=== PATIENT | female | born 1950 | race Caucasian/White ===

== ENCOUNTER 2020-08-16 11:16 | Outpatient (REF) | payer MEDICARE, SELFPAY ==
--- NOTE | 2020-08-16 | MM_ITS ---
EXAMINATION: MM SCREENING DIGITAL BREAST TOMOSYNTHESIS, BILATERAL CLINICAL INFORMATION: Screening. Asymptomatic. Status post ultrasound-guided right breast biopsy 06/16/2017 (Cores of benign breast tissue with stromal fibrosis, pseudocyst with surrounding fat necrosis, and granulomatous inflammation), Subsequent benign INTACT stereotactic biopsy 07/15/2017 same area (benign breast tissue with stromal fibrosis, peripheral biopsy site reaction, and granulomatous inflammation. Macrocyst with papillary hyperplasia, stromal fibrosis, and fat necrosis). The lifetime risk of breast cancer based on the Tyrer-Cuzick Model is 3%. COMPARISON: Mammography: 08/11/2019, 08/09/2018, 02/03/2018, 07/05/2017, 06/16/2017, 06/09/2017, 05/22/2016 TECHNIQUE: Digital breast tomosynthesis is performed in both the craniocaudal and mediolateral oblique views along with computer-aided detection (CAD). Synthesized 2D images are generated from the tomosynthesis. FINDINGS: There are scattered areas of fibroglandular density (ACR BI-RADS breast composition Category b). There are postbiopsy changes again seen 1:00 right breast with minor scarring, biopsy clip markers, and a few fine metallic fragments from the INTACT device basket. Neither breast shows interval mass or architectural abnormality or abnormal calcifications. No significant changes. MM/MM tomosynthesis screening BI IMPRESSION: No significant changes from prior studies. ASSESSMENT: BI-RADS 2: Benign RECOMMENDATION: Routine annual mammography screening. This patient's information was entered into a reminder system with a target due date for their next mammogram.
== END 2020-08-16 11:17 | disposition home or self-care (01) ==
LOC: HO.MAMMO 11:16
PROVIDERS: PCP Internal Medicine; Visit Provider Internal Medicine
DX: Z12.31 Encounter for screening mammogram for malignant neoplasm of breast (principal)
CPT/HCPCS: 77063; 77067

== ENCOUNTER 2020-11-01 07:57 | Outpatient (REF) | payer MEDICARE, SELFPAY ==
[2020-11-01 09:23] LABS: MANUAL DIFF FLAG NO
[2020-11-01 09:32] LABS: Basophils Percent Auto 0.6 % (0-2); Eosinophils Absolute Auto 0.2 X10*3/uL (0.0-0.4); Eosinophils Percent Auto 4.5 % (0-4); Hemoglobin 13.2 g/dl (12.0-16.0); Imm Gran Abs Auto 0.02 X10*3/uL (0.00-0.03); Imm Gran Pct Auto 0.4 % (0.0-0.4); Lymphocytes Absolute Auto 1.3 X10*3/uL (1.2-4.9); Lymphocytes Percent Auto 24.7 % (20-40); Mean Corpuscular Hemoglobin 33.2 pg (27.0-33.0); Mean Corpuscular Volume 100.5 fL (80-98); Mean Platelet Volume 10.2 fL (9.4-12.3); Monocytes Absolute Auto 0.6 X10*3/uL (0.1-1.2); Monocytes Percent Auto 10.5 % (2-11); Neutrophils Absolute Auto 3.2 X10*3/uL (2.0-8.3); Neutrophils Percent Auto 59.3 % (45-73); Platelet Count 209 X10*3/uL (160-400); Red Blood Count 3.98 X10*6/uL (4.20-5.50); Red Cell Distribution Width 12.7 % (11.0-16.0); White Blood Count 5.4 X10*3/uL (4.8-10.8)
[2020-11-01 09:41] LABS: Estimated Average Glucose 128 mg/dL; Hemoglobin A1C 148.1671 umol/L; Hemoglobin A1c % 6.1 %
[2020-11-01 10:16] LABS: Creatinine Urine 76.71 mg/dL; Microalbum/Creatinine Ratio Ur 16.9 ug/mg cr
[2020-11-01 10:17] LABS: Alanine Aminotransferase 11 U/L (0-31); Albumin Level 3.9 g/dL (3.5-5.0); Alkaline Phosphatase 58 U/L (39-117); Anion Gap 12 (12-20); Aspartate Amino Transferase 17 U/L (5-31); Bilirubin Total 0.4 mg/dL (0.0-1.0); Blood Urea Nitrogen 18 mg/dL (9-16); Calcium 8.6 mg/dL (8.4-10.2); Carbon Dioxide 28 mmol/L (22-29); Chloride 107 mmol/L (96-108); Cholesterol 134 mg/dL; Estimated Glomerular Filt Rate > 60; Glucose Random 133 mg/dL (60-115); HDL Cholesterol 57 mg/dL; LDL Cholesterol Calculated 65 mg/dl; Potassium 4.3 mmol/L (3.3-5.1); Sodium 143 mmol/L (135-145); Total Protein 5.9 g/dL (6.5-8.0); Triglycerides 63 mg/dL
[2020-11-01 10:40] LABS: Free T4 (Free Thyroxine) 1.01 ng/dL (0.71-1.85); Thyroid Stimulating Hormone 0.39 uIU/mL (0.32-4.0); Vitamin D 25-OH Total 24.1 ng/mL (>30)
[2020-11-01 10:45] LABS: Folate 7.4 ng/mL (> or = 4.0); Vitamin B12 1649 pg/mL (200-900)
== END 2020-11-01 07:58 | disposition home or self-care (01) ==
LOC: HO.LAB 07:57
PROVIDERS: PCP Internal Medicine; Visit Provider Internal Medicine
DX: I10 Essential (primary) hypertension (principal); I48.92 Unspecified atrial flutter; E11.65 Type 2 diabetes mellitus with hyperglycemia; E78.00 Pure hypercholesterolemia, unspecified
CPT/HCPCS: 36415; 80053; 80061; 82043; 82306; 82607; 82746; 83036; 84439; 84443; 85025

== ENCOUNTER → 2020-11-05 09:25 | Outpatient (REF) | payer MEDICARE, SELFPAY ==
--- NOTE | 2020-11-05 09:30 | CA_ITS ---
Transthoracic Echocardiogram Patient (Last, First, Middle): Kaylee Amaral E Gender: Female Date of : 1950 Age: 70 Procedure Date: 11/05/2020 Procedure Type: Transthoracic Echocardiogram Location: OP Height: 152.4 cm Weight: 72.58 kg BSA: 1.70 m2 Heart Rate: bpm BP: 128 / 72 mmHg Assurance Officer: GEENA Referring MD: Harish Petersen MD Symptoms: I48.92 PAF Study Quality: Good ECG Rhythm: Sinus Conclusions: - The left ventricular systolic function is normal. The visually estimated ejection fraction is between 60-65%. - The left atrium is moderately dilated. - No obvious valvular pathology seen on this study. Findings Left Ventricle Normal left ventricular cavity size. There is normal left ventricular wall thickness. The left ventricular systolic function is normal. The visually estimated ejection fraction is between 60-65%. There is no evidence of regional wall motion abnormalities. Evidence suggests grade I (mild) diastolic dysfunction. Right Ventricle Normal right ventricular cavity size and systolic function. Atria The left atrium is moderately dilated. The right atrium is normal in size. Aortic Valve There is a normal trileaflet aortic valve. There is no aortic valve stenosis. There is no aortic valve regurgitation. Mitral Valve The mitral valve appears normal. There is trace mitral valve regurgitation. There is no mitral valve stenosis. Pulmonic Valve The pulmonic valve was not well visualized. Tricuspid Valve Normal tricuspid valve structure. There is trace tricuspid valve regurgitation. The pulmonary artery systolic pressure is normal. Great Vessels The aortic annulus, sinuses of valsalva, and asc aorta are normal in size. Venous The inferior vena cava is normal in size and collapses greater than 50% with inspiration. Pericardium/Pleural There is no evidence of pericardial effusion. Prior Study Comparison Changes noted compared to prior study dated: 09/29/3017. PFO described in last study but not well visualized in current study. Recommendations, Care & Conclusions No obvious valvular pathology seen on this study. Measurements 2D Linear Measurements IVSd: 0.90 0.6-0.9/0.6-1.0 cm LVIDd: 5.10 3.9-5.3/4.2-5.9 cm LVIDd Index: 3.00 2.4-3.2/2.2-3.1 cm/m2 LVIDs: 3.20 2.0-3.6 cm LVPWd: 1.04 0.7-1.1 cm Ao Root: 2.60 2.1-3.5 cm LA Diam: 3.60 2.7-3.8/3.0-4.0 cm LAIDs Index: 2.12 1.5-2.3 cm/m2 LV Mass: 224.14 67-162/88-224 g LV Mass Index: 131.85 43-95/49-115 g/m2 LVOT Diam: 2.10 3.0+(-)1.3 cm 2D Systolic Function EF 4C: 61.90 >55% EF 2C: 63.30 >55% EF BiP: 63.30 >55% Mitral Valve MV Pk E: 0.55 MV PK A: 0.35 MV Decel Time: 313.00 E/A: 1.60 E'Lateral: 6.85 E'Medial: 5.87 E/E' Med: 9.30 E/E' Lat: 8.00 PHT: 92.00 MVA PHT: 2.39 Decel [place]: 1.74 Aortic Valve AoV Pk Sundeep: 1.21 AoV Pk Grad: 6.00 LVOT LVOT Pk Sundeep: 0.98 LVOT Mn Sundeep: 0.59 LVOT VTI: 0.22 LVOT Pk Grad: 4.00 LVOT Mn Grad: 2.00 LVOT Diam: 2.10 LVOT Area: 3.46 Diastolic Function MV Pk E: 0.55 MV Pk A: 0.35 E/A: 1.60 E'Medial: 5.87 E/E' Med: 9.30 E' Laterial: 6.85 E/E' Lat: 8.00 Tricuspid Valve TR Pk Sundeep: 2.58 TR Pk Grad: 27.00 RA Press: 3.00 RVSP: 30.00 Great Vessels Aorta Ao Root-2D: 2.60 2.0-3.7 cm Ao Asc: 2.90 2.1-3.4 cm Updated in Other Vendor System with Status of Final Mark Bhatia MD electronically signed on 11/05/2020 5:52:34 PM with status of Final
== END ==
LOC: HO.CARD 09:25
PROVIDERS: PCP Internal Medicine; Visit Provider Internal Medicine Cardiovascular Disease
DX: I48.92 Unspecified atrial flutter (principal)
CPT/HCPCS: 93306

== ENCOUNTER → 2020-11-19 08:40 | Outpatient (BNVA) | payer MEDICARE, SELFPAY | PROVIDERS: PCP Internal Medicine; Visit Provider Internal Medicine Cardiovascular Disease | DX: I48.92 Unspecified atrial flutter (principal); I10 Essential (primary) hypertension; F17.200 Nicotine dependence, unspecified, uncomplicated; Z71.6 Tobacco abuse counseling; Z79.899 Other long term (current) drug therapy | CPT/HCPCS: 93005; 99212 ==

== ENCOUNTER → 2021-05-09 08:55 | Outpatient (BNVA) | payer MEDICARE, SELFPAY | PROVIDERS: PCP Internal Medicine; Referring Provider Internal Medicine; Visit Provider Internal Medicine Cardiovascular Disease | DX: R00.1 Bradycardia, unspecified (principal) | CPT/HCPCS: 93005 ==

== ENCOUNTER 2021-09-03 11:03 | Outpatient (REF) | payer MEDICARE, SELFPAY ==
--- NOTE | ~2021-09-03 | MM_ITS ---
EXAMINATION: MM SCREENING DIGITAL BREAST TOMOSYNTHESIS, BILATERAL CLINICAL INFORMATION: Screening. Asymptomatic. Benign right ultrasound-guided biopsy 06/16/2017 for architectural changes. Subsequent benign INTACT stereotactic biopsy 07/15/2017 same area. The lifetime risk of breast cancer based on the Tyrer-Cuzick Model is 3%. COMPARISON: Mammography: 08/16/2020, 08/11/2019, 08/09/2018 TECHNIQUE: Digital breast tomosynthesis is performed in both the craniocaudal and mediolateral oblique views along with computer-aided detection (CAD). Synthesized 2D images are generated from the tomosynthesis. Additional right CC view is provided. FINDINGS: There are scattered areas of fibroglandular density (ACR BI-RADS breast composition Category b). Parenchymal pattern is similar to prior exams. There is no developing density or interval architectural abnormality, mass, or abnormal calcifications. There is a dermal lesion overlying the upper outer left breast on MLO view similar to prior study. Dermal lesion again noted posterior medial right breast. There are postbiopsy changes again seen central posterior inner right breast with 2 clip markers and some punctate metallic fragments from the INTACT device basket. MM/MM tomosynthesis screening BI IMPRESSION: No significant changes from prior exams. ASSESSMENT: BI-RADS 2: Benign RECOMMENDATION: Routine annual mammography screening. This patient's information was entered into a reminder system with a target due date for their next mammogram.
== END 2021-09-03 11:04 | disposition home or self-care (01) ==
LOC: HO.MAMMO 11:03
PROVIDERS: PCP Internal Medicine; Visit Provider Internal Medicine
DX: Z12.31 Encounter for screening mammogram for malignant neoplasm of breast (principal)
CPT/HCPCS: 77063; 77067

== ENCOUNTER 2021-09-13 13:41 | Outpatient (REF) | payer MEDICARE, SELFPAY ==
--- NOTE | ~2021-09-13 | CT_ITS ---
EXAMINATION: CT CHEST SCREENING CLINICAL INFORMATION: Smoking history. 58 pack-year history. Quit 1 year ago. COMPARISON: Previous chest x-ray May 2017. TECHNIQUE: Multidetector volumetric CT imaging of the chest is performed without contrast using low dose technique. Additional 2D coronal and sagittal reformatted images and axial 3D maximum intensity projection (MIP) images are generated on the CT workstation. This CT examination was performed using dose optimization techniques as appropriate, variously including the following: *Automated exposure control *Adjustment of mA and/or kV according to patient size (this includes techniques or standardized protocols for targeted exams where dose is matched to indication/reason for exam; i.e. extremities or head) *Use of iterative reconstruction technique DLP: 63 mGy-cm FINDINGS: LUNGS: There is evidence of mild paraseptal emphysema. There is a 3 mm peripheral or subpleural right lower lobe nodule adjacent to the major fissure axial image 313 image 5. There is a 7 mm ground-glass area or segment of the right upper lobe near the major fissure axial image 179 series 5. On sagittal and coronal reconstructed images this appears linear and may represent scarring or subsegmental atelectasis. MEDIASTINUM: There is mild coronary artery and aortic calcification. The heart size is normal. The thoracic aorta is normal in caliber. There are no enlarged hilar or mediastinal lymph nodes. The visualized thyroid gland is unremarkable. PLEURA: There is no pleural effusion. No pleural mass or thickening. AXILLA: No lymphadenopathy. UPPER ABDOMEN: Unremarkable. OSSEOUS STRUCTURES: There are degenerative changes of the spine. CT/CT lung screening IMPRESSION: Mild paraseptal emphysema. Small pulmonary nodule or micronodule. Probable linear scarring or subsegmental atelectasis in the posterior segment of the right upper lobe near the major fissure. Mild coronary artery calcifications. ASSESSMENT: Lung-RADS category 2: Benign. RECOMMENDATION: Annual low-dose chest CT follow-up.
== END 2021-09-13 13:42 | disposition home or self-care (01) ==
LOC: HO.CT 13:41
PROVIDERS: Visit Provider Physician Assistant Medical
DX: Z87.891 Personal history of nicotine dependence (principal)
CPT/HCPCS: 71271; G0296

== ENCOUNTER 2021-10-10 10:16 | Outpatient (REF) | payer MEDICARE, SELFPAY ==
--- NOTE | ~2021-10-10 | MM_ITS ---
EXAMINATION: BONE DENSITOMETRY CLINICAL INDICATION: Other specified disorders of bone density and structure, other site. COMPARISON: Previous BD dated 09/13/2015 and baseline BD dated 09/24/2006. TECHNIQUE: Using a [employer] DXA System (software version: 13.1) manufactured by [employer], dual-energy x-ray absorptiometry was performed of the lumbar spine and left hip. The images are of good technical quality. Summary results are attached. FINDINGS: AP SPINE L1-L3 (excluding L4): The data of L1-L4 has been changed to exclude the L4 vertebral body, because hardware at this level may cause overestimation of lumbar spine density. Current: BMD 2.282 g/cm2, Z-score 10.7, T-score 9.3, normal, 20.2% increase from previous, 41.0% increase from baseline (<5% change is not significant). Prior: BMD 1.898 g/cm2. Baseline: BMD 1.618 g/cm2. LEFT FEMUR, NECK: Current: BMD 1.195 g/cm2, Z-score 2.8, T-score 1.1, normal. Prior: BMD 1.252 g/cm2. Baseline: BMD 1.123 g/cm2. LEFT FEMUR, TOTAL: Current: BMD 1.072 g/cm2, Z-score 2.0, T-score 0.5, normal, 10.8% decrease from previous, 5.7% decrease from baseline (<5% change is not significant). Prior: BMD 1.202 g/cm2. Baseline: BMD 1.137 g/cm2. IDENTIFIED RISK FACTORS: Early menopause, secondary osteoporosis, height loss, family history (parental hip fracture), hysterectomy, unilateral oophorectomy. HISTORY OF FRACTURE: None listed. MEDICATIONS: Calcium supplements or multivitamin, vitamin D. MM/XR DEXA axial skeleton IMPRESSION: 1. DIAGNOSIS: Normal bone density based on the lowest T-score value of 0.5 in the total femur applying World Health Organization criteria. 2. 10-YEAR FRACTURE RISK PREDICTION, FRAX: Major osteoporotic fracture (clinical spine, forearm, hip or shoulder) 7.4%. Hip fracture 0.6%. 3. Treatment Recommendations: NOF guidelines recommend consideration for treatment in postmenopausal women and men age 50 and older presenting with the following: -A hip or vertebral (clinical or morphometric) fracture. -T-score less than or equal to -2.5 at the femoral neck or spine after appropriate evaluation to exclude secondary causes. -Low bone mass at the hip or spine and a 10-year fracture probability by FRAX of greater than or equal to 3% for hip fracture or greater than or equal to 20% for major osteoporotic fracture based on the [place] adapted WHO algorithm. 4. Other Recommendations: All treatment decisions require clinical judgment and consideration of individual patient factors, including patient preferences, comorbidities, previous drug use, risk factors not captured in the FRAX model (e.g. frailty, falls, vitamin D deficiency, increased bone turnover, interval significant decline in bone density) and possible under or overestimation of fracture risk by FRAX. FUTURE SCAN RECOMMENDATION: People with diagnosed cases of osteoporosis or at high risk for fracture should have regular bone mineral density tests. For patients eligible for Medicare, routine testing is allowed once every 2 years. The testing frequency can be increased to one year for patients who have rapidly progressing disease, those who are receiving or discontinuing medical therapy to restore bone mass, or have additional risk factors.
== END 2021-10-10 10:17 | disposition home or self-care (01) ==
LOC: HO.MAMMO 10:16
PROVIDERS: Visit Provider Internal Medicine
DX: Z13.820 Encounter for screening for osteoporosis (principal); M85.80 Other specified disorders of bone density and structure, unspecified site; Z78.0 Asymptomatic menopausal state; Z79.899 Other long term (current) drug therapy
CPT/HCPCS: 77080

== ENCOUNTER 2021-11-01 08:42 | Outpatient (REF) | payer MEDICARE, SELFPAY ==
[2021-11-01 09:17] LABS: MANUAL DIFF FLAG NO
[2021-11-01 09:54] LABS: Basophils Percent Auto 0.1 % (0-2); Eosinophils Absolute Auto 0.1 X10*3/uL (0.0-0.4); Hematocrit 40.6 % (37.0-47.0); Hemoglobin 13.3 g/dl (12.0-16.0); Imm Gran Abs Auto 0.03 X10*3/uL (0.00-0.03); Imm Gran Pct Auto 0.4 % (0.0-0.4); Lymphocytes Absolute Auto 1.1 X10*3/uL (1.2-4.9); Lymphocytes Percent Auto 15.7 % (20-40); Mean Corpuscular HGB Conc 32.8 g/dl (31.0-35.0); Mean Corpuscular Hemoglobin 33.6 pg (27.0-33.0); Mean Corpuscular Volume 102.5 fL (80.0-98.0); Mean Platelet Volume 9.8 fL (9.4-12.3); Monocytes Absolute Auto 0.7 X10*3/uL (0.1-1.2); Monocytes Percent Auto 9.2 % (2-11); Neutrophils Absolute Auto 5.3 x10*3/uL (2.0-8.3); Neutrophils Percent Auto 73.6 % (45-73); Platelet Count 252 X10*3/uL (160-400); Red Blood Count 3.96 X10*6/uL (4.20-5.50); White Blood Count 7.2 X10*3/uL (4.8-10.8)
[2021-11-01 10:13] LABS: Creatinine Urine 53.91 mg/dL; Microalbumin Urine < 5.0 mg/L
[2021-11-01 10:15] LABS: Alanine Aminotransferase 13 U/L (0-31); Albumin Level 4.1 g/dL (3.5-5.0); Alkaline Phosphatase 56 U/L (39-117); Anion Gap 11 (12-20); Aspartate Amino Transferase 18 U/L (5-31); Bilirubin Total 0.6 mg/dL (0.0-1.0); Blood Urea Nitrogen 15 mg/dL (9-16); Calcium 9.8 mg/dL (8.4-10.2); Carbon Dioxide 29 mmol/L (22-29); Chloride 106 mmol/L (96-108); Cholesterol 152 mg/dL; Estimated Glomerular Filt Rate > 60; Glucose Random 153 mg/dL (60-115); HDL Cholesterol 50 mg/dL; LDL Cholesterol Calculated 87 mg/dl; Potassium 4.6 mmol/L (3.3-5.1); Sodium 141 mmol/L (135-145); Total Protein 6.4 g/dL (6.5-8.0); Triglycerides 75 mg/dL
[2021-11-01 10:24] LABS: Estimated Average Glucose 128 mg/dL; Hemoglobin A1C 152.5267 umol/L; Hemoglobin A1c % 6.1 %
[2021-11-01 10:39] LABS: Thyroid Stimulating Hormone 0.28 uIU/mL (0.32-4.0); Vitamin D 25-OH Total 33.8 ng/mL (>30)
[2021-11-01 11:03] LABS: Folate 9.5 ng/mL (> or = 4.0); Vitamin B12 1853 pg/mL (200-900)
== END 2021-11-01 08:43 | disposition home or self-care (01) ==
LOC: HO.LAB 08:42
PROVIDERS: PCP Internal Medicine; Visit Provider Internal Medicine
DX: I10 Essential (primary) hypertension (principal); K21.9 Gastro-esophageal reflux disease without esophagitis; E11.65 Type 2 diabetes mellitus with hyperglycemia; E78.00 Pure hypercholesterolemia, unspecified; E03.9 Hypothyroidism, unspecified
CPT/HCPCS: 36415; 80053; 80061; 82043; 82306; 82607; 82746; 83036; 84439; 84443; 85025

== ENCOUNTER → 2021-11-21 08:25 | Outpatient (BNVA) | payer MEDICARE, SELFPAY | PROVIDERS: PCP Internal Medicine; Referring Provider Internal Medicine; Visit Provider Internal Medicine Cardiovascular Disease | DX: Z13.89 Encounter for screening for other disorder (principal) ==

== ENCOUNTER 2021-11-21 09:03 | Outpatient (REF) | payer MEDICARE, SELFPAY ==
[2021-11-21 10:36] LABS: Anion Gap 12 (12-20); Blood Urea Nitrogen 18 mg/dL (9-16); Carbon Dioxide 26 mmol/L (22-29); Chloride 105 mmol/L (96-108); Estimated Glomerular Filt Rate > 60; Glucose Random 119 mg/dL (60-115); Potassium 4.4 mmol/L (3.3-5.1); Sodium 139 mmol/L (135-145)
[2021-11-21 10:51] LABS: Free T4 (Free Thyroxine) 0.88 ng/dL (0.71-1.85); Thyroid Stimulating Hormone 0.35 uIU/mL (0.32-4.0)
== END 2021-11-21 09:04 | disposition home or self-care (01) ==
LOC: HO.LAB 09:03
PROVIDERS: PCP Internal Medicine; Visit Provider Internal Medicine
DX: I48.92 Unspecified atrial flutter (principal); I10 Essential (primary) hypertension; E03.9 Hypothyroidism, unspecified
CPT/HCPCS: 36415; 80048; 84439; 84443; 93005; 99212

== ENCOUNTER 2022-02-01 08:56 | Outpatient (REF) | payer MEDICARE, SELFPAY ==
[2022-02-01 09:44] LABS: Appearance Urine CLOUDY; Color Urine YELLOW; Glucose Urine UA NEG (NEG); Leukocyte Esterase Urine 2+ (NEG); Nitrite Urine NEG (NEG); Specific Gravity - Urine >= 1.030 (1.005-1.025); UACC Culture Trigger YES; Urine Blood 3+ (NEG); Urine Ketones NEG (NEG); Urine Protein TRACE MG/DL (NEG-TRACE)
[2022-02-01 09:53] LABS: Bacteria Urine 2+ /LPF; Mucus Urine 1+ /LPF; WBC Urine TNTC /HPF (0-4)
[2022-02-01 10:30] LABS: Creatinine Urine 108.94 mg/dL
== END 2022-02-01 08:57 | disposition home or self-care (01) ==
LOC: HO.LAB 08:56
PROVIDERS: PCP Internal Medicine; Visit Provider Internal Medicine
DX: E11.65 Type 2 diabetes mellitus with hyperglycemia (principal); R82.71 Bacteriuria; B96.20 Unspecified Escherichia coli [E. coli] as the cause of diseases classified elsewhere
CPT/HCPCS: 81001; 87086; 87088; 87186

== ENCOUNTER 2022-02-22 13:49 | Emergency (ER) | payer OTHER, MEDICARE, SELFPAY ==
[2022-02-22 14:03] VITALS: BP 151/61; PULSE 62; RESP 18; TEMP 36.6; O2SAT 96; BMI 33.3
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
[2022-02-22] MEDS: Cyclobenzaprine HCl 5 MG TABLET PO (15:36)
[2022-02-22 15:41] VITALS: BP 179/79; PULSE 76; RESP 20; TEMP 36.6; O2SAT 98
== END 2022-02-22 15:52 | disposition home or self-care (01) ==
PROVIDERS: Emergency Provider Emergency Medicine Emergency Medical Services; PCP Internal Medicine
DX: S09.90XA Unspecified injury of head, initial encounter (principal); V43.62XA Car passenger injured in collision with other type car in traffic accident, initial encounter; Y93.9 Activity, unspecified; Y92.410 Unspecified street and highway as the place of occurrence of the external cause; Y99.9 Unspecified external cause status; Z87.891 Personal history of nicotine dependence; Z79.899 Other long term (current) drug therapy
CPT/HCPCS: 99283

== ENCOUNTER → 2022-05-22 08:29 | Outpatient (BNVA) | payer OTHER, MEDICARE, SELFPAY | PROVIDERS: PCP Internal Medicine; Referring Provider Internal Medicine; Visit Provider Internal Medicine Cardiovascular Disease | DX: R53.83 Other fatigue (principal) | CPT/HCPCS: 93005 ==

== ENCOUNTER 2022-06-03 14:06 | Outpatient (REF) | payer OTHER, MEDICARE, SELFPAY ==
--- NOTE | ~2022-06-03 | XR_ITS ---
EXAMINATION: X-RAY BILATERAL SHOULDERS CLINICAL INFORMATION: Pain COMPARISON: None TECHNIQUE: Right shoulder 4 views. Left shoulder 4 views. FINDINGS: Right shoulder: There is a 1.2 cm ossification projected adjacent to the superior/lateral aspect of the glenoid. There is apparent mild inferior positioning of the humeral head with respect to glenoid. Mild glenohumeral joint arthritis. Moderate acromioclavicular arthritis. No suspicious finding the visualized right lung. Left shoulder: Mild glenohumeral joint arthritis. Mild acromioclavicular arthritis. No evidence of acute fracture or dislocation. No abnormal soft tissue calcification. No suspicious findings in the visualized left lung XR/XR shoulder RT min 2V IMPRESSION: Right shoulder: Mild glenohumeral joint arthritis. 1.2 cm ossification adjacent to the superior/lateral glenoid, of uncertain etiology. Differential consideration include sequela of trauma, of indeterminate age, loose body. Further evaluation with CT or MRI as clinically warranted. Moderate acromioclavicular arthritis Left shoulder: Mild glenohumeral and acromioclavicular joint arthritis.
--- NOTE | ~2022-06-03 | XR_ITS ---
EXAMINATION: X-RAY BILATERAL SHOULDERS CLINICAL INFORMATION: Pain COMPARISON: None TECHNIQUE: Right shoulder 4 views. Left shoulder 4 views. FINDINGS: Right shoulder: There is a 1.2 cm ossification projected adjacent to the superior/lateral aspect of the glenoid. There is apparent mild inferior positioning of the humeral head with respect to glenoid. Mild glenohumeral joint arthritis. Moderate acromioclavicular arthritis. No suspicious finding the visualized right lung. Left shoulder: Mild glenohumeral joint arthritis. Mild acromioclavicular arthritis. No evidence of acute fracture or dislocation. No abnormal soft tissue calcification. No suspicious findings in the visualized left lung XR/XR shoulder LT min 2V IMPRESSION: Right shoulder: Mild glenohumeral joint arthritis. 1.2 cm ossification adjacent to the superior/lateral glenoid, of uncertain etiology. Differential consideration include sequela of trauma, of indeterminate age, loose body. Further evaluation with CT or MRI as clinically warranted. Moderate acromioclavicular arthritis Left shoulder: Mild glenohumeral and acromioclavicular joint arthritis.
== END 2022-06-03 14:07 | disposition home or self-care (01) ==
LOC: HO.HMGCX 14:06
PROVIDERS: PCP Internal Medicine; Visit Provider Internal Medicine
DX: M25.511 Pain in right shoulder (principal); M25.512 Pain in left shoulder
CPT/HCPCS: 73030

== ENCOUNTER → 2022-07-09 10:01 | Outpatient (BNVA) | payer OTHER, MEDICARE, SELFPAY | PROVIDERS: PCP Internal Medicine; Visit Provider Physician Assistant | DX: M19.011 Primary osteoarthritis, right shoulder (principal); M19.012 Primary osteoarthritis, left shoulder; M75.81 Other shoulder lesions, right shoulder; M75.82 Other shoulder lesions, left shoulder | CPT/HCPCS: 20610; J1020 ==

== ENCOUNTER 2022-08-01 08:47 | Outpatient (REF) | payer OTHER, MEDICARE, SELFPAY ==
[2022-08-01 11:39] LABS: MANUAL DIFF FLAG NO
[2022-08-01 11:43] LABS: Basophils Percent Auto 0.5 % (0-2); Eosinophils Absolute Auto 0.3 X10*3/uL (0.0-0.4); Eosinophils Percent Auto 4.2 % (0-4); Hematocrit 40.7 % (37.0-47.0); Hemoglobin 13.1 g/dl (12.0-16.0); Imm Gran Abs Auto 0.03 X10*3/uL (0.00-0.03); Imm Gran Pct Auto 0.4 % (0.0-0.4); Lymphocytes Absolute Auto 1.4 X10*3/uL (1.2-4.9); Lymphocytes Percent Auto 17.9 % (20-40); Mean Corpuscular HGB Conc 32.2 g/dl (31.0-35.0); Mean Corpuscular Hemoglobin 33.7 pg (27.0-33.0); Mean Corpuscular Volume 104.6 fL (80.0-98.0); Mean Platelet Volume 10.1 fL (9.4-12.3); Monocytes Percent Auto 12.5 % (2-11); Neutrophils Absolute Auto 5.2 x10*3/uL (2.0-8.3); Neutrophils Percent Auto 64.5 % (45-73); Platelet Count 225 X10*3/uL (160-400); Red Blood Count 3.89 X10*6/uL (4.20-5.50); Red Cell Distribution Width 12.6 % (11.0-16.0)
[2022-08-01 12:40] LABS: Alanine Aminotransferase 10 U/L (0-31); Albumin Level 3.9 g/dL (3.5-5.0); Alkaline Phosphatase 81 U/L (39-117); Anion Gap 12 (12-20); Aspartate Amino Transferase 17 U/L (5-31); Bilirubin Total 0.4 mg/dL (0.0-1.0); Blood Urea Nitrogen 18 mg/dL (9-16); Calcium 8.9 mg/dL (8.4-10.2); Carbon Dioxide 30 mmol/L (22-29); Chloride 105 mmol/L (96-108); Cholesterol 163 mg/dL; Estimated Glomerular Filt Rate 60; Free T4 (Free Thyroxine) 0.91 ng/dL (0.71-1.85); Glucose Random 149 mg/dL (60-115); HDL Cholesterol 45 mg/dL; LDL Cholesterol Calculated 101 mg/dl; Potassium 5.1 mmol/L (3.3-5.1); Triglycerides 87 mg/dL
[2022-08-01 12:47] LABS: Sodium 142 mmol/L (135-145)
== END 2022-08-01 08:48 | disposition home or self-care (01) ==
LOC: HO.HMGCLDS 08:47
PROVIDERS: PCP Internal Medicine; Visit Provider Internal Medicine
DX: I48.92 Unspecified atrial flutter (principal); E78.00 Pure hypercholesterolemia, unspecified
CPT/HCPCS: 36415; 80053; 80061; 84439; 85025

== ENCOUNTER 2022-09-05 08:29 | Outpatient (REF) | payer MEDICARE, SELFPAY ==
--- NOTE | ~2022-09-05 | MM_ITS ---
EXAMINATION: MM SCREENING DIGITAL BREAST TOMOSYNTHESIS, BILATERAL CLINICAL INFORMATION: Screening. Asymptomatic. Benign right ultrasound-guided biopsy 06/16/2017 for architectural changes. Subsequent benign INTACT stereotactic biopsy 07/15/2017 same area. The lifetime risk of breast cancer based on the Tyrer-Cuzick Model is 2%. COMPARISON: Mammography: 09/03/2021, 08/16/2020, 08/11/2019 TECHNIQUE: Digital breast tomosynthesis is performed in both the craniocaudal and mediolateral oblique views along with computer-aided detection (CAD). Synthesized 2D images are generated from the tomosynthesis. FINDINGS: There are scattered areas of fibroglandular density (ACR BI-RADS breast composition Category b). There are no significant masses, abnormal calcifications, or other abnormalities. Parenchymal pattern is similar to prior studies and there is no developing density or interval architectural changes. The axilla are unremarkable. There is a dermal lesion again seen overlying the upper outer left breast. Right breast again has 2 biopsy clip markers related to prior sampling along with punctate metallic fragments from the INTACT device basket. MM/MM tomosynthesis screening BI IMPRESSION: No mammographic evidence of malignancy. ASSESSMENT: BI-RADS 2: Benign RECOMMENDATION: Routine annual mammography screening. This patient's information was entered into a reminder system with a target due date for their next mammogram.
== END 2022-09-05 08:30 | disposition home or self-care (01) ==
LOC: HO.MAMMO 08:29
PROVIDERS: PCP Internal Medicine; Visit Provider Internal Medicine
DX: Z12.31 Encounter for screening mammogram for malignant neoplasm of breast (principal)
CPT/HCPCS: 77063; 77067

== ENCOUNTER 2022-09-12 15:00 | Outpatient (REF) | payer OTHER, MEDICARE, SELFPAY ==
--- NOTE | ~2022-09-12 | XR_ITS ---
EXAMINATION: XR CERVICAL SPINE CLINICAL INFORMATION: Pain. COMPARISON: Radiographs dated 01/12/2010. TECHNIQUE: Frontal, odontoid and lateral views of the cervical spine were obtained. FINDINGS: Vertebral body heights are normal. At C4-C5, there is a 2 mm anterolisthesis. The remaining disc spaces are well-maintained. No acute fracture or spondylolisthesis is seen. There is moderately severe spondylosis at C5-C6 and C6-C7. The posterior elements are intact. There is multi-level cervical facet arthropathy. The dens is intact. No prevertebral soft tissue swelling is seen. XR/XR cervical spine 3V IMPRESSION: 1. There is mild degenerative disc disease at C4-C5. 2. There is moderately severe spondylosis at C5-C6 and C6-C7. 3. There is multi-level cervical facet arthropathy.
== END 2022-09-12 15:01 | disposition home or self-care (01) ==
LOC: HO.HMGCX 15:00
PROVIDERS: PCP Internal Medicine; Visit Provider Internal Medicine
DX: M25.511 Pain in right shoulder (principal); M25.512 Pain in left shoulder
CPT/HCPCS: 72040

== ENCOUNTER 2022-09-22 09:07 | Outpatient (REF) | payer OTHER, MEDICARE, SELFPAY ==
--- NOTE | ~2022-09-22 | CT_ITS ---
EXAMINATION: CT CHEST SCREENING CLINICAL INFORMATION: Personal history of nicotine dependence. COMPARISON: CT lung screening 09/13/2021. TECHNIQUE: Multidetector volumetric CT imaging of the chest is performed without contrast using low dose technique. Additional 2D coronal and sagittal reformatted images and axial 3D maximum intensity projection (MIP) images are generated on the CT workstation. This CT examination was performed using dose optimization techniques as appropriate, variously including the following: *Automated exposure control *Adjustment of mA and/or kV according to patient size (this includes techniques or standardized protocols for targeted exams where dose is matched to indication/reason for exam; i.e. extremities or head) *Use of iterative reconstruction technique DLP: 150 mGy-cm FINDINGS: LUNGS: The lungs are hyperinflated likely from emphysema. Linear atelectatic changes are seen in the lingula with patchy parenchymal opacity in both lung bases likely atelectasis as well. Previously seen ground-glass opacity right upper lobe adjacent to major fissure is not visualized at this time. A 3 mm nodule is seen right lower lobe adjacent major fissure axial image 309/6. It is stable. No additional nodules seen. MEDIASTINUM: Heart size and the great vessels are normal caliber. No pericardial effusion seen. No abnormal-sized mediastinal or hilar lymph nodes seen. The thyroid lobes are symmetric and normal. The central trachea and the bronchi widely patent. CORONARY ARTERY CALCIFICATION: Trace coronary artery calcification seen. PLEURA: There is no pleural effusion. There is minimal right posterior pleural thickening on axial image 46/3. AXILLA: No lymphadenopathy. UPPER ABDOMEN: Visualized liver, spleen, pancreas and bilateral adrenal glands are unremarkable. No radiopaque gallstones or radiopaque renal calculi seen on the visualized images. OSSEOUS STRUCTURES: No aggressive lytic or sclerotic process seen. CT/CT lung screening IMPRESSION: Hyper inflated mildly emphysematous lungs with stable right lower lobe nodule. The ground-glass opacity has resolved. No new nodules seen. Minimal right posterior pleural thickening. ASSESSMENT: Lung-RADS category 2: Benign. RECOMMENDATION: Low-dose annual CT chest.
== END 2022-09-22 09:08 | disposition home or self-care (01) ==
LOC: HO.CT 09:07
PROVIDERS: Visit Provider Physician Assistant Medical
DX: Z12.2 Encounter for screening for malignant neoplasm of respiratory organs (principal); Z87.891 Personal history of nicotine dependence
CPT/HCPCS: 71271

== ENCOUNTER 2022-09-26 11:00 | Outpatient (RCR) | payer OTHER, MEDICARE, SELFPAY ==
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
--- NOTE | 2022-09-26 11:52 | MHC.PT.DC ---
[facility] Office [place] Office [place] Office [address] [phone] F: [phone] F: [phone] F: [phone] F: [phone] Physical Therapy Discharge Report Diagnosis: primary OA R/ L shoulder, other shoulder lesions, ROM, periscap, RTC strength, tenditis of both shoulders Date of Surgery: Date of Evaluation: 08/01/22 Date of Discharge: Treatments to Date: 12 Cancellations to Date: 0 No Shows to Date: 0 Discharge Status: Achieved Goals Improved Function Independent with HEP Discharge Summary: She reports feeling better overall and feels that she can self manage intermittent sx at home. We reviewed all HEP. SPADI 53/130. Discussed continuing with HEP 2x/week for maintenance and using heat for management as well. No further questions at this time. She is appropriate for d/c secondary to meeting goals and I with HEP Electronically signed by: Chikis Mayorga PT Please sign and return to therapist. Thank you for your referral.
== END 2022-09-26 11:52 | disposition home or self-care (01) ==
LOC: HO.PTCHIC 11:00
PROVIDERS: PCP Internal Medicine; Visit Provider Physician Assistant
DX: M19.011 Primary osteoarthritis, right shoulder (principal); M19.012 Primary osteoarthritis, left shoulder; M75.81 Other shoulder lesions, right shoulder; M75.82 Other shoulder lesions, left shoulder
CPT/HCPCS: 97110; 97140; 97162

== ENCOUNTER 2022-11-27 08:23 | Outpatient (REF) | payer MEDICARE, SELFPAY ==
[2022-11-27 09:31] LABS: Hematocrit 41.6 % (37.0-47.0); Hemoglobin 13.8 g/dl (12.0-16.0); Mean Corpuscular HGB Conc 33.2 g/dl (31.0-35.0); Mean Corpuscular Hemoglobin 33.7 pg (27.0-33.0); Mean Corpuscular Volume 101.5 fL (80.0-98.0); Mean Platelet Volume 10.1 fL (9.4-12.3); Platelet Count 208 X10*3/uL (160-400); Red Cell Distribution Width 12.4 % (11.0-16.0)
[2022-11-27 09:52] LABS: Appearance Urine Clear; Color Urine Yellow; Glucose Urine UA Negative (Negative); Leukocyte Esterase Urine Moderate (2+) (Negative); Nitrite Urine Negative (Negative); PH 5.5 (5.0-9.0); Specific Gravity - Urine 1.015 (1.005-1.025); UMIC TRIGGER UACC YES; Urine Blood Negative (Negative); Urine Ketones Negative (Negative); Urine Protein Negative (Neg-Trace)
[2022-11-27 09:55] LABS: Bacteria Urine None Seen (None Seen); Hyaline Casts Urine 0-2 /LPF (0-2); RBC Urine 0-2 /HPF (0-2); UACC Culture Trigger YES
[2022-11-27 10:04] LABS: Anion Gap 13 (12-20); Blood Urea Nitrogen 12 mg/dL (9-16); Calcium 9.1 mg/dL (8.4-10.2); Carbon Dioxide 29 mmol/L (22-29); Chloride 106 mmol/L (96-108); Estimated Glomerular Filt Rate > 60; Glucose Random 130 mg/dL (60-115); Sodium 143 mmol/L (135-145)
== END 2022-11-27 08:24 | disposition home or self-care (01) ==
LOC: HO.LAB 08:23
PROVIDERS: PCP Internal Medicine; Referring Provider Internal Medicine; Visit Provider Internal Medicine Cardiovascular Disease
DX: I48.92 Unspecified atrial flutter (principal); I10 Essential (primary) hypertension; Z79.899 Other long term (current) drug therapy
CPT/HCPCS: 36415; 80048; 80181; 81001; 85027; 87086; 93005; 99212

== ENCOUNTER 2022-12-22 08:30 | Outpatient (REF) | payer MEDICARE, SELFPAY ==
[2022-12-22 11:40] LABS: Appearance Urine Cloudy; Color Urine Yellow; Glucose Urine UA Negative (Negative); Leukocyte Esterase Urine Large (3+) (Negative); Nitrite Urine Negative (Negative); PH 5.5 (5.0-9.0); UMIC TRIGGER UACC YES; Urine Blood Large (3+) (Negative); Urine Ketones Negative (Negative); Urine Protein 30 (1+) mg/dL (Neg-Trace)
[2022-12-22 11:42] LABS: Bacteria Urine None Seen (None Seen); Hyaline Casts Urine 0-2 /LPF (0-2); RBC Urine >20 /HPF (0-2); Squamous Epithelial Cell Urine 0-2 /HPF (0-2); UACC Culture Trigger YES; WBC Urine >50 /HPF (0-5)
== END 2022-12-22 08:31 | disposition home or self-care (01) ==
LOC: HO.HMGCLDS 08:30
PROVIDERS: PCP Internal Medicine; Visit Provider Internal Medicine
DX: R31.9 Hematuria, unspecified (principal)
CPT/HCPCS: 81001; 87086; 87088; 87186

== ENCOUNTER 2022-12-24 09:05 | Outpatient (REF) | payer MEDICARE, SELFPAY ==
--- NOTE | ~2022-12-24 | CT_ITS ---
EXAMINATION: CT HEAD WITHOUT CONTRAST CLINICAL INFORMATION: Unsteadiness on feet. COMPARISON: None. TECHNIQUE: Contiguous axial imaging was performed from the skull base to vertex without intravenous administration of contrast. This CT examination was performed using dose optimization techniques as appropriate, variously including the following: *Automated exposure control *Adjustment of mA and/or kV according to patient size (this includes techniques or standardized protocols for targeted exams where dose is matched to indication/reason for exam; i.e. extremities or head) *Use of iterative reconstruction technique DLP: 867 mGy-cm FINDINGS: Mild segmental calcific atherosclerosis of the cavernous portions of the internal carotid arteries is present. Mild diffuse commensurate prominence of ventricles and sulci is noted along with mild periventricular and subcortical white matter patchy hypodensities. No intracranial hemorrhage, tumors or definitive acute infarcts are visualized. No significant opacification of the visualized paranasal sinuses, mastoid air cells and middle ear cavities. Bilateral ocular lens extractions are noted. Incidental note is made of thinning of the floor of the third ventricle. A definitive third ventriculostomy is not identified nor are calvarial findings present to suggest a remote third ventriculostomy. CT/CT head/brain wo IV con IMPRESSION: 1. No acute intracranial abnormalities. 2. Mild white matter chronic small vessel ischemic changes.
== END 2022-12-24 09:06 | disposition home or self-care (01) ==
LOC: HO.CT 09:05
PROVIDERS: PCP Internal Medicine; Visit Provider Internal Medicine
DX: R26.81 Unsteadiness on feet (principal)
CPT/HCPCS: 70450

== ENCOUNTER 2023-04-07 09:40 | Outpatient (AMB) | payer MEDICARE, SELFPAY ==
--- NOTE | 2023-04-07 10:40 | MHC.OFFWIV ---
Intake Vital Signs 04/07/23 10:42 Weight 72.575 kg BP 122/78 Blood Pressure Location Rt brachial Position Sitting Pulse 58 Pulse Source Pulse Oximeter Temp 98.2 F Temp Source Temporal Artery Scan Pulse Oximetry (%) 97 Oxygen Delivery Method Room Air Intake Visit Reasons: EP, Left wrist pain Intake Note: Patient here for left wrist pain for about 4 days, she states it has progressively worsened. Patient Tobacco Use Status: Former Tobacco user Allergies Sulfa (Sulfonamide Antibiotics) [SULFA (SULFONAMIDE ANTIBIOTICS)] Allergy (Unknown, Verified 04/07/23 10:42) RASH Do you need a note to return to daycare/school/sports/work: No HPI HPI Comments History of Present Illness Details 72-year-old female presents with left wrist pain that she has had for about a week. She does state falling on her deck prior to the pain, and has some bruising on her elbow. She states that she tried to work yesterday, but was unable to because of the wrist pain. He does not report any loss of sensation, and has full range of motion to her digits. [facility] Medical History Allergic rhinitis COPD (chronic obstructive pulmonary disease) Depression Generalized anxiety disorder GERD (gastroesophageal reflux disease) Hiatal hernia Hip osteoarthritis Hypercholesterolemia Hypertension Hypothyroidism Insomnia Lumbar degenerative disc disease Obesity (BMI 30-39.9) Obstructive sleep apnea Paroxysmal atrial flutter Personal history of nicotine dependence PFO (patent foramen ovale) Restless leg syndrome Tubular adenoma of colon Type 2 diabetes mellitus with hyperglycemia Vitamin D deficiency Surgical History History of bilateral breast reduction surgery History of cardioversion (~2017) History of carpal tunnel surgery History of colonoscopy (~2018) History of esophagogastroduodenoscopy (EGD) (~2004) History of foot surgery (~2016) History of hand surgery (~2011) History of hysterectomy History of lumbar surgery History of right breast biopsy (~2016) History of tonsillectomy Family History Father Diabetes Hypertension CVD (cardiovascular disease) Mother Cervical cancer Stroke Social History Housing: House Alcohol intake: current Alcohol intake frequency: a few times a week Patient Tobacco Use Status: Former Tobacco user Tobacco use type: Cigarette Years Smoked: 57yrs, onset 12, on and off, 1-1.5ppd, 50pyh, quit 07/31/2021 e-Cigarette/Vaping Use: Never Used Second Hand Smoke Exposure: No service: No 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al status: employed Cognitive needs: No Hearing needs: No Vision needs: Yes Review of Systems Const Details: Constitutional: No Fever, No Chills Cardiovascular: No Chest Pain, No SOB Respiratory: No Cough, No Dyspnea Gastrointestinal: No Nausea, No Vomiting, No Diarrhea, No abdominal Pain Genitourinary: No Dysuria, No Hematuria Musculoskeletal: positive left wrist joint pain, No Myalgias, No Joint Swelling Skin: No Skin lacerations, No rash Neuro: No Weakness, No Numbness, No Paresthesias, No Dizziness, No Headache All systems reviewed & are unremarkable except as noted in HPI and below Physical Exam Vital Signs: Last Vital Signs Temp 98.2 F 04/07/23 10:42 Pulse 58 04/07/23 10:42 BP 122/78 04/07/23 10:42 Pulse Ox 97 04/07/23 10:42 Oxygen Delivery Method Room Air 04/07/23 10:42 Appearance: Alert. Oriented X3. No acute distress. Eyes: Pupils equal, round and reactive to light. Neck: Normal inspection. Neck supple. CVS: Normal heart rate and rhythm. Pulses normal. Respiratory: No respiratory distress. Breath sounds normal. Skin: Skin warm and dry. Normal skin color. Normal skin turgor. Extremities: Swelling noted to the ulnar of the left wrist. Has full range of motion, flexion extension of the digits, radial ulnar deviation and flexion extension of the wrist. Brisk capillary refill and pulses bilaterally. 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 Neuro: No motor deficit. No sensory deficit. Cranial nerves 2-12 intact. Assessment & Plan Assessment & Plan (1) Swelling of wrist: Code(s): M25.439 - Effusion, unspecified wrist (2) Wrist pain: Code(s): M25.539 - Pain in unspecified wrist Plan: 72-year-old female presents for evaluation for left wrist pain that she has had for about a week. Pain started after a slip and fall on her deck last weekend. She is having a difficult time with pronating and supinating the wrist, but has full flexion extension, radial and ulnar deviation. 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 She does not report any head trauma or loss of consciousness with her fall last week. She does have a bruise on her elbow with a superficial abrasion. Will order x-rays. 11:15 x-rays are negative for acute findings. There are findings consistent with arthritis. Will treat with a Velcro wrist splint and have patient follow with primary care provider. Patient verbalized understanding of discharge instructions. Verbalized understandings of signs and symptoms indicating need for emergent intervention. Orders: Orders XR wrist LT min 3V Today M25.439 - Effusion, unspecified wrist, M25.539 - Pain in unspecified wrist AMB Casting/Splints Today M25.439 - Effusion, unspecified wrist, M25.539 - Pain in unspecified wrist Patient Instructions: You were evaluated for left wrist pain after a fall last week. I do not see any obvious fractures, your x-ray results are pending. Please use Velcro wrist splint as needed for comfort. Rest ice and elevate the extremity to help reduce pain and swelling. Alternate Tylenol 650 mg every 6 hours and Motrin 600 mg every 6 hours as needed for pain management. Consider taking these medications 3 hours apart so you have pain and fever management every 3 hours. Write down what time you take these medications to prevent accidental overdose. Motrin is the same medication as Advil and ibuprofen. Tylenol is the same medication as acetaminophen. Thank you for choosing this urgent care for evaluation. Please follow-up with primary care physician as needed. Return to the emergency department for any new, concerning, or worsening symptoms. Coding Level of Care Code Est Pt Level 3 (59895) Diagnoses Swelling of wrist M25.439 Wrist pain M25.539
[2023-04-07 10:42] VITALS: BP 122/78; PULSE 58; TEMP 36.8; O2SAT 97
== END 2023-04-07 11:37 | disposition home or self-care (01) ==
PROVIDERS: PCP Internal Medicine; Visit Provider Nurse Practitioner Family
DX: M25.439 Effusion, unspecified wrist (principal); M25.539 Pain in unspecified wrist
CPT/HCPCS: 99213

== ENCOUNTER 2023-04-07 10:56 | Outpatient (REF) | payer MEDICARE, SELFPAY ==
--- NOTE | ~2023-04-07 | XR_ITS ---
EXAMINATION: XR WRIST, LEFT CLINICAL INFORMATION: Left wrist pain. COMPARISON: None available. TECHNIQUE: PA, lateral, and oblique views of the left wrist. FINDINGS: Mild first carpal metacarpal and triscaphe degenerative joint changes are seen. Mild to moderate radiocarpal degenerative joint changes are seen with joint space narrowing, periarticular sclerosis and subcortical cystic changes. The distal ulna is intact. The carpal bones are normally aligned. The soft tissues are unremarkable. XR/XR wrist LT min 3V IMPRESSION: Degenerative joint changes most consistent with osteoarthritis. No overt fracture.
== END 2023-04-07 10:57 | disposition home or self-care (01) ==
LOC: HO.HMGCX 10:56
PROVIDERS: PCP Internal Medicine; Visit Provider Nurse Practitioner Family
DX: M25.432 Effusion, left wrist (principal); M25.532 Pain in left wrist
CPT/HCPCS: 73110

== ENCOUNTER → 2023-05-06 09:52 | Outpatient (REF) | payer MEDICARE, SELFPAY ==
--- NOTE | 2023-05-06 09:54 | CA_ITS ---
Transthoracic Echocardiogram Patient (Last, First, Middle): Kaylee Amaral E Gender: Female Date of : 1950 Age: 72 Procedure Date: 05/06/2023 Procedure Type: Transthoracic Echocardiogram Location: OP Height: 149.86 cm Weight: 72.58 kg BSA: 1.68 m2 Heart Rate: 58 bpm BP: 106 / 60 mmHg Refrigeration Repair Supervisor: SB Referring MD: Harish Petersen MD Ancient Art Curator: Harish Petersen MD Symptoms: I48.92 - Unspecified atrial flutter Study Quality: Fair but adequate ECG Rhythm: Sinus Conclusions: - 1. Normal LV ejection fraction 55-60% 2. Possible small PFO 3. Mildly dilated left atrium 4. Normal cardiac valvular Dopplers 5. Normal RV systolic pressure 6. No gross pericardial effusion Findings Left Ventricle Normal left ventricular size, thickness, and systolic function. The visually estimated ejection fraction is between 55-60%. Spectral Doppler is indicative of a normal filling pattern. Right Ventricle Normal right ventricular cavity size and systolic function. Atria The left atrium is mildly dilated. Possible small PFO present by color Doppler method on subcostal views. The right atrium is normal in size. Aortic Valve Normal aortic valve structure and function. There is no aortic valve stenosis. There is no aortic valve regurgitation. Mitral Valve Normal mitral valve structure and function. There is trace mitral valve regurgitation. There is no mitral valve stenosis. Pulmonic Valve The pulmonic valve is likely normal. Tricuspid Valve Normal tricuspid valve structure. There is trace tricuspid valve regurgitation. The right ventricular systolic pressure is normal. The right ventricular systolic pressure is 31 mmHg. Normal right atrial pressure. There is no evidence of pulmonary hypertension. Great Vessels All visible segments of the aorta are normal in size. The pulmonary artery was not well visualized. Venous The inferior vena cava is normal in size and collapses greater than 50% with inspiration. Pericardium/Pleural There is no evidence of pericardial effusion. Measurements 2D Linear Measurements IVSd: 1.00 0.6-0.9/0.6-1.0 cm LVIDd: 4.92 3.9-5.3/4.2-5.9 cm LVIDd Index: 2.93 2.4-3.2/2.2-3.1 cm/m2 LVIDs: 3.08 2.0-3.6 cm LVPWd: 0.72 0.7-1.1 cm LA Diam: 4.30 2.7-3.8/3.0-4.0 cm LAIDs Index: 2.56 1.5-2.3 cm/m2 LV Mass: 179.23 67-162/88-224 g LV Mass Index: 106.69 43-95/49-115 g/m2 LVOT Diam: 2.10 3.0+(-)1.3 cm 2D Systolic Function EF 4C: 56.00 >55% EF 2C: 60.20 >55% EF BiP: 58.60 >55% Mitral Valve MV Pk E: 0.78 MV PK A: 0.57 MV Decel Time: 174.00 E/A: 1.40 E'Lateral: 8.16 E'Medial: 5.55 E/E' Med: 14.10 E/E' Lat: 9.60 PHT: 51.00 MVA PHT: 4.31 Decel [place]: 4.51 Aortic Valve AoV Pk Sundeep: 1.33 AoV Mn Sundeep: 0.82 AoV VTI: 0.28 AoV Pk Grad: 7.00 Aov Mn Grad: 3.00 MARIA Cont.VTI: 2.94 LVOT LVOT Pk Sundeep: 1.11 LVOT Mn Sundeep: 0.68 LVOT VTI: 0.24 LVOT Pk Grad: 5.00 LVOT Mn Grad: 2.00 LVOT Diam: 2.10 LVOT Area: 3.46 Diastolic Function MV Pk E: 0.78 MV Pk A: 0.57 E/A: 1.40 E'Medial: 5.55 E/E' Med: 14.10 E' Laterial: 8.16 E/E' Lat: 9.60 Right Ventricle TAPSE (mm): 24.80 TVS' Sundeep: 10.80 Tricuspid Valve TR Pk Sundeep: 2.64 TR Pk Grad: 28.00 RA Press: 3.00 RVSP: 31.00 Great Vessels Aorta Sinus of Valsalva: 2.80 2.0-3.5 cm Ao Asc: 3.20 2.1-3.4 cm Pulmonary Valve PV Pk Sundeep: 0.71 Peak PV Grad: 2.00 Shunting QP:QS: 0.50 Updated in Other Vendor System with Status of Final Harish Petersen MD electronically signed on 05/06/2023 3:04:08 PM with status of Final
== END ==
LOC: HO.CARD 09:52
PROVIDERS: PCP Internal Medicine; Visit Provider Internal Medicine Cardiovascular Disease
DX: I48.92 Unspecified atrial flutter (principal); J43.9 Emphysema, unspecified
CPT/HCPCS: 93306

== ENCOUNTER → 2023-05-06 09:54 | Outpatient (BNV) | payer MEDICARE, SELFPAY | PROVIDERS: PCP Internal Medicine; Visit Provider Internal Medicine Cardiovascular Disease | DX: I48.92 Unspecified atrial flutter (principal) | CPT/HCPCS: 93306 ==

== ENCOUNTER 2023-05-14 08:58 | Outpatient (REF) | payer MEDICARE, SELFPAY ==
[2023-05-14 15:12] LABS: Anion Gap 11 (12-20); Blood Urea Nitrogen 17 mg/dL (9-16); Calcium 9.8 mg/dL (8.4-10.2); Carbon Dioxide 29 mmol/L (22-29); Chloride 105 mmol/L (96-108); Estimated Glomerular Filt Rate > 60; Glucose Random 145 mg/dL (60-115); Potassium 4.8 mmol/L (3.3-5.1); Sodium 140 mmol/L (135-145)
== END 2023-05-14 08:59 | disposition home or self-care (01) ==
LOC: HO.LAB 08:58
PROVIDERS: PCP Internal Medicine; Referring Provider Internal Medicine; Visit Provider Internal Medicine Cardiovascular Disease
DX: I48.92 Unspecified atrial flutter (principal); I10 Essential (primary) hypertension; Q21.10 Atrial septal defect, unspecified
CPT/HCPCS: 36415; 80048; 93005; 99212

== ENCOUNTER 2023-05-14 08:58 | Outpatient (AMB) | payer MEDICARE, SELFPAY ==
[2023-05-14 09:09] VITALS: BP 120/82; PULSE 62; BMI 31.6
--- NOTE | 2023-05-14 09:09 | MHC.OFFVIS ---
Intake Vital Signs 05/14/23 09:09 Height 4 ft 11 in Weight 156 lb 8.451 oz BMI 31.6 BP 120/82 Blood Pressure Location Lt brachial Position Sitting Pulse 62 Intake Visit Reasons: 6 mth f/up w/ ekg s/p echo Intake Note: 6 month follow-up with ekg and echo results feeling good [employer] Required: No Allergies Sulfa (Sulfonamide Antibiotics) [SULFA (SULFONAMIDE ANTIBIOTICS)] Allergy (Unknown, Verified 04/07/23 10:42) RASH Medication List - Last Reconciled 05/14/23 by Harish Petersen MD alprazolam 0.25 mg PO DAILY apixaban (Eliquis) 5 mg PO BID atorvastatin 80 mg PO DAILY blood sugar diagnostic As directed check the blood sugar once a day blood sugar diagnostic ([employer] Ultra Test strips) As directed check the blood sugar twice a day bupropion HCl 300 mg (2 x 150 mg) PO QAM 90 days calcium carbonate-vitamin D3 600 mg-5 mcg (200 unit) (Calcium 600 + D(3)) caps PO flecainide 100 mg PO Q12H levothyroxine 100 mcg PO QAM lisinopril 5 mg PO DAILY metoprolol succinate ER 25 mg PO BID 90 days nystatin 1 appl topical QID omeprazole 20 mg PO DAILY oxycodone-acetaminophen 5-325 mg (Percocet) 1 tab PO .QD PRN 30 days sertraline 50 mg PO DAILY 90 days thiamine HCl (vitamin B1) 50 mg PO DAILY 90 days zolpidem 10 mg PO BEDTIME PRN 90 days HPI HPI Comments History of Present Illness Details Kaylee comes for follow-up. She has been doing well from cardiac perspective. She denies any significant prolonged palpitations irregular heartbeat. Denies any shortness of breath, chest discomfort, orthopnea, PND. Recent echocardiogram consistent with mild left atrial enlargement and possible small PFO without any major valvular abnormality with normal LV systolic function. She denies any lightheadedness, syncope. Denies any bleeding issues or neurologic events. Unfortunately she got back to smoking since her brother passed [facility] Medical History Depression Tubular adenoma of colon Personal history of nicotine dependence Generalized anxiety disorder Paroxysmal atrial flutter Lumbar degenerative disc disease Obstructive sleep apnea Restless leg syndrome Hiatal hernia Hip osteoarthritis Vitamin D deficiency Type 2 diabetes mellitus with hyperglycemia Allergic rhinitis Insomnia PFO (patent foramen ovale) Hypercholesterolemia COPD (chronic obstructive pulmonary disease) Hypertension Obesity (BMI 30-39.9) GERD (gastroesophageal reflux disease) Hypothyroidism Surgical History History of tonsillectomy History of bilateral breast reduction surgery History of carpal tunnel surgery History of lumbar surgery History of hysterectomy History of right breast biopsy (~2016) History of hand surgery (~2011) History of esophagogastroduodenoscopy (EGD) (~2004) History of colonoscopy (~2018) History of cardioversion (~2017) History of foot surgery (~2016) Family History Father Diabetes Hypertension CVD (cardiovascular disease) Mother Cervical cancer Stroke Social History Housing: House Alcohol intake: current Alcohol intake frequency: a few times a week Patient Tobacco Use Status: Former Tobacco user Tobacco use type: Cigarette Years Smoked: 57yrs, onset 12, on and off, 1-1.5ppd, 50pyh, quit 07/31/2021 e-Cigarette/Vaping Use: Never Used Second Hand Smoke Exposure: No service: No 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al status: employed Cognitive needs: No Hearing needs: No Vision needs: Yes Review of Systems Const Denies chills, Denies fatigue, Denies fever(s), Denies frequent falls, Denies weakness, Denies weight gain and Denies weight loss ENT Denies dizziness Card Denies chest pain, Denies leg edema, Denies lightheadedness, Denies palpitations, Denies dyspnea, Denies dyspnea on exertion, Denies orthopnea and Denies other (loss of consciousness) Resp Denies cough, Denies dyspnea and Denies dyspnea on exertion GI Denies hematochezia and Denies change in stool character Musc Denies abnormal gait, Denies muscle weakness, Denies numbness, Denies radiating pain into limb and Denies tingling Neuro Denies abnormal gait, Denies dizziness, Denies frequent falls, Denies numbness, Denies tingling and Denies weakness Endo Denies fatigue and Denies palpitations Physical Exam Vital Signs: Last Vital Signs Pulse 62 05/14/23 09:09 BP 120/82 05/14/23 09:09 BMI result Body Mass Index 31.6 Const General: cooperative, comfortable, no acute distress, alert, awake and well groomed Nutritional Appearance: overweight Orientation/consciousness: patient oriented x3 Limitations: no limitations Neck Neck: Yes trachea midline, Yes supple and Yes no JVD Resp Effort & Inspection: normal respiratory effort Auscultation: clear to auscultation bilaterally Cardio Jugular venous distension: no JVD Palpation: normal PMI Rate: regular rate Rhythm: regular rhythm Heart sounds: S1 normal heart sound present and S2 normal heart sound present GI Auscultation: normal bowel sounds Skin General skin exam: no rashes or lesions noted Neuro General: patient oriented x3 and no focal motor deficits Extrem General: Yes no clubbing, cyanosis or edema Psych Appearance: grossly normal Office Procedures EKG Details: EKG shows normal sinus rhythm with normal EKG [id number], Complete Assessment & Plan Assessment & Plan (1) Paroxysmal atrial flutter: Comment: (hx synch cardioversion 2017) Code(s): I48.92 - Unspecified atrial flutter Plan: Paroxysmal atrial flutter doing very well with rhythm control approach. She symptomatic Ingrid better. Tolerating current medical therapy with flecainide as well as metoprolol. Continue the same. Will need EKGs every 6 months. CHADSVASc score of at least 4. Continue full oral anticoagulation, currently on Eliquis 5 mg b.i.d.. Semi annual renal function test is recommended. Advised to avoid stimulants such as caffeine and alcohol. She understands and agrees. Maintain activity level as tolerated. (2) PFO (patent foramen ovale): Comment: August 2017 Code(s): Q21.1 - Atrial septal defect Plan: Small PF for without any obvious clinical symptoms related to it. No interventions required per se for it. Currently on full oral anticoagulation with Eliquis, continue the same. (3) Hypertension: Code(s): I10 - Essential (primary) hypertension Qualifiers: Hypertension type: essential hypertension Qualified Code(s): I10 - Essential (primary) hypertension Plan: Hypertension is currently well optimized advised to continue current medications. Importance of good blood pressure control was discussed advised to monitor blood pressure at home maintain a log. Goal blood pressure less than 130/84. Complete smoking cessation was advised. Continue aggressive management diabetes goal hemoglobin A1c less than 7%. Goal LDL less than 70 mg/dL. Will follow up in the clinic in 6 months for EKG in 1 year with me. Thank you for allowing me to partake in the care Coding Level of Care Code Est Pt Level 4 (50147) Diagnoses Paroxysmal atrial flutter I48.92 PFO (patent foramen ovale) Q21.1 Essential hypertension I10 Hypertension type: essential hypertension CPT Codes EKG - CPT: [id number], Complete ([id number])
== END 2023-05-14 09:27 | disposition home or self-care (01) ==
PROVIDERS: PCP Internal Medicine; Referring Provider Internal Medicine; Visit Provider Internal Medicine Cardiovascular Disease
DX: I48.92 Unspecified atrial flutter (principal); Q21.10 Atrial septal defect, unspecified; I10 Essential (primary) hypertension
CPT/HCPCS: 93010; 99214

== ENCOUNTER 2023-05-20 08:57 | Outpatient (AMB) | payer MEDICARE, SELFPAY ==
[2023-05-20 08:59] VITALS: BP 138/82; PULSE 59; O2SAT 96; BMI 32.7
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
== END 2023-05-20 09:33 | disposition home or self-care (01) ==
PROVIDERS: PCP Internal Medicine; Visit Provider Internal Medicine
DX: E11.65 Type 2 diabetes mellitus with hyperglycemia (principal)
CPT/HCPCS: 83036; 99214

== ENCOUNTER 2023-05-29 09:56 | Outpatient (REF) | payer MEDICARE, SELFPAY | END 2023-05-29 09:57 | disposition home or self-care (01) | LOC: HO.HMGCX 09:56 | PROVIDERS: PCP Internal Medicine; Visit Provider Internal Medicine | DX: Z13.89 Encounter for screening for other disorder (principal) ==

== ENCOUNTER 2023-06-24 12:57 | Outpatient (AMB) | payer MEDICARE, SELFPAY ==
--- NOTE | 2023-06-24 13:08 | A.OFFVIS_ITS ---
Intake Vital Signs 06/24/23 13:15 Height 4 ft 11 in Weight 162 lb BMI 32.7 Intake Visit Reasons: OV-B/L shoulder injection-last injection 07/09/22 Intake Note: Kaylee valle 72 year old female presents today for a follow up of bilateral shoulder, last injection 07/09/22. Patient reports weakness in her left arm weakness and discomfort sleeping at night. States last injection provided some relief for a couple of days. She attended PT with little relief. States a condition in her neck that her PCP informed her of that is causing her to lean body towards her left leg. Allergies Sulfa (Sulfonamide Antibiotics) [SULFA (SULFONAMIDE ANTIBIOTICS)] Allergy (Unknown, Verified 06/24/23 13:15) RASH HPI OV-B/L shoulder injection-last injection 07/09/22 HPI Details 72-year-old female who returns to the [facility] today for a follow up of bilateral shoulder pain. She states she has pain and weakness in her bilateral shoulder which radiates to her arm and occasional to her neck. Her pain is aggravated at night. She also c/o burning sensation as well as numbness and tingling in her shoulders. She had undergone physical therapy which provided her relief. She had her last injection on 07/09/22 which provided her relief for a couple of days. [facility] Medical History (Updated 05/20/23 @ 09:27 by Lorenzo Oconnor MD) Wrist pain Tobacco abuse Depression Tubular adenoma of colon Personal history of nicotine dependence Generalized anxiety disorder Paroxysmal atrial flutter Lumbar degenerative disc disease Obstructive sleep apnea Restless leg syndrome Hiatal hernia Hip osteoarthritis Vitamin D deficiency Type 2 diabetes mellitus with hyperglycemia Allergic rhinitis Insomnia PFO (patent foramen ovale) Hypercholesterolemia COPD (chronic obstructive pulmonary disease) Hypertension Obesity (BMI 30-39.9) GERD (gastroesophageal reflux disease) Hypothyroidism Surgical History History of tonsillectomy History of bilateral breast reduction surgery History of carpal tunnel surgery History of lumbar surgery History of hysterectomy History of right breast biopsy (~2016) History of hand surgery (~2011) History of esophagogastroduodenoscopy (EGD) (~2004) History of colonoscopy (~2018) History of cardioversion (~2017) History of foot surgery (~2016) Family History (Updated 05/20/23 @ 09:01 by Morena Ulloa CMA) Father Diabetes Hypertension CVD (cardiovascular disease) Mother Cervical cancer Stroke Social History Housing: House Alcohol intake: current Alcohol intake frequency: a few times a week Patient Tobacco Use Status: Former Tobacco user Tobacco use type: Cigarette Years Smoked: 57yrs, onset 12, on and off, 1-1.5ppd, 50pyh, quit 07/31/2021 e-Cigarette/Vaping Use: Never Used Second Hand Smoke Exposure: No service: No 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al status: employed Cognitive needs: No Hearing needs: No Vision needs: Yes Review of Systems Const All systems reviewed & are unremarkable except as noted in HPI and below Physical Exam Vital Signs: BMI result Body Mass Index 32.7 Const General: cooperative and no acute distress Orientation/consciousness: patient oriented x3 Resp Effort & Inspection: normal respiratory effort and able to speak in complete sentences Cardio Peripheral pulses: Peripheral pulses 2+ throughout Neuro General: patient oriented x3 Extrem Other: Right shoulder , full ROM in all planes, mild discomfort with cross body reach, no weakness with RTC testing, negative mcclelland. Assessment & Plan Assessment & Plan (1) Arthritis of both shoulder regions: Code(s): M19.011 - Primary osteoarthritis, right shoulder; M19.012 - Primary osteoarthritis, left shoulder (2) Tendonitis of both rotator cuffs: Code(s): M75.81 - Other shoulder lesions, right shoulder; M75.82 - Other shoulder lesions, left shoulder Plan We discussed options which include repeat injections however, she is not experiencing left shoulder pain that limits her daily activities. She experiences more of burning and numbness down her arm. I did review her x-rays that her PCP ordered of her C-spine which was significant for some degenerative changes and spondylosis. Therefore, I have referred her to our inspector type Dr. Gusman, who will further evaluate her for this condition. We also discussed potential referral to the spine clinic on the first floor of our building if she does not have benefit with non-surgical treatment options. She is content with this plan. Patient Instructions: Scribed for Modesto Almanzar PA-C, by Jose David Ocampo director global medical affairs, on 06/24/2023 at 1:00 PM Modesto MUELLER PA-C, have personally reviewed and agree with the information entered by the scribe. Coding Level of Care Code Est Pt Level 3 (43251) Diagnoses Arthritis of both shoulder regions M19.011; M19.012 Tendonitis of both rotator cuffs M75.81; M75.82
[2023-06-24 13:15] VITALS: BMI 32.7
== END 2023-06-24 13:28 | disposition home or self-care (01) ==
PROVIDERS: PCP Internal Medicine; Visit Provider Physician Assistant
DX: M19.011 Primary osteoarthritis, right shoulder (principal); M19.012 Primary osteoarthritis, left shoulder; M75.81 Other shoulder lesions, right shoulder; M75.82 Other shoulder lesions, left shoulder
CPT/HCPCS: 99213

== ENCOUNTER → 2023-06-24 12:57 | Outpatient (BNVA) | payer MEDICARE, SELFPAY | PROVIDERS: PCP Internal Medicine; Visit Provider Physician Assistant | DX: M19.011 Primary osteoarthritis, right shoulder (principal); M19.012 Primary osteoarthritis, left shoulder; M75.81 Other shoulder lesions, right shoulder; M75.82 Other shoulder lesions, left shoulder | CPT/HCPCS: 99212 ==

== ENCOUNTER 2023-06-29 17:29 | Outpatient (AMB) | payer MEDICARE, SELFPAY ==
[2023-06-29 17:31] VITALS: BP 112/60; PULSE 62; O2SAT 95; BMI 33.3
--- NOTE | 2023-06-29 17:31 | MHC.PC.OV ---
Vital Signs 06/29/23 17:31 Height 4 ft 11 in Weight 165 lb BMI 33.3 BP 112/60 Blood Pressure Location Lt brachial Position Sitting Pulse 62 Pulse Source Pulse Oximeter Pulse Oximetry (%) 95 Oxygen Delivery Method Room Air Intake Visit Reasons: Fall/ Arm pain Intake Note: Patient here c/o fall, left arm pain, cut Fitting Room Operator Required: No Accompanied by: Spouse Allergies Sulfa (Sulfonamide Antibiotics) [SULFA (SULFONAMIDE ANTIBIOTICS)] Allergy (Unknown, Verified 06/29/23 17:34) RASH Tobacco use date assessed: 11/24/22 Fall risk assessment: 1 Fall in past year Last assessed Fall Risk: 06/29/23 Dental Screening Dental Screen Date: 06/29/23 Did you have a dental visit in the last 12 months?: No Did you have a dental problem in the last 6 months where you did not have access to dental care?: No Was dental information given to patient?: Patient has dentist HPI Fall/ Arm pain HPI Details 72-year-old obese female with controlled diabetes mellitus generalized anxiety disorder GERD COPD hypothyroidism hypertension hypercholesterolemia atrial flutter coming in for acute problem. Last seen in May and review of the notes was seen by Ortho for bilateral shoulder pain advised physical therapy, fall recently hit L shoulder , up todates with td. patient is going for therapy. [facility] Medical History (Updated 06/29/23 @ 17:56 by Lorenzo Oconnor MD) Gait instability Wrist pain Tobacco abuse Depression Tubular adenoma of colon Personal history of nicotine dependence Generalized anxiety disorder Paroxysmal atrial flutter Lumbar degenerative disc disease Obstructive sleep apnea Restless leg syndrome Hiatal hernia Hip osteoarthritis Vitamin D deficiency Type 2 diabetes mellitus with hyperglycemia Allergic rhinitis Insomnia PFO (patent foramen ovale) Hypercholesterolemia COPD (chronic obstructive pulmonary disease) Hypertension Obesity (BMI 30-39.9) GERD (gastroesophageal reflux disease) Hypothyroidism Surgical History History of tonsillectomy History of bilateral breast reduction surgery History of carpal tunnel surgery History of lumbar surgery History of hysterectomy History of right breast biopsy (~2016) History of hand surgery (~2011) History of esophagogastroduodenoscopy (EGD) (~2004) History of colonoscopy (~2018) History of cardioversion (~2017) History of foot surgery (~2016) Family History Father Diabetes Hypertension CVD (cardiovascular disease) Mother Cervical cancer Stroke Social History Housing: House Alcohol intake: current Alcohol intake frequency: a few times a week Patient Tobacco Use Status: Former Tobacco user Tobacco use type: Cigarette Years Smoked: 57yrs, onset 12, on and off, 1-1.5ppd, 50pyh, quit 07/31/2021 e-Cigarette/Vaping Use: Never Used Second Hand Smoke Exposure: No service: No 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al status: employed Cognitive needs: No Hearing needs: No Vision needs: Yes Questionnaire Thrive Questionnaire Date Thrive assessed: 10/30/22 PHIL-7 AMB Questionnaire PHIL-7 Date PHIL - 7 assessed: 09/10/22 Source: Developed by Drs. Cirilo Griffith, Parisa Carroll, Dakotah Patel and colleagues, with an educational jacklyn from [employer]. Physical exam (Primary Care) Vital Signs: Last Vital Signs Pulse 62 06/29/23 17:31 BP 112/60 06/29/23 17:31 Pulse Ox 95 06/29/23 17:31 Oxygen Delivery Method Room Air 06/29/23 17:31 BMI result Body Mass Index 33.3 Tobacco/Smoking Status: Tobacco use Status Tobacco use date assessed 11/24/22 06/29/23 17:38 Patient Tobacco Use Status Former Tobacco user 06/29/23 17:38 Tobacco use type Cigarette 06/29/23 17:38 e-Cigarette/Vaping Use Never Used 06/29/23 17:38 Thrive Assessment: Date of Thrive Assessment Date Thrive assessed 10/30/22 06/29/23 17:38 Const General: alert; No acute distress Eyes Conjunctivae: conjunctivae normal Resp Auscultation: clear to auscultation bilaterally Cardio Rate: regular rate Rhythm: regular rhythm GI Inspection: Yes normal to inspection Extrem Other: L shoulder limited elevation to 90 drgrees, leg elevation N, General: Yes normal to inspection and No edema Shoulder/upper arm images: 1. Abrasion on the left arm with mild erythema the skin Assessment and Plan Assessment & Plan (1) Gait instability: Code(s): R26.81 - Unsteadiness on feet Plan: on physical therapy and will advised to continue (2) Lumbar degenerative disc disease: Code(s): M51.36 - Other intervertebral disc degeneration, lumbar region Plan: Continue with physical therapy for strengthening exercises (3) Fall: Code(s): W19.XXXA - Unspecified fall, initial encounter Plan: dicsussed about side effects of med. Concern about alprazolam and narcotic pain medication. (4) Shoulder pain, left: Code(s): M25.512 - Pain in left shoulder Plan: This is from the fall, x-ray to be done (5) Hypertension: Code(s): I10 - Essential (primary) hypertension Qualifiers: Hypertension type: essential hypertension Qualified Code(s): I10 - Essential (primary) hypertension Plan: Advised to monitor the blood pressure at home and if getting hypotension like systolic of below 110 mostly to call so we can adjust the medication (6) Generalized anxiety disorder: Code(s): F41.1 - Generalized anxiety disorder Plan: discussed about side effect of med (7) GERD (gastroesophageal reflux disease): Code(s): K21.9 - Gastro-esophageal reflux disease without esophagitis Qualifiers: Esophagitis presence: without esophagitis Qualified Code(s): K21.9 - Gastro-esophageal reflux disease without esophagitis Plan: Avoid the foods that causes that usually spicy foods, tomato products, juices, coffee, soda and foods that your sensitive to. After eating do not lie down, allow 3-4 hours before in lie down. And keep the head of bed above 30 degrees to avoid the acid from going up. Orders: Orders XR shoulder LT min 2V Today M25.512 - Pain in left shoulder Coding Level of Care Code Est Pt Level 4 (50786) Diagnoses Gait instability R26.81 Lumbar degenerative disc disease M51.36 Fall W19.XXXA Shoulder pain, left M25.512 Essential hypertension I10 Hypertension type: essential hypertension Generalized anxiety disorder F41.1 Gastroesophageal reflux disease without esophagitis K21.9 Esophagitis presence: without esophagitis
== END 2023-06-29 18:12 | disposition home or self-care (01) ==
PROVIDERS: PCP Internal Medicine; Visit Provider Internal Medicine
DX: R26.81 Unsteadiness on feet (principal); M51.36 Other intervertebral disc degeneration, lumbar region; W19.XXXA Unspecified fall, initial encounter; M25.512 Pain in left shoulder; I10 Essential (primary) hypertension; F41.1 Generalized anxiety disorder; K21.9 Gastro-esophageal reflux disease without esophagitis
CPT/HCPCS: 99214

== ENCOUNTER 2023-07-02 11:47 | Outpatient (REF) | payer MEDICARE, SELFPAY ==
--- NOTE | ~2023-07-02 | XR_ITS ---
EXAMINATION: XR SHOULDER, LEFT CLINICAL INFORMATION: Pain in left shoulder COMPARISON: Left shoulder 06/03/2022 TECHNIQUE: AP neutral, Grashey, scapular Y, and axillary views of the left shoulder. FINDINGS: The bones are intact. No fracture. Glenohumeral and acromioclavicular alignment is anatomic. There is mild degenerative change of the glenohumeral joint and acromioclavicular joint. No abnormal soft tissue calcifications. XR/XR shoulder LT min 2V IMPRESSION: Mild degenerative changes. No acute bony abnormality.
== END 2023-07-02 11:48 | disposition home or self-care (01) ==
LOC: HO.HMGCX 11:47
PROVIDERS: PCP Internal Medicine; Visit Provider Internal Medicine
DX: M25.512 Pain in left shoulder (principal)
CPT/HCPCS: 73030

== ENCOUNTER 2023-07-15 09:00 | Outpatient (RCR) | payer MEDICARE, SELFPAY ==
--- NOTE | 2023-05-29 10:35 | MHC.PT.EP ---
[facility] [place] [facility] [place] [facility] [place] [facility] [address] [phone] F: [phone] F: [phone] F: [phone] F: [phone] Physical Therapy Plan of Care Date of Evaluation: 05/29/23 Date of Surgery: Diagnosis: gait instability Assessment: Patient is a 72 year old R handed female who presents with s/s consistent with gait instability. She works with daily job demands including [employer]. Patient past medical history is complex and include HTN, hip OA, COPD and high cholesterol. Current impairments include pain, posture, balance, strength, activity tolerance and functional mobility. Functional limitations include decreased ability to walk, stand, be active in the community and negotiate stairs. Patient is motivated with good rehab potential. Skilled PT will address impairments and functional limitations in order to achieve goals. Frequency and Duration: The patient will be seen 2x/week for 5 weeks Short Term Goals: I with HEP - 2 weeks SLB > 10 seconds b/l - 3 weeks Hip strength 4-/5 grossly - 3 weeks Fdc Goals: LEFS 60/80 - 5 weeks DGI 20/24 - 5 weeks hip strength 4/5 grossly - 5 weeks Treatment Plan: Modalities to reduce pain, spasms and effusion. Manual therapy to restore motion and function. Therapeutic exercise to improve strength and flexibility. Neuromuscular re-education for posture and balance. Therapeutic activities to return to functional activities of daily living. Electronically signed by: Satinder Sanchez, PT Please sign and return to therapist. Thank you for your referral.
--- NOTE | ~2023-07-15 | XR_ITS ---
EXAMINATION: XR LUMBOSACRAL SPINE CLINICAL INFORMATION: Degenerative disc disease. COMPARISON: CT abdomen and pelvis dated 04/26/2020; lumbar spine radiographs dated 02/05/2015. TECHNIQUE: AP and lateral views of the lumbar spine and lateral view of the lumbosacral junction. FINDINGS: There is bony demineralization. There is marked degenerative disc disease extending from T9-T10 through L4-L5. At L5-S1, there has been a prior posterior fusion, with intact posterior fixator rods, pedicular screws and disc spacers. There is a stable 3 mm anterolisthesis at this level. There is no hardware failure or loosening. No acute fracture or spondylolisthesis is seen. The posterior elements are intact. This multi-level thoracolumbar spondylosis and facet arthropathy. There are aortoiliac atherosclerotic calcifications. XR/XR lumbar spine 2-3V IMPRESSION: 1. There is a stable 3 mm grade 1 anterolisthesis status-post L5-S1 posterior fusion and discectomies. No hardware failure or loosening is seen. 2. There is further multi-level marked thoracolumbar degenerative disc disease, spondylosis and facet arthropathy.
--- NOTE | 2023-09-15 14:47 | MHC.PT.DC ---
[facility] [place] Office [place] Office [place] Office [address] Bennett Pantoja [address] [phone] F: [phone] F: [phone] F: [phone] F: [phone] Physical Therapy Discharge Report Diagnosis: gait instability Date of Surgery: Date of Evaluation: 05/29/23 Date of Discharge: 07/22/23 Treatments to Date: 9 Cancellations to Date: No Shows to Date: Discharge Status: Improved Function Independent with HEP Discharge Summary: 07/15/23: pt is I with HEP. she is compliant with her HEP. We have seen mild progress over the course of skilled PT. SLB is 5 seconds b/l. Hip strength is 4-/5 grossly. DGI is 1624. LEFS 35/80. we will d/c to HEP at this time. She reports her balance is still off and that she will be walking and often have to side step or backwards step to catch herself. She has difficulty ascend/descending stairs without rails and will lose balance. She tends to lose her balance and demonstrate trendelenburg on L LE during gait with H/V head turns and backwards walking. She may benefit from use of cane and will practice next visit. She will have one more visit with primary PT to assess need for continued PT. Electronically signed by: Satinder Sanchez, PT Please sign and return to therapist. Thank you for your referral.
== END 2023-09-15 14:48 | disposition home or self-care (01) ==
LOC: HO.PTCHIC 09:00
PROVIDERS: PCP Internal Medicine; Visit Provider Internal Medicine
DX: R26.81 Unsteadiness on feet (principal)
CPT/HCPCS: 72100; 97110; 97112; 97163

== ENCOUNTER 2023-07-22 10:02 | Outpatient (AMB) | payer MEDICARE, SELFPAY ==
--- NOTE | 2023-07-22 10:17 | MHC.OFFVIS ---
Intake Vital Signs 07/22/23 10:25 Height 4 ft 11 in Weight 165 lb BMI 33.3 Intake Visit Reasons: Newprob-LT sided neck pain-h/o oa/spondylosis Intake Note: Kaylee 73 yr old female presents today for a new problem visit for her neck (left side.) States her pain started approx 10 years ago. No injury she can recall. States her pain was initially in the - and currently she is having radiating sharp pain down her arm. States she has pain with ROM in neck. Patient has tried P.T with temporary relive. Denies numbness or tingling in finger tips. Allergies Sulfa (Sulfonamide Antibiotics) [SULFA (SULFONAMIDE ANTIBIOTICS)] Allergy (Unknown, Verified 07/22/23 10:24) RASH Medication List - Last Reconciled 07/22/23 by India Gusman MD alprazolam 0.25 mg PO DAILY apixaban (Eliquis) 5 mg PO BID atorvastatin 80 mg PO DAILY blood sugar diagnostic As directed check the blood sugar once a day blood sugar diagnostic (Mommy NearestTouch Ultra Test strips) As directed check the blood sugar twice a day bupropion HCl 300 mg (2 x 150 mg) PO QAM 90 days calcium carbonate-vitamin D3 600 mg-5 mcg (200 unit) (Calcium 600 + D(3)) caps PO flecainide 100 mg PO Q12H 90 days levothyroxine 100 mcg PO QAM lisinopril 5 mg PO DAILY metoprolol succinate ER 25 mg PO BID 90 days omeprazole 20 mg PO DAILY oxycodone-acetaminophen 5-325 mg (Percocet) 1 tab PO .QD PRN 30 days ropinirole 0.25 mg PO BEDTIME sertraline 50 mg PO DAILY 90 days thiamine HCl (vitamin B1) 50 mg PO DAILY 90 days zolpidem 10 mg PO BEDTIME PRN 90 days HPI HPI Comments History of Present Illness Details Chronic 10 years of pain, now more often/frequent. Almost daily now. More left side, shoots down to left arm, hard to hold a phone. Finger tremors during visit today. Denies actual numbness. Drops things. Right handed. Doesn't think she's had MRI yet. Been falling recently. Question poor balance and gait. Treatment done so far: oxycodone prn heat, bengay therapy - last year on Eliquis for afib. [facility] Medical History (Updated 07/22/23 @ 10:57 by India Gusman MD) DJD of left shoulder Cervical spondylosis Gait instability Wrist pain Tobacco abuse Depression Tubular adenoma of colon Personal history of nicotine dependence Generalized anxiety disorder Paroxysmal atrial flutter Lumbar degenerative disc disease Obstructive sleep apnea Restless leg syndrome Hiatal hernia Hip osteoarthritis Vitamin D deficiency Type 2 diabetes mellitus with hyperglycemia Allergic rhinitis Insomnia PFO (patent foramen ovale) Hypercholesterolemia COPD (chronic obstructive pulmonary disease) Hypertension Obesity (BMI 30-39.9) GERD (gastroesophageal reflux disease) Hypothyroidism Surgical History History of tonsillectomy History of bilateral breast reduction surgery History of carpal tunnel surgery History of lumbar surgery History of hysterectomy History of right breast biopsy (~2016) History of hand surgery (~2011) History of esophagogastroduodenoscopy (EGD) (~2004) History of colonoscopy (~2018) History of cardioversion (~2017) History of foot surgery (~2016) Family History Father Diabetes Hypertension CVD (cardiovascular disease) Mother Cervical cancer Stroke (Updated 07/22/23 @ 10:25 by Courtney Conti [facility]) Housing: House Alcohol intake: current Alcohol intake frequency: a few times a week Patient Tobacco Use Status: Former Tobacco user Tobacco use type: Cigarette Years Smoked: 57yrs, onset 12, on and off, 1-1.5ppd, 50pyh, quit 07/31/2021 e-Cigarette/Vaping Use: Never Used Second Hand Smoke Exposure: No service: No 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al status: employed 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 Patient was appropriately conversant and oriented. Good historian. MSK: Inspection reveals appropriate head and neck positioning. Some tenderness over left upper trapezius. Cervical ROM was full. Spurling's sign positive on left. Cross positive signs on left. Bilateral shoulder, elbow and wrist ROM WNL. No ligamentous laxity or crepitance. No increased effusion. Positive Smith sign on left. No specific abnormalities or instability found on inspection and palpation of the spine and extremities. Strength is 5/5 in all muscle groups tested. No increased tone noted. Neurological: Neurologic examination of the upper and lower extremities was nonfocal with intact sensation, muscle stretch reflexes and without focal motor deficits. No hypereflexia. Arzate?s negative bilaterally. Babinski was down going bilaterally. Clonus was negative. Gait is non-antalgic without loss of balance. Results Reviewed Results Reviewed: XR CERVICAL SPINE CLINICAL INFORMATION: Pain. COMPARISON: Radiographs dated 01/12/2010. TECHNIQUE: Frontal, odontoid and lateral views of the cervical spine were obtained. FINDINGS: Vertebral body heights are normal. At C4-C5, there is a 2 mm anterolisthesis. The remaining disc spaces are well-maintained. No acute fracture or spondylolisthesis is seen. There is moderately severe spondylosis at C5-C6 and C6-C7. The posterior elements are intact. There is multi-level cervical facet arthropathy. The dens is intact. No prevertebral soft tissue swelling is seen. XR/XR cervical spine 3V IMPRESSION: 1. There is mild degenerative disc disease at C4-C5. 2. There is moderately severe spondylosis at C5-C6 and C6-C7. 3. There is multi-level cervical facet arthropathy. XR LUMBOSACRAL SPINE CLINICAL INFORMATION: Degenerative disc disease. COMPARISON: CT abdomen and pelvis dated 04/26/2020; lumbar spine radiographs dated 02/05/2015. TECHNIQUE: AP and lateral views of the lumbar spine and lateral view of the lumbosacral junction. FINDINGS: There is bony demineralization. There is marked degenerative disc disease extending from T9-T10 through L4-L5. At L5-S1, there has been a prior posterior fusion, with intact posterior fixator rods, pedicular screws and disc spacers. There is a stable 3 mm anterolisthesis at this level. There is no hardware failure or loosening. No acute fracture or spondylolisthesis is seen. The posterior elements are intact. This multi-level thoracolumbar spondylosis and facet arthropathy. There are aortoiliac atherosclerotic calcifications. XR/XR lumbar spine 2-3V IMPRESSION: 1. There is a stable 3 mm grade 1 anterolisthesis status-post L5-S1 posterior fusion and discectomies. No hardware failure or loosening is seen. 2. There is further multi-level marked thoracolumbar degenerative disc disease, spondylosis and facet arthropathy. CT HEAD WITHOUT CONTRAST CLINICAL INFORMATION: Unsteadiness on feet. COMPARISON: None. TECHNIQUE: Contiguous axial imaging was performed from the skull base to vertex without intravenous administration of contrast. This CT examination was performed using dose optimization techniques as appropriate, variously including the following: *Automated exposure control *Adjustment of mA and/or kV according to patient size (this includes techniques or standardized protocols for targeted exams where dose is matched to indication/reason for exam; i.e. extremities or head) *Use of iterative reconstruction technique DLP: 867 mGy-cm FINDINGS: Mild segmental calcific atherosclerosis of the cavernous portions of the internal carotid arteries is present. Mild diffuse commensurate prominence of ventricles and sulci is noted along with mild periventricular and subcortical white matter patchy hypodensities. No intracranial hemorrhage, tumors or definitive acute infarcts are visualized. No significant opacification of the visualized paranasal sinuses, mastoid air cells and middle ear cavities. Bilateral ocular lens extractions are noted. Incidental note is made of thinning of the floor of the third ventricle. A definitive third ventriculostomy is not identified nor are calvarial findings present to suggest a remote third ventriculostomy. CT/CT head/brain wo IV con IMPRESSION: 1. No acute intracranial abnormalities. 2. Mild white matter chronic small vessel ischemic changes. EXAMINATION: XR SHOULDER, LEFT CLINICAL INFORMATION: Pain in left shoulder COMPARISON: Left shoulder 06/03/2022 TECHNIQUE: AP neutral, Grashey, scapular Y, and axillary views of the left shoulder. FINDINGS: The bones are intact. No fracture. Glenohumeral and acromioclavicular alignment is anatomic. There is mild degenerative change of the glenohumeral joint and acromioclavicular joint. No abnormal soft tissue calcifications. XR/XR shoulder LT min 2V IMPRESSION: Mild degenerative changes. No acute bony abnormality. I reviewed records from the following: PCP ortho Assessment & Plan Assessment & Plan (1) Radiculitis of left cervical region: Code(s): M54.12 - Radiculopathy, cervical region (2) Cervical spondylosis: Code(s): M47.812 - Spondylosis without myelopathy or radiculopathy, cervical region (3) Gait instability: Code(s): R26.81 - Unsteadiness on feet (4) DJD of left shoulder: Code(s): M19.012 - Primary osteoarthritis, left shoulder Qualifiers: Osteoarthritis type: primary Qualified Code(s): M19.012 - Primary osteoarthritis, left shoulder (5) Myofascial pain: Code(s): M79.18 - Myalgia, other site Plan Concern for cervical radiculitis from nerve compression. Concerned that this is related also to her gait instability. Rule out spinal stenosis. Patient had undergone adequate conservative management including [PT] without improvement of condition. It would be reasonable to obtain further imaging such as MRI. An MRI would help rule out any serious condition, guide treatment and assess prognosis for recovery. Specifically ruling out cervical stenosis or cord compression. Holding off on referring her back to PT until MRIs done. Depending on results of MRI, we may consider injection versus neurosurgery referral. Note that she is on Eliquis and she is diabetic. Assessment and plan discussed with patient, and patient was agreeable. All questions were answered thoroughly. Follow-up after MRI. India Gusman MD, STEVIE Board Certified, [place] [employer] and [employer] (ABPMR) Board Certified, [place] [employer] (ABEM) Orders: Orders MR lumbar spine wo con Today M19.012 - Primary osteoarthritis, left shoulder, M47.812 - Spondylosis without myelopathy or radiculopathy, cervical region, M54.12 - Radiculopathy, cervical region, M79.18 - Myalgia, other site, R26.81 - Unsteadiness on feet Coding Level of Care Code New Pt Level 4 (49577) Diagnoses Radiculitis of left cervical region M54.12 Cervical spondylosis M47.812 Gait instability R26.81 Primary osteoarthritis of left shoulder M19.012 Osteoarthritis type: primary Myofascial pain M79.18
[2023-07-22 10:25] VITALS: BMI 33.3
== END 2023-07-22 11:00 | disposition home or self-care (01) ==
PROVIDERS: PCP Internal Medicine; Visit Provider Physical Medicine & Rehabilitation
DX: M54.12 Radiculopathy, cervical region (principal); M47.812 Spondylosis without myelopathy or radiculopathy, cervical region; R26.81 Unsteadiness on feet; M19.012 Primary osteoarthritis, left shoulder; M79.18 Myalgia, other site
CPT/HCPCS: 99204

== ENCOUNTER → 2023-07-22 10:02 | Outpatient (BNVA) | payer MEDICARE, SELFPAY | PROVIDERS: PCP Internal Medicine; Visit Provider Physical Medicine & Rehabilitation | DX: M19.012 Primary osteoarthritis, left shoulder (principal); M79.18 Myalgia, other site; M47.812 Spondylosis without myelopathy or radiculopathy, cervical region; M54.12 Radiculopathy, cervical region; R29.6 Repeated falls; R26.81 Unsteadiness on feet | CPT/HCPCS: 99202 ==

== ENCOUNTER 2023-08-18 10:49 | Outpatient (AMB) | payer MEDICARE, SELFPAY ==
[2023-08-18 10:53] VITALS: BP 124/80; PULSE 56; O2SAT 97; BMI 33.0
--- NOTE | 2023-08-18 10:53 | MHC.PC.OV ---
Vital Signs 08/18/23 10:53 Height 4 ft 11 in Weight 163 lb 4 oz BMI 33.0 BP 124/80 Blood Pressure Location Lt brachial Position Sitting Pulse 56 Pulse Source Pulse Oximeter Pulse Oximetry (%) 97 Oxygen Delivery Method Room Air Intake Visit Reasons: Left wrist pain Food Production Supervisor Required: No Accompanied by: Self / Same As Patient Allergies Sulfa (Sulfonamide Antibiotics) [SULFA (SULFONAMIDE ANTIBIOTICS)] Allergy (Unknown, Verified 08/18/23 10:53) RASH Medication List - Last Reconciled 08/18/23 by Lorenzo Oconnor MD alprazolam 0.25 mg PO DAILY apixaban (Eliquis) 5 mg PO BID atorvastatin 80 mg PO DAILY blood sugar diagnostic As directed check the blood sugar once a day blood sugar diagnostic (Vyykn Ultra Test strips) As directed check the blood sugar twice a day bupropion HCl 300 mg (2 x 150 mg) PO QAM 90 days calcium carbonate-vitamin D3 600 mg-5 mcg (200 unit) (Calcium 600 + D(3)) caps PO diclofenac sodium 1% (Voltaren Arthritis Pain) 4 grams topical QID flecainide 100 mg PO Q12H 90 days levothyroxine 100 mcg PO QAM lisinopril 5 mg PO DAILY metoprolol succinate ER 25 mg PO BID 90 days omeprazole 20 mg PO DAILY oxycodone-acetaminophen 5-325 mg (Percocet) 1 tab PO .QD PRN 30 days ropinirole 0.25 mg PO BEDTIME sertraline 50 mg PO DAILY 90 days thiamine HCl (vitamin B1) 50 mg PO DAILY 90 days zolpidem 10 mg PO BEDTIME PRN 90 days Tobacco use date assessed: 11/24/22 Fall risk assessment: No Falls in past year Last assessed Fall Risk: 08/18/23 Dental Screening Dental Screen Date: 08/18/23 Did you have a dental visit in the last 12 months?: Yes Did you have a dental problem in the last 6 months where you did not have access to dental care?: No Was dental information given to patient?: Patient has dentist HPI Left wrist pain HPI Details 73-year-old obese female with a history of lumbar degenerative disc disease hypertension GERD generalized anxiety disorder last seen in May 2023. Patient is here for an acute problem having wrist pain. 4 days ago L wrist pain- seen Dr. Román before 1 year xr ays done 03/2023 in urgent center. . Review of the x-ray done in March shows left wrist having degenerative arthritis . [facility] Medical History (Updated 08/18/23 @ 11:08 by Lorenzo Oconnor MD) DJD of left shoulder Cervical spondylosis Gait instability Wrist pain Tobacco abuse Depression Tubular adenoma of colon Personal history of nicotine dependence Generalized anxiety disorder Paroxysmal atrial flutter Lumbar degenerative disc disease Obstructive sleep apnea Restless leg syndrome Hiatal hernia Hip osteoarthritis Vitamin D deficiency Type 2 diabetes mellitus with hyperglycemia Allergic rhinitis Insomnia PFO (patent foramen ovale) Hypercholesterolemia COPD (chronic obstructive pulmonary disease) Hypertension Obesity (BMI 30-39.9) GERD (gastroesophageal reflux disease) Hypothyroidism Surgical History History of tonsillectomy History of bilateral breast reduction surgery History of carpal tunnel surgery History of lumbar surgery History of hysterectomy History of right breast biopsy (~2016) History of hand surgery (~2011) History of esophagogastroduodenoscopy (EGD) (~2004) History of colonoscopy (~2018) History of cardioversion (~2017) History of foot surgery (~2016) Family History Father Diabetes Hypertension CVD (cardiovascular disease) Mother Cervical cancer Stroke Social History Housing: House Alcohol intake: current Alcohol intake frequency: a few times a week Patient Tobacco Use Status: Former Tobacco user Tobacco use type: Cigarette Years Smoked: 57yrs, onset 12, on and off, 1-1.5ppd, 50pyh, quit 07/31/2021 e-Cigarette/Vaping Use: Never Used Second Hand Smoke Exposure: No service: No 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al status: employed 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 Cirilo Griffith, Parisa Carroll, Dakotah Patel and colleagues, with an educational jacklyn from [employer]. Physical exam (Primary Care) Vital Signs: Last Vital Signs Pulse 56 08/18/23 10:53 BP 124/80 08/18/23 10:53 Pulse Ox 97 08/18/23 10:53 Oxygen Delivery Method Room Air 08/18/23 10:53 Next steps: Left wrist noted no redness and swelling but tender on palpation on the volar surface of the wrist range of motion is full any BMI result Body Mass Index 33.0 Tobacco/Smoking Status: Tobacco use Status Tobacco use date assessed 11/24/22 08/18/23 10:57 Patient Tobacco Use Status Former Tobacco user 08/18/23 10:57 Tobacco use type Cigarette 08/18/23 10:57 e-Cigarette/Vaping Use Never Used 08/18/23 10:57 Thrive Assessment: Date of Thrive Assessment Date Thrive assessed 10/30/22 08/18/23 10:57 Assessment and Plan Assessment & Plan (1) Wrist pain, left: Comment: xray in 03/2023 Degenerative arthritis Code(s): M25.532 - Pain in left wrist Plan: Will send in some anti-inflammatory to help with pain. Oral anti-inflammatory can affect the anticoagulant. Will only prescribe the diclofenac gel Medications: New diclofenac sodium 1% (Voltaren Arthritis Pain) apply to single knee, ankle, foot; for foot includes sole/toes/top of foot 4 grams topical QID 100 grams 4RF M25.532 - Pain in left wrist Coding Level of Care Code Est Pt Level 3 (37849) Diagnoses Wrist pain, left M25.532
== END 2023-08-18 11:27 | disposition home or self-care (01) ==
PROVIDERS: PCP Internal Medicine; Visit Provider Internal Medicine
DX: M25.532 Pain in left wrist (principal)
CPT/HCPCS: 99213

== ENCOUNTER 2023-08-27 07:08 | Outpatient (REF) | payer MEDICARE, SELFPAY ==
[2023-08-27 07:27] LABS: MANUAL DIFF FLAG NO
[2023-08-27 07:57] LABS: Basophils Percent Auto 0.4 % (0-2); Eosinophils Absolute Auto 0.4 X10*3/uL (0.0-0.4); Eosinophils Percent Auto 4.9 % (0-4); Hematocrit 41.7 % (37.0-47.0); Hemoglobin 13.9 g/dl (12.0-16.0); Imm Gran Abs Auto 0.01 X10*3/uL (0.00-0.03); Imm Gran Pct Auto 0.1 % (0.0-0.4); Lymphocytes Absolute Auto 1.5 X10*3/uL (1.2-4.9); Lymphocytes Percent Auto 20.7 % (20-40); Mean Corpuscular HGB Conc 33.3 g/dl (31.0-35.0); Mean Corpuscular Hemoglobin 32.8 pg (27.0-33.0); Mean Corpuscular Volume 98.3 fL (80.0-98.0); Mean Platelet Volume 9.6 fL (9.4-12.3); Monocytes Absolute Auto 0.8 X10*3/uL (0.1-1.2); Monocytes Percent Auto 10.8 % (2-11); Neutrophils Absolute Auto 4.7 x10*3/uL (2.0-8.3); Neutrophils Percent Auto 63.1 % (45-73); Platelet Count 233 X10*3/uL (160-400); Red Blood Count 4.24 X10*6/uL (4.20-5.50); Red Cell Distribution Width 12.6 % (11.0-16.0); White Blood Count 7.4 X10*3/uL (4.8-10.8)
[2023-08-27 08:06] LABS: Estimated Average Glucose 123 mg/dL; Hemoglobin A1C 149.2916 umol/L; Hemoglobin A1c % 5.9 % (<6.0)
[2023-08-27 08:27] LABS: Alanine Aminotransferase 13 U/L (0-31); Albumin Level 3.9 g/dL (3.5-5.0); Alkaline Phosphatase 57 U/L (39-117); Anion Gap 12 (12-20); Aspartate Amino Transferase 22 U/L (5-31); Bilirubin Total 0.6 mg/dL (0.0-1.0); Blood Urea Nitrogen 15 mg/dL (9-16); Calcium 9.3 mg/dL (8.4-10.2); Carbon Dioxide 30 mmol/L (22-29); Chloride 105 mmol/L (96-108); Cholesterol 167 mg/dL (<200); Estimated Glomerular Filt Rate > 60; Glucose Random 131 mg/dL (60-115); HDL Cholesterol 45 mg/dL (>40); LDL Cholesterol Calculated 101 mg/dL (<100); Potassium 4.1 mmol/L (3.3-5.1); Sodium 143 mmol/L (135-145); Total Protein 6.5 g/dL (6.5-8.0); Triglycerides 106 mg/dL (<150)
[2023-08-27 08:45] LABS: Free T4 (Free Thyroxine) 0.93 ng/dL (0.71-1.85); Thyroid Stimulating Hormone 0.68 uIU/mL (0.32-4.0); Vitamin D 25-OH Total 39.4 ng/mL (>30)
[2023-08-27 08:51] LABS: Appearance Urine Clear; Color Urine Yellow; Glucose Urine UA Negative (Negative); Leukocyte Esterase Urine Small (1+) (Negative); Nitrite Urine Negative (Negative); PH 5.5 (5.0-9.0); Specific Gravity - Urine >= 1.030 (1.005-1.025); UMIC TRIGGER UACC YES; Urine Blood Trace (Negative); Urine Ketones Negative (Negative); Urine Protein Negative (Neg-Trace)
[2023-08-27 09:04] LABS: Bacteria Urine None Seen (None Seen); Hyaline Casts Urine 0-2 /LPF (0-2); RBC Urine 0-2 /HPF (0-2); Squamous Epithelial Cell Urine 0-2 /HPF (0-2); UACC Culture Trigger YES; WBC Urine 0-5 /HPF (0-5)
[2023-08-27 09:42] LABS: Creatinine Urine 195.49 mg/dL; Microalbum/Creatinine Ratio Ur 8.6 ug/mg cr (<30)
== END 2023-08-27 07:09 | disposition home or self-care (01) ==
LOC: HO.LAB 07:08
PROVIDERS: PCP Internal Medicine; Visit Provider Internal Medicine
DX: E78.00 Pure hypercholesterolemia, unspecified (principal); E11.65 Type 2 diabetes mellitus with hyperglycemia; R31.9 Hematuria, unspecified
CPT/HCPCS: 36415; 80053; 80061; 81001; 82043; 82306; 82570; 83036; 84439; 84443; 85025; 87086

== ENCOUNTER 2023-09-01 14:21 | Outpatient (REF) | payer MEDICARE, SELFPAY | END 2023-09-01 14:22 | disposition home or self-care (01) | LOC: HO.MRI 14:21 | PROVIDERS: PCP Internal Medicine; Visit Provider Physical Medicine & Rehabilitation | DX: M79.18 Myalgia, other site (principal); M54.12 Radiculopathy, cervical region; M47.812 Spondylosis without myelopathy or radiculopathy, cervical region; M19.012 Primary osteoarthritis, left shoulder; R26.81 Unsteadiness on feet | CPT/HCPCS: 72148 ==

== ENCOUNTER 2023-09-04 08:25 | Outpatient (AMB) | payer MEDICARE, SELFPAY ==
[2023-09-04 08:34] VITALS: BP 146/82; PULSE 53; O2SAT 98; BMI 32.7
--- NOTE | 2023-09-04 08:34 | MHC.PC.OV ---
Vital Signs 09/04/23 08:34 Height 4 ft 11 in Weight 162 lb BMI 32.7 BP 146/82 H Blood Pressure Location Lt brachial Position Sitting Pulse 53 Pulse Source Pulse Oximeter Pulse Oximetry (%) 98 Oxygen Delivery Method Room Air Intake Visit Reasons: DM Allergies Sulfa (Sulfonamide Antibiotics) [SULFA (SULFONAMIDE ANTIBIOTICS)] Allergy (Unknown, Verified 09/04/23 08:34) RASH Medication List - Last Reconciled 09/04/23 by Lorenzo Oconnor MD alprazolam 0.25 mg PO DAILY apixaban (Eliquis) 5 mg PO BID atorvastatin 80 mg PO DAILY blood sugar diagnostic As directed check the blood sugar once a day blood sugar diagnostic ([employer] Ultra Test strips) As directed check the blood sugar twice a day bupropion HCl 300 mg (2 x 150 mg) PO QAM 90 days calcium carbonate-vitamin D3 600 mg-5 mcg (200 unit) (Calcium 600 + D(3)) caps PO diclofenac sodium 1% (Voltaren Arthritis Pain) 4 grams topical QID flecainide 100 mg PO Q12H 90 days levothyroxine 100 mcg PO QAM lisinopril 10 mg PO DAILY 30 days metoprolol succinate ER 25 mg PO BID 90 days omeprazole 20 mg PO DAILY oxycodone-acetaminophen 5-325 mg (Percocet) 1 tab PO .QD PRN 30 days ropinirole 0.25 mg PO BEDTIME sertraline 50 mg PO DAILY 90 days thiamine HCl (vitamin B1) 50 mg PO DAILY 90 days zolpidem 10 mg PO BEDTIME PRN 90 days Tobacco use date assessed: 09/04/23 Fall risk assessment: 1 Fall in past year Last assessed Fall Risk: 09/04/23 HPI DM HPI Details 73-year-old obese female smoker GERD COPD controlled diabetes mellitus hypertension hypercholesterolemia atrial fibrillation lumbar degenerative disc disease cervical spondylosis coming in for follow-up. Last seen last month with left wrist pain and was prescribed diclofenac gel. Patient's colonoscopy up-to-date do this November, mammograms up-to-date do this August. Patient just had blood work done MRI pending results. states fell again - has had PT. dedcline new PT- claudia blood thinner. [facility] Medical History (Updated 09/04/23 @ 08:50 by Lorenzo Oconnor MD) DJD of left shoulder Cervical spondylosis Gait instability Wrist pain Tobacco abuse Depression Tubular adenoma of colon Personal history of nicotine dependence Generalized anxiety disorder Paroxysmal atrial flutter Lumbar degenerative disc disease Obstructive sleep apnea Restless leg syndrome Hiatal hernia Hip osteoarthritis Vitamin D deficiency Type 2 diabetes mellitus with hyperglycemia Allergic rhinitis Insomnia PFO (patent foramen ovale) Hypercholesterolemia COPD (chronic obstructive pulmonary disease) Hypertension Obesity (BMI 30-39.9) GERD (gastroesophageal reflux disease) Hypothyroidism Surgical History History of tonsillectomy History of bilateral breast reduction surgery History of carpal tunnel surgery History of lumbar surgery History of hysterectomy History of right breast biopsy (~2016) History of hand surgery (~2011) History of esophagogastroduodenoscopy (EGD) (~2004) History of colonoscopy (~2018) History of cardioversion (~2017) History of foot surgery (~2016) Family History Father Diabetes Hypertension CVD (cardiovascular disease) Mother Cervical cancer Stroke Social History Housing: House Alcohol intake: current Alcohol intake frequency: a few times a week Patient Tobacco Use Status: Former Tobacco user Tobacco use type: Cigarette Years Smoked: 57yrs, onset 12, on and off, 1-1.5ppd, 50pyh, quit 07/31/2021 e-Cigarette/Vaping Use: Never Used Second Hand Smoke Exposure: No service: No 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al status: employed 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 How often do you have a drink containing alcohol?: 2-3 times a week 2. How many drinks containing alcohol do you have on a typical day when you are drinking?: 1 or 2 3. How often do you have six or more drinks on one occasion?: Never Total Score: 3 PHIL-7 AMB Questionnaire PHIL-7 Date PHIL - 7 assessed: 09/10/22 Source: Developed by Drs. Cirilo Griffith, Parisa Carroll, Dakotah Patel and colleagues, with an educational jacklyn from [employer]. Physical exam (Primary Care) Vital Signs: Last Vital Signs Pulse 53 09/04/23 08:34 BP 146/82 H 09/04/23 08:34 Pulse Ox 98 09/04/23 08:34 Oxygen Delivery Method Room Air 09/04/23 08:34 BMI result Body Mass Index 32.7 Tobacco/Smoking Status: Tobacco use Status Tobacco use date assessed 09/04/23 09/04/23 08:35 Patient Tobacco Use Status Former Tobacco user 09/04/23 08:35 Tobacco use type Cigarette 09/04/23 08:35 e-Cigarette/Vaping Use Never Used 09/04/23 08:35 Thrive Assessment: Date of Thrive Assessment Date Thrive assessed 10/30/22 09/04/23 08:35 Const General: alert; No acute distress Eyes Conjunctivae: conjunctivae normal Resp Auscultation: clear to auscultation bilaterally Cardio Rate: regular rate Rhythm: regular rhythm GI Inspection: Yes normal to inspection Extrem General: Yes normal to inspection and No edema Assessment and Plan Assessment & Plan (1) Type 2 diabetes mellitus with hyperglycemia: Comment: (diet managed, DM eye exam 05/29/21) [facility] Code(s): E11.65 - Type 2 diabetes mellitus with hyperglycemia Qualifiers: Diabetes mellitus termite technician insulin use: without termite technician use Qualified Code(s): E11.65 - Type 2 diabetes mellitus with hyperglycemia Plan: Decrease the amount of carbohydrate intake, pasta, bread, rice and potatoes are all sugar and that is aside from all the sweet stuff, remember that fruits are good but they are Sweet also. Hemoglobin A1c goal of less than 7.0 patient is on diet control A1c 5.9 (2) Hypothyroidism: Code(s): E03.9 - Hypothyroidism, unspecified Plan: Continue with thyroid medication (3) COPD (chronic obstructive pulmonary disease): Code(s): J44.9 - Chronic obstructive pulmonary disease, unspecified Qualifiers: COPD type: emphysema Emphysema type: unspecified Qualified Code(s): J43.9 - Emphysema, unspecified Plan: Patient advised strongly to stop smoking. Controlled (4) Obesity (BMI 30-39.9): Code(s): E66.9 - Obesity, unspecified Plan: Diet and exercise (5) Hypertension: Code(s): I10 - Essential (primary) hypertension Qualifiers: Hypertension type: essential hypertension Qualified Code(s): I10 - Essential (primary) hypertension Plan: Continue with blood pressure medication. Decrease salt intake and exercise patient takes lisinopril 5 mg once a day metoprolol 25 mg twice a day (6) Hypercholesterolemia: Code(s): E78.00 - Pure hypercholesterolemia, unspecified Plan: Avoid fried foods, chicken skin, eggs, butter margarine, pastries and meat. Be it pork or beef they have a lot of cholesterol LDL goal of less than 100 patient on atorvastatin 80 mg once a day (7) Paroxysmal atrial flutter: Comment: (hx synch cardioversion 2018) Code(s): I48.92 - Unspecified atrial flutter Plan: Continue with anticoagulation with Eliquis monitor renal function (8) DJD of left shoulder: Code(s): M19.012 - Primary osteoarthritis, left shoulder Qualifiers: Osteoarthritis type: primary Qualified Code(s): M19.012 - Primary osteoarthritis, left shoulder Plan: MRI pending (9) Tubular adenoma of colon: Comment: (TAs on colonoscopies 2004, 2011, 2018) Code(s): D12.6 - Benign neoplasm of colon, unspecified (10) Breast cancer screening by mammogram: Code(s): Z12.31 - Encounter for screening mammogram for malignant neoplasm of breast Medications: Changed From lisinopril 5 mg PO DAILY 90 tabs 1RF I10 - Essential (primary) hypertension To lisinopril 10 mg PO DAILY 30 days 30 tabs 4RF I10 - Essential (primary) hypertension Coding Level of Care Code Est Pt Level 4 (87793) Diagnoses Type 2 diabetes mellitus with hyperglycemia, without long-term current use of insulin E11.65 Diabetes mellitus usp insulin use: without usp use Hypothyroidism E03.9 Pulmonary emphysema, unspecified emphysema type J43.9 COPD type: emphysema Emphysema type: unspecified Obesity (BMI 30-39.9) E66.9 Essential hypertension I10 Hypertension type: essential hypertension Hypercholesterolemia E78.00 Paroxysmal atrial flutter I48.92 Primary osteoarthritis of left shoulder M19.012 Osteoarthritis type: primary Tubular adenoma of colon D12.6 Breast cancer screening by mammogram Z12.31
== END 2023-09-04 08:59 | disposition home or self-care (01) ==
PROVIDERS: PCP Internal Medicine; Visit Provider Internal Medicine
DX: E11.65 Type 2 diabetes mellitus with hyperglycemia (principal); J43.9 Emphysema, unspecified; E66.9 Obesity, unspecified; Z68.32 Body mass index [BMI] 32.0-32.9, adult; I48.92 Unspecified atrial flutter; E03.9 Hypothyroidism, unspecified; I10 Essential (primary) hypertension; E78.00 Pure hypercholesterolemia, unspecified; M19.012 Primary osteoarthritis, left shoulder; D12.6 Benign neoplasm of colon, unspecified
CPT/HCPCS: 99214

== ENCOUNTER 2023-09-09 11:52 | Outpatient (AMB) | payer MEDICARE, SELFPAY ==
--- NOTE | 2023-09-09 11:54 | A.OFFVIS_ITS ---
Intake Intake Visit Reasons: ov- MRI lumbar spine review Intake Note: Kaylee is a 73 year old female who presents today for an Lumbar Spine MRI review. Allergies Sulfa (Sulfonamide Antibiotics) [SULFA (SULFONAMIDE ANTIBIOTICS)] Allergy (Unknown, Verified 09/09/23 11:55) RASH Medication List - Last Reconciled 09/09/23 by India Gusman MD alprazolam 0.25 mg PO DAILY apixaban (Eliquis) 5 mg PO BID atorvastatin 80 mg PO DAILY blood sugar diagnostic As directed check the blood sugar once a day blood sugar diagnostic ([employer] Ultra Test strips) As directed check the blood sugar twice a day bupropion HCl 300 mg (2 x 150 mg) PO QAM 90 days calcium carbonate-vitamin D3 600 mg-5 mcg (200 unit) (Calcium 600 + D(3)) caps PO diclofenac sodium 1% (Voltaren Arthritis Pain) 4 grams topical QID flecainide 100 mg PO Q12H 90 days levothyroxine 100 mcg PO QAM lisinopril 10 mg PO DAILY 30 days metoprolol succinate ER 25 mg PO BID 90 days omeprazole 20 mg PO DAILY oxycodone-acetaminophen 5-325 mg (Percocet) 1 tab PO .QD PRN 30 days ropinirole 0.25 mg PO BEDTIME sertraline 50 mg PO DAILY 90 days thiamine HCl (vitamin B1) 50 mg PO DAILY 90 days zolpidem 10 mg PO BEDTIME PRN 90 days HPI HPI Comments History of Present Illness Details Lumbar MRI shows spinal stenosis at levels above her prior fusion, namely L4-5 and L3-4. She says back pain is usual , 7/10, with claudication, shooting to legs, when walking. Denies bladder/bowel changes. Neck pain is the same. Left sided, going to shoulder. Thinks she does have a knot . It is not constant, it occurs depending on activity, but it did bother her last night. Can shoot or cause tingling to left arm. [facility] Medical History (Updated 09/09/23 @ 12:20 by India Gusman MD) Lumbar spinal stenosis DJD of left shoulder Cervical spondylosis Gait instability Wrist pain Tobacco abuse Depression Tubular adenoma of colon Personal history of nicotine dependence Generalized anxiety disorder Paroxysmal atrial flutter Lumbar degenerative disc disease Obstructive sleep apnea Restless leg syndrome Hiatal hernia Hip osteoarthritis Vitamin D deficiency Type 2 diabetes mellitus with hyperglycemia Allergic rhinitis Insomnia PFO (patent foramen ovale) Hypercholesterolemia COPD (chronic obstructive pulmonary disease) Hypertension Obesity (BMI 30-39.9) GERD (gastroesophageal reflux disease) Hypothyroidism Surgical History History of tonsillectomy History of bilateral breast reduction surgery History of carpal tunnel surgery History of lumbar surgery History of hysterectomy History of right breast biopsy (~2016) History of hand surgery (~2011) History of esophagogastroduodenoscopy (EGD) (~2004) History of colonoscopy (~2018) History of cardioversion (~2017) History of foot surgery (~2016) Family History Father Diabetes Hypertension CVD (cardiovascular disease) Mother Cervical cancer Stroke Social History Housing: House Alcohol intake: current Alcohol intake frequency: a few times a week Patient Tobacco Use Status: Former Tobacco user Tobacco use type: Cigarette Years Smoked: 57yrs, onset 12, on and off, 1-1.5ppd, 50pyh, quit 07/31/2021 e-Cigarette/Vaping Use: Never Used Second Hand Smoke Exposure: No service: No 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al status: employed 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 Patient was appropriately conversant and oriented. Good historian. MSK: Inspection reveals appropriate head and neck positioning. Some tenderness over left upper trapezius, trigger point reproducing left arm pain. Cervical ROM was full. Spurling's sign positive on left. Bilateral shoulder, elbow and wrist ROM WNL. No ligamentous laxity or crepitance. No increased effusion. Positive Smith sign on left. No specific abnormalities or instability found on inspection and palpation of the spine and extremities. Strength is 5/5 in all muscle groups tested. No increased tone noted. Neurological: Neurologic examination of the upper and lower extremities was nonfocal with intact sensation, muscle stretch reflexes and without focal motor deficits. No hypereflexia. Arzate?s negative bilaterally. Babinski was down going bilaterally. Clonus was negative. Gait is non-antalgic without loss of balance. Results Reviewed Results Reviewed: Ordering Physician: India Avendano Date of Service: 09/01/23 Procedure(s): MR lumbar spine wo con Accession Number(s): [id number] cc: Lorenzo Oconnor MD; India Avendano~ EXAMINATION: MR LUMBAR SPINE WITHOUT CONTRAST CLINICAL INFORMATION: Radiculopathy COMPARISON: MRI lumbar spine 02/05/2015 TECHNIQUE: MRI of the lumbar spine was obtained using routine sequences without contrast. FINDINGS: Again seen transitional lumbosacral anatomy with lumbarized S1 segment and rudimentary S1-S2 disc with fusion across the S1-S2 articulations. For the purposes of this examination the L5-S1 disc space can be seen on image 28, series 7. New postsurgical changes status post laminectomies at L5-S1 and instrumented posterior interbody fusion at this level. Please note integrity of the hardware would be better evaluated on CT. There is solid interbody arthrodesis at the surgical level. Normal lumbar lordosis is preserved. Stable grade 1 stepwise retrolisthesis throughout the lumbar spine. Vertebral body heights are maintained. There is no suspicious osseous lesion. Redemonstrated T10 vertebral body intraosseous hemangioma. Disc desiccation with progressive severe at T12-L1 disc height loss with new anchylosis across the disc space, increased severe L2-L3, and similar severe L4-L5, moderate to severe L1-L2, and moderate L3-L4 disc height loss. Decreased type I Modic endplate change at T11-T12, though increased at L1-L2 through L3-L4. Multilevel ventral disc osteophytes. Redemonstration of epidural lipomatosis and lumbar spondylosis with level by level detail as follows: T12-L1: Decreased size of annular disc bulge with progressive disc osteophyte complex. Mild bilateral facet arthrosis and ligamentum flavum thickening. Decreased mild spinal canal stenosis and similar mild right without left neural foraminal encroachment. L1-L2: Disc osteophyte complex with moderate bilateral facet arthrosis and ligamentum flavum thickening. Prominence of the epidural fat. Stable moderate thecal sac effacement, moderate right without left neural foraminal stenosis. L2-L3: Progressive disc osteophyte complex and moderate bilateral facet arthrosis with ligamentum flavum thickening. Prominent epidural fat. Increased severe spinal canal stenosis with mass effect along the thecal sac. Increased moderate right neural foraminal stenosis with new impingement upon the exiting/extraforaminal right L2 nerve root and increased mild to moderate left neural foraminal stenosis. L3-L4: Annular disc bulge with central disc protrusion/inferiorly migrated extrusion and moderate bilateral facet arthrosis with ligamentum flavum thickening. Prominent epidural fat. Increased severe spinal canal stenosis with mass effect along the thecal sac. Moderate to severe bilateral neural foraminal stenosis with mass effect along the exiting bilateral L3 nerve roots, increased on the left. L4-L5: Disc osteophyte complex with decreased size of bilateral foraminal disc protrusions. Moderate bilateral facet arthrosis with ligamentum flavum thickening. Prominent epidural fat. Similar severe spinal canal stenosis. Increased moderate left neural foraminal stenosis with increased impingement along the exiting/extraforaminal left L4 nerve root and similar mild to moderate right neural foraminal stenosis with mass effect along the extraforaminal right L4 nerve root. L5-S1: Interval posterior decompression and instrumented posterior interbody fusion as above. Osseous ridging across the fused disc space and bilateral facet arthrosis. There appears to be some heterotopic ossification along the floor of the left neural foramen contiguous with the ossified disc space (image 28, series 7). The spinal canal is decompressed with resolved previously seen stenosis. Resolved left neural foraminal stenosis and mass effect along the exiting left L5 nerve root. Susceptibility artifact limits assessment of the right neural foramen which appears grossly patent. The conus medullaris is it difficult to accurately delineate due to similar signal intensity with adjacent cauda equina nerve roots and effaced CSF from multilevel high-grade spinal canal narrowing, however appears to terminate at L2. The distal spinal cord is normal in appearance. No epidural fluid collection, hematoma, or mass. Increased denervation related severe fatty atrophy and edema of the lower paraspinal musculature. Limited evaluation of the intra-abdominal structures without significant abnormalities. The abdominal aorta is of normal contour and caliber. MR/MR lumbar spine wo con IMPRESSION: 1. Transitional lumbosacral anatomy with lumbarized S1 segment. 2. New postsurgical changes showing posterior decompression and instrumented posterior interbody fusion at L5-S1. There appears to be some heterotopic ossification along the floor of the left neural foramen contiguous with the ossified disc space. Resolved spinal canal stenosis and left neural foraminal stenosis with resolved mass effect along the exiting left L5 nerve root. 3. Advanced multilevel lumbar spondylosis and epidural lipomatosis as above. Progressive severe spinal canal stenosis at L2-L3, L3-L4, and similar severe spinal canal stenosis at L4-L5. Progressive multilevel neural foraminal narrowing with mass effect along the exiting nerve roots as above. Assessment & Plan Assessment & Plan (1) Cervical spondylosis: Code(s): M47.812 - Spondylosis without myelopathy or radiculopathy, cervical region (2) Myofascial pain: Code(s): M79.18 - Myalgia, other site (3) Cervical radiculitis: Code(s): M54.12 - Radiculopathy, cervical region (4) Lumbar spinal stenosis: Code(s): M48.061 - Spinal stenosis, lumbar region without neurogenic claudication Qualifiers: Neurogenic claudication status: with neurogenic claudication Qualified Code(s): M48.062 - Spinal stenosis, lumbar region with neurogenic claudication Plan Lumbar spinal stenosis - we looked at the images together. Despite claudication, she does not have any neurologic deficits. Offered to refer her to Dr. Marlow for further eval and surgical options. Neck pain - left sided myofascial but concern for spinal stenosis. We still need to get an MRI of cspine. Ordered as urgent. Patient opts to wait for cspine MRI before referral to neurosurgery. Offered trial of trigger point injections. Patient will consider. Assessment and plan discussed with patient, and patient was agreeable. All questions were answered thoroughly. Patient to inform us after she has done MRI C-spine pain. India Gusman MD, STEVIE Board Certified, [place] Board [employer] and Rehabilitation (ABPMR) Board Certified, [place] Board of Electrodiagnostic Medicine (ABEM) Orders: Orders MR cervical spine wo con Today M47.812 - Spondylosis without myelopathy or radiculopathy, cervical region, M48.061 - Spinal stenosis, lumbar region without neurogenic claudication, M54.12 - Radiculopathy, cervical region Coding Level of Care Code Est Pt Level 4 (57314) Diagnoses Cervical spondylosis M47.812 Myofascial pain M79.18 Cervical radiculitis M54.12 Spinal stenosis of lumbar region with neurogenic claudication M48.062 Neurogenic claudication status: with neurogenic claudication
== END 2023-09-09 12:51 | disposition home or self-care (01) ==
PROVIDERS: PCP Internal Medicine; Visit Provider Physical Medicine & Rehabilitation
DX: M47.812 Spondylosis without myelopathy or radiculopathy, cervical region (principal); M79.18 Myalgia, other site; M54.12 Radiculopathy, cervical region; M48.062 Spinal stenosis, lumbar region with neurogenic claudication
CPT/HCPCS: 99214

== ENCOUNTER → 2023-09-09 11:52 | Outpatient (BNVA) | payer MEDICARE, SELFPAY | PROVIDERS: PCP Internal Medicine; Visit Provider Physical Medicine & Rehabilitation | DX: M47.812 Spondylosis without myelopathy or radiculopathy, cervical region (principal); M79.18 Myalgia, other site; M54.12 Radiculopathy, cervical region; M48.062 Spinal stenosis, lumbar region with neurogenic claudication | CPT/HCPCS: 99212 ==

== ENCOUNTER 2023-09-10 14:51 | Outpatient (REF) | payer MEDICARE, SELFPAY ==
--- NOTE | ~2023-09-10 | MR_ITS ---
MR CERVICAL SPINE WITHOUT CONTRAST CLINICAL INFORMATION: Spondylosis without myelopathy or radiculopathy, cervical region COMPARISON: None available. TECHNIQUE: MRI of the cervical spine was obtained using routine sequences without contrast. FINDINGS: Cervical alignment is maintained. The vertebral body heights are preserved. There is moderate disc volume loss at C5-C6. Mild disc volume loss at C6-C7. Modic type I endplate signal changes at C6-C7, T1-T2, T2-T3, T3-T4, and T4-T5. The craniocervical junction is unremarkable. Partially imaged intracranial compartment is unremarkable. Cervical arterial flow voids are maintained. No cord signal changes accounting for artifact. C2-C3: Disc osteophyte and ligamentum flavum thickening result in mild narrowing of the central canal. Uncovertebral joint spurring and advanced facet arthropathy result in moderate bilateral foraminal stenosis. C3-C4: Disc osteophyte and ligamentum flavum thickening result in mild to moderate central canal stenosis per Advanced uncovertebral joint hypertrophy and hypertrophic facet arthropathy result in severe bilateral foraminal stenosis. C4-C5: Advanced uncovertebral joint hypertrophy and hypertrophic facet arthropathy result in severe right-sided foraminal stenosis. Disc osteophyte mildly narrows the central canal. Uncovertebral joint spurring and advanced facet arthropathy result in mild to moderate left-sided foraminal stenosis. C5-C6: Disc osteophyte and ligamentum flavum thickening result in mild to moderate central canal stenosis. Advanced uncovertebral joint hypertrophy and hypertrophic facet arthropathy result in severe right and moderate to severe left foraminal stenosis. C6-C7: Disc osteophyte mildly narrows the central canal. Advanced uncovertebral joint hypertrophy and hypertrophic facet arthropathy result in severe right and moderate to severe left foraminal stenosis. C7-T1: The facets are fused bilaterally. Posterior disc contour normal. Right-sided facet arthropathy and uncovertebral joint spurring result in moderate right-sided foraminal stenosis. Partially imaged advanced spondylitic changes within the upper thoracic spine along with epidural lipomatosis result in moderate thecal sac effacement and flattening of the ventral cord at T1-T2, moderate to severe thecal sac effacement and flattening of the ventral cord at T2-T3, and probable mild to moderate thecal sac effacement at the T3-T4 and T4-T5 levels. Disc osteophyte and facet arthropathy result in severe bilateral foraminal stenosis at T1-T2 and T2-T3 as well as severe right-sided foraminal stenosis at T3-T4. MR/MR cervical spine wo con IMPRESSION: - Advanced multilevel cervical spondylosis. Spondylitic changes result in varying degrees of moderate to severe foraminal stenosis bilaterally throughout the entire cervical spine as discussed in detail above. There is advanced hypertrophic facet arthropathy throughout the cervical spine. Mild to moderate central canal stenosis at C3-C4 and C5-C6. - Partially imaged advanced spondylitic changes within the upper thoracic spine along with epidural lipomatosis result in moderate thecal sac effacement and flattening of the ventral cord at T1-T2, moderate to severe thecal sac effacement and flattening of the ventral cord at T2-T3, and probable mild to moderate thecal sac effacement at the T3-T4 and T4-T5 levels. Disc osteophyte and facet arthropathy result in severe bilateral foraminal stenosis at T1-T2 and T2-T3 as well as severe right-sided foraminal stenosis at T3-T4.
== END 2023-09-10 14:52 | disposition home or self-care (01) ==
LOC: HO.MRI 14:51
PROVIDERS: PCP Internal Medicine; Visit Provider Physical Medicine & Rehabilitation
DX: M47.812 Spondylosis without myelopathy or radiculopathy, cervical region (principal); M54.12 Radiculopathy, cervical region; M48.061 Spinal stenosis, lumbar region without neurogenic claudication
CPT/HCPCS: 72141

== ENCOUNTER 2023-09-11 09:37 | Outpatient (REF) | payer MEDICARE, SELFPAY ==
--- NOTE | ~2023-09-11 | MM_ITS ---
EXAMINATION: MM SCREENING DIGITAL BREAST TOMOSYNTHESIS, BILATERAL CLINICAL INFORMATION: Screening. Asymptomatic. The patient is status post bilateral breast reduction. COMPARISON: Mammography: This study is compared with prior exams dating back to TECHNIQUE: Digital breast tomosynthesis is performed in both the craniocaudal and mediolateral oblique views along with computer-aided detection (CAD). Synthesized 2D images are generated from the tomosynthesis. FINDINGS: There are scattered areas of fibroglandular density (ACR BI-RADS breast composition Category b). There are no significant masses, abnormal calcifications, or other abnormalities. There are post reduction changes present. There are 2 adjacent biopsy tissue markers in the upper inner quadrant of the right breast. MM/MM tomosynthesis screening BI IMPRESSION: No mammographic evidence of malignancy. ASSESSMENT: BI-RADS BI-RADS 2 - Benign Findings RECOMMENDATION: Routine annual mammography screening. 1 year F/U This examination should not preclude the clinical evaluation of a suspicious palpable abnormality. This patient's information was entered into a reminder system with a target due date for their next mammogram.
== END 2023-09-11 09:38 | disposition home or self-care (01) ==
LOC: HO.MAMMO 09:37
PROVIDERS: PCP Internal Medicine; Visit Provider Internal Medicine
DX: Z12.31 Encounter for screening mammogram for malignant neoplasm of breast (principal)
CPT/HCPCS: 77063; 77067

== ENCOUNTER → 2023-09-11 09:45 | Outpatient (BNV) | payer MEDICARE, SELFPAY | PROVIDERS: PCP Internal Medicine; Visit Provider Radiology Diagnostic Radiology | DX: Z12.31 Encounter for screening mammogram for malignant neoplasm of breast (principal) | CPT/HCPCS: 77063; 77067 ==

== ENCOUNTER 2023-09-25 10:20 | Outpatient (AMB) | payer MEDICARE, SELFPAY ==
--- NOTE | 2023-09-25 10:36 | A.OFFVIS_ITS ---
Intake Intake Visit Reasons: spinal stenosis Certified Wellness Program Coordinator Required: No Allergies Sulfa (Sulfonamide Antibiotics) [SULFA (SULFONAMIDE ANTIBIOTICS)] Allergy (Unknown, Verified 09/09/23 11:55) RASH PFSH Medical History (Updated 09/11/23 @ 09:06 by India Gusman MD) Lumbar spinal stenosis DJD of left shoulder Cervical spondylosis Gait instability Wrist pain Tobacco abuse Depression Tubular adenoma of colon Personal history of nicotine dependence Generalized anxiety disorder Paroxysmal atrial flutter Lumbar degenerative disc disease Obstructive sleep apnea Restless leg syndrome Hiatal hernia Hip osteoarthritis Vitamin D deficiency Type 2 diabetes mellitus with hyperglycemia Allergic rhinitis Insomnia PFO (patent foramen ovale) Hypercholesterolemia COPD (chronic obstructive pulmonary disease) Hypertension Obesity (BMI 30-39.9) GERD (gastroesophageal reflux disease) Hypothyroidism Surgical History History of tonsillectomy History of bilateral breast reduction surgery History of carpal tunnel surgery History of lumbar surgery History of hysterectomy History of right breast biopsy (~2016) History of hand surgery (~2011) History of esophagogastroduodenoscopy (EGD) (~2004) History of colonoscopy (~2018) History of cardioversion (~2017) History of foot surgery (~2016) Family History Father Diabetes Hypertension CVD (cardiovascular disease) Mother Cervical cancer Stroke Social History Housing: House Alcohol intake: current Alcohol intake frequency: a few times a week Patient Tobacco Use Status: Former Tobacco user Tobacco use type: Cigarette Years Smoked: 57yrs, onset 12, on and off, 1-1.5ppd, 50pyh, quit 07/31/2021 e-Cigarette/Vaping Use: Never Used Second Hand Smoke Exposure: No service: No 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al status: employed 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 She has a 73-year-old female who has had 5-6 years of posterior neck pain radiating down across her left trapezius into her left deltoid and mid biceps region. Occasionally will go into her forearm as well. If she moves her head in particular direction such as looking upwards at a light or looking down her phone she can produce the pain. It can be bothersome at night as well. She is gone through physical therapy for neck without any significant improvement. She takes Tylenol every day as well as Percocet as needed. She had an MRI showing severe degenerative disc disease with foraminal stenosis and was sent to see us for an evaluation. PMH: She is prediabetic, hypothyroidism, AFib, patent foramen ovale, COPD, arthritis, bursitis of her right hip, history of previous L4-5 lumbar fusion, hysterectomy, , breast reduction, carpal tunnel surgery bilaterally, bladder sling, GERD Social hx: She is still smoking about half pack a day or less, denies any significant alcohol abuse or marijuana use. Medications: Lisinopril, Ambien, Tylenol, Lipitor, Eliquis, Synthroid, Percocet, bupropion, flecainide, metoprolol, omeprazole, sertraline, multivitamin Allergies: Sulfa Physical exam: She is has intact strength and slightly brisk reflexes but no pathological reflex, normal gait Imaging review: Cervical MRI done at [facility] shows multilevel degenerative disc disease, she has left foraminal stenosis at C3-4, C5-6 she has moderate foraminal stenosis with a severely degenerative disc, moderate disc degeneration at C6-7. I do not see any significant compression of the nerves at C6-7. There is no spinal cord compression or cord signal change. There are moderate central canal stenosis some of the upper thoracic spine but no cord signal change. Impression: 73-year-old female presents with a 5-6 year history of neck pain with what sounds like a cervical radiculopathy going down into her deltoid and mid biceps region occasionally into her forearm. She has foraminal stenosis on the left at C3-4 and to a lesser degree C5-6. We discussed the fact that she is tried conservative treatment options and that this is something typically Dr. Marlow would offer surgery, usually anterior cervical diskectomy and fusion to treat the symptoms. She is reluctant to consider surgery, but is more interested in a cortisone injection. I told her that this is certainly a reaso nable option, and that she could follow-up with your office in the pain management here at [facility] to discuss that option. She will call us down the road if she wishes to further consider surgery. Thank you for allowing us to care for your patient. The total time spent with this visit with this patient was 45 minutes reviewing history, physical exam, cervical spine imaging review, and implementation of treatment plan or further diagnostic testing Elian Marlow MD,PhD [facility] Coding Level of Care Code New Pt Level 4 (79733) Diagnoses Radiculitis of left cervical region M54.12
== END 2023-09-25 11:20 | disposition home or self-care (01) ==
PROVIDERS: PCP Internal Medicine; Referring Provider Physical Medicine & Rehabilitation; Visit Provider Physician Assistant
DX: M54.12 Radiculopathy, cervical region (principal)
CPT/HCPCS: 99204; 99214

== ENCOUNTER → 2023-09-25 10:20 | Outpatient (BNVA) | payer MEDICARE, SELFPAY | PROVIDERS: PCP Internal Medicine; Visit Provider Physician Assistant | DX: M54.12 Radiculopathy, cervical region (principal); M50.322 Other cervical disc degeneration at C5-C6 level; M50.323 Other cervical disc degeneration at C6-C7 level; M48.02 Spinal stenosis, cervical region | CPT/HCPCS: 99202 ==

== ENCOUNTER 2023-11-02 08:58 | Outpatient (REF) | payer MEDICARE, SELFPAY ==
--- NOTE | ~2023-11-02 | CT_ITS ---
EXAMINATION: CT CHEST SCREENING CLINICAL INFORMATION: Quit smoking 5 years ago. Had smoked 2 packs per day for 50 pack years. COMPARISON: CT lung screening 09/22/2022. TECHNIQUE: Multidetector volumetric CT imaging of the chest is performed without contrast using low dose technique. Additional 2D coronal and sagittal reformatted images and axial 3D maximum intensity projection (MIP) images are generated on the CT workstation. This CT examination was performed using dose optimization techniques as appropriate, variously including the following: *Automated exposure control *Adjustment of mA and/or kV according to patient size (this includes techniques or standardized protocols for targeted exams where dose is matched to indication/reason for exam; i.e. extremities or head) *Use of iterative reconstruction technique DLP: 52 mGy-cm FINDINGS: LUNGS: Emphysematous changes are again seen. 2 small micronodules are unchanged including a 2 mm nodule in the right upper lobe (5:189 compare prior 5:188) and a triangular 3 mm nodule in the right lower lobe (5:318 compare prior 5:310). No worrisome lung masses are seen. MEDIASTINUM: The mediastinum is normal. CORONARY ARTERY CALCIFICATION: None visualized on this study. PLEURA: There is no pleural effusion. No pleural mass or thickening. AXILLA: No lymphadenopathy. UPPER ABDOMEN: Unremarkable. OSSEOUS STRUCTURES: Degenerative changes are present throughout the spine. No bony destructive lesions. CT/CT lung screening IMPRESSION: Small micronodules granulomas, unchanged. Emphysematous changes again noted. No findings suspicious for malignancy. ASSESSMENT: Lung-RADS category 2: Benign. RECOMMENDATION: Routine annual low-dose CT screening in 12 months.
== END 2023-11-02 08:59 | disposition home or self-care (01) ==
LOC: HO.CT 08:58
PROVIDERS: PCP Internal Medicine; Visit Provider Nurse Practitioner Family
DX: Z12.2 Encounter for screening for malignant neoplasm of respiratory organs (principal); Z87.891 Personal history of nicotine dependence
CPT/HCPCS: 71271

== ENCOUNTER 2023-11-11 08:59 | Outpatient (AMB) | payer MEDICARE, SELFPAY ==
--- NOTE | 2023-11-11 08:49 | A.OFFVIS_ITS ---
Intake Intake Visit Reasons: ekg (6Mth) Allergies Sulfa (Sulfonamide Antibiotics) [SULFA (SULFONAMIDE ANTIBIOTICS)] Allergy (Unknown, Verified 09/09/23 11:55) RASH PFSH Medical History (Updated 09/11/23 @ 09:06 by India Gusman MD) Lumbar spinal stenosis DJD of left shoulder Cervical spondylosis Gait instability Wrist pain Tobacco abuse Depression Tubular adenoma of colon Personal history of nicotine dependence Generalized anxiety disorder Paroxysmal atrial flutter Lumbar degenerative disc disease Obstructive sleep apnea Restless leg syndrome Hiatal hernia Hip osteoarthritis Vitamin D deficiency Type 2 diabetes mellitus with hyperglycemia Allergic rhinitis Insomnia PFO (patent foramen ovale) Hypercholesterolemia COPD (chronic obstructive pulmonary disease) Hypertension Obesity (BMI 30-39.9) GERD (gastroesophageal reflux disease) Hypothyroidism Surgical History History of tonsillectomy History of bilateral breast reduction surgery History of carpal tunnel surgery History of lumbar surgery History of hysterectomy History of right breast biopsy (~2016) History of hand surgery (~2011) History of esophagogastroduodenoscopy (EGD) (~2004) History of colonoscopy (~2018) History of cardioversion (~2017) History of foot surgery (~2017) Family History Father Diabetes Hypertension CVD (cardiovascular disease) Mother Cervical cancer Stroke Social History Housing: House Alcohol intake: current Alcohol intake frequency: a few times a week Patient Tobacco Use Status: Former Tobacco user Tobacco use type: Cigarette Years Smoked: 57yrs, onset 12, on and off, 1-1.5ppd, 50pyh, quit 07/31/2021 e-Cigarette/Vaping Use: Never Used Second Hand Smoke Exposure: No service: No 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al status: employed 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
--- NOTE | 2023-11-11 09:04 | AM.OFFVISNUR ---
Intake Intake Visit Reasons: ekg (6Mth) Allergies Sulfa (Sulfonamide Antibiotics) [SULFA (SULFONAMIDE ANTIBIOTICS)] Allergy (Unknown, Verified 09/09/23 11:55) RASH Nursing Note 6 month EKG PT is on Flecainide 100 mg bid. PT reports no complaints. EKG left on DR Petersen's desk for review. Office Procedures EKG 96151-[id number], Complete Coding CPT Codes EKG - CPT: 66870-[id number], Complete ([id number])
== END 2023-11-11 09:34 | disposition home or self-care (01) ==
PROVIDERS: PCP Internal Medicine; Visit Provider Internal Medicine Cardiovascular Disease
DX: R00.1 Bradycardia, unspecified (principal)
CPT/HCPCS: 93010

== ENCOUNTER → 2023-11-11 08:59 | Outpatient (BNVA) | payer MEDICARE, SELFPAY | PROVIDERS: PCP Internal Medicine; Visit Provider Internal Medicine Cardiovascular Disease | DX: R00.1 Bradycardia, unspecified (principal) | CPT/HCPCS: 93005 ==

== ENCOUNTER 2023-12-04 08:25 | Outpatient (AMB) | payer MEDICARE, SELFPAY ==
[2023-12-04 08:31] VITALS: BP 140/78; PULSE 58; O2SAT 95; BMI 31.3
--- NOTE | 2023-12-04 08:31 | A.OFFPC_ITS ---
Vital Signs 12/04/23 08:31 12/04/23 08:52 Height 4 ft 11 in Weight 155 lb 0.8 oz BMI 31.3 BP 140/78 H 130/70 Blood Pressure Location Lt brachial Lt brachial Position Sitting Sitting Pulse 58 Pulse Source Pulse Oximeter Pulse Oximetry (%) 95 Oxygen Delivery Method Room Air Intake Visit Reasons: Hypertension Front Office Assistant Required: No Allergies Sulfa (Sulfonamide Antibiotics) [SULFA (SULFONAMIDE ANTIBIOTICS)] Allergy (Unknown, Verified 12/04/23 08:32) RASH Tobacco use date assessed: 12/04/23 Fall risk assessment: No Falls in past year Last assessed Fall Risk: 12/04/23 Dental Screening Dental Screen Date: 12/04/23 HPI Hypertension HPI Details 73-year-old obese female with diabetes m ellitus controlled hypothyroidism COPD hypertension hypercholesterolemia atrial flutter coming in for follow-up. Patient also has osteoarthritis with degenerative joint disease of the left shoulder. Patient was last seen in August 2023. Colonoscopy is due this year mammogram up-to-date. Due to the history of smoking October 2023 CT scan showing micro nodules unchanged COPD changes. Yearly CT scan patient also has followed up with neurosurgeon regarding cervical spinal stenosis/cervical radiculopathy neck pain radiating down left trapezius into the left deltoid and mid biceps offering anterior cervical diskectomy and fusion. for the PHIL wants increase on sertraline to 75 mg QD . has congestion , no fevers PFSH Medical History (Updated 12/04/23 @ 09:04 by Lorenzo Oconnor MD) Tendonitis of both rotator cuffs Fall Radiculitis of left cervical region DJD of left shoulder Wrist pain, left Lumbar spinal stenosis Cervical spondylosis Gait instability Wrist pain Tobacco abuse Depression Tubular adenoma of colon Personal history of nicotine dependence Generalized anxiety disorder Paroxysmal atrial flutter Lumbar degenerative disc disease Obstructive sleep apnea Restless leg syndrome Hiatal hernia Hip osteoarthritis Vitamin D deficiency Type 2 diabetes mellitus with hyperglycemia Allergic rhinitis Insomnia PFO (patent foramen ovale) Hypercholesterolemia COPD (chronic obstructive pulmonary disease) Hypertension Obesity (BMI 30-39.9) GERD (gastroesophageal reflux disease) Hypothyroidism Surgical History History of tonsillectomy History of bilateral breast reduction surgery History of carpal tunnel surgery History of lumbar surgery History of hysterectomy History of right breast biopsy (~2016) History of hand surgery (~2011) History of esophagogastroduodenoscopy (EGD) (~2004) History of colonoscopy (~2019) History of cardioversion (~2018) History of foot surgery (~2017) Family History Father Diabetes Hypertension CVD (cardiovascular disease) Mother Cervical cancer Stroke Social History Housing: House Alcohol intake: current Alcohol intake frequency: a few times a week Patient Tobacco Use Status: Former Tobacco user Tobacco use type: Cigarette Years Smoked: 57yrs, onset 12, on and off, 1-1.5ppd, 50pyh, quit 07/31/2021 e-Cigarette/Vaping Use: Never Used Second Hand Smoke Exposure: No service: No 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al status: employed 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: [employer] Cognitive needs: No Hearing needs: No Vision needs: Yes Questionnaire PHQ-9 Over the last 2 weeks, how often have you been bothered by any of the following problems? 1. Little interest or pleasure in doing things: not at all 2. Feeling down, depressed, or hopeless: not at all 3. Trouble falling or staying asleep, or sleeping too much: not at all 4. Feeling tired or having little energy: not at all 5. Poor appetite or overeating: not at all 6. Feeling bad about yourself - or that you are a failure or have let yourself or your family down: not at all 7. Trouble concentrating on things, such as reading the newspaper or watching television: not at all 8. Moving or speaking so slowly that other people could have noticed. Or the opposite - being so fidgety or restless that you have been moving around a lot more than usual: not at all 9. Thoughts that you would be better off or of hurting yourself in some way: not at all Total score: 0 Depression Screening Interpretation: Negative Depression Screening Done: Yes Source: Developed by Drs. Cirilo Griffith, Parisa Carroll, Dakotah Patel and colleagues, with an educational jacklyn from [employer] ([employer] Thrive Questionnaire Date Thrive assessed: 12/04/23 AUDIT C Alcohol Use Questionnaire (AUDIT-C) 1. How often do you have a drink containing alcohol?: 2-3 times a week 2. How many drinks containing alcohol do you have on a typical day when you are drinking?: 1 or 2 3. How often do you have six or more drinks on one occasion?: Never Total Score: 3 PHIL-7 AMB Questionnaire PHIL-7 Date PHIL - 7 assessed: 12/04/23 Feeling nervous, anxious, or on edge: 0 = Not at all Not being able to stop or control worryin = Not at all Worrying too much about different things: 0 = Not at all Trouble relaxin = Not at all Being so restless that it is hard to sit still: 0 = Not at all Becoming easily annoyed or irritable: 0 = Not at all Feeling afraid as if something awful might happen: 0 = Not at all Total PHIL-7 score (0-4 normal; 5-9 mild; 10-14 moderate; 15-21 severe): 0 Source: Developed by Drs. Cirilo Griffith, Parisa Carroll, Dakotah Patel and colleagues, with an educational jacklyn from [employer] ([employer]). PHIL-7 Assessment Billing PHIL-7 Assessment Tool: PHIL-7 Assessment 39573 Physical exam (Primary Care) Vital Signs: Last Vital Signs Pulse 58 12/04/23 08:31 BP 140/78 H 12/04/23 08:31 Pulse Ox 95 12/04/23 08:31 Oxygen Delivery Method Room Air 12/04/23 08:31 BMI result Body Mass Index 31.3 Tobacco/Smoking Status: Tobacco use Status Tobacco use date assessed 12/04/23 12/04/23 08:32 Patient Tobacco Use Status Former Tobacco user 12/04/23 08:32 Tobacco use type Cigarette 12/04/23 08:32 e-Cigarette/Vaping Use Never Used 12/04/23 08:32 PHQ-9: PHQ-9 Score PHQ-9: Total score 0 12/04/23 08:37 Depression Screening Interpretation: Negative Thrive Assessment: Date of Thrive Assessment Date Thrive assessed 12/04/23 12/04/23 08:32 Const General: alert; No acute distress Eyes Conjunctivae: conjunctivae normal Resp Auscultation: clear to auscultation bilaterally Cardio Rate: regular rate Rhythm: regular rhythm GI Inspection: Yes normal to inspection Extrem General: Yes normal to inspection and No edema Assessment and Plan Assessment & Plan (1) Type 2 diabetes mellitus with hyperglycemia: Comment: (diet managed, DM eye exam 05/29/21) [facility] Code(s): E11.65 - Type 2 diabetes mellitus with hyperglycemia Qualifiers: Diabetes mellitus chcf insulin use: without emt intermediate use Qualified Code(s): E11.65 - Type 2 diabetes mellitus with hyperglycemia Plan: Decrease the amount of carbohydrate intake, pasta, bread, rice and potatoes are all sugar and that is aside from all the sweet stuff, remember that fruits are good but they are Sweet also. Hemoglobin A1c goal of less than 7.0 diet controlled (2) Hypercholesterolemia: Code(s): E78.00 - Pure hypercholesterolemia, unspecified Plan: Avoid fried foods, chicken skin, eggs, butter margarine, pastries and meat. Be it pork or beef they have a lot of cholesterol LDL goal of less than 100 and triglyceride of less than 150. July 2023 last blood work LDL was 101 on atorvastatin 80 mg once a (3) Hypertension: Code(s): I10 - Essential (primary) hypertension Qualifiers: Hypertension type: essential hypertension Qualified Code(s): I10 - Essential (primary) hypertension Plan: Continue with blood pressure medication. Decrease salt intake and exercise takes lisinopril 10 mg once a day metoprolol 25 mg twice a day (4) Paroxysmal atrial flutter: Comment: (hx synch cardioversion 2017) Code(s): I48.92 - Unspecified atrial flutter Plan: Patient on anticoagulation and flecainide (5) Cervical spondylosis: Code(s): M47.812 - Spondylosis without myelopathy or radiculopathy, cervical region Plan: Patient has met with neurosurgeon and planned conservative therapy for now (6) Tubular adenoma of colon: Comment: (TAs on colonoscopies 2004, 2011, 2019) Code(s): D12.6 - Benign neoplasm of colon, unspecified Plan: Reminded about colonoscopy (7) Lumbar degenerative disc disease: Code(s): M51.36 - Other intervertebral disc degeneration, lumbar region Plan: Narcotic pain meds: Is being prescribed with the understanding that these medications are potentially addictive and should be used only when absolutely necessary and must always be secured. Any remaining pills should be safely disposed off appropriately. Patient is advised that narcotics can impaired judgment and one should not drive or operate heavy machinery while taking these medications. Never share these medications with anybody and do not leave them unattended. They will not be replaced under any circumstances. (8) Personal history of nicotine dependence: Comment: (onset 12, 1-1.5ppd x 59yrs on/off, 50pyh, quit 07/2021) Code(s): Z87.891 - Personal history of nicotine dependence Plan: CT scan for lung cancer screening October 2023 stable (9) Generalized anxiety disorder: Code(s): F41.1 - Generalized anxiety disorder Plan: Patient has not met with any counseling and continuing with present medication (10) Hypothyroidism: Code(s): E03.9 - Hypothyroidism, unspecified Plan: Continue with thyroid medication (11) COPD (chronic obstructive pulmonary disease): Code(s): J44.9 - Chronic obstructive pulmonary disease, unspecified Qualifiers: COPD type: emphysema Emphysema type: unspecified Qualified Code(s): J43.9 - Emphysema, unspecified Plan: Presently stable Orders: Orders Lipid Panel 3 Months E78.00 - Pure hypercholesterolemia, unspecified Hemoglobin A1c 3 Months E78.00 - Pure hypercholesterolemia, unspecified Comprehensive Met. Panel 3 Months E78.00 - Pure hypercholesterolemia, unspecified Medications: Changed From sertraline 50 mg PO DAILY 90 days 90 tabs 2RF F41.1 - Generalized anxiety disorder To sertraline 75 mg (1.5 x 50 mg) PO DAILY 90 days 135 tabs 2RF F41.1 - Generalized anxiety disorder Patient Instructions: ainide Coding Level of Care Code Est Pt Level 4 (95207) Diagnoses Type 2 diabetes mellitus with hyperglycemia, without long-term current use of insulin E11.65 Diabetes mellitus emt intermediate insulin use: without emt intermediate use Hypercholesterolemia E78.00 Essential hypertension I10 Hypertension type: essential hypertension Paroxysmal atrial flutter I48.92 Cervical spondylosis M47.812 Tubular adenoma of colon D12.6 Lumbar degenerative disc disease M51.36 Personal history of nicotine dependence Z87.891 Generalized anxiety disorder F41.1 Hypothyroidism E03.9 Pulmonary emphysema, unspecified emphysema type J43.9 COPD type: emphysema Emphysema type: unspecified Additional Codes PHIL-7 Assessment Billing - PHIL-7 Assessment Tool: PHIL-7 Assessment 29924 ([id number])
[2023-12-04 08:52] VITALS: BP 130/70
== END 2023-12-04 09:04 | disposition home or self-care (01) ==
PROVIDERS: PCP Internal Medicine; Visit Provider Internal Medicine
DX: E11.65 Type 2 diabetes mellitus with hyperglycemia (principal); I48.92 Unspecified atrial flutter; J43.9 Emphysema, unspecified; E78.00 Pure hypercholesterolemia, unspecified; I10 Essential (primary) hypertension; M47.812 Spondylosis without myelopathy or radiculopathy, cervical region; D12.6 Benign neoplasm of colon, unspecified; M51.36 Other intervertebral disc degeneration, lumbar region; Z87.891 Personal history of nicotine dependence; F41.1 Generalized anxiety disorder; E03.9 Hypothyroidism, unspecified
CPT/HCPCS: 99214

== ENCOUNTER 2024-04-19 08:26 | Outpatient (AMB) | payer MEDICARE, SELFPAY ==
--- NOTE | 2024-04-19 08:31 | MHC.PC.OV ---
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 Required: No Accompanied by: Self / Same As Patient Allergies Sulfa (Sulfonamide Antibiotics) [SULFA (SULFONAMIDE ANTIBIOTICS)] Allergy (Unknown, Verified 04/19/24 08:32) RASH Tobacco use date assessed: 04/19/24 Fall risk assessment: No Falls in past year Last assessed Fall Risk: 04/19/24 Dental Screening Dental Screen Date: 04/19/24 Did you have a dental visit in the last 12 months?: Yes Did you have a dental problem in the last 6 months where you did not have access to dental care?: No Was dental information given to patient?: Patient has dentist HPI Follow Up HPI Details 73-year-old obese female with diabetes mellitus hypertension hypercholesterolemia atrial flutter generalized anxiety disorder hypothyroidism COPD and lumbar degenerative disc disease coming in for follow-up. Last seen in November 2023. Ophthalmology notes appreciated blood work requested has not been done [facility] Medical History (Updated 12/04/23 @ 09:04 by Lorenzo Oconnor MD) Tendonitis of both rotator cuffs Fall Radiculitis of left cervical region DJD of left shoulder Wrist pain, left Lumbar spinal stenosis Cervical spondylosis Gait instability Wrist pain Tobacco abuse Depression Tubular adenoma of colon Personal history of nicotine dependence Generalized anxiety disorder Paroxysmal atrial flutter Lumbar degenerative disc disease Obstructive sleep apnea Restless leg syndrome Hiatal hernia Hip osteoarthritis Vitamin D deficiency Type 2 diabetes mellitus with hyperglycemia Allergic rhinitis Insomnia PFO (patent foramen ovale) Hypercholesterolemia COPD (chronic obstructive pulmonary disease) Hypertension Obesity (BMI 30-39.9) GERD (gastroesophageal reflux disease) Hypothyroidism Surgical History History of tonsillectomy History of bilateral breast reduction surgery History of carpal tunnel surgery History of lumbar surgery History of hysterectomy History of right breast biopsy (~2016) History of hand surgery (~2011) History of esophagogastroduodenoscopy (EGD) (~2004) History of colonoscopy (~2018) History of cardioversion (~2017) History of foot surgery (~2016) Family History Father Diabetes Hypertension CVD (cardiovascular disease) Mother Cervical cancer Stroke Social History Housing: House Alcohol intake: current Alcohol intake frequency: a few times a week Patient Tobacco Use Status: Former Tobacco user Tobacco use type: Cigarette Years Smoked: 57yrs, onset 12, on and off, 1-1.5ppd, 50pyh, quit 07/31/2021 e-Cigarette/Vaping Use: Never Used Second Hand Smoke Exposure: No service: No 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al status: employed 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 1. Little interest or pleasure in doing things: not at all 2. Feeling down, depressed, or hopeless: not at all 3. Trouble falling or staying asleep, or sleeping too much: not at all 4. Feeling tired or having little energy: not at all 5. Poor appetite or overeating: not at all 6. Feeling bad about yourself - or that you are a failure or have let yourself or your family down: not at all 7. Trouble concentrating on things, such as reading the newspaper or watching television: not at all 8. Moving or speaking so slowly that other people could have noticed. Or the opposite - being so fidgety or restless that you have been moving around a lot more than usual: not at all 9. Thoughts that you would be better off or of hurting yourself in some way: not at all Total score: 0 Depression Screening Interpretation: Negative Depression Screening Done: Yes Source: Developed by Drs. Cirilo Griffith, Parisa Carroll, Dakotah Patel and colleagues, with an educational jacklyn from [employer]. Thrive Questionnaire Date Thrive assessed: 04/19/24 I am a: Patient What is your living situation today?: I have a steady place to live Within the past 12 months, did the food you bought not last and you didn't have the money to get more?: Never true Within the past 12 months, did you worry whether your food would run out before you got money to buy more?: Never true Do you have trouble paying for medicines?: No Do you have trouble getting transportation to medical appointments?: No Do you have trouble paying your heating and electricity bill?: No Do you have trouble taking care of your child, family member or friend?: No Do you have trouble with day-to-day activities such as bathing, preparing meals, shopping, managing finances, etc.?: No Are you currently unemployed and looking for a job?: No Are you interested in more education?: No Please select the resources that you would like help with: None Currently or been in a relationship where the following occur: No concerns reported THRIVE Score: 0 AUDIT C Alcohol Use Questionnaire (AUDIT-C) 1. How often do you have a drink containing alcohol?: 2-3 times a week 2. How many drinks containing alcohol do you have on a typical day when you are drinking?: 1 or 2 3. How often do you have six or more drinks on one occasion?: Never Total Score: 3 PHIL-7 AMB Questionnaire PHIL-7 Date PHIL - 7 assessed: 04/19/24 Feeling nervous, anxious, or on edge: 0 = Not at all Not being able to stop or control worryin = Not at all Worrying too much about different things: 0 = Not at all Trouble relaxin = Not at all Being so restless that it is hard to sit still: 0 = Not at all Becoming easily annoyed or irritable: 0 = Not at all Feeling afraid as if something awful might happen: 0 = Not at all Total PHIL-7 score (0-4 normal; 5-9 mild; 10-14 moderate; 15-21 severe): 0 Source: Developed by Drs. Cirilo Griffith, Parisa Carroll, Dakotah Patel and colleagues, with an educational jacklyn from [employer]. PHIL-7 Assessment Billing PHIL-7 Assessment Tool: PHIL-7 Assessment 21623 Physical exam (Primary Care) Vital Signs: Last Vital Signs Pulse 54 04/19/24 08:32 BP 112/70 04/19/24 08:32 Pulse Ox 98 04/19/24 08:32 Oxygen Delivery Method Room Air 04/19/24 08:32 BMI result Body Mass Index 30.7 Tobacco/Smoking Status: Tobacco use Status Tobacco use date assessed 04/19/24 04/19/24 08:34 Patient Tobacco Use Status Former Tobacco user 04/19/24 08:34 Tobacco use type Cigarette 04/19/24 08:34 e-Cigarette/Vaping Use Never Used 04/19/24 08:34 PHQ-9: PHQ-9 Score PHQ-9: Total score 0 04/19/24 08:44 Depression Screening Interpretation: Negative Thrive Assessment: Date of Thrive Assessment Date Thrive assessed 04/19/24 04/19/24 08:34 Currently or been in a relationship where the following occur: No concerns reported Const General: alert; No acute distress Eyes Conjunctivae: conjunctivae normal Resp Auscultation: clear to auscultation bilaterally Cardio Rate: regular rate Rhythm: regular rhythm GI Inspection: Yes normal to inspection Extrem General: Yes normal to inspection and No edema Results AMB Hemoglobin A1c AMB Hemoglobin A1c 6.3 % Last Edit by JOSELIN West on 04/19/24 08:53 Assessment and Plan Assessment & Plan (1) Tubular adenoma of colon: Comment: (TAs on colonoscopies 2004, 2011, 2018) Code(s): D12.6 - Benign neoplasm of colon, unspecified Plan: Patient is reminded about colonoscopy (2) Type 2 diabetes mellitus with hyperglycemia: Comment: (diet managed, DM eye exam 05/29/21) [facility] Code(s): E11.65 - Type 2 diabetes mellitus with hyperglycemia Qualifiers: Diabetes mellitus residential insulin use: without residential use Qualified Code(s): E11.65 - Type 2 diabetes mellitus with hyperglycemia Plan: Decrease the amount of carbohydrate intake, pasta, bread, rice and potatoes are all sugar and that is aside from all the sweet stuff, remember that fruits are good but they are Sweet also. Hemoglobin A1c goal of less than 7.0 patient is doing diet control (3) Hypercholesterolemia: Code(s): E78.00 - Pure hypercholesterolemia, unspecified Plan: Avoid fried foods, chicken skin, eggs, butter margarine, pastries and meat. Be it pork or beef they have a lot of cholesterol patient is again reminded about retesting blood work LDL goal of less than 100 and triglyceride of less than 150 on atorvastatin 80 mg once a day (4) Hypertension: Code(s): I10 - Essential (primary) hypertension Qualifiers: Hypertension type: essential hypertension Qualified Code(s): I10 - Essential (primary) hypertension Plan: Continue with blood pressure medication. Decrease salt intake and exercise on lisinopril 10 mg once a day metoprolol 25 mg twice a day (5) Hypothyroidism: Code(s): E03.9 - Hypothyroidism, unspecified Plan: Continue with thyroid medication (6) Obesity (BMI 30-39.9): Code(s): E66.9 - Obesity, unspecified Plan: Diet and exercise Orders: Orders AMB Hemoglobin A1c Today Z13.9 - Encounter for screening, unspecified Coding Level of Care Code Est Pt Level 3 (57469) Complex EM visit Add On G2211 Diagnoses Tubular adenoma of colon D12.6 Type 2 diabetes mellitus with hyperglycemia, without long-term current use of insulin E11.65 Diabetes mellitus ferry terminal 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
[2024-04-19 08:32] VITALS: BP 112/70; PULSE 54; O2SAT 98; BMI 30.7
== END 2024-04-19 08:58 | disposition home or self-care (01) ==
PROVIDERS: PCP Internal Medicine; Visit Provider Internal Medicine
DX: D12.6 Benign neoplasm of colon, unspecified (principal); E11.65 Type 2 diabetes mellitus with hyperglycemia; E66.9 Obesity, unspecified; Z68.30 Body mass index [BMI] 30.0-30.9, adult; E78.00 Pure hypercholesterolemia, unspecified; I10 Essential (primary) hypertension; E03.9 Hypothyroidism, unspecified
CPT/HCPCS: 83036; 99213; G2211

== ENCOUNTER 2024-05-23 08:29 | Outpatient (AMB) | payer MEDICARE, SELFPAY ==
--- NOTE | 2024-05-23 08:30 | A.OFFVIS_ITS ---
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 Required: No Allergies Sulfa (Sulfonamide Antibiotics) [SULFA (SULFONAMIDE ANTIBIOTICS)] Allergy (Unknown, Verified 04/19/24 08:32) RASH Medication List - Last Reconciled 05/23/24 by Harish Petersen MD alprazolam 0.25 mg PO DAILY apixaban (Eliquis) 5 mg PO BID atorvastatin 80 mg PO DAILY blood sugar diagnostic As directed check the blood sugar once a day blood sugar diagnostic ([employer] Ultra Test strips) As directed check the blood sugar twice a day bupropion HCl XL 300 mg (2 x 150 mg) PO QAM 90 days calcium carbonate-vitamin D3 600 mg-5 mcg (200 unit) (Calcium 600 + D(3)) caps PO diclofenac sodium 1% (Voltaren Arthritis Pain) 4 grams topical QID flecainide 100 mg PO Q12H 90 days levothyroxine 100 mcg PO QAM lisinopril 10 mg PO DAILY 30 days metoprolol succinate ER 25 mg PO BID omeprazole 20 mg PO DAILY oxycodone-acetaminophen 5-325 mg (Percocet) 1 tab PO .QD PRN 30 days ropinirole 0.25 mg PO BEDTIME sertraline 75 mg (1.5 x 50 mg) PO DAILY 90 days thiamine HCl (vitamin B1) 50 mg PO DAILY 90 days zolpidem 10 mg PO BEDTIME PRN 90 days HPI Comments Details: Kaylee comes for follow-up. She has been doing well. She says she has been doing well with no symptoms of atrial fibrillation. No exertional chest pain or shortness of breath. She remains very active. She denies any lightheadedness, syncope. No bleeding issues or neurologic events. Takes all her medications. She has not had any recent blood work. [facility], [facility] Medical History Tendonitis of both rotator cuffs Fall Radiculitis of left cervical region DJD of left shoulder Wrist pain, left Lumbar spinal stenosis Cervical spondylosis Gait instability Wrist pain Tobacco abuse Depression Tubular adenoma of colon Personal history of nicotine dependence Generalized anxiety disorder Paroxysmal atrial flutter Lumbar degenerative disc disease Obstructive sleep apnea Restless leg syndrome Hiatal hernia Hip osteoarthritis Vitamin D deficiency Type 2 diabetes mellitus with hyperglycemia Allergic rhinitis Insomnia PFO (patent foramen ovale) Hypercholesterolemia COPD (chronic obstructive pulmonary disease) Hypertension Obesity (BMI 30-39.9) GERD (gastroesophageal reflux disease) Hypothyroidism Surgical History History of tonsillectomy History of bilateral breast reduction surgery History of carpal tunnel surgery History of lumbar surgery History of hysterectomy History of right breast biopsy (~2016) History of hand surgery (~2011) History of esophagogastroduodenoscopy (EGD) (~2004) History of colonoscopy (~2018) History of cardioversion (~2017) History of foot surgery (~2016) Family History Father Diabetes Hypertension CVD (cardiovascular disease) Mother Cervical cancer Stroke Social History Housing: House Alcohol intake: current Alcohol intake frequency: a few times a week Patient Tobacco Use Status: Former Tobacco user Tobacco use type: Cigarette Years Smoked: 57yrs, onset 12, on and off, 1-1.5ppd, 50pyh, quit 07/31/2021 e-Cigarette/Vaping Use: Never Used Second Hand Smoke Exposure: No service: No 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al status: employed 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 Cognitive needs: No Hearing needs: No Vision needs: Yes Review of Systems Const Denies chills, Denies fatigue, Denies fever(s), Denies frequent falls, Denies weakness, Denies weight gain and Denies weight loss ENT Denies dizziness Card Denies chest pain, Denies leg edema, Denies lightheadedness, Denies palpitations, Denies dyspnea, Denies dyspnea on exertion, Denies orthopnea and Denies other (loss of consciousness) Resp Denies cough, Denies dyspnea and Denies dyspnea on exertion GI Denies hematochezia and Denies change in stool character Musc Denies abnormal gait, Denies muscle weakness, Denies numbness, Denies radiating pain into limb and Denies tingling Neuro Denies abnormal gait, Denies dizziness, Denies frequent falls, Denies numbness, Denies tingling and Denies weakness Endo Denies fatigue and Denies palpitations Physical Exam Vital Signs: Last Vital Signs Pulse 54 05/23/24 08:31 BP 130/84 05/23/24 08:31 BMI result Body Mass Index 31.2 Const General: cooperative, comfortable, no acute distress, alert, awake and well groomed Nutritional Appearance: overweight Orientation/consciousness: patient oriented x3 Limitations: no limitations Neck Neck: Yes trachea midline, Yes supple and Yes no JVD Resp Effort & Inspection: normal respiratory effort Auscultation: clear to auscultation bilaterally Cardio Jugular venous distension: no JVD Palpation: normal PMI Rate: regular rate Rhythm: regular rhythm Heart sounds: S1 normal heart sound present and S2 normal heart sound present GI Auscultation: normal bowel sounds Skin General skin exam: no rashes or lesions noted Neuro General: patient oriented x3 and no focal motor deficits Extrem General: Yes no clubbing, cyanosis or edema Psych Appearance: grossly normal Office Procedures EKG Details: EKG shows sinus bradycardia at 54 beats per minute [id number], Complete Assessment & Plan Assessment & Plan (1) Paroxysmal atrial flutter: Comment: (hx synch cardioversion 2018) Code(s): I48.92 - Unspecified atrial flutter Category: Medical Plan: Symptomatic paroxysmal atrial flutter which has remained suppressed on current medical therapy. Continue current antiarrhythmic drug therapy with flecainide which she is tolerating well. No symptoms suggestive of coronary disease. Will need EKGs every 6 months. Continue concomitant metoprolol therapy. Continue full oral anticoagulation, currently on Eliquis 5 mg b.i.d.. CHADSVASC score of 5. Semi annual renal function test and annual CBC should be checked. Will schedule the test today. Follow-up echocardiogram in 1 year's time. (2) Hypertension: Code(s): I10 - Essential (primary) hypertension Category: Medical Qualifiers: Hypertension type: essential hypertension Qualified Code(s): I10 - Essential (primary) hypertension Plan: Hypertension which is currently well optimized advised to monitor blood pressure at home maintain a log. Goal blood pressure less than 130/84. Low-salt diet was discussed. Advised to continue current therapy. Runs of good blood pressure control was discussed. Continue maintain aerobic activity as tolerated. Advised to call me with any new symptoms. Will follow up in the clinic in 6 months for EKG in 1 year with me. Orders: Orders CA echo transthoracic complete 1 Year I48.92 - Unspecified atrial flutter Basic Metabolic Panel Today I48.92 - Unspecified atrial flutter Complete Blood Count no Diff Today I48.92 - Unspecified atrial flutter TSH reflex Free T4 Today I48.92 - Unspecified atrial flutter Basic Metabolic Panel 6 Months I48.92 - Unspecified atrial flutter Coding Level of Care Code Est Pt Level 4 (98402) Diagnoses Paroxysmal atrial flutter I48.92 Essential hypertension I10 Hypertension type: essential hypertension CPT Codes EKG - CPT: [id number], Complete ([id number])
[2024-05-23 08:31] VITALS: BP 130/84; PULSE 54; BMI 31.2
== END 2024-05-23 08:57 | disposition home or self-care (01) ==
PROVIDERS: PCP Internal Medicine; Visit Provider Internal Medicine Cardiovascular Disease
DX: I48.92 Unspecified atrial flutter (principal); I10 Essential (primary) hypertension
CPT/HCPCS: 93010; 99214

== ENCOUNTER 2024-05-23 08:29 | Outpatient (REF) | payer MEDICARE, SELFPAY ==
[2024-05-23 09:38] LABS: Hematocrit 38.1 % (37.0-47.0); Hemoglobin 12.5 g/dl (12.0-16.0); Mean Corpuscular HGB Conc 32.8 g/dl (31.0-35.0); Mean Corpuscular Hemoglobin 33.3 pg (27.0-33.0); Mean Corpuscular Volume 101.6 fL (80.0-98.0); Mean Platelet Volume 9.6 fL (9.4-12.3); Platelet Count 197 X10*3/uL (160-400); Red Blood Count 3.75 X10*6/uL (4.20-5.50); Red Cell Distribution Width 12.6 % (11.0-16.0); White Blood Count 9.4 X10*3/uL (4.8-10.8)
[2024-05-23 10:11] LABS: Anion Gap 11 (12-20); Blood Urea Nitrogen 12 mg/dL (9-16); Carbon Dioxide 30 mmol/L (22-29); Chloride 107 mmol/L (96-108); Estimated Glomerular Filt Rate > 60; Glucose Random 115 mg/dL (60-115); Potassium 4.5 mmol/L (3.3-5.1); Sodium 143 mmol/L (135-145)
[2024-05-23 10:31] LABS: TSH reflex Free T4 0.36 uIU/mL (0.32-4.0)
== END 2024-05-23 08:30 | disposition home or self-care (01) ==
LOC: HO.LAB 08:29
PROVIDERS: PCP Internal Medicine; Visit Provider Internal Medicine Cardiovascular Disease
DX: I48.92 Unspecified atrial flutter (principal); I10 Essential (primary) hypertension
CPT/HCPCS: 36415; 80048; 84443; 85027; 93005; 99212

== ENCOUNTER 2024-06-03 13:25 | Outpatient (AMB) | payer MEDICARE, SELFPAY ==
--- NOTE | 2024-06-03 13:41 | MHC.OFFWIV ---
Intake Vital Signs 06/03/24 13:43 Height 4 ft 11 in Weight 157 lb BMI 31.7 BP 130/72 Blood Pressure Location Rt brachial Position Sitting Pulse 56 Pulse Source Pulse Oximeter Temp 98.1 F Temp Source Oral Pulse Oximetry (%) 96 Oxygen Delivery Method Room Air Intake Visit Reasons: EP Congestion and cough Intake Note: Patient here for cough, sinus congestion and headaches which has been present for about 2 weeks. Patient Tobacco Use Status: Former Tobacco user Allergies Sulfa (Sulfonamide Antibiotics) [SULFA (SULFONAMIDE ANTIBIOTICS)] Allergy (Unknown, Verified 06/03/24 13:44) RASH Do you need a note to return to daycare/school/sports/work: No HPI HPI Comments History of Present Illness Details Patient is a 73-year-old female who is a current smoker but denies a history of COPD complaining of 2 weeks of a productive cough with white sputum and chest congestion. She denies any fevers, headaches, sinus pain, ear pain or shortness of breath. She does state that sometimes when she is walking her dog early in the morning, she will feel a little bit short of breath. She tells me she has been using Mucinex and Robitussin with out any improvement in her symptoms. She tells me she does not hear herself wheezing. She tells me she does not use inhalers. [facility] Medical History Tendonitis of both rotator cuffs Fall Radiculitis of left cervical region DJD of left shoulder Wrist pain, left Lumbar spinal stenosis Cervical spondylosis Gait instability Wrist pain Tobacco abuse Depression Tubular adenoma of colon Personal history of nicotine dependence Generalized anxiety disorder Paroxysmal atrial flutter Lumbar degenerative disc disease Obstructive sleep apnea Restless leg syndrome Hiatal hernia Hip osteoarthritis Vitamin D deficiency Type 2 diabetes mellitus with hyperglycemia Allergic rhinitis Insomnia PFO (patent foramen ovale) Hypercholesterolemia COPD (chronic obstructive pulmonary disease) Hypertension Obesity (BMI 30-39.9) GERD (gastroesophageal reflux disease) Hypothyroidism Surgical History History of tonsillectomy History of bilateral breast reduction surgery History of carpal tunnel surgery History of lumbar surgery History of hysterectomy History of right breast biopsy (~2016) History of hand surgery (~2011) History of esophagogastroduodenoscopy (EGD) (~2004) History of colonoscopy (~2018) History of cardioversion (~2017) History of foot surgery (~2016) Family History Father Diabetes Hypertension CVD (cardiovascular disease) Mother Cervical cancer Stroke Social History Housing: House Alcohol intake: current Alcohol intake frequency: a few times a week Patient Tobacco Use Status: Former Tobacco user Tobacco use type: Cigarette Years Smoked: 57yrs, onset 12, on and off, 1-1.5ppd, 50pyh, quit 07/31/2021 e-Cigarette/Vaping Use: Never Used Second Hand Smoke Exposure: No service: No 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al status: employed 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: [employer] Cognitive needs: No Hearing needs: No Vision needs: Yes Review of Systems Const All systems reviewed & are unremarkable except as noted in HPI and below Physical Exam Vital Signs: Last Vital Signs Temp 98.1 F 06/03/24 13:43 Pulse 56 06/03/24 13:43 BP 130/72 06/03/24 13:43 Pulse Ox 96 06/03/24 13:43 Oxygen Delivery Method Room Air 06/03/24 13:43 BMI result Body Mass Index 31.7 Const General: cooperative, healthy appearing, comfortable and no acute distress Orientation/consciousness: patient oriented x3 Limitations: no limitations HEENT Head: Yes normal to inspection Ears: hearing grossly normal bilaterally, external ears normal and TM's normal bilaterally General nose exam: Normal external nose present, Normal nares present and No nasal discharge present Face and sinus: Yes normal facial exam and Yes sinuses nontender Mouth: Normal oral and palatal mucosa present and moist mucous membranes Throat: Yes tonsils normal, Yes uvula midline and Yes posterior oropharynx abnormal (Erythema) Eyes General: appearance normal, both eyes and all related structures Neck Neck: Yes normal visual inspection Resp Effort & Inspection: normal respiratory effort, able to speak in complete sentences, Actively coughing, no respiratory distress, not tachypneic, no tripod positioning and no use of accessory muscles Auscultation: diminished lung sounds on the right and bronchovesicular breath sounds on the right Cardio Rate: regular rate Rhythm: regular rhythm Heart sounds: normal S1 and S2 Skin General skin exam: no rashes or lesions noted Neuro General: patient oriented x3 Extrem General: Yes normal to inspection and Yes no clubbing, cyanosis or edema Assessment & Plan Assessment & Plan (1) Lower respiratory infection (e.g., bronchitis, pneumonia, pneumonitis, pulmonitis): Code(s): J22 - Unspecified acute lower respiratory infection Plan: Vital signs are stable, patient tells me her heart rate is always low because she is on metoprolol. With bronchovesicular lung sounds and they are a little bit dim, I will get a chest x-ray to rule out a pneumonia. We also tested for flu COVID and RSV Plan See above Orders: Orders XR chest 2V Today R05.9 - Cough, unspecified Coding Level of Care Code Est Pt Level 4 (28987) Diagnoses Lower respiratory infection (e.g., bronchitis, pneumonia, pneumonitis, pulmonitis) J22
[2024-06-03 13:43] VITALS: BP 130/72; PULSE 56; TEMP 36.7; O2SAT 96; BMI 31.7
== END 2024-06-03 14:13 | disposition home or self-care (01) ==
PROVIDERS: PCP Internal Medicine; Visit Provider Physician Assistant
DX: J22 Unspecified acute lower respiratory infection (principal)

== ENCOUNTER 2024-06-03 13:25 | Outpatient (REF) | payer MEDICARE, SELFPAY | END 2024-06-03 13:26 | disposition home or self-care (01) | LOC: HO.LAB 13:25 | PROVIDERS: PCP Internal Medicine; Visit Provider Physician Assistant | DX: J22 Unspecified acute lower respiratory infection (principal); R05.9 Cough, unspecified | CPT/HCPCS: 99212 ==

== ENCOUNTER 2024-06-03 13:59 | Outpatient (REF) | payer MEDICARE, SELFPAY ==
--- NOTE | ~2024-06-03 | XR_ITS ---
EXAMINATION: XR CHEST CLINICAL INFORMATION: Cough, unspecified COMPARISON: Chest radiograph 06/15/2017 TECHNIQUE: PA and lateral views of the chest were obtained. FINDINGS: The lungs are well expanded. No focal consolidation, effusion, edema, or pneumothorax. The cardiomediastinal silhouette is within normal limits for technique and unchanged. No acute osseous abnormality. XR/XR chest 2V IMPRESSION: No acute pulmonary disease. Electronically signed by: Marizol Jensen DO 06/03/2024 03:13 PM EDT
== END 2024-06-03 14:00 | disposition home or self-care (01) ==
LOC: HO.HMGCX 13:59
PROVIDERS: PCP Internal Medicine; Visit Provider Physician Assistant
DX: R05.9 Cough, unspecified (principal)
CPT/HCPCS: 71046

== ENCOUNTER 2024-06-03 16:11 | Outpatient (REF) | payer MEDICARE, SELFPAY ==
[2024-06-03 17:31] LABS: Influenza A PCR NEGATIVE (Negative); Influenza B PCR NEGATIVE (Negative); Resp Syncy Virus RNA Qual PCR NEGATIVE (Negative); SARS COV2 PCR INHOUSE NEGATIVE (Negative)
== END 2024-06-03 16:12 | disposition home or self-care (01) ==
LOC: HO.LNP 16:11
PROVIDERS: Visit Provider Physician Assistant
DX: J06.9 Acute upper respiratory infection, unspecified (principal)
CPT/HCPCS: 0241U

== ENCOUNTER 2024-07-27 08:35 | Outpatient (REF) | payer MEDICARE, SELFPAY ==
[2024-07-27 10:13] LABS: Estimated Average Glucose 126 mg/dL; Total Hemoglobin (HGBA1C) 3424.8639 umol/L
[2024-07-27 10:29] LABS: Alanine Aminotransferase 14 U/L (0-31); Albumin Level 3.9 g/dL (3.5-5.0); Alkaline Phosphatase 60 U/L (39-117); Anion Gap 13 (12-20); Aspartate Amino Transferase 25 U/L (5-31); Bilirubin Total 0.5 mg/dL (0.0-1.0); Blood Urea Nitrogen 14 mg/dL (9-16); Calcium 9.1 mg/dL (8.4-10.2); Carbon Dioxide 30 mmol/L (22-29); Chloride 105 mmol/L (96-108); Cholesterol 150 mg/dL (<200); Estimated Glomerular Filt Rate > 60; Glucose Random 115 mg/dL (60-115); HDL Cholesterol 47 mg/dL (>40); LDL Cholesterol Calculated 88 mg/dL (<100); Potassium 4.4 mmol/L (3.3-5.1); Sodium 144 mmol/L (135-145); Total Protein 6.3 g/dL (6.5-8.0); Triglycerides 76 mg/dL (<150)
== END 2024-07-27 08:36 | disposition home or self-care (01) ==
LOC: HO.HMGCLDS 08:35
PROVIDERS: PCP Internal Medicine; Visit Provider Internal Medicine
DX: E78.00 Pure hypercholesterolemia, unspecified (principal); Z13.1 Encounter for screening for diabetes mellitus
CPT/HCPCS: 36415; 80053; 80061; 83036

== ENCOUNTER 2024-08-18 08:26 | Outpatient (AMB) | payer MEDICARE, SELFPAY ==
[2024-08-18 08:29] VITALS: BP 126/80; PULSE 56; O2SAT 96; BMI 30.9
--- NOTE | 2024-08-18 08:29 | MHC.PC.OV ---
Vital Signs 08/18/24 08:29 Height 4 ft 11 in Weight 153 lb BMI 30.9 BP 126/80 Blood Pressure Location Lt brachial Position Sitting Pulse 56 Pulse Source Pulse Oximeter Pulse Oximetry (%) 96 Oxygen Delivery Method Room Air Intake Visit Reasons: L DDD Dosimetrist Required: No Accompanied by: Self / Same As Patient Allergies Sulfa (Sulfonamide Antibiotics) [SULFA (SULFONAMIDE ANTIBIOTICS)] Allergy (Unknown, Verified 08/18/24 08:29) RASH Medication List - Last Reconciled 08/18/24 by Lorenzo Oconnor MD alprazolam 0.25 mg PO DAILY apixaban (Eliquis) 5 mg PO BID atorvastatin 80 mg PO DAILY blood sugar diagnostic As directed check the blood sugar once a day blood sugar diagnostic ([employer] Ultra Test strips) As directed check the blood sugar twice a day bupropion HCl XL 300 mg (2 x 150 mg) PO QAM 90 days calcium carbonate-vitamin D3 600 mg-5 mcg (200 unit) (Calcium 600 + D(3)) caps PO diclofenac sodium 1% (Voltaren Arthritis Pain) 4 grams topical QID flecainide 100 mg PO Q12H 90 days levothyroxine 100 mcg PO QAM lisinopril 10 mg PO DAILY 90 days metoprolol succinate ER 25 mg PO BID omeprazole 20 mg PO DAILY oxycodone-acetaminophen 5-325 mg (Percocet) 1 tab PO .QD PRN 30 days ropinirole 0.25 mg PO BEDTIME sertraline 75 mg (1.5 x 50 mg) PO DAILY 90 days thiamine HCl (vitamin B1) 50 mg PO DAILY 90 days zolpidem 10 mg PO BEDTIME PRN 90 days Tobacco use date assessed: 08/18/24 Fall risk assessment: 1 Fall in past year Last assessed Fall Risk: 08/18/24 Dental Screening Dental Screen Date: 08/18/24 Did you have a dental visit in the last 12 months?: Yes Did you have a dental problem in the last 6 months where you did not have access to dental care?: No Was dental information given to patient?: Patient has dentist HPI L DDD HPI Details The patient is a 74-year-old female presenting for a wellness visit and follow-up on chronic conditions. She has a history of hypertension, dyslipidemia, and Type 2 Diabetes Mellitus, monitored with regular blood work. Her hemoglobin A1c in July is recorded at 6.0%, indicating adequate glucose control, and her LDL cholesterol is 88 mg/dL, below the target threshold. Thyroid function remained normal in her last test in May. She recently ceased tobacco use two weeks ago and had a past history of smoking cessation in 2020. The patient is participating in a lung cancer screening program, with her next scheduled scan in November. Additionally, the patient was found to have a benign colon polyp, specifically a tubular adenoma, which places her in a close surveillance bracket due to the potential for malignant transformation. Her last colon examination revealed these findings, necessitating a follow-up appointment. In terms of mental health, the patient reported low motivation and a lack of ambition, which she associated with anxiety and depression experienced recently. Efforts to address this with prior therapeutic interventions have been unsatisfactory. The patient's health maintenance is up to date with pneumonia, flu, COVID-19, and shingles vaccines. Tetanus immunity was confirmed as current. [facility] Medical History Tendonitis of both rotator cuffs Fall Radiculitis of left cervical region DJD of left shoulder Wrist pain, left Lumbar spinal stenosis Cervical spondylosis Gait instability Wrist pain Tobacco abuse Depression Tubular adenoma of colon Personal history of nicotine dependence Generalized anxiety disorder Paroxysmal atrial flutter Lumbar degenerative disc disease Obstructive sleep apnea Restless leg syndrome Hiatal hernia Hip osteoarthritis Vitamin D deficiency Type 2 diabetes mellitus with hyperglycemia Allergic rhinitis Insomnia PFO (patent foramen ovale) Hypercholesterolemia COPD (chronic obstructive pulmonary disease) Hypertension Obesity (BMI 30-39.9) GERD (gastroesophageal reflux disease) Hypothyroidism Surgical History History of tonsillectomy History of bilateral breast reduction surgery History of carpal tunnel surgery History of lumbar surgery History of hysterectomy History of right breast biopsy (~2016) History of hand surgery (~2011) History of esophagogastroduodenoscopy (EGD) (~2004) History of colonoscopy (~2018) History of cardioversion (~2017) History of foot surgery (~2016) Family History Father Diabetes Hypertension CVD (cardiovascular disease) Mother Cervical cancer Stroke Social History (Reviewed 12/19/24 @ 08:30 by EMMY [place] Housing: House Alcohol intake: current Alcohol intake frequency: a few times a week Patient Tobacco Use Status: Former Tobacco user Tobacco use type: Cigarette Years Smoked: 57yrs, onset 12, on and off, 1-1.5ppd, 50pyh, quit 07/31/2021 e-Cigarette/Vaping Use: Never Used Second Hand Smoke Exposure: No service: No 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al status: employed 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 1. Little interest or pleasure in doing things: not at all 2. Feeling down, depressed, or hopeless: not at all 3. Trouble falling or staying asleep, or sleeping too much: not at all 4. Feeling tired or having little energy: not at all 5. Poor appetite or overeating: not at all 6. Feeling bad about yourself - or that you are a failure or have let yourself or your family down: not at all 7. Trouble concentrating on things, such as reading the newspaper or watching television: not at all 8. Moving or speaking so slowly that other people could have noticed. Or the opposite - being so fidgety or restless that you have been moving around a lot more than usual: not at all 9. Thoughts that you would be better off or of hurting yourself in some way: not at all Total score: 0 Depression Screening Interpretation: Negative Depression Screening Done: Yes Source: Developed by Drs. Cirilo Griffith, Parisa Carroll, Dakotah Patel and colleagues, with an educational jacklyn from [employer]. Thrive Questionnaire Date Thrive assessed: 08/18/24 I am a: Patient What is your living situation today?: I have a steady place to live Within the past 12 months, did the food you bought not last and you didn't have the money to get more?: Never true Within the past 12 months, did you worry whether your food would run out before you got money to buy more?: Never true Do you have trouble paying for medicines?: No Do you have trouble getting transportation to medical appointments?: No Do you have trouble paying your heating and electricity bill?: No Do you have trouble taking care of your child, family member or friend?: No Do you have trouble with day-to-day activities such as bathing, preparing meals, shopping, managing finances, etc.?: No Are you currently unemployed and looking for a job?: No Are you interested in more education?: No Please select the resources that you would like help with: None Currently or been in a relationship where the following occur: No concerns reported THRIVE Score: 0 AUDIT C Alcohol Use Questionnaire (AUDIT-C) 1. How often do you have a drink containing alcohol?: Monthly or less 2. How many drinks containing alcohol do you have on a typical day when you are drinking?: 1 or 2 3. How often do you have six or more drinks on one occasion?: Never Total Score: 1 PHIL-7 AMB Questionnaire PHIL-7 Date PHIL - 7 assessed: 08/18/24 Feeling nervous, anxious, or on edge: 0 = Not at all Not being able to stop or control worryin = Not at all Worrying too much about different things: 0 = Not at all Trouble relaxin = Not at all Being so restless that it is hard to sit still: 0 = Not at all Becoming easily annoyed or irritable: 0 = Not at all Feeling afraid as if something awful might happen: 0 = Not at all Total PHIL-7 score (0-4 normal; 5-9 mild; 10-14 moderate; 15-21 severe): 0 Source: Developed by Drs. Cirilo Griffith, Parisa Carroll, Dakotah Patel and colleagues, with an educational jacklyn from [employer]. PHIL-7 Assessment Billing PHIL-7 Assessment Tool: PHIL-7 Assessment 93466 Physical exam (Primary Care) Vital Signs: Last Vital Signs Pulse 56 08/18/24 08:29 BP 126/80 08/18/24 08:29 Pulse Ox 96 08/18/24 08:29 Oxygen Delivery Method Room Air 08/18/24 08:29 BMI result Body Mass Index 30.9 Tobacco/Smoking Status: Tobacco use Status Tobacco use date assessed 08/18/24 08/18/24 08:34 Patient Tobacco Use Status Former Tobacco user 08/18/24 08:34 Tobacco use type Cigarette 08/18/24 08:34 e-Cigarette/Vaping Use Never Used 08/18/24 08:34 PHQ-9: PHQ-9 Score PHQ-9: Total score 0 08/18/24 08:34 Depression Screening Interpretation: Negative Thrive Assessment: Date of Thrive Assessment Date Thrive assessed 08/18/24 08/18/24 08:34 Currently or been in a relationship where the following occur: No concerns reported Const General: alert; No acute distress Eyes Conjunctivae: conjunctivae normal Resp Auscultation: clear to auscultation bilaterally Cardio Rate: regular rate Rhythm: regular rhythm GI Inspection: Yes normal to inspection Extrem General: Yes normal to inspection and No edema Coding Level of Care Code Est Pt Level 4 (24669) Complex EM visit Add On G2211 Diagnoses Type 2 diabetes mellitus with hyperglycemia, without long-term current use of insulin E11.65 Diabetes mellitus termite technician insulin use: without shelter use Obesity (BMI 30-39.9) E66.9 Gastroesophageal reflux disease without esophagitis K21.9 Esophagitis presence: without esophagitis Pulmonary emphysema, unspecified emphysema type J43.9 COPD type: emphysema Emphysema type: unspecified Acquired hypothyroidism E03.9 Hypothyroidism type: acquired Hypercholesterolemia E78.00 Essential hypertension I10 Hypertension type: essential hypertension Paroxysmal atrial flutter I48.92 Generalized anxiety disorder F41.1 Personal history of nicotine dependence Z87.891 Spinal stenosis of lumbar region with neurogenic claudication M48.062 Neurogenic claudication status: with neurogenic claudication Additional Codes PHIL-7 Assessment Billing - PHIL-7 Assessment Tool: PHIL-7 Assessment 52150 ([id number]) Assessment & Plan Assessment & Plan (1) Type 2 diabetes mellitus with hyperglycemia: Comment: (diet managed, DM eye exam 05/29/21) [facility] Code(s): E11.65 - Type 2 diabetes mellitus with hyperglycemia Category: Medical Qualifiers: Diabetes mellitus shelter insulin use: without termite technician use Qualified Code(s): E11.65 - Type 2 diabetes mellitus with hyperglycemia Plan: Decrease the amount of carbohydrate intake, pasta, bread, rice and potatoes are all sugar and that is aside from all the sweet stuff, remember that fruits are good but they are Sweet also. Hemoglobin A1c goal of less than 7.0 patient is diet controlled (2) Obesity (BMI 30-39.9): Code(s): E66.9 - Obesity, unspecified Category: Medical Plan: Diet and exercise (3) GERD (gastroesophageal reflux disease): Code(s): K21.9 - Gastro-esophageal reflux disease without esophagitis Category: Medical Qualifiers: Esophagitis presence: without esophagitis Qualified Code(s): K21.9 - Gastro-esophageal reflux disease without esophagitis Plan: Avoid the foods that causes that usually spicy foods, tomato products, juices, coffee, soda and foods that your sensitive to. After eating do not lie down, allow 3-4 hours before in lie down. And keep the head of bed above 30 degrees to avoid the acid from going up. (4) COPD (chronic obstructive pulmonary disease): Code(s): J44.9 - Chronic obstructive pulmonary disease, unspecified Category: Medical Qualifiers: COPD type: emphysema Emphysema type: unspecified Qualified Code(s): J43.9 - Emphysema, unspecified Plan: Patient has not been needing any inhaler. (5) Hypothyroidism: Code(s): E03.9 - Hypothyroidism, unspecified Category: Medical Qualifiers: Hypothyroidism type: acquired Qualified Code(s): E03.9 - Hypothyroidism, unspecified Plan: Continue with thyroid medication May last blood work (6) Hypercholesterolemia: Code(s): E78.00 - Pure hypercholesterolemia, unspecified Category: Medical Plan: Avoid fried foods, chicken skin, eggs, butter margarine, pastries and meat. Be it pork or beef they have a lot of cholesterol LDL goal of less than 100 on atorvastatin 80 mg once a day (7) Hypertension: Code(s): I10 - Essential (primary) hypertension Category: Medical Qualifiers: Hypertension type: essential hypertension Qualified Code(s): I10 - Essential (primary) hypertension Plan: Continue with blood pressure medication. Decrease salt intake and exercise takes listen takes lisinopril 10 mg once a day metoprolol 25 mg twice a day (8) Paroxysmal atrial flutter: Comment: (hx synch cardioversion 2017) Code(s): I48.92 - Unspecified atrial flutter Category: Medical Plan: Continue with anticoagulation with Eliquis July 2024 last blood work twice a day year blood work flecainide treatment (9) Generalized anxiety disorder: Code(s): F41.1 - Generalized anxiety disorder Category: Medical Plan: Continue with present medication (10) Personal history of nicotine dependence: Comment: (onset 12, 1-1.5ppd x 59yrs on/off, 50pyh, quit 07/2024 Lung [place] screening program 11/2023 Code(s): Z87.891 - Personal history of nicotine dependence Category: Medical Plan: Lung cancer screening program (11) Lumbar spinal stenosis: Code(s): M48.061 - Spinal stenosis, lumbar region without neurogenic claudication Category: Medical Qualifiers: Neurogenic claudication status: with neurogenic claudication Qualified Code(s): M48.062 - Spinal stenosis, lumbar region with neurogenic claudication Plan: Narcotic pain meds: Is being prescribed with the understanding that these medications are potentially addictive and should be used only when absolutely necessary and must always be secured. Any remaining pills should be safely disposed off appropriately. Patient is advised that narcotics can impaired judgment and one should not drive or operate heavy machinery while taking these medications. Never share these medications with anybody and do not leave them unattended. They will not be replaced under any circumstances. Plan 1. 0%: - Continue monitoring dyslipidemia with LDL focus; most recent reading is 88 mg/dL - Provide mental health support through a psychiatric consultation to address anxiety and depression symptoms - Ensure hepatitis is up to date; patient is current with pneumonia, flu, COVID-19, shingles, and tetanus vaccinations - Issue 90-day lisinopril supply refill through [facility] - Recommend maintaining healthy lifestyle habits, including balanced nutrition and physical activity - Schedule next routine blood work in six months and include future HbA1c testing Orders: Orders Thyroid Stimulating Hormone 6 Months - Type 2 diabetes mellitus with hyperglycemia Free T4 (Free Thyroxine) 6 Months - Type 2 diabetes mellitus with hyperglycemia Vitamin B12 and Folate 6 Months - Type 2 diabetes mellitus with hyperglycemia Vitamin D 25-OH Total 6 Months - Type 2 diabetes mellitus with hyperglycemia Hemoglobin A1c 6 Months - Type 2 diabetes mellitus with hyperglycemia Creatinine Urine 6 Months - Type 2 diabetes mellitus with hyperglycemia B Type Natriuretic Peptide 6 Months - Type 2 diabetes mellitus with hyperglycemia Complete Blood Count Auto Diff 6 Months - Type 2 diabetes mellitus with hyperglycemia Comprehensive Met. Panel 6 Months - Type 2 diabetes mellitus with hyperglycemia Lipid Panel 6 Months E11 - Type 2 diabetes mellitus with hyperglycemia, E78.00 - Pure hypercholesterolemia, unspecified Magnesium 6 Months E11.65 - Type 2 diabetes mellitus with hyperglycemia Referrals Psychiatry Outpatient Consultation Service F41.1 - Generalized anxiety disorder Medications: Changed From lisinopril 10 mg PO DAILY 30 days 30 tabs 4RF I10 - Essential (primary) hypertension To lisinopril 10 mg PO DAILY 90 days 90 tabs 3RF I10 - Essential (primary) hypertension Refilled oxycodone-acetaminophen 5-325 mg (Percocet) 1 tab PO .QD 30 days PRN 30 tabs 0RF pain M16.9 - Osteoarthritis of hip, unspecified
== END 2024-08-18 08:57 | disposition home or self-care (01) ==
PROVIDERS: PCP Internal Medicine; Visit Provider Internal Medicine
DX: E11.65 Type 2 diabetes mellitus with hyperglycemia (principal); J43.9 Emphysema, unspecified; I48.92 Unspecified atrial flutter; Z68.30 Body mass index [BMI] 30.0-30.9, adult; E66.9 Obesity, unspecified; K21.9 Gastro-esophageal reflux disease without esophagitis; E03.9 Hypothyroidism, unspecified; E78.00 Pure hypercholesterolemia, unspecified; I10 Essential (primary) hypertension; F41.1 Generalized anxiety disorder; Z87.891 Personal history of nicotine dependence; M48.062 Spinal stenosis, lumbar region with neurogenic claudication

== ENCOUNTER → 2024-08-18 08:26 | Outpatient (BNVA) | payer MEDICARE, SELFPAY | PROVIDERS: PCP Internal Medicine; Visit Provider Internal Medicine | DX: M51.369 Other intervertebral disc degeneration, lumbar region without mention of lumbar back pain or lower extremity pain (principal); I10 Essential (primary) hypertension; E78.5 Hyperlipidemia, unspecified; E11.65 Type 2 diabetes mellitus with hyperglycemia; E66.9 Obesity, unspecified; K21.9 Gastro-esophageal reflux disease without esophagitis; J43.9 Emphysema, unspecified; E03.9 Hypothyroidism, unspecified; E78.00 Pure hypercholesterolemia, unspecified; I48.92 Unspecified atrial flutter; F41.1 Generalized anxiety disorder; M48.062 Spinal stenosis, lumbar region with neurogenic claudication; M16.9 Osteoarthritis of hip, unspecified; Z87.891 Personal history of nicotine dependence | CPT/HCPCS: 96127; 99212 ==

== ENCOUNTER 2024-09-16 09:24 | Outpatient (REF) | payer MEDICARE, SELFPAY | END 2024-09-16 09:25 | disposition home or self-care (01) | LOC: HO.MAMMO 09:24 | PROVIDERS: PCP Internal Medicine; Visit Provider Internal Medicine | DX: Z12.31 Encounter for screening mammogram for malignant neoplasm of breast (principal) | CPT/HCPCS: 77063; 77067 ==

== ENCOUNTER 2024-10-26 10:12 | Outpatient (AMB) | payer MEDICARE, SELFPAY ==
--- NOTE | 2024-10-26 10:18 | A.OFFPC_ITS ---
Vital Signs 3 10/26/24 10:19 Height 4 ft 11 in Weight 159 lb BMI 32.1 BP 122/60 Blood Pressure Location Lt brachial Position Sitting Pulse 60 Pulse Source Pulse Oximeter Pulse Oximetry (%) 95 Oxygen Delivery Method Room Air Intake Visit Reasons: discuss derm referral Allergies Sulfa (Sulfonamide Antibiotics) [SULFA (SULFONAMIDE ANTIBIOTICS)] Allergy (Unknown, Verified 10/26/24 10:20) RASH Medication List - Last Reconciled 10/26/24 by Lorenzo Oconnor MD alprazolam 0.25 mg PO DAILY apixaban (Eliquis) 5 mg PO BID atorvastatin 80 mg PO DAILY blood sugar diagnostic As directed check the blood sugar once a day blood sugar diagnostic ([employer] Ultra Test strips) As directed check the blood sugar twice a day bupropion HCl XL 300 mg (2 x 150 mg) PO QAM 90 days calcium carbonate-vitamin D3 600 mg-5 mcg (200 unit) (Calcium 600 + D(3)) caps PO diclofenac sodium 1% (Voltaren Arthritis Pain) 4 grams topical QID flecainide 100 mg PO Q12H 90 days levothyroxine 100 mcg PO QAM lisinopril 10 mg PO DAILY 90 days metoprolol succinate ER 25 mg PO BID omeprazole 20 mg PO DAILY oxycodone-acetaminophen 5-325 mg (Percocet) 1 tab PO .QD PRN 30 days ropinirole 0.25 mg PO BEDTIME sertraline 75 mg (1.5 x 50 mg) PO DAILY 90 days thiamine HCl (vitamin B1) 50 mg PO DAILY 90 days zolpidem 10 mg PO BEDTIME PRN 90 days Tobacco use date assessed: 10/26/24 Fall risk assessment: No Falls in past year Last assessed Fall Risk: 10/26/24 Dental Screening Dental Screen Date: 10/26/24 Did you have a dental visit in the last 12 months?: Yes Did you have a dental problem in the last 6 months where you did not have access to dental care?: No Was dental information given to patient?: Patient has dentist [facility] Medical History (Updated 10/26/24 @ 10:52 by Lorenzo Oconnor MD) Tendonitis of both rotator cuffs Fall Radiculitis of left cervical region DJD of left shoulder Wrist pain, left Lumbar spinal stenosis Cervical spondylosis Gait instability Wrist pain Depression Tubular adenoma of colon Personal history of nicotine dependence Generalized anxiety disorder Paroxysmal atrial flutter Lumbar degenerative disc disease Obstructive sleep apnea Restless leg syndrome Hiatal hernia Hip osteoarthritis Vitamin D deficiency Type 2 diabetes mellitus with hyperglycemia Allergic rhinitis Insomnia PFO (patent foramen ovale) Hypercholesterolemia COPD (chronic obstructive pulmonary disease) Hypertension Obesity (BMI 30-39.9) GERD (gastroesophageal reflux disease) Hypothyroidism Surgical History History of tonsillectomy History of bilateral breast reduction surgery History of carpal tunnel surgery History of lumbar surgery History of hysterectomy History of right breast biopsy (~2016) History of hand surgery (~2011) History of esophagogastroduodenoscopy (EGD) (~2004) History of colonoscopy (~2018) History of cardioversion (~2017) History of foot surgery (~2016) Family History Father Diabetes Hypertension CVD (cardiovascular disease) Mother Cervical cancer Stroke Social History Housing: House Alcohol intake: current Alcohol intake frequency: a few times a week Patient Tobacco Use Status: Former Tobacco user Tobacco use type: Cigarette Years Smoked: 57yrs, onset 12, on and off, 1-1.5ppd, 50pyh, quit 07/31/2021 e-Cigarette/Vaping Use: Never Used Second Hand Smoke Exposure: No service: No 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al status: employed 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 1. Little interest or pleasure in doing things: not at all 2. Feeling down, depressed, or hopeless: not at all 3. Trouble falling or staying asleep, or sleeping too much: not at all 4. Feeling tired or having little energy: not at all 5. Poor appetite or overeating: not at all 6. Feeling bad about yourself - or that you are a failure or have let yourself or your family down: not at all 7. Trouble concentrating on things, such as reading the newspaper or watching television: not at all 8. Moving or speaking so slowly that other people could have noticed. Or the opposite - being so fidgety or restless that you have been moving around a lot more than usual: not at all 9. Thoughts that you would be better off or of hurting yourself in some way: not at all Total score: 0 Depression Screening Interpretation: Negative Depression Screening Done: Yes Source: Developed by Drs. Cirilo Griffith, Parisa Carroll, Dakotah Patel and colleagues, with an educational jacklyn from [employer]. Thrive Questionnaire Date Thrive assessed: 10/26/24 I am a: Patient What is your living situation today?: I have a steady place to live Within the past 12 months, did the food you bought not last and you didn't have the money to get more?: Never true Within the past 12 months, did you worry whether your food would run out before you got money to buy more?: Never true Do you have trouble paying for medicines?: No Do you have trouble getting transportation to medical appointments?: No Do you have trouble paying your heating and electricity bill?: No Do you have trouble taking care of your child, family member or friend?: No Do you have trouble with day-to-day activities such as bathing, preparing meals, shopping, managing finances, etc.?: No Are you currently unemployed and looking for a job?: No Are you interested in more education?: No Please select the resources that you would like help with: None Currently or been in a relationship where the following occur: No concerns reported THRIVE Score: 0 AUDIT C Alcohol Use Questionnaire (AUDIT-C) 1. How often do you have a drink containing alcohol?: Monthly or less 2. How many drinks containing alcohol do you have on a typical day when you are drinking?: 1 or 2 3. How often do you have six or more drinks on one occasion?: Never Total Score: 1 PHIL-7 AMB Questionnaire PHIL-7 Date PHIL - 7 assessed: 10/26/24 Feeling nervous, anxious, or on edge: 0 = Not at all Not being able to stop or control worryin = Not at all Worrying too much about different things: 0 = Not at all Trouble relaxin = Not at all Being so restless that it is hard to sit still: 0 = Not at all Becoming easily annoyed or irritable: 0 = Not at all Feeling afraid as if something awful might happen: 0 = Not at all Total PHIL-7 score (0-4 normal; 5-9 mild; 10-14 moderate; 15-21 severe): 0 Source: Developed by Drs. Cirilo Griffith, Parisa Carroll, Dakotah Patel and colleagues, with an educational jacklyn from [employer]. PHIL-7 Assessment Billing PHIL-7 Assessment Tool: PHIL-7 Assessment 67439 Physical exam (Primary Care) Vital Signs: Last Vital Signs Pulse 60 10/26/24 10:19 BP 122/60 10/26/24 10:19 Pulse Ox 95 10/26/24 10:19 Oxygen Delivery Method Room Air 10/26/24 10:19 BMI result Body Mass Index 32.1 Tobacco/Smoking Status: Tobacco use Status Tobacco use date assessed 10/26/24 10/26/24 10:21 Patient Tobacco Use Status Former Tobacco user 10/26/24 10:21 Tobacco use type Cigarette 10/26/24 10:21 e-Cigarette/Vaping Use Never Used 10/26/24 10:21 PHQ-9: PHQ-9 Score PHQ-9: Total score 0 10/26/24 10:44 Depression Screening Interpretation: Negative Thrive Assessment: Date of Thrive Assessment Date Thrive assessed 10/26/24 10/26/24 10:21 Currently or been in a relationship where the following occur: No concerns reported Const General: alert; No acute distress Eyes Conjunctivae: conjunctivae normal Resp Auscultation: clear to auscultation bilaterally Cardio Rate: regular rate Rhythm: regular rhythm GI Inspection: Yes normal to inspection Back/Spine/Pelvis Back/spine/pelvis image: 2 1. 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 Acquired hypothyroidism E03.9 Hypothyroidism type: acquired Obesity (BMI 30-39.9) E66.9 Gastroesophageal reflux disease without esophagitis K21.9 Esophagitis presence: without esophagitis Paroxysmal atrial flutter I48.92 Hypercholesterolemia E78.00 Essential hypertension I10 Hypertension type: essential hypertension Tubular adenoma of colon D12.6 Spinal stenosis of lumbar region with neurogenic claudication M48.062 Neurogenic claudication status: with neurogenic claudication Actinic keratosis L57.0 Hypersomnia G47.10 Additional Codes PHIL-7 Assessment Billing - PHIL-7 Assessment Tool: PHIL-7 Assessment 49886 ([id number]) Assessment & Plan Assessment & Plan (1) Personal history of nicotine dependence: Comment: (onset 12, 1-1.5ppd x 59yrs on/off, 50pyh, quit 07/2021), October 2024 lung cancer screening Code(s): Z87.891 - Personal history of nicotine dependence Category: Medical Plan: Patient has a schedule CT scan in October (2) COPD (chronic obstructive pulmonary disease): Code(s): J44.9 - Chronic obstructive pulmonary disease, unspecified Category: Medical Qualifiers: COPD type: emphysema Emphysema type: unspecified Qualified Code(s): J 43.9 - Emphysema, unspecified Plan: advised to stop smoking (3) Type 2 diabetes mellitus with hyperglycemia: Comment: (diet managed, DM eye exam 05/29/21) [facility] Code(s): E11.65 - Type 2 diabetes mellitus with hyperglycemia Category: Medical Qualifiers: 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 Patient is controlled hemoglobin A1c diet controlled (4) Hypothyroidism: Code(s): E03.9 - Hypothyroidism, unspecified Category: Medical Qualifiers: Hypothyroidism type: acquired Qualified Code(s): E03.9 - Hypothyroidism, unspecified Plan: Continue with thyroid medication (5) Obesity (BMI 30-39.9): Code(s): E66.9 - Obesity, unspecified Category: Medical Plan: Diet and exercise (6) GERD (gastroesophageal reflux disease): Code(s): K21.9 - Gastro-esophageal reflux disease without esophagitis Category: Medical Qualifiers: Esophagitis presence: without esophagitis Qualified Code(s): K21.9 - Gastro-esophageal reflux disease without esophagitis Plan: Avoid the foods that causes that usually spicy foods, tomato products, juices, coffee, soda and foods that your sensitive to. After eating do not lie down, allow 3-4 hours before in lie down. And keep the head of bed above 30 degrees to avoid the acid from going up. (7) Paroxysmal atrial flutter: Comment: (hx synch cardioversion 2017) Code(s): I48.92 - Unspecified atrial flutter Category: Medical Plan: Continue with anticoagulation with Eliquis and on flecainide (8) Hypercholesterolemia: Code(s): E78.00 - Pure hypercholesterolemia, unspecified Category: Medical Plan: Avoid fried foods, chicken skin, eggs, butter margarine, pastries and meat. Be it pork or beef they have a lot of cholesterol on atorvastatin 80 dL goal of less than 100 and triglyceride of less than 150 07/20/2024 last test (9) Hypertension: Code(s): I10 - Essential (primary) hypertension Category: Medical Qualifiers: Hypertension type: essential hypertension Qualified Code(s): I10 - Essential (primary) hypertension Plan: Continue with blood pressure medication. Decrease salt intake and exercise on lisinopril 10 mg once a day metoprolol 25 mg twice a day (10) Tubular adenoma of colon: Comment: (TAs on colonoscopies 2004, 2011, 2018) Code(s): D12.6 - Benign neoplasm of colon, unspecified Category: Medical Plan: Patient has a scheduled colonoscopy in November (11) Lumbar spinal stenosis: Code(s): M48.061 - Spinal stenosis, lumbar region without neurogenic claudication Category: Medical Qualifiers: Neurogenic claudication status: with neurogenic claudication Qualified Code(s): M48.062 - Spinal stenosis, lumbar region with neurogenic claudication Plan: Narcotic pain meds: Is being prescribed with the understanding that these medications are potentially addictive and should be used only when absolutely necessary and must always be secured. Any remaining pills should be safely disposed off appropriately. Patient is advised that narcotics can impaired judgment and one should not drive or operate heavy machinery while taking these medications. Never share these medications with anybody and do not leave them unattended. They will not be replaced under any circumstances. (12) Actinic keratosis: Comment: Right upper back area Code(s): L57.0 - Actinic keratosis Category: Medical (13) Hypersomnia: Code(s): G47.10 - Hypersomnia, unspecified Category: Medical Plan History of Present Illness The patient is a 74-year-old female presenting with a follow-up visit focusing on the management of chronic conditions and newly reported tension headaches. She exhibits a complex medical profile with generalized anxiety disorder, GERD, diabetes mellitus, hypothyroidism, and COPD among others. Despite numerous health challenges, recent lab results demonstrate stable management of diabetes and hypercholesterolemia under the current regimen. Hypertension remains controlled with prescribed medications. Confounding her health management, the patient continues to smoke, increasing her risk associated with COPD and lung health, with a scheduled lung cancer screening set for October. As part of preventive measures, a colonoscopy is planned for November. Her current health maintenance exhibits compliance with recommended vaccinations. Persistent tension-type headaches, which commenced in the last few months, do not appear to be linked to previously diagnosed migraine patterns. Sleep disturbances suspected to stem from obstructive sleep apnea are highlighted through reported nocturnal breathing cessation and general fatigue. The presence of dermatological lesions known as seborrheic keratosis, characterized as itchy and positioned uncomfortably against clothing, is noted. Health Maintenance - Next lung CAT scan due November 08, 2024, for smoking-related lung health screening. - Colonoscopy scheduled for December 12, 2024. - Mammogram up to date. - Bone density was normal at the last assessment. - Patient compliant with vaccine protocols: flu, COVID-19, RSV, shingles, and tetanus vaccines completed. Social History - Substance use: Current smoker. - Weight management noted with obesity and recent 6-pound weight gain. - Reports adherence to dietary recommendations for managing diabetes. - Discussion of intermittent occurrence of daytime somnolence linked to potential sleep apnea. - Dermatological concerns linked to sun exposure history. Review of Systems - Neurological: Reports persistent headaches. - Respiratory: Denies any acute issues with COPD; discusses nocturnal breathing cessation possibly indicating sleep apnea. - Dermatological: Reports itchy lesions attributed to sun damage. Physical Exam Results - Labs: Hemoglobin A1c at 6.0 (July), LDL cholesterol 88 mg/dL. - Tests: Normal blood count, electrolytes, renal, and liver function. - Diagnostics: Next lung CT scheduled for October 2024; next colonoscopy scheduled for November 2024. Plan Management of chronic illnesses will continue with prescribed pharmacotherapy for diabetes, hypertension, and thyroid stability. Recommend consistent use of inhalers for COPD management and ongoing encouragement of smoking cessation. Further evaluation of potential sleep apnea through a sleep study is crucial. Continue current regimen for cholesterol management. Dermatology referral to address bothersome seborrheic keratosis on the back. Ensure screenings for colorectal cancer and lung health remain on schedule. Follow up with cardiology and psychiatric services as previously established. Patient was informed and verbally consented to the use of an ambient scribe for clinic note documentation during this visit. Discussion Notes During this visit, we addressed ongoing chronic conditions, potential tension headaches, and dermatological concerns. I recommended scheduling a sleep study to evaluate possible sleep apnea contributing to headache symptoms. A referral to dermatology was made for further assessment of her skin lesions. Treatment plans for diabetes, hypertension, and COPD remain effective, with ongoing encouragement for smoking cessation. Screening appointments for lung cancer and colorectal assessments remain scheduled. Consistent adherence to vaccination schedules and health maintenance strategies was reinforced. Discussions included continuing cholesterol-lowering therapy and consultation with cardiology for atrial flutter management. A focus on maintaining regular follow-ups based on current healthcare plans remains a priority. Patient Instructions - Use prescribed medications as directed for all current conditions. - Schedule and attend sleep study for evaluation of possible sleep apnea. - Adhere strictly to all dietary recommendations to manage diabetes. - Continue using COPD inhalers as directed and attempt smoking cessation using nicotine lozenges. - Schedule dermatology appointment for skin lesions inspection. - Maintain awareness of upcoming diagnostic appointments: lung CT in October and colonoscopy in November. - Follow general hygiene practices, especially during flu season, and remain compliant with all vaccine schedules. - Report any significant changes in symptoms or new symptoms immediately. Orders: Orders 2 RT home sleep study Today G47.10 - Hypersomnia, unspecified Referrals 2 Dermatology Referral L57.0 - Actinic keratosis
[2024-10-26 10:19] VITALS: BP 122/60; PULSE 60; O2SAT 95; BMI 32.1
--- OUTSIDE RECORDS SUMMARY | 2024-10-26 12:23 | XMS_ITS ---
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 Name Role Phone Lorenzo Oconnor Primary Care Provider Naveen Diamond Unavailable [phone] Allergies Allergen (clinical drug ingredient) Drug/Non Drug Allergy documented on EMR Reaction Allergy Type Onset Date Status Substance with sulfonamide structure and antibacterial mechanism of action (substance) Sulfa Antibiotics Unknown Drug Allergy Active REASON FOR VISIT At Risk Footcare, Painful Nail(s) aggrevated by shoes and causing difficulty standing/walking., ToeIrritation Medications Medication SIG (Take, Route, Frequency, Duration) Notes Start Date End Date Status Levothyroxine Sodium 100 MCG 1 tablet in the morning on an empty stomach Orally Once a day for 30 day(s) Active Extra Depth Orthopedic Shoes (1 Pair) with Customized Heat Molded Multidensity Innersoles (3 Pair) as directed Dx: NIDDM (E11.9), Hammertoe Foot Deformity (M20.41,M20.42), Preulcerative Skin Lesion(s) (L85.1) Active Atorvastatin Calcium 80 MG 1 tablet Oral ly Once a day for 30 day(s) Active buPROPion HCl ER (XL) 450 MG 1 tablet in the morning Orally Once a day for 30 day(s) Active Omeprazole 20 MG 1 capsule 30 minutes before morning meal Orally Once a day for 30 day(s) Active Zolpidem Tartrate 5 MG 1 tablet at bedti me Orally Once a day Active Metoprolol Succinate 100 MG 1 capsule Orally Once a day for 30 day(s) Active Eliquis 5 MG as directed Orally Active Flecainide Acetate 100 MG as directed Orally Active Xanax 0.25 MG 1 tablet Orally Twic e a day Active Calcium + D 500-1000-40 MG-UNT-MCG as directed Orally Active Percocet Active Sertraline HCl Activ e Lisinopril Active Social History Tobacco Use: Social History Observation Description Date Details (start date - stop date) Current Smoker NA - NA Tobacco Use/Smoking Question Answer Notes Are you a: current smoker How many cigarettes a day do you smoke? 6-10 Tobacco use other than smoking: Question Answer Notes Are you an other tobacco user? No Vital Signs Height 5ft in 05/03/2024 Weight 152 lbs 05/03/2024 BMI 29.68 kg/m2 05/03/2024 Blood pressure systolic 120 mm Hg 05/03/20 24 Blood pressure diastolic 72 mm Hg 024 Procedures Procedure Date Ordered Date Performed Result Body Sit e 14611-[id number] NAIL, 6 OR MORE 05/03/2024 N/A Encounters Encounter Location Date Provider Diagnosis [facility] [address] [address] 05/03/2024 Naveen Hicks Pain of toe of right foot M79.674 ; Onychomycosis B35.1 ; Pain of toe of left foot M79.675 ; Type 2 diabetes mellitus without complication E11.9 ; Other hammer toe(s) (acquired), right foot M20.41 and Other hammer toe(s) (acquired), left foot M20.42 Assessments Encounter Date Diagnosis (ICD Code) Assessment Notes Treatment Notes Treatment Clinical Notes Section Notes 05/03/2024 Pain of toe of right foot (ICD-10 - M79.674) 05/03/2024 Onychomycosis (ICD-10 - B35.1) 05/03/2024 Pain of toe of left foot (ICD-10 - M79.675) 05/03/2024 Type 2 diabetes mellitus without complication (ICD-10 - E11.9) 05/03/2024 Other hammer toe(s) (acquired), right foot (ICD-10 - M20.41) Patient Educated with: DIABETIC FOOT CARE INSTRUCTIONS.p df (DIABETIC FOOT CARE INSTRUCTIONS.p df) 05/03/2024 Other hammer toe(s) (acquired), left foot (ICD-10 - M20.42) Plan Of Treatment Medication Medication Name Sig Start Date Stop Date Notes Extra Depth Orthopedic Shoes (1 Pair) with Customized Heat Molded Multidensity Innersoles (3 Pair) as directed Dx: NIDDM (E11.9), Hammertoe Foot Deformity (M20.41,M20.42), Preulcerative Skin Lesion(s) (L85.1) Treatment Notes Assessment Notes Other hammer toe(s) (acquired), right fo ot Patient Educated with: DIABETIC FOOT CARE INSTRUCTIONS.pdf (DIABETIC FOOT CARE INSTRUCTIONS.pdf) Pending Test Test Name Order Date [id number] NAIL, 6 OR MORE 05/03/2024 Next Appt Details Follow Up: prn, Reason: Provider Name:Naveen Hicks , 12/30/2024 09:15:00 AM, [address] [place] [address], [id number], Procedure Notes * Category Sub-Category Detail Notes Debride Nail 6-10 Nail debridement Performance o f this nail treatment by a nonprofessional would put this patients foot and overall health at risk. Therefore, nail debridement was performed extensively to reduce/remove overall nail length, girth, thickness, subungual debris, and necrotic tissue, by manual and/or electrical means through the use of a nail nipper and/or dremel-type salt grinder, to a more viable healthy nail plate or bed tissue 6-10. Silver nitrate used for any petechial bleeding as necessary. Definitive antifungal treatment options have been reviewed and discussed with the patient. The patient chooses, no pharmaceutical tx - 89231 Progress Notes * Kaylee SANTOS EDOB: [id number] (74 yo F)Acc No.[id number]:05/03/2024 Progress Note Patient:?Kaylee SANTOS Provider:?Naveen Hicks DPM :1950???Age:73 Y???Sex:Female D ate:05/03/2024 Address:[address] [place], [place] [id number] Pcp:Lorenzo Oconnor Subjective: * Chief Complaints: * ???At Risk FootcarePainful N ail(s) aggrevated by shoes and causing difficulty standing/walking.Toe Irritation * HPI: ???At Risk footcare:?Pt States Last PCP Visit:?Date?04/02/2024 ???Toe pain:?Location:?B/L feet.?Duration:?several years.?Course:?worse.?Aggravated by:?shoes, any pressure.?Treatments:?change in shoes.? * ROS:?General/Constitutional:?Nausea?denies.?Vomiting?denies.?Hunger Thirst?denies.?Loss appetite?denies.?Chills?denies.?Fatigue?denies.?Fever?denies.?Night Sweats?admits.?Unexplained weight loss?denies.?Unexplained weight gain?denies.?HEENTM:?Dentures?denies.?Dizziness?denies.?Glasses/contacts?denies.?Retinopathy?den ies.?Blurred/double vision?denies.?TMJ?denies.?Discharge/drainage?denies.?Implants?denies.?Sore throat?denies.?Dental implants?denies.?Hard of hearing ?denies.?Difficulty chewing/swallowing/speaking?denies.?Nose bleeds?denies.?Sore mouth?denies.?Respiratory:?On O xygen?denies.?Pneumonia/pleurisy?denies.?Bronchitis?denies.?Emphysema?denies.?Co ughing?denies.?Cough blood?denies.?Shortness of breath?denies.?Wheezing?denies.?Cardiovascular:?Pacemaker?denies.?MVP?denies.?WPW?denies.?CHF?denies.?Heart attack?denies.?Septal defect?denies.?Rapid beat?denies.?Chest pain ?denies.?Atrial Fib.?admits.?Murmur/Palpitations?denies.?Gastrointestinal:?Hemorrhoids?denies.?Stomach/Abdominal pain?denies.?Dark blood stool?denies.?Irritable bowel ?denies.?Constipation?denies.?Diarrhea?denies.?Hematology:?Swelling?denies.?Clots?denies.?Varicose Veins?denies.?Bruising?admits, on anticoagulants.?Bleeding problem?admits, on anticoagulants.?Genitourinary:?Blood urine?denies.?Frequent/Painfu/urination/bladder control?denies.?Kidney stones?denies.?Infection (UTI)?denies.?Nephropathy?denies.?sex trans dis (STD)?denies.?Prostate?denies.?Musculoskeletal:?Hammertoes?admits.?Bunions?denies.?Back Pain?denies.?Muscle Cramps/ Resting?admits.?Muscle cramps / walking?admits.?Generalized aches and pains?denies.?Weakness?denies.?Integ.:?Melendrez?denies.?Scars?denies.?Corns/calluses?admits.?Ingrown nails?admits.?Painful nails?admits.?Open Sores?denies.?Rashes?denies.?Neurologic:?Difficulty sleeping?admits.?Brain disorder?denies.?Numbness?admits.?Balance t rouble?denies.?Confusion?denies.?Fainting/blackouts?denies.?Tingling?admits.?Holden mors?denies.? * Medical History:? * Surgical History:?bunionecto my hammer toe Lower back surgery carpal tunnel surgery x2 hysterectomy breast reduction wrist surgery * Hospitalization/Major Diagno stic Procedure:?Denies Past Hospitalization * Family History:?Mother: dece ased, stroke, cancer, foot problems, diagnosed with Family history of arthritis.?Father: , kidney disease, heart attack, poor circulation, diagnosed with Diabetic - NIDDM, Family history of arthritis.?Siblings: foot problems, high blood pressure, poor circulation, diagnosed with Family history of arthritis, Diabetic - NIDDM.?Spouse: alive.?Paternal Grand Father: diagnosed with Diabetic - NIDDM.?Paternal uncle: diagnosed with Diabetic - NIDDM.? * Social History:?Tobacco Use:?Tobacco Use/Smoking?Are you a:?current smoker ?How many cigarettes a day do you smoke??6-10 ?Tobacco use other than smoking?Are you an other tobacco user??No ???Miscellaneous:?Caffeine: yes. ?Children: yes, 3. ?Exercise: no. ?Marital status: . ?Occupation: retired/[employer]. * Medications:?TakingLisinopri l Sertraline HCl Percocet Calcium + D 500-1000-40 MG-UNT-MCG Tablet Chewable as directed Orally Xanax 0.25 MG Tablet 1 tablet Orally Twice a day Flecainide Acetate 100 MG Tablet as directed Orally Eliquis 5 MG Tablet as directed Orally Metoprolol Succinate 100 MG Capsule ER 24 Hour Sprinkle 1 capsule Orally Once a day Zolpidem Tartrate 5 MG Tablet 1 tablet at bedtime Orally Once a day Levothyroxine Sodium 100 MCG Tablet 1 tablet in the morning on an empty stomach Orally Once a day Omeprazole 20 MG Capsule Delayed Release 1 capsule 30 minutes before morning meal Orally Once a day buPROPion HCl ER (XL) 450 MG Tablet Extended Release 24 Hour 1 tablet in the morning Orally Once a day Atorvastatin Calcium 80 MG Tablet 1 tablet Orally Once a day Extra Depth Orthopedic Shoes (1 Pair) with Customized Heat Molded Multidensity Innersoles (3 Pair) as directed Dx: NIDDM (E11.9), Hammertoe Foot Deformity (M20.41,M20.42), Preulcerative Skin Lesion(s) (L85.1) Medication List reviewed and reconciled with the patientTaking Lisinopril Taking Sertraline HCl Taking Percocet Taking Calcium + D 500-1000-40 MG-UNT-MCG Tablet Chewable as directed Orally Taking Xanax 0.25 MG Tablet 1 tablet Orally Twice a day Taking Flecainide Acetate 100 MG Tablet as directed Orally Taking Eliquis 5 MG Tablet as directed Orally Taking Metoprolol Succinate 100 MG Capsule ER 24 Hour Sprinkle 1 capsule Orally Once a day Taking Zolpidem Tartrate 5 MG Tablet 1 tablet at bedtime Orally Once a day Taking Levothyroxine Sodium 100 MCG Tablet 1 tablet in the morning on an empty stomach Orally Once a day Taking Omeprazole 20 MG Capsule Delayed Release 1 capsule 30 minutes before morning meal Orally Once a day Taking buPROPion HCl ER (XL) 450 MG Tablet Extended Release 24 Hour 1 tablet in the morning Orally Once a day Taking Atorvastatin Calcium 80 MG Tablet 1 tablet Orally Once a day Taking Extra Depth Orthopedic Shoes (1 Pair) with Customized Heat Molded Multidensity Innersoles (3 Pair) as directed Dx: NIDDM (E11.9), Hammertoe Foot Deformity (M20.41,M20.42), Preulcerative Skin Lesion(s) (L85.1) Medication List reviewed and reconciled with the patient * Allergies:?Sulfa Antibiotics yes[Allergies Verified] Objective: * Vitals:?Ht: 5ft, Wt:152, BMI :29.68, Shoe size: 7-7.5, BP:120/72mm Hg, BS: not taken, Ht-cm: 152.4 cm, Wt-k.95 kg. * ???Past Orders: ???Lab:HEMOGLOBIN A1C (GLYCO HEMOGLOBIN) (Order Date - 12/04/2023) (Collection Date & Time - 12/04/2023 10:33 AM) ? Value Reference Range ?HEMOGLOBIN A1C % (HH) 5.8 * Examination: ???Ophthalmology Referral: ?DIABETES EYE EXAM?Procedure Performed:?Yes ?Date of Exam Performed?02/09/2024 ?Findings of Diabetic Eye Exam:?no retinopathy?Nails: ?NAILS are:?Elongated, overgrown, dystrophic, lytic, greater than 3mm thick, discolored and friable with crumbly malodorous subungual debris, with pain on palpation, 1-5 B/L.?Orthopedic: ?MUSCLE STRENGTH:?5/5 all groups in a symmetrical fashion , B/L.?DIGITAL DEFORMITIES:?Digital contracture, PIPJ, 2-5 B/L (save T6/T7), incompl-reducible to push-up test, no over, nor underlapping , with evidence of shoe producing skin irritation.?FOOTWEAR:?worn, OT were inspected and noted to be severely worn , in poor condition not giving proper support at the present time , shoe gear properties exacerbate patients foot/toe deformity.?Dermatologic: ?SKIN FINDINGS:?Skin exam reveals normal texture, elasticity, and turgor. There are no masses. The interspaces are clear, B/L, Skin exam reveals Keratotic lesion(s) located at, SUB MTH (s), 1, B/L , SUB MTH (s), 2, B/L .?Vascular: ?DP PULSES (B):?1/4, B/L.?PT PULSES (B):?1/4, B/L.?CAPILLARY FILL TIME:?3 secs. per digit, B/L.?TROPHIC CONDITION-TEXTURE/ELASTICITY/TURGOR/HAIR GROWTH (B):?decreased, B/L.?TEMPERTURE GRADIENT (C):?decreased, cool to cool, proximal to distal, B/L.?PIGMENTATION:?mottled, B/L.?EDEMA (C):?absent, B/L.?Neurological: ?SENSORY:?Neurological exam reveals intact sensorium, pain sensation normal, vibration sensation intact, pinprick sensation is normal in the lower extremities, 5.07 monofilament test performed at plantar aspects of 5 varied sites per foot shows sensation, normal, B/L, Pt relates occasional, paresthesia, tingling, at rest, B/L.?General Examination: ?GENERAL APPEARANCE:?Reveals a pleasant, alert, well nourished, well developed, well hydrated individual, who demonstrates proper attention to hygiene/body habitus, and is in no acute distress , Pt serves as own historian for office visit today.?ORIENTED:?person, place, and time.?FOOT EXAM:?Lower Extremity Neurological Exam performed:?Yes ?Visual exam of foot performed:?Yes ?Date?05/03/2024 ?Footwear Evaluation?Footwear Evaluation performed:?Yes??? Assessment: * Assessment: 1.?Pain of toe of right foot - M79.674???2.?Pain of toe of left foot - M79.675???3.?Onychomycosis - B35.1 (Primary)???4.?Type 2 diabetes mellitus without complication - E11.9???5.?Other hammer toe(s) (acquired), right foot - M20.41???Specify :Chronic problem, Worse (4)???6.?Other hammer toe(s) (acquired), left foot - M20.42???Specify :Chronic problem, Worse (4)??? Plan: * Treatment: 2.?Other hammer toe(s) (acqu ired), right foot? Start Extra Depth Orthopedic Shoes (1 Pair) with Customized Heat Molded Multidensity Innersoles (3 Pair), as directed, Dx: NIDDM (E11.9), Hammertoe Foot Deformity (M20.41,M20.42), Preulcerative Skin Lesion(s) (L85.1), 1, Refills 0.?? Notes: Patient Educated with: DIABETIC FOOT CARE INSTRUCTIONS.pdf (DIABETIC FOOT CARE INSTRUCTIONS.pdf)?? * Procedures:?Debride Nail 6-10:?Nail debridement?Performance of this nail treatment by a nonprofessional would put this patients foot and overall health at risk. Therefore, nail debridement was performed extensively to reduce/remove overall nail length, girth, thickness, subungual debris, and necrotic tissue, by manual and/or electrical means through the use of a nail nipper and/or dremel-type salt grinder, to a more viable healthy nail plate or bed tissue 6-10. Silver nitrate used for any petechial bleeding as necessary. Definitive antifungal treatment options have been reviewed and discussed with the patient. The patient chooses, no pharmaceutical tx - 18885.? * Procedure Codes:?09088 DEBRI DE NAIL, 6 OR MORE * Preventive Medicine:? ??Counseling:?Tobacco use:?Type of Tobacco Use Cessation Counseling provided?Smoking effects education ?Patient counseled on the dangers of smoking and urged to quit:?05/03/2024 ?Discussion:?-14: Office or other outpatient visit for the evaluation and management of an established patient, which required a medically appropriate history and/or examination and MODERATE level of DECISION MAKING for: 1 OR MORE CHRONIC PROBLEM(S) THATS WORSENING, 2 STABLE CHRONIC PROBLEMS, A NEWLY DIAGNOSED PROBLEM WITH UNCERTAIN PROGNOSIS, AN ACUTE COMPLICATED INJURY WITH MULTIPLE TREATMENT OPTIONS, OR AN ACUTE PROBLEM WITH ACCOMPANYING SYSTEMIC SYMPTOMS, THAT POSE(S) A MODERATE RISK OF MORBIDITY. THIS CONDITION MAY ALSO INCLUDE RX DRUG MANAGEMENT, OR A DECISON FOR MINOR SURGERY. The visit on the day of the encounter encompassed interpreting the data and educating the patient as to the nature of their condition, treatment options available according to their individual PMH, meds, allergies, and overall health/living conditions, as well as any potential risks or complications that may occur from a failure to adhere to, and participate in, the recommended course of therapy. The discussion included a complete verbal, and/or written explanation of the examination results, any x-rays taken, the proposed diagnosis, and outline of the treatment plan. A schedule for future care needs was also explained. The patient verbalized an understanding of the instructions at this time and agreed to be an active participant in their treatment. If the patient should think of any questions or concerns after the visit, I have encouraged the patient to call the office.?Digital Surgery:?Digital surgery was discussed with the patient, We elected to try conservative treatment at the present time, due to the patients diabetic medical history and post-operative risks.?Digital Treatment:?HT- I explained to the patient the possible etiologies of Hammertoes, including genetics/foot type/shoegear/activity level/exercise routine and the risks/benefits of all the different treatment options for their pain including: No treatment at all, Rest, Ice, New/supportive/wider/deeper Shoegear, Digital Padding/Strapping/Taping/Bracing/Gel protective sleeves, Foot/Ankle AFO Bracing, Stretching exercises, Deep Tissue Massage, Arch support/shoe inserts with splay metatarsal padding, and Custom orthoses. I insisted that any digital devices be removed daily and not worn overnight for safety. The patient is to carefully examine the toes daily for any skin irritation while using any splinting or padding device. The advantages and disadvantages of each option were discussed and the patients questions re: shoegear, padding, custom vs prefabricated inserts, activity level, and consistency in home treatment regimens for optimal success were answered to their verbally confirmed satisfaction.?Shoe Gear Counseling:?SHOES Rx - The patient was counseled in great detail on their muscoloskeletal foot and toe deformities which coincided with the dermatological presentations visualized on exam. We discussed how their deformities put the integrity of their feet at risk for potential pedal complications which makes the accomidative diabetic shoes and cutomizable inserts medically necessary. We discussed the different shoe and insert treatment types and options, as well as the important advantages for adhering to regularly wearing these accomidative devices daily. The patient was made aware of the fact that a failure to abide by these recommedations may be deleterious to their foot health as they are able to prevent many pedal complications such as skin irritation, skin ulceration, infection, and even loss of toe/foot/leg/or life. Time was also spent with the patient dispensing and discussing proper diabetic footcare techniques including daily skin moisturization, daily foot inspection for any interruption in skin integrity including open lesions, or sign of infection such as redness/malodor/drainage/swelling. Also discussed and recommended were procedures regarding daily shoe inspection for the presence of internal foreign bodies as well as any visualized irregular shoe or insert wear. Patient questions re: shoes, inserts, and self foot inspections were answered to their satisfaction as the patient verbally confirmed a full understanding of the above information. A Rx for Extra Depth Diabetic Shoes with 3 pair of custom heat-molded inserts was dispensed.? ??Screening/Special Tests:?Fall Risk?Assessment:?Performed ?Plan of Care:?Documented ?Type of fall plan of care:?Balance, strength and gait training or instruction provided ?Screening:?One fall without injury in the past year ?FALLS: Screening for Future Fall Risk?Have you had two or more falls in the past year??No ?Have you had any falls with injury in the past year??Yes * Follow Up:?prn * Images: * Sign off status: Completed true * Provider:?Naveen Hicks DPM Date:?2023 Generated for Alma louise/Bruno/Milton on:?10/26/2024 12:23 PM EST History and Physical Notes * HPI (History of Present Illness) Category Sub-Category Detail Notes Category Not es Toe pain Location: B/L feet Duration: several years Course: worse Aggravated by: shoes, any pressure Treatments: change in shoes At Risk footcare Pt States Last PCP Visit: Date: 4 Examination Category Sub-Category Detail Notes Category Not es Neurological SENSORY: Neurological exa m reveals intact sensorium, pain sensation normal, vibration sensation intact, pinprick sensation is normal in the lower extremities, 5.07 monofilament test performed at plantar aspects of 5 varied sites per foot shows sensation, normal, B/L, Pt relates occasional, paresthesia, tingling, at rest, B/L Dermatologic SKIN FINDINGS: Skin exam reveal s normal texture, elasticity, and turgor. There are no masses. The interspaces are clear, B/L, Skin exam reveals Keratotic lesion(s) located at, SUB MTH (s), 1, B/L , SUB MTH (s), 2, B/L Orthopedic FOOTWEAR: worn, OT were in spected and noted to be severely worn , in poor condition not giving proper support at the present time , shoe gear properties exacerbate patients foot/toe deformity DIGITAL DEFORMITIES: Digital contracture , PIPJ, 2-5 B/L (save T6/T7), incompl- reducible to push-up test, no over, nor underlapping , with evidence of shoe producing skin irritation MUSCLE STRENGTH: 5/5 all groups in a symmetrical fashion , B/L General Examination GENERAL APPEARANCE: Reveals a pleasant, alert, well nourished, well developed, well hydrated individual, who demonstrates proper attention to hygiene/body habitus, and is in no acute distress , Pt serves as own historian for office visit today FOOT EXAM: Lower Extremity Neurological Exa m performed:: Yes Visual exam of foot performed:: Yes Date: 05/03/2024 ORIENTED: person, place, and t mojgan Footwear Evaluation Footwear Evaluation performe d:: Yes Ophthalmology Referral DIABETES EYE EXAM Procedure Perform ed:: Yes ?Date of Exam Performed: 02/09/2024 Findings of Diabetic Eye Exam:: no retin opathy Vascular DP PULSES (B): 1/4, B/L PT PULSES (B): 1/4, B/L CAPILLARY FILL TIME: 3 secs. per digit, B/L TEMPERTURE GRADIENT (C): decreased, cool to cool, proximal to distal, B/L TROPHIC CONDITION-TEXTURE/ELASTICITY/TURGOR/HAIR GROWTH (B): decreased, B/L EDEMA (C): absent, B/L PIGMENTATION: mottled, B/L Nails NAILS are: Elongated, overg rown, dystrophic, lytic, greater than 3mm thick, discolored and friable with crumbly malodorous subungual debris, with pain on palpation, 1-5 B/L
--- OUTSIDE RECORDS SUMMARY | 2024-10-26 12:23 | XMS_ITS ---
Author Organization [facility] Address [address] [place] [address] Care Team Providers Care Certified Mortician Name Role Phone Lorenzo Oconnor MD Primary Care Provider Paige Nicole Unavailable [phone] ALLERGIES Allergen (clinical drug ingredient) Drug/Non Drug Allergy documented on EMR Reaction Allergy Type Onset Date Status Sulfa Unknown Drug Allergy Active REASON FOR VISIT Patient presents today for the recall colonoscopy MEDICATIONS Medication SIG (Take, Route, Frequency, Duration) Notes [...] water, orange juice, lemonade, christiano barrie or lemon/blue lake soda Orally Once a day for 30 day(s) Active SOCIAL HISTORY Tobacco Use: Social History Observation Description Date Details (start date - stop date) Former Smoker NA - NA Sex Assigned At : Social History Observation Description Sex Assigned At Unknown Tobacco Use/Smoking Question Answer Notes Patient is a former smoker How long has it been since you last smoked? 1-5 years PROBLEMS Problem Type ICD Code Onset Dates Problem Status W/U Status Risk SNOMED Code Notes Problem Anticoagulant long-term use (Z79.01) Active confirmed Long-term current use of anticoagulant (935676100) VITAL SIGNS Temperature 97.7 degrees Fahrenheit 09/01/19 25 Blood pressure systolic 000 mm Hg 09/01/19 25 Blood pressure diastolic 00 mm Hg 025 Height 60 in 09/01/2024 Weight 157 lb 8 oz lbs 09/01/2024 BMI 30.76 kg/m2 09/01/2024 Encounters Encounter Location Date Provider Diagnosis [facility] [address] [place] [address] 09/01/2024 Paige Vasquez History of adenomato us polyp of colon Z86.010 ; Preprocedural examination Z01.818 ; Encounter for screening for malignant neoplasm of colon Z12.11 and Anticoagulant long-term use Z79.01 ASSESSMENTS Encounter Date Diagnosis Assessment Notes Treatment Notes Treatment Clinical Notes 09/01/2024 History of adenomatous polyp of colon (ICD-10 - Z86.010) 09/01/2024 Preprocedural examination (ICD-10 - Z01.818) 09/01/2024 Encounter for screening for malignant neoplasm of colon (ICD-10 - Z12.11) Do not take the Eliquis for three days before the colonoscopy 09/01/2024 Anticoagulant long-term use (ICD-10 - Z79.01) PLAN OF TREATMENT Treatment Notes Assessment Notes Encounter for screening for malignant neoplasm of colon Do not take the Eliquis for three days before the colonoscopy Future Test Test Name Order Date COLONOSCOPY 09/01/2024 Next Appt Details Follow Up: prn, Reason: Provider Name:Paige Vasquez , 12/12/2024 10:40:00 AM, [address] [place] [address], [phone], Progress Notes * Examination Category Sub-Category Detail Notes General Examination GENERAL APPEARANCE: pleasant , well [...]
--- OUTSIDE RECORDS SUMMARY | 2024-10-26 12:24 | XMS_ITS ---
Author Organization [facility] Address [address] [place] [address] Care Team Providers Care Historic Preservationist Name Role Phone Lorenzo Oconnor Primary Care Provider Naveen Diamond Unavailable [phone] Encounters Encounter Location Date Provider Diagnosis [address] [address] 04/05/2024 Naveen Hicks Plan Of Treatment Next Appt Details Provider Name:Naveen Hicks , 12/30/2024 09:15:00 AM, [address] [place], [address], Progress Notes * Kaylee ASNTOS EDOB: [birth year] (74 yo F)Acc No.[id number]:04/05/2024 Progress Note Patient:?Kaylee SANTOS Provider:?Naveen Hicks DPM :1950???Age:73 Y???Sex:Female D ate:04/05/2024 Address:[address] [place], [place] [id number] Pcp:Lorenzo Oconnor Subjective: * Chief Complaints: * ??? * Medical History:? Objective: * Vitals:? Assessment: Plan: * Treatment: * Images: * The named appointment provid er may or may not be the originator of this progress note, and it is not deemed complete until electronically signed by the appointment provider. Sign off status: Pending * Provider:?Naveen Hicks DPM Date:?2023 Generated for Alma louise/Bruno/Milton on:?10/26/2024 12:24 PM EST
--- OUTSIDE RECORDS SUMMARY | 2024-10-26 12:24 | XMS_ITS | Patient Health Record ---
Author Organization [facility] Address [address] [place] [address] Care Team Providers Care Leather Currier Name Role Phone Lorenzo Oconnor MD Primary Care Provider Paige Nicole Unavailable [phone] ALLERGIES Allergen (clinical drug ingredient) Drug/Non Drug Allergy documented on EMR Reaction Allergy Type Onset Date Status Sulfa Unknown Drug Allergy Active REASON FOR REFERRAL No Information MEDICATIONS Medication SIG (Take, Route, Frequency, Duration) Notes Start Date End Date Status Eliquis 5 MG as directed Orally t wice a day Active Flecainide Acetate 100 MG as directed Or ally twice a day Active Xanax 0.25 MG 1 tablet Orally Twic e a day Active Sertraline HCl 20 MG/ML 5 ml mixed with 4 ounces of water, orange juice, lemonade, christiano barrie or lemon/chitimacha soda Orally Once a day for 30 day(s) Active Synthroid 100 MCG Oral for 90 Active buPROPion HBr ER 348 MG 1 tablet in the morning Orally Once a day for 30 day(s) Active oxyCODONE-Acetaminophen 5-325 MG TAKE 1 TABLET BY MOUTH DAILY NEEDED FOR PAIN FOR 30 DAYS Oral for 30 Active Atorvastatin Calcium 80 MG 1 tablet Oral ly Once a day Active Vitamin B-1 50 MG TAKE 1 TABLET BY ARMAND TH EVERY DAY Oral for 90 Active Omeprazole 20 MG 1 capsule Orally Onc e a day Active Lisinopril 10 MG TAKE 1 TABLET BY ARMAND TH EVERY DAY Oral for 30 Active Calcium + D + K 750-500-40 MG-UNT-MCG 1 tablet with meals Orally Twice a day for 30 day(s) Active rOPINIRole HCl 0.25 MG TAKE TAKE 1 TABLE T ORALLY BEDTIME ADMINISTER 1-3 HOURS BEFORE BEDTIME Oral for 90 Active buPROPion HCl ER (XL) 450 MG 1 tablet in the morning Orally Once a day for 30 day(s) Active Zolpidem Tartrate 10 MG 1 tablet at bedt mojgan as needed Orally Once a day Active Metoprolol Succinate 50 MG 1 capsule Ora lly twice a day Active IMMUNIZATIONS Vaccine Route Administration Date Status Comme nts Influenza Unknown 07/01/2018 Administered Influenza Unknown 06/18/2021 Administered Influenza Unknown 08/16/2024 Administered SOCIAL HISTORY Tobacco Use: Social History Observation [...] W/U Status Risk SNOMED Code Notes Problem Encounter for screening for malignant neoplasm of colon (Z12.11) Active confirmed 747857797 Problem History of adenomatous polyp of colon (Z86.010) Active confirmed 102598255 Problem Preprocedural examination (Z01.818) Active confirmed 103137317892193 Problem Anticoagulant long-term use (Z79.01) Active confirmed Long-term curre nt use of anticoagulant (173363481) Problem Incontinence of feces, unspecified fecal incontinence type (R15.9) Active confirmed 94505231 VITAL SIGNS Temperature 97.7 degrees Fahrenheit 09/01/2024 Blood pressure diastolic 00 mm Hg 09/01/2024 Height 60 in 09/01/2024 Blood pressure systolic 000 mm Hg 09/01/2024 Weight 157 lb 8 oz lbs 09/01/2024 BMI 30.76 kg/m2 09/01/2024 Encounters Encounter Location Date Provider Diagnosis [facility] [address] [place] [address] 09/01/2024 Paige Vasquez History of adenomato us [...] use (ICD-10 - Z79.01) PLAN OF TREATMENT Future Test Test Name Order Date COLONOSCOPY 05/20/2012 COLONOSCOPY 10/21/2018 COLONOSCOPY 09/01/2024 Next Appt Details Provider Name:Paige Vasquez , 12/12/2024 10:40:00 AM, [address] [place] [address] , [place], [place], [phone], Insurance Providers Payer Name Payer Address Payer Phone Subscriber Number Group Number Insured Name Patient Relationship to Insured Coverage Start Date Coverage End Date [facility] [address] [place], [place] [id number] PARADISE SANTOS Self - patient is the insured MEDICAL (GENERAL) HISTORY Medical History History ICD Code Hyperlipidemia Colon polyps-very small tubular adenomas removed in 2004 and 05/2012 GERD--EGD in 2004-hiatal hernia, no esop hagitis/no Marie's Depression Hypothyroidism Denies [place],DM,CVA,Lung disease,renal dise ase Arthritis and degenerative disc disease of spine Hx of afib--had cardioversion - Dr. Jonatan crum Colonoscopy in 11/2018 with removal of a small tubular adenoma Surgical History Surgery Date(Month/Year) hysterectomy and removal of one ovary carpal tunnel surgery bladder suspension thumb surgery vocal cord polyps back surgery breast reduction foot surgeries
--- OUTSIDE RECORDS SUMMARY | 2024-10-26 12:24 | XMS_ITS ---
Author Organization [facility] Address [address] [facility] [place] [address] Care Team Providers Care Army Manager Name Role Phone Lorenzo Oconnor Primary Care Provider Naveen Diamond Unavailable [phone] Allergies Allergen (clinical drug ingredient) Drug/Non Drug Allergy documented on EMR Reaction Allergy Type Onset Date Status Substance with sulfonamide structure and antibacterial mechanism of action (substance) Sulfa Antibiotics Unknown Drug Allergy Active REASON FOR VISIT At Risk Footcare, Painful Nail(s) aggravated by shoes and causing difficulty standing/walking., ToeIrritation Medications Medication SIG (Take, Route, Frequency, Duration) Notes Start Date End Date Status Extra Depth Orthopedic Shoes (1 Pair) with Customized Heat Molded Multidensity Innersoles (3 Pair) as directed Dx: NIDDM (E11.9), Hammertoe Foot Deformity (M20.41,M20.42), Preulcerative Skin Lesion(s) (L85.1) Active Omeprazole 20 MG 1 capsule 30 minutes before morning meal Orally Once a day for 30 day(s) Active Levothyroxine Sodium 100 MCG 1 tablet in [...] Acetate 100 MG as directed Orally Active Zolpidem Tartrate 5 MG 1 tablet at bedti wy Orally Once a day Active Metoprolol Succinate 100 MG 1 capsule Orally Once a day for 30 day(s) Active Xanax 0.25 MG 1 tablet Orally Twic e a day Active Calcium + D 500-1000-40 MG-UNT-MCG as directed Orally Active Percocet Active Vitamin B Complex Ac tive Sertraline HCl Activ e Lisinopril Active rOPINIRole HCl 0.25 MG 1 tablet 1 to 3 h ours before bedtime Orally Once a day Active Social History Tobacco Use: Social History Observation Description Date Details (start date - stop date) Current Smoker NA - NA Tobacco Use/Smoking Question Answer Notes Are you a: current smoker How many cigarettes a day do you smoke? 6-10 Tobacco use other than smoking: Question Answer Notes Are you an other tobacco user? No Vital Signs Height 5ft in 09/02/2024 Weight 150 lbs 09/02/2024 BMI 29.29 kg/m2 09/02/2024 Blood pressure systolic 130 mm Hg 09/02/19 25 Blood pressure diastolic 80 mm Hg 025 Procedures Procedure Date Ordered Date Performed Result Body Sit e 91051-KMPJNJT NAIL, 6 OR MORE 09/02/2024 N/A Encounters Encounter Location Date Provider Diagnosis [facility] [address] [place] [address] 09/02/2024 Naveen Hicks Pain in right toe(s) M79.674 ; Tinea unguium B35.1 ; Pain in left toe(s) M79.675 ; Type 2 diabetes mellitus without complication E11.9 ; Other hammer toe(s) (acquired), right foot M20.41 and Other hammer toe(s) (acquired), left foot M20.42 Assessments Encounter Date Diagnosis (ICD Code) Assessment Notes Treatment Notes Treatment Clinical Notes Section Notes 09/02/2024 Pain in right toe(s) (ICD-10 - M79.674) 09/02/2024 Tinea unguium (ICD-10 - B35.1) 09/02/2024 Pain in left toe(s) (ICD-10 - M79.675) 09/02/2024 Type 2 diabetes mellitus without complication (ICD-10 - E11.9) 09/02/2024 Other hammer toe(s) (acquired), right foot (ICD-10 - M20.41) Response to treatment,Impro vement 09/02/2024 Other hammer toe(s) (acquired), left foot (ICD-10 - M20.42) Response to treatment,Impro vement Plan Of Treatment Pending Test Test Name Order Date [id number] NAIL, 6 OR MORE 09/02/2024 Next Appt Details Follow Up: prn, Reason: Provider Name:Naveen Hicks , 12/30/2024 09:15:00 AM, [address] [place] [address], [phone], Procedure Notes * Category Sub-Category Detail Notes Debride Nail 6-10 Nail debridement Due to the cl inical pathology outlined in the exam findings, performance of this nail treatment is medically necessary as its management by an unskilled/untrained nonprofessional would put this patients foot and overall health at risk. Therefore, debridement to affected nail(s), as described in exam ( TA, T1, T2, T3, T4, T5, T6, T7, T8, T9), was performed exclusively by the physician of record to reduce/remove overall nail length, girth, thickness, subungual debris, and necrotic tissue, by manual and/or electrical means through the use of a nail nipper and/or dremel-type grinder set up operator, to a more viable healthy nail plate or bed tissue 6-10 nails in total. Silver nitrate was used for any petechial bleeding as necessary. Definitive antifungal treatment options, both pharmaceutical and surgical, have been reviewed and discussed with the patient. The patient solely prefers the use of intermittent/as needed professional debridement services for their nail condition and understands the need for additional periodic treatments to maintain effectiveness in symptomatic relief - Progress Notes * Kaylee SANTOS EDOB: [birth year] (74 yo F)Acc No.[id number]:09/02/2024 Progress Note Patient:?Kaylee SANTOS Provider:?Naveen Hicks DPM :1950???Age:74 Y???Sex:Female D ate:09/02/2024 Address:[address] [place], [place] [id number] Pcp:Lorenzo Oconnor Subjective: * Chief Complaints: * ???At Risk FootcarePainful N ail(s) aggravated by shoes and causing difficulty standing/walking.Toe Irritation * HPI: ???At Risk footcare:?Pt States Last PCP Visit:?Date?08/19/2024 ???Toe pain:?Treatments:?Rx shoes .? * ROS:?General/Constitutional:?Nausea?denies.?Vomiting?denies.?Hunger Thirst?denies.?Loss appetite?denies.?Chills?denies.?Fatigue?denies.?Fever?denies.?Night Sweats?admits.?Unexplained weight loss?denies.?Unexplained [...] high blood pressure, poor circulation, diagnosed with Diabetic - NIDDM, Family history of arthritis.?Spouse: alive.?Paternal Grand Father: diagnosed with Diabetic - NIDDM.?Paternal uncle: diagnosed with Diabetic - NIDDM.? * Social History:?Tobacco Use:?Tobacco Use/Smoking?Are you a:?current smoker ?How many cigarettes a day do you smoke??6-10 ?Tobacco use other than smoking?Are you an other tobacco user??No * Medications:?TakingrOPINIRol e HCl 0.25 MG Tablet 1 tablet 1 to 3 hours before bedtime Orally Once a day Vitamin B Complex Lisinopril Sertraline HCl Percocet Calcium + D 500-1000-40 [...] List reviewed and reconciled with the patientTaking rOPINIRole HCl 0.25 MG Tablet 1 tablet 1 to 3 hours before bedtime Orally Once a day Taking Vitamin B Complex Taking Lisinopril Taking Sertraline HCl Taking Percocet Taking [...] Antibiotics yes[Allergies Verified] Objective: * Vitals:?Ht: 5ft, Wt: 150, BM I: 29.29, Shoe size: 7-7.5, BP: 130/80 mm Hg, BS: not taken, Ht-cm: 152.4 cm, Wt-k.04 kg. * ???Past Orders: ???Lab:HEMOGLOBIN A1C (GLYCO [...] malodorous subungual debris, with pain on palpation, TA, T1, T2, T3, T4, T5, T6, T7, T8, T9.?Orthopedic: ?DIGITAL DEFORMITIES:?Digital contracture, PIPJ, 2-5 B/L (save T6/T7), incompl-reducible to push-up test, no over, nor underlapping , no longer, with evidence of shoe producing skin irritation.?FOOTWEAR:?good condition, exhibit proper fit and accommodation for pedal deformities. OT were inspected and noted to be worn, but in good condition giving proper support at the present time.?General Examination: ?Footwear Evaluation?Footwear Evaluation performed:?Yes??? Assessment: * Assessment: 1.?Pain in right toe(s) - M7 9.674???2.?Tinea unguium - B35.1 (Primary)???3.?Pain in left toe(s) - M79.675???4.?Type 2 diabetes mellitus without complication - E11.9???5.?Other hammer toe(s) (acquired), right foot - M20.41???Specify :Chronic problem, Stable (1=3,2=4)???Notes :Response to treatment,Improvement???6.?Other hammer toe(s) (acquired), left foot - M20.42???Specify :Chronic problem, Stable (1=3,2=4)???Notes :Response to treatment,Improvement??? Plan: * Treatment: * Procedures:?Debride Nail 6-10:?Nail debridement?Due to the clinical pathology outlined in the exam findings, performance of this nail treatment is medically necessary as its management by an unskilled/untrained nonprofessional would put this patients foot and overall health at risk. Therefore, debridement to affected nail(s), as described in exam ( TA, T1, T2, T3, T4, T5, T6, T7, T8, T9), was performed exclusively by the physician of record to reduce/remove overall nail length, girth, thickness, subungual debris, and necrotic tissue, by manual and/or electrical means through the use of a nail nipper and/or dremel-type grinder set up operator, to a more viable healthy nail plate or bed tissue 6- 10 nails in total. Silver nitrate was used for any petechial bleeding as necessary. Definitive antifungal treatment options, both pharmaceutical and surgical, have been reviewed and discussed with the patient. The patient solely prefers the use of intermittent/as needed professional debridement services for their nail condition and understands the need for additional periodic treatments to maintain effectiveness in symptomatic relief - 220[address].? * Procedure Codes:?87195 DEBRI DE NAIL, 6 OR MORE * Preventive Medicine:? ??Counseling:?Tobacco use:?Type of Tobacco Use Cessation Counseling provided?Smoking effects education ?Patient counseled on the dangers of smoking and urged to quit:?09/02/2024 ?Discussion:?-13: Office or other outpatient visit for the evaluation and management of an established patient, which required a medically appropriate history and/or examination and LOW level of DECISION MAKING for: 1 STABLE ACUTE UNCOMPLICATED PROBLEM, 2 OR MORE MINOR PROBLEMS, OR 1 STABLE CHRONIC PROBLEM, THAT POSE(S) A LOW RISK FOR MORBIDITY/MORTALITY. The visit on the day of the [...] have encouraged the patient to call the office.?Shoe Gear Counseling:?A thorough inspection of the patients Rxed shoegear and inserts was performed and findings communicated. We reviewed the many important medical advantages for adhering to regularly wearing these shoe and insert accomidative devices daily as well as reviewed the fact that a failure in accepting these recommedations may be deleterious, unable to prevent, and disadvantagely result in, many pedal complications such as skin irritation, skin ulceration, infection, and even loss of toe/foot/leg/or even their life. Time was also spent reviewing the proper footcare techniques including daily skin moisturization, daily foot inspection for any interruption in skin integrity, open lesions, or sign of infection such as redness/malodor/drainage/swelling as well as daily shoe inspection for the presence of internal foreign bodies and shoe as well as insert wear. Patient questions re: shoes, inserts, and self foot inspections were answered to their satisfaction as the patient verbally confirmed a full understanding of the above information.? ??Screening/Special Tests:?Fall Risk?Assessment:?Performed ?Plan of Care:?Documented ?Type of fall plan of care:?Balance, strength and gait training or instruction provided Patient defers formal exercise program ?Screening:?One fall without injury in the past year ?FALLS: Screening for Future Fall Risk?Have you had two or more falls in the past year??No ?Have you had any falls with injury in the past year??Yes * Follow Up:?prn * Images: * Sign off status: Completed true * Provider:?Naveen Hicks DPM Date:?2024 Generated for Alma louise/Bruno/Milton on:?10/26/2024 12:23 PM EST History and Physical Notes * HPI (History of Present Illness) Category Sub-Category Detail Notes Category Not es Toe pain Treatments: Rx shoes At Risk footcare Pt States Last PCP Visit: Date: 4 Examination Category Sub-Category Detail Notes Category Not es Orthopedic FOOTWEAR: good condition, exhibit proper fit and accommodation for pedal deformities. OT were inspected and noted to be worn, but in good condition giving proper support at the present time DIGITAL DEFORMITIES: Digital contracture , PIPJ, 2-5 B/L (save T6/T7), incompl- reducible to push-up test, no over, nor underlapping , no longer, with evidence of shoe producing skin irritation General Examination Footwear Evaluation Footwear Evaluatio n performed:: Yes Ophthalmology Referral DIABETES EYE EXAM Procedure Perform ed:: Yes ?Date of Exam Performed: 02/09/2024 Findings of Diabetic Eye Exam:: no retin opathy Nails NAILS are: Elongated, overg rown, dystrophic, lytic, greater than 3mm thick, discolored and friable with crumbly malodorous subungual debris, with pain on palpation, TA, T1, T2, T3, T4, T5, T6, T7, T8, T9
--- OUTSIDE RECORDS SUMMARY | 2024-10-26 12:24 | XMS_ITS | Patient Health Record ---
Author Organization [facility] Address [address] [place] [address] Care Team Providers Care Principal Web Developer Name Role Phone Lorenzo Oconnor Primary Care Provider Naveen Diamond Unavailable [phone] Allergies Allergen (clinical drug ingredient) Drug/Non Drug Allergy documented on EMR Reaction Allergy Type Onset Date Status Substance with sulfonamide structure and antibacterial mechanism of action (substance) Sulfa Antibiotics Unknown Drug Allergy Active Results Component Value Reference Range Notes HEMOGLOBIN A1C (GLYCOHEMOGLO BIN) Reviewed date:12/18/2023 10:33:56 AM Interpretation: Performing Lab: Notes/Report: HEMOGLOBIN A1C % (HH) 5.8 Reason For Referral No Information Medications Medication SIG (Take, Route, Frequency, Duration) Notes Start Date End Date Status Eliquis 5 MG as directed Orally Active Flecainide Acetate 100 MG as directed Orally Active Zolpidem Tartrate 5 MG 1 tablet at bedti az Orally Once a day Active Metoprolol Succinate 100 MG 1 capsule Orally Once a day for 30 day(s) Active Calcium + D 500-1000-40 MG-UNT-MCG as directed Orally Active Percocet Active Extra Depth Orthopedic Shoes (1 Pair) with Customized Heat Molded Multidensity Innersoles (3 Pair) as directed Dx: NIDDM (E11.9), Hammertoe Foot Deformity (M20.41,M20.42), Preulcerative Skin Lesion(s) (L85.1) Active Xanax 0.25 MG 1 tablet Orally Twic e a day Active Vitamin B Complex Ac tive Omeprazole 20 MG 1 capsule 30 minutes before morning meal Orally Once a day for 30 day(s) Active rOPINIRole HCl 0.25 MG 1 tablet 1 to 3 h ours before bedtime Orally Once a day Active Levothyroxine Sodium 100 MCG 1 tablet in the morning on an empty stomach Orally Once a day for 30 day(s) Active Sertraline HCl Activ e Atorvastatin Calcium 80 MG 1 tablet Oral ly Once a day for 30 day(s) Active Lisinopril Active buPROPion HCl ER (XL) 450 MG 1 tablet in the morning Orally Once a day for 30 day(s) Active Immunizations Vaccine Route Administration Date Status Comme nts COVID-19 Pfizer BioNTech Vaccine Unknown 12/28/2020 Administered 1st dose 11/25/19 21 Influenza Unknown 05/31/2023 Administered Social History Tobacco Use: Social History Observation Description Date Details (start date - stop date) Current Smoker NA - NA Tobacco Use/Smoking Question Answer Notes Are you a: current smoker How many cigarettes a day do you smoke? 6-10 Alcohol Screen Question Answer Notes Did you have a drink contain ing alcohol in the past year? Yes How often did you have a dri nk containing alcohol in the past year? 4 or more times a week (4 points) How many drinks did you have on a typical day when you were drinking in the past year? 1 or 2 drinks (0 point) Points 4 Interpretation Positive Tobacco use other than smoking: Question Answer Notes Are you an other tobacco user? No Problems Problem Type SNOMED Code ICD Code Onset Dates Problem Status W/U Status Risk Notes Problem Acquired hammer toe of right foot (61150015149252 05) Other hammer toe(s) (acquired), right foot (M20.41) Active confirmed Response to treatment,I mprovement Problem Acquired hammer toe of left foot (16900910458426 03) Other hammer toe(s) (acquired), left foot (M20.42) Active confirmed Response to treatment,I mprovement Problem Type 2 diabetes mellitus without complication (644857323) Type 2 diabetes mellitus without complication (E11.9) Active confirmed Vital Signs Blood pressure diastolic 80 mm Hg 09/02/2024 Height 5ft in 09/02/2024 Blood pressure systolic 130 mm Hg 09/02/2024 Weight 150 lbs 09/02/2024 BMI 29.29 kg/m2 09/02/2024 Procedures Procedure Date Ordered Date Performed Result Body Sit e 67127-OIONAEN NAIL, 6 OR MORE 12/18/2023 N/A 87982-UVKKNOP NAIL, 6 OR MORE 05/03/2024 N/A 04517-VFJWZST NAIL, 6 OR MORE 09/02/2024 N/A Encounters Encounter Location Date Provider Diagnosis [address] [address] 12/18/2023 Naveen Fabiola Pain in right toe(s) M79.674 ; Tinea unguium B35.1 ; Pain in left toe(s) M79.675 and Type 2 diabetes mellitus without complication E11.[address] [address] 05/03/2024 Naveen Fabiola Pain of toe of right foot M79.674 ; Onychomycosis B35.1 ; Pain of toe of left foot M79.675 ; Type 2 diabetes mellitus without complication E11.9 ; Other hammer toe(s) (acquired), right foot M20.41 and Other hammer toe(s) (acquired), left foot M20.[address] [address] 09/02/2024 Naveen Fabiola Pain in right toe(s) M79.674 ; Tinea unguium B35.1 ; Pain in left toe(s) M79.675 ; Type 2 diabetes mellitus without complication E11.9 ; Other hammer toe(s) (acquired), right foot M20.41 and Other hammer toe(s) (acquired), left foot M20.[address] [address] 03/29/2024 Naveen Fabiola Assessments Encounter Date Diagnosis (ICD Code) Assessment Notes Treatment Notes Treatment Clinical Notes Section Notes 12/18/2023 Pain in right toe(s) (ICD-10 - M79.674) 12/18/2023 Tinea unguium (ICD-10 - B35.1) 05/03/2024 Pain of toe of right foot (ICD-10 - M79.674) 09/02/2024 Pain in right toe(s) (ICD-10 - M79.674) 05/03/2024 Pain of toe of left foot (ICD-10 - M79.675) 05/03/2024 Onychomycosis (ICD-10 - B35.1) 09/02/2024 Tinea unguium (ICD-10 - B35.1) 09/02/2024 Pain in left toe(s) (ICD-10 - M79.675) 12/18/2023 Pain in left toe(s) (ICD-10 - M79.675) 05/03/2024 Type 2 diabetes mellitus without complication (ICD-10 - E11.9) 12/18/2023 Type 2 diabetes mellitus without complication (ICD-10 - E11.9) 09/02/2024 Type 2 diabetes mellitus without complication (ICD-10 - E11.9) 09/02/2024 Other hammer toe(s) (acquired), right foot (ICD-10 - M20.41) Response to treatment,Impro vement 05/03/2024 Other hammer toe(s) (acquired), right foot (ICD-10 - M20.41) Patient Educated with: DIABETIC FOOT CARE INSTRUCTIONS.p df (DIABETIC FOOT CARE INSTRUCTIONS.p df) 05/03/2024 Other hammer toe(s) (acquired), left foot (ICD-10 - M20.42) 09/02/2024 Other hammer toe(s) (acquired), left foot (ICD-10 - M20.42) Response to treatment,Impro vement Plan Of Treatment Pending Test Test Name Order Date 24456-[id number] NAIL, 6 OR MORE 12/28/2020 99666-HVSHRMX NAIL, 6 OR MORE 04/03/2023 14528-PUFEAUW NAIL, 6 OR MORE 08/21/2023 38313-CUAIHPY NAIL, 6 OR MORE 12/18/2023 46245-OVOOOEY NAIL, 6 OR MORE 05/03/2024 60767-MCAKQFQ NAIL, 6 OR MORE 09/02/2024 Next Appt Details Provider Name:Naveen Hicks , 12/30/2024 09:15:00 AM, [address] [place] [address], [place], [address], Insurance Providers Payer Name Payer Address Payer Phone Subscriber Number Group Number Insured Name Patient Relationship to Insured Coverage Start Date Coverage End Date [facility] 65 Medicare Preferred [address] [place] [address] [phone] [id number] 5 Kaylee Amaral Self - patient is the insured Medical (General) History Medical History History ICD Code Anemia Anxiety Arthritis Back pain Cataracts Depression Diabetic Headaches Numbness Reflux ( GERD) Sciatica Sinus conditions thyroid Measles Chicken pox Surgical History Surgery Date(Month/Year) bunionectomy hammer toe Lower back surgery carpal tunnel surgery x2 hysterectomy breast reduction wrist surgery
== END 2024-10-26 11:24 | disposition home or self-care (01) ==
PROVIDERS: PCP Internal Medicine; Visit Provider Internal Medicine
DX: E11.65 Type 2 diabetes mellitus with hyperglycemia (principal); J43.9 Emphysema, unspecified; I48.92 Unspecified atrial flutter; Z68.32 Body mass index [BMI] 32.0-32.9, adult; E66.9 Obesity, unspecified; Z87.891 Personal history of nicotine dependence; E03.9 Hypothyroidism, unspecified; K21.9 Gastro-esophageal reflux disease without esophagitis; E78.00 Pure hypercholesterolemia, unspecified; I10 Essential (primary) hypertension; D12.6 Benign neoplasm of colon, unspecified; M48.062 Spinal stenosis, lumbar region with neurogenic claudication

== ENCOUNTER → 2024-10-26 10:12 | Outpatient (BNVA) | payer MEDICARE, SELFPAY | PROVIDERS: PCP Internal Medicine; Visit Provider Internal Medicine | DX: L57.0 Actinic keratosis (principal); J43.9 Emphysema, unspecified; E11.65 Type 2 diabetes mellitus with hyperglycemia; K21.9 Gastro-esophageal reflux disease without esophagitis; E66.9 Obesity, unspecified; E03.9 Hypothyroidism, unspecified; I48.92 Unspecified atrial flutter; E78.00 Pure hypercholesterolemia, unspecified; I10 Essential (primary) hypertension; D12.6 Benign neoplasm of colon, unspecified; M48.062 Spinal stenosis, lumbar region with neurogenic claudication; Z87.891 Personal history of nicotine dependence | CPT/HCPCS: 96127; 99212 ==

== ENCOUNTER → 2024-11-03 09:59 | Outpatient (BNVA) | payer MEDICARE, SELFPAY | PROVIDERS: PCP Internal Medicine; Visit Provider Internal Medicine Cardiovascular Disease ==

== ENCOUNTER 2024-11-08 09:33 | Outpatient (REF) | payer MEDICARE, SELFPAY ==
--- NOTE | ~2024-11-08 | CT_ITS ---
CLINICAL HISTORY: Z87.891 - Personal history of nicotine dependence CT lung cancer screening (LDCT) Comparison: CT/REG/FL/SR - CT LUNG SCREENING - 11/02/23 09:13 EST Technique: Axial CT images of the chest using low-dose technique. Referring provider counseled the patient on shared decision-making for LDCT screening. Additional counseling was provided on smoking cessation. Effective radiation dose total: DLP 40.7 mGycm, CTDIvol 1.3 mGy. Findings: Both nodules previously described are unchanged. No new nodules are noted. Coronary artery calcifications: None Limited upper abdomen: Unremarkable Other: None Impression: LungRADS 2 - Benign Appearance: Continue annual screening with low dose Chest CT in 12 months. ##L2# Category 1: Normal; continue annual screening Category 2: Benign appearance or behavior, continue annual screening Category 3: Probably benign, [address] recommended Category 4A: Suspicious, [address] recommended; may consider PET/CT Category 4B: Suspicious, Additional diagnostics and/or tissue sampling recommended Category 4X: Suspicious, Additional diagnostics and/or tissue sampling recommended Category 0: Recalls (incomplete screen due to Incomplete coverage, Noise, Respiratory motion, Expiration, Obscured by acute abnormality) This document has been electronically signed by: Anil Adamson MD on 11/09/2024 11:09:09
--- OUTSIDE RECORDS SUMMARY | 2024-11-08 10:48 | XMS_ITS ---
Author Organization [facility] Address [address] [facility] [address] [facility] [place] [address] Care Team Providers Care Hemp Fiber Taker Off Name Role Phone Lorenzo Oconnor Primary Care Provider Naveen Diamond Unavailable [phone] Allergies Allergen (clinical drug ingredient) Drug/Non Drug [...] Ordered Date Performed Result Body Sit e 82884-DJUXRCD NAIL, 6 OR MORE 05/03/2024 N/A Encounters Encounter Location Date Provider Diagnosis [facility] [address] [address] 05/03/2024 Naveen Hicks Pain of toe of [...] INSTRUCTIONS.pdf) Pending Test Test Name Order Date [id number] NAIL, 6 OR MORE 05/03/2024 Next Appt Details Follow Up: prn, Reason: Provider Name:Naveen Hicks , 01/10/2025 09:45:00 AM, [address] [place] [address], [phone], Procedure Notes * Category Sub-Category Detail Notes Debride Nail 6-10 Nail debridement Performance o f this nail treatment by a nonprofessional would put this patients foot and overall health at risk. Therefore, nail debridement was performed extensively to reduce/remove overall nail length, girth, thickness, subungual debris, and necrotic tissue, by manual and/or electrical means through the use of a nail nipper and/or dremel-type abrasive grinder, to a more viable healthy nail plate or bed tissue 6-10. Silver nitrate used for any petechial bleeding as necessary. Definitive antifungal treatment options have been reviewed and discussed with the patient. The patient chooses, no pharmaceutical tx - [address]80 Progress Notes * Kaylee SANTOS EDOB: [birth year] (74 yo F)Acc No.[id number]:05/03/2024 Progress Note Patient:?Kaylee SANTOS Provider:?Naveen Hicks DPM :1950???Age:73 Y???Sex:Female D ate:05/03/2024 Address:[address] [place], [place] [id number] Pcp:Lorenzo Oconnor Subjective: * Chief Complaints: * [...] use of a nail nipper and/or dremel-type abrasive grinder, to a more viable healthy nail plate or bed tissue 6-10. Silver nitrate used for any petechial bleeding as necessary. Definitive antifungal treatment options have been reviewed and discussed with the patient. The patient chooses, no pharmaceutical tx - 24150.? * Procedure Codes:?53036 DEBRI DE NAIL, 6 OR MORE * [...] Hicks DPM Date:?2023 Generated for Alma louise/Bruno/Milton on:?11/08/2024 10:48 AM EDT History and Physical Notes * [...]
--- OUTSIDE RECORDS SUMMARY | 2024-11-08 10:48 | XMS_ITS ---
Author Organization [facility] Address [address] [place] [address] Care Team Providers Care Director [facility] Name Role Phone Lorenzo Oconnor MD Primary Care Provider Paige Nicole Unavailable [phone] Allergies Allergen (clinical drug ingredient) Drug/Non Drug [...] Problem Status W/U Status Risk Notes Problem Long-term current use of anticoagulant (430299062) Anticoagulant long-term use (Z79.01) Active confirmed Vital Signs Temperature 97.7 degrees Fahrenheit 09/01/19 25 Blood pressure systolic 000 mm Hg 09/01/19 25 Blood pressure diastolic 00 mm Hg 025 Height 60 in 09/01/2024 Weight 157 lb 8 oz lbs 09/01/2024 BMI 30.76 kg/m2 09/01/2024 Encounters Encounter Location Date Provider Diagnosis [facility] [address] [place] [address] 09/01/2024 Paige Christina History of adenomato us polyp of colon Z86.010 ; Preprocedural examination Z01.818 ; Encounter for screening for malignant neoplasm of colon Z12.11 and Anticoagulant long-term use Z79.01 Assessments Encounter Date Diagnosis (ICD Code) Assessment Notes Treatment Notes Treatment Clinical Notes Section Notes 09/01/2024 History of adenomatous polyp of colon (ICD-10 - Z86.010) Overall, Paradise appears quite well. Given her age, good [...] adjustment of her medication for the procedure. Paradise was comfortable with this plan. Thank you again for allowing me to participate In [facility] care. I shall continue to keep you advised of her progress. 09/01/2024 Preprocedural examination (ICD-10 - Z01.818) Overall, Paradise appears quite well. Given her age, good [...] adjustment of her medication for the procedure. Paradise was comfortable with this plan. Thank you again for allowing me to participate In Paradise's care. I shall continue to keep you advised of her progress. 09/01/2024 Encounter for screening for malignant neoplasm of colon (ICD-10 - Z12.11) Do not take the Eliquis for three days before the colonoscopy Overall, Paradise appears quite well. Given her age, good [...] adjustment of her medication for the procedure. Paradise was comfortable with this plan. Thank you again for allowing me to participate In Paradise's care. I shall continue to keep you advised of her progress. 09/01/2024 Anticoagulant long-term use (ICD-10 - Z79.01) Overall, Paradise appears quite well. Given her age, good [...] adjustment of her medication for the procedure. Paradise was comfortable with this plan. Thank you again for allowing me to participate In Paradise's care. I shall continue to keep you advised of her progress. Plan Of Treatment Treatment Notes Assessment Notes Encounter for screening for malignant neoplasm of colon Do not take the Eliquis for three days before the colonoscopy Future Test Test Name Order Date COLONOSCOPY 09/01/2024 Next Appt Details Follow Up: prn, Reason: Provider Name:Paige Vasquez , 12/12/2024 10:40:00 AM, [address] [place] [address], [phone], Progress Notes * PARADISE SANTOS EDOB: [birth year] (74 yo F)Acc No.[id number]:09/01/2024 Progress Notes Patient:?PARADISE SANTOS Provider:?Paige Vasquez MD :1950???Age:74 Y???Sex:Female D ate:09/01/2024 Address:[address] [place], [place] [id number] Pcp:Lorenzo Oconnor MD Subjective: * Chief Complaints: * ???Patient presents today fo r the recall colonoscopy * HPI: ???incontinence:? I saw Paradise in the office today for evaluation of her personal history of tubular adenomas of the colon and need for colorectal cancer screening. ?I last saw Paradise in 2020, at which time we had [...] any known family history of colon cancer. ?Laboratories in July revealed normal chemistries and renal function, normal LFTs, and a normal CBC. * ROS:?General/Constitutional:?Change in appetite?denies.?Chills?denies.?Fatigue?denies.?Ophthalmologic:?Patient denies? Negative..?ENT:?Patient denies?Negative..?Respiratory:?Patient denies?No coughing/hemoptysis..?Cardiovascular:?Patient denies? No chest pain/orthopnea..?Gastrointestinal:?Comments?See HPI for details.?Genitourinary:?Patient denies? No dysuria/hematuria..?Incontinence?denies.?Musculoskeletal:?Patient complaining of? arthritis.?Skin:?Patient denies?No rash/pruritus..?Neurologic:?Patient denies? No headaches/seizures..?Psychiatric:?Patient complaining of?depression.? * Medical History:? * Surgical History:? hysterectomy and removal of one ovary carpal tunnel surgery bladder suspension thumb surgery vocal cord polyps back surgery breast reduction foot surgeries * Hospitalization/Major Diagno stic Procedure:?No Hospitalization History. * Family History:?Father: dece ased, diagnosed with HTN (hypertension), Diabetes, Heart disease.?Mother: .? No family history of colorectal cancer nor polyps. No family history of liver cancer. * Social History:?Tobacco Use:?Tobacco Use/Smoking?Patient is a?former smoker,?How long has it been since you last smoked??1-5 years.?Drugs/Alcohol:?Alcohol Screen?Points: 3, Interpretation: Positive.?Miscellaneous:?Marital status: . Occupation: Retired. ???Nonsmoker since approx 2016; occ alcohol. * Medications:?TakingXanax 0.2 5 MG Tablet 1 tablet Orally Twice a daySertraline HCl 20 MG/ML Concentrate 5 ml mixed with 4 ounces of water, orange juice, lemonade, christiano barrie or lemon/blue lake soda Orally Once a daybuPROPion HBr ER [...] or lemon/blue lake soda Orally Once a dayTaking buPROPion HBr [...] reviewed and reconciled with the patient * Allergies:?Sulfayes[Allergie s Verified] Objective: * Vitals:?Wt: 157 lb 8 oz, Ht: 60 in, BMI:30.76 Index, BP: 000/00 mm Hg, Temp: 97.7. * Examination: ???General Examination: ?GENERAL APPEARANCE:?pleasant, well nourished, well developed, in no acute distress.?EYES:?sclera non-icteric.?ORAL CAVITY:?mucosa moist.?NECK/THYROID:?no cervical lymphadenopathy, neck supple.?SKIN:?nonjaundiced, no spider angiomata..?HEART:?S1, S2 normal.?LUNGS:?clear to auscultation bilaterally.?ABDOMEN:?normal bowel sounds, no guarding or rigidity, no hepatosplenomegaly, no masses palpable, soft, nontender, nondistended..?EXTREMITIES:?no edema.?NEUROLOGIC:?alert and oriented.? Assessment: * Assessment: 1.?Preprocedural examination - Z01.818 (Primary)?2.?History of adenomatous polyp of colon - Z86.010?3.?Encounter for screening for malignant neoplasm of colon - Z12.11?4.?Anticoagulant long-term use - Z79.01? Overall, Paradise appears qu ite well. Given her age, [...] adjustment of her medication for the procedure. Paradise was comfortable with this plan. Thank you again for allowing me to participate In Paradise's care. I shall continue to keep you advised of her progress. Plan: * Treatment: 2.?Encounter for screening for malignant neoplasm of colon?Procedure: COLONOSCOPY (Ordered for 09/01/2024)* with MACsched for 12/12/24 at 10:40 ammiralax Notes: Do not take the Eliquis for three days before the colonoscopy?? * Procedure Codes:?1036F TOBAC CO NON-[id number] BP SCR NOT PRFRM REC REASON NOS * Preventive Medicine:? ??Counseling:?Care goal follow-up plan:?Above Normal BMI Follow-up?Giving encouragement to exercise,?BMI management provided?Yes.? ??Urinary Incontinence:?Urinary Incontinence?Assessment:?Present,?Plan of care documented:?Yes,?Type of plan of care:?Lifestyle interventions.? ??Screenings:?Fall Risk Screening?Fall Risk Assessment:?One fall without injury in the past year,?Screening:?One fall without injury in the past year,?Assessment:?Not performed, no reason specified,?Plan of Care:?Not documented, no reason specified.? * Follow Up:?prn * * Sign off status: Completed true * Provider:?Paige Vasquez MD Date:? 025 Generated for Alma louise/Bruno/Milton on:?11/08/2024 10:48 AM EDT History and Physical Notes * HPI (History of Present Illness) Category Sub-Category Detail Notes Category Not es incontinence I saw Paradise in the office today for evaluation of her personal history of tubular adenomas of the colon and need for colorectal cancer screening. I last saw Paradise in 2021, at which time we had reviewed her issue of occasional fecal incontinence. Her last colonoscopy in 2019 revealed a tubular adenoma that was removed. [...]
--- OUTSIDE RECORDS SUMMARY | 2024-11-08 10:48 | XMS_ITS ---
Author Organization [facility] Address [address] [facility] [place] [address] Care Team Providers Care Drum Puller Name Role Phone Lorenzo Oconnor Primary Care Provider Naveen Diamond Unavailable [phone] Allergies Allergen (clinical drug ingredient) Drug/Non Drug [...] Tartrate 5 MG 1 tablet at bedti or Orally Once a day Active Metoprolol Succinate [...] Ordered Date Performed Result Body Sit e 12370-TBXVEEC NAIL, 6 OR MORE 09/02/2024 N/A Encounters Encounter Location Date Provider Diagnosis [facility] [address] [place] [address] 09/02/2024 Naveen Hicks Pain in right toe(s) [...] Treatment Pending Test Test Name Order Date [id number] NAIL, 6 OR MORE 09/02/2024 Next Appt Details Follow Up: prn, Reason: Provider Name:Naveen Hicks , 01/10/2025 09:45:00 AM, [address] [place] [address], [phone], Procedure Notes * Category Sub-Category Detail Notes [...] use of a nail nipper and/or dremel-type custom grinder, to a more viable healthy nail [...] Kaylee SANTOS EDOB: [birth year] (74 yo F)Acc No.[id number]:09/02/2024 Progress Note Patient:?Kaylee SANTOS Provider:?Naveen Hicks DPM :1950???Age:74 Y???Sex:Female D ate:09/02/2024 Address:[address] [place], [place] [phone] Pcp:Lorenzo Oconnor Subjective: * Chief Complaints: * [...] use of a nail nipper and/or dremel-type custom grinder, to a more viable healthy nail [...] to maintain effectiveness in symptomatic relief - 26330.? * Procedure Codes:?86988 DEBRI DE NAIL, 6 OR MORE * [...] Hicks DPM Date:?2024 Generated for Alma louise/Bruno/Milton on:?11/08/2024 10:48 AM [...]
--- OUTSIDE RECORDS SUMMARY | 2024-11-08 10:49 | XMS_ITS | Patient Health Record ---
Author Organization [facility] Address [address] [facility] [address] Care Team Providers Care Degreaser Name Role Phone Lorenzo Oconnor Primary Care Provider Naveen Diamond Unavailable [phone] Allergies Allergen (clinical drug ingredient) Drug/Non Drug [...] Tartrate 5 MG 1 tablet at bedti ms Orally Once a day Active Metoprolol Succinate [...] Problem Acquired hammer toe of right foot (96018810628898 05) Other hammer toe(s) (acquired), right foot (M20.41) Active confirmed Response to treatment,I mprovement Problem Acquired hammer toe of left foot (95552832800755 03) Other hammer toe(s) (acquired), left foot (M20.42) Active confirmed Response to treatment,I mprovement Problem Type 2 diabetes mellitus without complication (202314115) Type 2 diabetes mellitus without complication (E11.9) Active confirmed Vital Signs Blood pressure diastolic 80 mm Hg 09/02/2024 Height 5ft in 09/02/2024 Blood pressure systolic 130 mm Hg 09/02/2024 Weight 150 lbs 09/02/2024 BMI 29.29 kg/m2 09/02/2024 Procedures Procedure Date Ordered Date Performed Result Body Sit e 46543-YZNZQGI NAIL, 6 OR MORE 12/18/2023 N/A 52825-JVRVRUK NAIL, 6 OR MORE 05/03/2024 N/A 17461-[id number] NAIL, 6 OR MORE 09/02/2024 N/A Encounters Encounter Location Date Provider Diagnosis [address] [address] 12/18/2023 Naveen Fabiola Pain in right toe(s) M79.674 ; Tinea unguium B35.1 ; Pain in left toe(s) M79.675 and Type 2 diabetes mellitus without complication E11.[address] [address] 05/03/2024 Naveen Fabiola Pain of toe of right foot M79.674 ; Onychomycosis B35.1 ; Pain of toe of left foot M79.675 ; Type 2 diabetes mellitus without complication E11.9 ; Other hammer toe(s) (acquired), right foot M20.41 and Other hammer toe(s) (acquired), left foot M20.[address] [address] 09/02/2024 Naveen Fabiola Pain in right toe(s) M79.674 ; Tinea unguium B35.1 ; Pain in left toe(s) M79.675 ; Type 2 diabetes mellitus without complication E11.9 ; Other hammer toe(s) (acquired), right foot M20.41 and Other hammer toe(s) (acquired), left foot M20.[address] [address] 03/29/2024 Naveen Fabiola Assessments Encounter Date Diagnosis [...] Treatment Pending Test Test Name Order Date [id number] NAIL, 6 OR MORE 12/28/2020 03765-MHNBEQB NAIL, 6 OR MORE 04/03/2023 26261-ERHZAQC NAIL, 6 OR MORE 08/21/2023 84797-QEVEBPK NAIL, 6 OR MORE 12/18/2023 53301-CFKGBST NAIL, 6 OR MORE 05/03/2024 17094-NICJVVN NAIL, 6 OR MORE 09/02/2024 Next Appt Details Provider Name:Naveen Hicks , 01/10/2025 09:45:00 AM, [address] [place] [address], [place], [phone], Insurance Providers Payer Name Payer Address Payer Phone Subscriber Number Group Number Insured Name Patient Relationship to Insured Coverage Start Date Coverage End Date [facility] 65 Medicare Preferred [address] [place] [address] [phone] [id number] Kaylee Amaral Self - patient is the insured Medical (General) History Medical History History ICD Code Anemia Anxiety Arthritis Back pain Cataracts Depression Diabetic Headaches Numbness Reflux ( GERD) Sciatica Sinus conditions thyroid Measles Chicken pox Surgical History Surgery Date(Month/Year) bunionectomy hammer toe Lower back surgery carpal tunnel surgery x2 hysterectomy breast reduction wrist surgery
--- OUTSIDE RECORDS SUMMARY | 2024-11-08 10:49 | XMS_ITS | Patient Health Record ---
Author Organization [facility] Address [address] [place] [address] Care Team Providers Care It Consulting Director Name Role Phone Lorenzo Oconnor MD Primary Care Provider Paige Nicole Unavailable [phone] Allergies Allergen (clinical drug ingredient) Drug/Non Drug Allergy documented on EMR Reaction Allergy Type Onset Date Status Sulfa Unknown Drug Allergy Active Reason For Referral No Information Medications Medication [...] water, orange juice, lemonade, christiano barrie or lemon/solomon soda Orally Once a day for 30 [...] capsule Ora lly twice a day Active Immunizations Vaccine Route Administration Date Status Comme nts Influenza Unknown 07/01/2018 Administered Influenza Unknown 06/18/2021 Administered Influenza Unknown 08/16/2024 Administered Social History Tobacco Use: Social History Observation Description Date Details (start date - stop date) Former Smoker NA - NA Tobacco Use/Smoking Question Answer Notes Patient is a former smoker How long has it been since you last smoked? 1-5 years Section Notes: Smoker; 2 drinks per night Nonsmoker since approx 2015; 1or 2 drinks per evening Nonsmoker since approx 2015; 1 or 2 drinks per evening Nonsmoker since approx 2015; occ alcohol Problems Problem Type SNOMED Code ICD Code Onset Dates Problem Status W/U Status Risk Notes Problem 871740301 Encounter for screening for malignant neoplasm of colon (Z12.11) Active confirmed Problem 818777970 History of adenomatous polyp of colon (Z86.010) Active confirmed Problem 136135857211652 Preprocedural examination (Z01.818) Active confirmed Problem Long-term current use of anticoagulant (461456329) Anticoagulant long-term use (Z79.01) Active confirmed Problem 40899535 Incontinence of feces, unspecified fecal incontinence type (R15.9) Active confirmed Vital Signs Temperature 97.7 degrees Fahrenheit 09/01/2024 Blood pressure diastolic 00 mm Hg 09/01/2024 Height 60 in 09/01/2024 Blood pressure systolic 000 mm Hg 09/01/2024 Weight 157 lb 8 oz lbs 09/01/2024 BMI 30.76 kg/m2 09/01/2024 Encounters Encounter Location Date Provider Diagnosis [facility] [address] [place] [address] 09/01/2024 Paige Vasquez History of adenomato us [...] advised of her progress. Plan Of Treatment Future Test Test Name Order Date COLONOSCOPY 05/20/2012 COLONOSCOPY 10/21/2018 COLONOSCOPY 09/01/2024 Next Appt Details Provider Name:Paige Vasquez , 12/12/2024 10:40:00 AM, [address] [place] [address] , [place], [place], [phone], Insurance Providers Payer Name Payer Address Payer Phone Subscriber Number Group Number Insured Name Patient Relationship to Insured Coverage Start Date Coverage End Date [facility] [address] [place], [place] [id number] [phone] [id number] PARADISE SANTOS Self - patient is the insured Medical (General) History Medical History History ICD Code Hyperlipidemia Colon polyps-very small tubular adenomas removed in 2004 and 05/2012 GERD--EGD in 2004-hiatal hernia, no esop hagitis/no Marie's Depression Hypothyroidism Denies SD,DM,CVA,Lung disease,renal dise ase Arthritis and degenerative disc disease of spine Hx of afib--had cardioversion - Dr. Jonatan crum Colonoscopy in 11/2018 with removal of a small tubular adenoma Surgical History Surgery Date(Month/Year) hysterectomy and removal of one ovary carpal tunnel surgery bladder suspension thumb surgery vocal cord polyps back surgery breast reduction foot surgeries
--- OUTSIDE RECORDS SUMMARY | 2024-11-08 10:49 | XMS_ITS ---
Author Organization [facility] Address [address] [place] [address] Care Team Providers Care Ui Ux Developer Name Role Phone Lorenzo Oconnor Primary Care Provider Naveen Diamond Unavailable [phone] Encounters Encounter Location Date Provider Diagnosis [address] [address] 04/05/2024 Naveen Hicks Plan Of Treatment Next Appt Details Provider Name:Naveen Hicks , 01/10/2025 09:45:00 AM, [address] [place], [address], Progress Notes * Kaylee SANTOS EDOB: [birth year] (74 yo F)Acc No.[id number]:04/05/2024 Progress Note Patient:?Kaylee SANTOS Provider:?Naveen Hicks DPM :1950???Age:73 Y???Sex:Female D ate:04/05/2024 Address:[facility] [place] Pcp:Lorenzo Oconnor Subjective: * Chief Complaints: * [...] DPM Date:?2023 Generated for Alma louise/Bruno/Milton on:?11/08/2024 10:49 AM EDT
== END 2024-11-08 09:34 | disposition home or self-care (01) ==
LOC: HO.CT 09:33
PROVIDERS: PCP Internal Medicine; Visit Provider Physician Assistant Medical
DX: Z12.2 Encounter for screening for malignant neoplasm of respiratory organs (principal); Z87.891 Personal history of nicotine dependence
CPT/HCPCS: 71271

== ENCOUNTER → 2024-11-08 09:35 | Outpatient (BNV) | payer MEDICARE, SELFPAY | PROVIDERS: PCP Internal Medicine; Visit Provider Radiology Diagnostic Radiology | DX: Z87.891 Personal history of nicotine dependence (principal) | CPT/HCPCS: 71271 ==

== ENCOUNTER 2024-11-17 15:23 | Outpatient (AMB) | payer MEDICARE, SELFPAY ==
--- NOTE | 2024-11-17 15:38 | A.OFFPSYCH_ITS ---
Intake Intake Visit Reasons: consultation Equipment Validation Engineer Required: No Allergies Sulfa (Sulfonamide Antibiotics) [SULFA (SULFONAMIDE ANTIBIOTICS)] Allergy (Unknown, Verified 10/26/24 10:20) RASH Medication List - Last Reconciled 11/17/24 by Maribel Inman APRN alprazolam 0.25 mg PO DAILY apixaban (Eliquis) 5 mg PO BID atorvastatin 80 mg PO DAILY blood sugar diagnostic As directed check the blood sugar once a day blood sugar diagnostic ([employer] Ultra Test strips) As directed check the blood sugar twice a day bupropion HCl XL 300 mg (2 x 150 mg) PO QAM 90 days calcium carbonate-vitamin D3 600 mg-5 mcg (200 unit) (Calcium 600 + D(3)) caps PO diclofenac sodium 1% (Voltaren Arthritis Pain) 4 grams topical QID flecainide 100 mg PO Q12H 90 days levothyroxine 100 mcg PO QAM lisinopril 10 mg PO DAILY 90 days metoprolol succinate ER 25 mg PO BID omeprazole 20 mg PO DAILY oxycodone-acetaminophen 5-325 mg (Percocet) 1 tab PO .QD PRN 30 days ropinirole 0.25 mg PO BEDTIME sertraline 75 mg (1.5 x 50 mg) PO DAILY 90 days thiamine HCl (vitamin B1) 50 mg PO DAILY 90 days zolpidem 10 mg PO BEDTIME PRN 90 days HPI- Psychiatric Chief Complaint: consultation HPI Narrative: pt referred by PCP for evaluation of depression and medication regimen. Pt reports feeling very depressed; PHQ9=20.5 and GAD7=15 . She repports she was drinking increased alcohol 4-5 months ago but has been able to cut back. she has a drink 1-2 times a week now. she has a family supports . No curretn SI or HI. no plan or intent to harm self Past Psychiatric History: depression started age 22 or 23. No Hx of IPLOC no hxof suicide attempts. She did go to [facility] for services approx 5 yrs ago. Subjective Subjective Subjective Medication Compliance: Yes Side effects from medications: No Review of Systems Medical Review of Systems: unchanged Mental Status Exam Mental Status Exam Patient Appearance: Well Grooomed and Appropriate Patient Orientation: Person, Place, Time and Situation Level of Consciousness: Awake and Appropriate Patient Behavior: Appropriate and Anxious Mood Description: Depressed and Anxious Affect Description: Depressed and Anxious Patient Cognition Impaired: No Ability to Follow Directions: Good Speech Pattern: Clear and Appropriate Memory Description: Intact Hallucinations: None Delusions: Not Present Thought Process: Intact and Goal Oriented Thought Content: positive for Intact and positive for Goal Oriented Judgement: Good Assessment and Plan Assessment & Plan (1) Major depressive disorder, recurrent severe without psychotic features: Status: Acute Code(s): F33.2 - Major depressive disorder, recurrent severe without psychotic features (2) Restless leg syndrome: Status: Acute Code(s): G25.81 - Restless legs syndrome (3) Hypothyroidism: Status: Acute Qualifiers: Hypothyroidism type: acquired Qualified Code(s): E03.9 - Hypothyroidism, unspecified Code(s): E03.9 - Hypothyroidism, unspecified Plan Recommended she increase the zoloft to 100mg daily and keep the wellbutrin alprazolam and ambien the same. I also recommended she start some magnesium glycinate as there's evidence that magnesium can help with depression (as well as restless legs and anxiety) . collaboration with PCP re: her thyroid medication. there some evidence that getting the TSH close to 2.00 helps with mood. consider a small adjustment with the levothyroxine maybe down to 0.75mcg night help her mood and energy. I plan to see her one more time and then the she will return to PCP care. Medications: Changed From sertraline 75 mg (1.5 x 50 mg) PO DAILY 90 days 135 tabs 2RF F41.1 - Generalized anxiety disorder To sertraline 100 mg (2 x 50 mg) PO DAILY 90 days 180 tabs 2RF F41.1 - Generalized anxiety disorder Counseling and coordination of Care Pt. Self Management counseling: Exercise, Maintenance-social rhythm, Med illness tx adherence, Mod caffeine/ETOH intake, Nutrition education and improvement, Sleep hygiene, General coping skills and Problem solving Medication management counseling: Effectiveness, Side effects, Dosing range, Duration, Drug interaction and Adherence Diagnosis and Prognosis Counseling: Accuracy of diagnosis, Prognosis over time, Impact of diagnosis on life functions, Impact of family relationship, Problematic behaviors secondary to diagnosis and Adequacy of current interventions Details: I spent 75 minutes reviewing the record, seeing the patient and documenting in the medical record. Counseling provided to the patient/caregiver as outlined below. Addressed patient/caregiver concerns regarding current medication regime including effective adherence. Addressed patient/caregiver concerns regarding diagnosis and prognosis including accuracy of diagnosis, prognosis over time, impact of diagnosis. Addressed patient/caregiver concerns regarding impact of recent stressors. [facility] Medical History (Updated 11/22/24 @ 12:19 by Maribel Inman APRN) Tendonitis of both rotator cuffs Fall Radiculitis of left cervical region DJD of left shoulder Wrist pain, left Lumbar spinal stenosis Cervical spondylosis Gait instability Wrist pain Depression Tubular adenoma of colon Personal history of nicotine dependence Generalized anxiety disorder Paroxysmal atrial flutter Lumbar degenerative disc disease Obstructive sleep apnea Restless leg syndrome Hiatal hernia Hip osteoarthritis Vitamin D deficiency Type 2 diabetes mellitus with hyperglycemia Allergic rhinitis Insomnia PFO (patent foramen ovale) Hypercholesterolemia COPD (chronic obstructive pulmonary disease) Hypertension Obesity (BMI 30-39.9) GERD (gastroesophageal reflux disease) Hypothyroidism Surgical History History of tonsillectomy History of bilateral breast reduction surgery History of carpal tunnel surgery History of lumbar surgery History of hysterectomy History of right breast biopsy (~2016) History of hand surgery (~2011) History of esophagogastroduodenoscopy (EGD) (~2004) History of colonoscopy (~2018) History of cardioversion (~2017) History of foot surgery (~2017) Family History Father Diabetes Hypertension CVD (cardiovascular disease) Mother Cervical cancer Stroke Social History Housing: House Alcohol intake: current Alcohol intake frequency: a few times a week Patient Tobacco Use Status: Former Tobacco user Tobacco use type: Cigarette Years Smoked: 57yrs, onset 12, on and off, 1-1.5ppd, 50pyh, quit 07/31/2021 e-Cigarette/Vaping Use: Never Used Second Hand Smoke Exposure: No service: No 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al status: employed 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
== END 2024-11-17 16:22 | disposition home or self-care (01) ==
LOC: HO.HOP 15:23
PROVIDERS: PCP Internal Medicine; Visit Provider Clinical Nurse Specialist Psychiatric/Mental Health
DX: F33.2 Major depressive disorder, recurrent severe without psychotic features (principal); G25.81 Restless legs syndrome; E03.9 Hypothyroidism, unspecified
CPT/HCPCS: 90792

== ENCOUNTER → 2024-11-17 15:23 | Outpatient (BNVA) | payer MEDICARE, SELFPAY | PROVIDERS: PCP Internal Medicine; Visit Provider Clinical Nurse Specialist Psychiatric/Mental Health | DX: F33.2 Major depressive disorder, recurrent severe without psychotic features (principal); F41.1 Generalized anxiety disorder; G25.81 Restless legs syndrome; E03.9 Hypothyroidism, unspecified; Z71.89 Other specified counseling | CPT/HCPCS: 90792 ==

== ENCOUNTER 2024-12-12 09:28 | Day surgery (SDC) | payer MEDICARE, SELFPAY ==
--- OUTSIDE RECORDS SUMMARY | 2024-10-27 07:31 | XMS_ITS ---
Author Organization [facility] Address [address] [facility] [place] [address] Care Team Providers Care Bituminous Distributor Operator Name Role Phone Lorenzo Oconnor Primary Care Provider Naveen Diamond Unavailable [phone] Allergies Allergen (clinical drug ingredient) Drug/Non Drug [...] Tartrate 5 MG 1 tablet at bedti nd Orally Once a day Active Metoprolol Succinate [...] Ordered Date Performed Result Body Sit e 79121-DLMWEIT NAIL, 6 OR MORE 09/02/2024 N/A Encounters Encounter Location Date Provider Diagnosis [facility] [address] [place] [address] 09/02/2024 Naveen Hicsk Pain in right toe(s) M79.674 ; Tinea [...] Treatment Pending Test Test Name Order Date 12478-FRCTVBG NAIL, 6 OR MORE 09/02/2024 Next Appt Details Follow Up: prn, Reason: Provider Name:Naveen Hicks , 12/30/2024 09:15:00 AM, [address] [place] [address], [phone], Procedure Notes * Category Sub-Category Detail Notes [...] use of a nail nipper and/or dremel-type tankage grinder, to a more viable healthy nail [...] Kaylee SANTOS EDOB: [birth year] (74 yo F)Acc No.[id number]:09/02/2024 Progress Note Patient:?Kaylee SANTOS Provider:?Naveen Hicks DPM :1950???Age:74 Y???Sex:Female D ate:09/02/2024 Address:[address] [place], [place] [id number] Pcp:Lorenzo Oconnor Subjective: * Chief Complaints: * [...] use of a nail nipper and/or dremel-type tankage grinder, to a more viable healthy nail [...] to maintain effectiveness in symptomatic relief - [address].? * Procedure Codes:?19899 DEBRI DE NAIL, 6 OR MORE * [...] Hicks DPM Date:?2024 Generated for Alma louise/Bruno/Milton on:?10/27/2024 07:30 AM EST History and Physical Notes * HPI (History of Present Illness) Category Sub-Category Detail Notes Category Not es Toe pain Treatments: Rx shoes At Risk footcare Pt States Last PCP Visit: Date: Examination Category Sub-Category Detail Notes Category Not [...]
--- OUTSIDE RECORDS SUMMARY | 2024-10-27 07:31 | XMS_ITS ---
Author Organization [facility] Address [address] [place] [address] Care Team Providers Care Airworthiness Inspector Name Role Phone Lorenzo Oconnor Primary Care Provider Naveen Diamond Unavailable [phone] Encounters Encounter Location Date Provider Diagnosis [address] [address] 04/05/2024 Naveen Hicks Plan Of Treatment Next Appt Details Provider Name:Naveen Hicks , 12/30/2024 09:15:00 AM, [address] [place], [address], Progress Notes * Kaylee SANTOS EDOB: [birth year] (74 yo F)Acc No.[id number]:04/05/2024 Progress Note Patient:?Kaylee SANTOS Provider:?Naveen Hicks DPM :1950???Age:73 Y???Sex:Female D ate:04/05/2024 Address:[address] [id number] Pcp:Lorenzo Oconnor Subjective: * Chief Complaints: * ??? * Medical History:? Objective: * Vitals:? Assessment: Plan: * Treatment: * Images: * The named appointment provid er may or may not be the originator of this progress note, and it is not deemed complete until electronically signed by the appointment provider. Sign off status: Pending * Provider:?Naveen Hicks DPM Date:?2023 Generated for Alma louise/Bruno/Milton on:?10/27/2024 07:31 AM EST
--- OUTSIDE RECORDS SUMMARY | 2024-10-27 07:31 | XMS_ITS | Patient Health Record ---
Author Organization [facility] Address [address] [facility] [place] [address] Care Team Providers Care Right Of Way Manager Name Role Phone Lorenzo Oconnor Primary Care Provider Naveen Diamond Unavailable [phone] Allergies Allergen (clinical drug ingredient) Drug/Non Drug [...] Tartrate 5 MG 1 tablet at bedti fl Orally Once a day Active Metoprolol Succinate [...] Problem Acquired hammer toe of right foot (74242611102543 05) Other hammer toe(s) (acquired), right foot (M20.41) Active confirmed Response to treatment,I mprovement Problem Acquired hammer toe of left foot (74140612114401 03) Other hammer toe(s) (acquired), left foot (M20.42) Active confirmed Response to treatment,I mprovement Problem Type 2 diabetes mellitus without complication (816717400) Type 2 diabetes mellitus without complication (E11.9) Active confirmed Vital Signs Blood pressure diastolic 80 mm Hg 09/02/2024 Height 5ft in 09/02/2024 Blood pressure systolic 130 mm Hg 09/02/2024 Weight 150 lbs 09/02/2024 BMI 29.29 kg/m2 09/02/2024 Procedures Procedure Date Ordered Date Performed Result Body Sit e 54044-GHQBYDW NAIL, 6 OR MORE 12/18/2023 N/A 45414-XYQDAUY NAIL, 6 OR MORE 05/03/2024 N/A 97889-TZBHWFY NAIL, 6 OR MORE 09/02/2024 N/A Encounters Encounter Location Date Provider Diagnosis [address] [address] 12/18/2023 Naveen Fabiola Pain in right toe(s) M79.674 ; Tinea unguium B35.1 ; Pain in left toe(s) M79.675 and Type 2 diabetes mellitus without complication E11.[address] [address] 05/03/2024 Naveen Faibola Pain of toe of right foot M79.674 ; Onychomycosis B35.1 ; Pain of toe of left foot M79.675 ; Type 2 diabetes mellitus without complication E11.9 ; Other hammer toe(s) (acquired), right foot M20.41 and Other hammer toe(s) (acquired), left foot M20.[address] [address] 09/02/2024 Naveen Fabiola Pain in right toe(s) M79.674 ; Tinea unguium B35.1 ; Pain in left toe(s) M79.675 ; Type 2 diabetes mellitus without complication E11.9 ; Other hammer toe(s) (acquired), right foot M20.41 and Other hammer toe(s) (acquired), left foot M20.[address] [address] 03/29/2024 Naveen Fabiola Assessments Encounter Date Diagnosis (ICD Code) Assessment Notes Treatment Notes Treatment Clinical Notes Section Notes 09/02/2024 Pain in right toe(s) (ICD-10 - M79.674) 05/03/2024 Pain of toe of right foot (ICD-10 - M79.674) 12/18/2023 Tinea unguium (ICD-10 - B35.1) 12/18/2023 Pain in right toe(s) (ICD-10 - M79.674) 05/03/2024 Onychomycosis (ICD-10 - B35.1) 12/18/2023 Pain in left toe(s) (ICD-10 - M79.675) 09/02/2024 Tinea unguium (ICD-10 - B35.1) 09/02/2024 Pain in left toe(s) (ICD-10 - M79.675) 05/03/2024 Pain of toe of left foot (ICD-10 - M79.675) 09/02/2024 Type 2 diabetes mellitus without complication (ICD-10 - E11.9) 05/03/2024 Type 2 diabetes mellitus without complication [...] Treatment Pending Test Test Name Order Date 11270-[id number] NAIL, 6 OR MORE 12/28/2020 45323-[id number] NAIL, 6 OR MORE 04/03/2023 09216-ZLORPWE NAIL, 6 OR MORE 08/21/2023 47675-YBCGVPI NAIL, 6 OR MORE 12/18/2023 81230-CXINEYE NAIL, 6 OR MORE 05/03/2024 42928-KJGGXVU NAIL, 6 OR MORE 09/02/2024 Next Appt Details Provider Name:Naveen Hicks , 12/30/2024 09:15:00 AM, [address] [place] [address], [place], [address], Insurance Providers Payer Name Payer Address Payer Phone Subscriber Number Group Number Insured Name Patient Relationship to Insured Coverage Start Date Coverage End Date [facility] 65 Medicare Preferred [address] [place] [address] [id number] Kaylee Amaral Self - patient is the insured Medical (General) History Medical History History ICD Code Anemia Anxiety Arthritis Back pain Cataracts Depression Diabetic Headaches Numbness Reflux ( GERD) Sciatica Sinus conditions thyroid Measles Chicken pox Surgical History Surgery Date(Month/Year) bunionectomy hammer toe Lower back surgery carpal tunnel surgery x2 hysterectomy breast reduction wrist surgery
--- OUTSIDE RECORDS SUMMARY | 2024-10-27 07:31 | XMS_ITS ---
Author Organization [facility] Address [address] [place] [address] Care Team Providers Care Continuous Improvement Specialist Name Role Phone Lorenzo Oconnor MD Primary Care Provider Paige Nicole Unavailable [phone] ALLERGIES Allergen (clinical drug ingredient) Drug/Non Drug [...] water, orange juice, lemonade, christiano barrie or lemon/[place] soda Orally Once a day for 30 [...] Active confirmed Long-term current use of anticoagulant (691233867) VITAL SIGNS Temperature 97.7 degrees Fahrenheit 09/01/19 25 Blood pressure systolic 000 mm Hg 09/01/19 25 Blood pressure diastolic 00 mm Hg 025 Height 60 in 09/01/2024 Weight 157 lb 8 oz lbs 09/01/2024 BMI 30.76 kg/m2 09/01/2024 Encounters Encounter Location Date Provider [facility] [address] [facility] [address] [place] [address] 09/01/2024 Paige Vasquez History of adenomato us [...] Provider Name:Paige Vasquez , 12/12/2024 10:40:00 AM, [address] [place] [address], [phone], Progress Notes * Examination Category Sub-Category Detail [...]
--- OUTSIDE RECORDS SUMMARY | 2024-10-27 07:31 | XMS_ITS | Patient Health Record ---
Author Organization [facility] Address [address] [place] [address] Care Team Providers Care Curriculum Developer Name Role Phone Lorenzo Oconnor MD Primary Care Provider Paige Nicole Unavailable [phone] ALLERGIES Allergen (clinical drug ingredient) Drug/Non Drug [...] water, orange juice, lemonade, christiano barrie or lemon/huslia soda Orally Once a day for 30 [...] malignant neoplasm of colon (Z12.11) Active confirmed 775057592 Problem History of adenomatous polyp of colon (Z86.010) Active confirmed 326492579 Problem Preprocedural examination (Z01.818) Active confirmed 414271620612990 Problem Anticoagulant long-term use (Z79.01) Active confirmed Long-term curre nt use of anticoagulant (118008415) Problem Incontinence of feces, unspecified fecal incontinence type (R15.9) Active confirmed 70986652 VITAL SIGNS Temperature 97.7 degrees Fahrenheit 09/01/2024 Blood pressure diastolic 00 mm Hg 09/01/2024 Height 60 in 09/01/2024 Blood pressure systolic 000 mm Hg 09/01/2024 Weight 157 lb 8 oz lbs 09/01/2024 BMI 30.76 kg/m2 09/01/2024 Encounters Encounter Location Date Provider Diagnosis [facility] [address] [place] [address] 09/01/2024 Paige Vasquez History of adenomato us [...] Provider Name:Paige Vasquez , 12/12/2024 10:40:00 AM, [address] [place] [address] , [place], [phone], Insurance Providers Payer Name Payer Address Payer Phone Subscriber Number Group Number Insured Name Patient Relationship to Insured Coverage Start Date Coverage End Date [facility] [address] [place], [place] [id number] [phone] [id number] PARADISE SANTOS Self - patient is the insured MEDICAL (GENERAL) HISTORY Medical History History ICD Code Hyperlipidemia Colon polyps-very small tubular adenomas removed in 2004 and 05/2012 GERD--EGD in 2004-hiatal hernia, no esop hagitis/no Marie's Depression Hypothyroidism Denies [place],DM,CVA,Lung disease,renal dise ase Arthritis and degenerative disc disease of spine Hx of afib--had cardioversion - Dr. Jonatan crum Colonoscopy in 11/2018 with removal of a small tubular adenoma Surgical History Surgery Date(Month/Year) hysterectomy and removal of one ovary carpal tunnel surgery bladder suspension thumb surgery vocal cord polyps back surgery breast reduction foot surgeries
[2024-12-08 14:12] VITALS: BMI 30.7
--- NOTE | 2024-12-12 09:46 | HO.ANESPROP2 ---
HPI - Anesthesia Eval Consult details Narrative: colon PMFSH Active Problems Active Problems: All Active Problems Major depressive disorder, recurrent severe without psychotic features (Acute) Hypersomnia (Acute) Actinic keratosis (Acute) Cervical spinal stenosis (Acute) Osteoarthritis of left wrist (Acute) Alcohol abuse (Acute) Arthritis of both shoulder regions (Acute) COVID-19 virus infection (Acute) Hematuria (Acute) Rectal incontinence (Acute) Tinea corporis (Acute) Lumbar spinal stenosis (Acute) Tubular adenoma of colon (Acute) Cervical spondylosis (Acute) Gait instability (Acute) Restless leg syndrome (Acute) Lumbar degenerative disc disease (Acute) Paroxysmal atrial flutter (Acute) PFO (patent foramen ovale) (Acute) Hypertension (Acute) Hypercholesterolemia (Acute) Type 2 diabetes mellitus with hyperglycemia (Acute) Hypothyroidism (Acute) COPD (chronic obstructive pulmonary disease) (Acute) Personal history of nicotine dependence (Acute) GERD (gastroesophageal reflux disease) (Acute) Generalized anxiety disorder (Acute) Obesity (BMI 30-39.9) (Acute) Past Medical History Medical History Atrial fibrillation Arthritis Lumbar spinal stenosis Wrist pain, left Radiculitis of left cervical region DJD of left shoulder Fall Cervical spondylosis Wrist pain Gait instability Tendonitis of both rotator cuffs Depression Tubular adenoma of colon Personal history of nicotine dependence Generalized anxiety disorder Paroxysmal atrial flutter Lumbar degenerative disc disease Obstructive sleep apnea Restless leg syndrome Hiatal hernia Hip osteoarthritis Vitamin D deficiency Type 2 diabetes mellitus with hyperglycemia Allergic rhinitis Insomnia PFO (patent foramen ovale) Hypercholesterolemia COPD (chronic obstructive pulmonary disease) Hypertension Obesity (BMI 30-39.9) GERD (gastroesophageal reflux disease) Hypothyroidism Family History Family History Father Diabetes Hypertension CVD (cardiovascular disease) Mother Cervical cancer Stroke Family history of problems with anesthesia: No Surgical History Surgical History History of vocal cord polypectomy History of bladder suspension procedure Hx of carpal tunnel repair Hx of section History of tonsillectomy History of bilateral breast reduction surgery History of carpal tunnel surgery History of lumbar surgery History of hysterectomy History of right breast biopsy (~2016) History of hand surgery (~2011) History of esophagogastroduodenoscopy (EGD) (~2004) History of colonoscopy (~2018) History of cardioversion (~2018) History of foot surgery (~2016) History of Problems with Anesthesia: No Social History Social History Housing: House Alcohol intake: current Alcohol intake frequency: a few times a week Patient Tobacco Use Status: Former Tobacco user Tobacco use type: Cigarette Years Smoked: 57yrs, onset 12, on and off, 1-1.5ppd, 50pyh, quit 07/31/2021 e-Cigarette/Vaping Use: Never Used Second Hand Smoke Exposure: No Advance Directives: No Advance Directives Information Provided: Yes service: No 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al status: employed 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: rt [employer] Cognitive needs: No Hearing needs: No Vision needs: Yes Meds Allergies Allergy/AdvReac Type Severity Reaction Status Date / Time Sulfa (Sulfonamide Allergy Unknown RASH Verified 10/26/24 10:20 Antibiotics) [SULFA (SULFONAMIDE ANTIBIOTICS)] Active Medications: Current Medications Lactated Ringer's (Lr) 1,000 mls @ 50 mls/hr IVCONT .Q20H LB Sodium Biphosphate/Sodium Phosphate (Sodium Phosphate,Otero-Dibasic 133 Ml Enema) 133 ml MA ONCE PRN PRN Reason: Poor Colonoscopy Prep Results Home Medications ?Medication ?Instructions ?Recorded ?Confirmed ?Last Taken ?Type calcium 600 mg (as 1 cap PO BID 08/17/20 12/08/24 Unknown History carbonate)-vitamin D3 5 mcg (200 unit) capsule (Calcium 600 + D(3)) alprazolam 0.25 mg tablet 0.25 mg PO BID 12/08/24 12/08/24 Unknown History bupropion HCl 450 mg 24 hr tablet, 450 mg PO DAILY 12/08/24 12/08/24 Unknown History extended release levothyroxine 100 mcg tablet 100 mcg PO DAILY 12/08/24 12/08/24 Unknown History metoprolol succinate 25 mg 50 mg PO BID 12/08/24 12/08/24 Unknown History tablet,extended release 24 hr Exam Height,Weight and Vital Signs: Height 5 ft Weight 69.672 kg Airway Mallampati Class: II TM Dist: >3cm Neck ROM: Limited Heart: rrr Lungs: cta Assessment and Plan Assessment Anesthesia Assessment: Anesthesia Plan Discussed and Chart Reviewed Final Anesthetic Review Family History of Problems with Anesthesia: No History of Problems with Anesthesia: No NPO: Yes ASA Class: III Final Preanesthetic Review: No Changes in Pt Med Stat, Meds/Allgs Chart Reviewed, Consent Obtained/Reviewed and Anes Risks/Benef Reviewed Patient Risk: Intermediate Procedure Risk: Low Anesthetic Plan Anesthetic Plan: MAC: Disposition: Standard PACU
[2024-12-12] MEDS: Lactated Ringers 1,000 ML 50 ML IVCONT (09:52)
[2024-12-12 10:03] VITALS: BP 104/51; PULSE 65; RESP 18; TEMP 36.8; O2SAT 98
[2024-12-12 11:30] VITALS: BP 92/36; PULSE 69; RESP 16; TEMP 36.1; O2SAT 3
--- NOTE | 2024-12-12 11:39 | P.BOP_ITS ---
Brief Operative Note Date of Service: 12/12/24 Pre-op diagnosis: Screening Post-op diagnosis: other (Polyps) Procedure: Colonoscopy to the cecum with bx/removal of polyp, and cold snare polypectomy of rectal polyp with placement of 1 resolution clip Surgeon: Cirilo Vasquez MD Anesthesia: MAC Was an Crown Assembly Machine Set Up Mechanic used for this Procedure?: No Estimated blood loss (mL): 2.0 Pathology: other (A. Ascending colon polyp B. Rectal polyp) Condition: stable Disposition: PACU
[2024-12-12 11:45] VITALS: BP 113/44; PULSE 56; RESP 16; TEMP 36.1; O2SAT 100
--- NOTE | 2024-12-12 22:07 | OP_ITS ---
DATE OF SERVICE: 12/12/2024 SURGEON: Cirilo Vasquez MD INDICATIONS: The patient presents for evaluation of colorectal cancer screening. Full consent today from her for this, including risks of bleeding and perforation. PREOPERATIVE DIAGNOSIS: Colorectal cancer screening. POSTOPERATIVE DIAGNOSIS: PROCEDURE PERFORMED: Colonoscopy to cecum with biopsy, removal of polyp, and cold snare polypectomy of rectal polyp with placement of 1 Resolution clip. ESTIMATED BLOOD LOSS: COMPLICATIONS: ANESTHESIA: Monitored anesthesia care. ASSISTANTS: SPECIMENS: POSTOPERATIVE DIAGNOSES: Colorectal cancer screening, colon polyps, diverticulosis, and internal hemorrhoids. DESCRIPTION OF PROCEDURE: The patient was placed in left lateral decubitus position. The digital rectal exam revealed no abnormalities. The Olympus video pediatric colonoscope was entered into the rectum and advanced to the cecum with the assistance of abdominal wall pressure. Once in the cecum, I did identify normal-appearing cecal pouch with appendiceal orifice and a normal-appearing ileocecal valve. There was transillumination of light deep in the right lower quadrant. The entire cecum and ileocecal valve appeared normal. The scope was slowly withdrawn, assessing all mucosal surfaces carefully. Preparation was excellent. In the proximal ascending colon, it was a 2 or 3 mm polyp, which was biopsied and completely removed with cold biopsy forceps. There was a moderate amount of sigmoid diverticulosis. There was no sign of any colitis nor angiodysplasia. In the rectum, it was an approximately 6 to 8 mm polyp, which was removed by cold snare polypectomy completely. Post polypectomy, there did not appear to be any sign of residual polyp nor any significant bleeding. A single Resolution clip was applied with good deployment and good hemostasis. The scope was retroflexed, visualizing internal hemorrhoids, but no other pathology. The rectal mucosa appeared normal. The scope was straightened and withdrawn from the patient. She tolerated the procedure well and was returned to recovery area in stable condition. IMPRESSION: 1. Colon polyps. 2. Diverticulosis. 3. Internal hemorrhoids. PLAN: The results of the pathology will be checked. Given her age and these minimal findings, I do not think she would need any further screening colonoscopies. She was advised to resume her Eliquis tomorrow. She was advised not to use any aspirin or NSAIDs for at least a week, although most likely should avoid those long-term given that she is on Eliquis. She will see me as needed. MD LUIS ANTONIO Moore/CORTEZ / [phone]
== END 2024-12-12 12:42 | disposition home or self-care (01) ==
PROVIDERS: PCP Internal Medicine; Visit Provider Internal Medicine
PROC: 0DJD8ZZ Inspection of Lower Intestinal Tract, Via Natural or Artificial Opening Endoscopic (ICD-10-PCS; CPT 45378; principal; 2024-12-12 10:40)
DX: Z12.11 Encounter for screening for malignant neoplasm of colon (principal); D12.8 Benign neoplasm of rectum; K57.30 Diverticulosis of large intestine without perforation or abscess without bleeding; K64.8 Other hemorrhoids; Z86.0100 Personal history of colon polyps, unspecified; I48.0 Paroxysmal atrial fibrillation; I10 Essential (primary) hypertension; E78.00 Pure hypercholesterolemia, unspecified; E11.9 Type 2 diabetes mellitus without complications; E03.9 Hypothyroidism, unspecified; J44.9 Chronic obstructive pulmonary disease, unspecified; K21.9 Gastro-esophageal reflux disease without esophagitis; Z87.891 Personal history of nicotine dependence; E66.9 Obesity, unspecified; Z68.30 Body mass index [BMI] 30.0-30.9, adult; Z79.02 Long term (current) use of antithrombotics/antiplatelets; Z79.899 Other long term (current) drug therapy; Z79.01 Long term (current) use of anticoagulants
CPT/HCPCS: 45385; 45380; 88305; J2371; J2704

== ENCOUNTER → 2024-12-28 11:00 | Outpatient (REF) | payer MEDICARE, SELFPAY ==
--- OUTSIDE RECORDS SUMMARY | 2024-12-28 12:35 | XMS_ITS | Patient Health Record ---
Author Organization [facility] Address [address] [facility] [place] [address] Care Team Providers Care Batch Analyst Name Role Phone Lorenzo Oconnor Primary Care Provider Naveen Diamond Unavailable [phone] Allergies Allergen (clinical drug ingredient) Drug/Non Drug Allergy documented on EMR Reaction Allergy Type Onset Date Status Substance with sulfonamide structure and antibacterial mechanism of action (substance) Sulfa Antibiotics Unknown Drug Allergy Active Reason For Referral [...] Problem Acquired hammer toe of right foot (77731025773625 05) Other hammer toe(s) (acquired), right foot (M20.41) Active confirmed Response to treatment,I mprovement Problem Acquired hammer toe of left foot (16316633381650 03) Other hammer toe(s) (acquired), left foot (M20.42) Active confirmed Response to treatment,I mprovement Problem Type 2 diabetes mellitus without complication (360846117) Type 2 diabetes mellitus without complication (E11.9) Active confirmed Vital Signs Blood pressure diastolic 80 mm Hg 09/02/2024 Height 5ft in 09/02/2024 Blood pressure systolic 130 mm Hg 09/02/2024 Weight 150 lbs 09/02/2024 BMI 29.29 kg/m2 09/02/2024 Procedures Procedure Date Ordered Date Performed Result Body Sit e 57234-CMDDKFH NAIL, 6 OR MORE 05/03/2024 N/A 76220-TZZLRES NAIL, 6 OR MORE 09/02/2024 N/A Encounters Encounter Location Date Provider Diagnosis [address] [address] 05/03/2024 Naveen Fabiola Pain of toe of right foot M79.674 ; Onychomycosis B35.1 ; Pain of toe of left foot M79.675 ; Type 2 diabetes mellitus without complication E11.9 ; Other hammer toe(s) (acquired), right foot M20.41 and Other hammer toe(s) (acquired), left foot M20.[address] [address] 09/02/2024 Naveen Fabiola Pain in right toe(s) M79.674 ; Tinea unguium B35.1 ; Pain in left toe(s) M79.675 ; Type 2 diabetes mellitus without complication E11.9 ; Other hammer toe(s) (acquired), right foot M20.41 and Other hammer toe(s) (acquired), left foot M20.[address] [address] 03/29/2024 Naveen Catunier Assessments Encounter Date Diagnosis (ICD Code) Assessment [...] Treatment Pending Test Test Name Order Date 58245-[id number] NAIL, 6 OR MORE 12/28/2020 53223-[id number] NAIL, 6 OR MORE 04/03/2023 75233-CRDHTRC NAIL, 6 OR MORE 08/21/2023 68129-[id number] NAIL, 6 OR MORE 12/18/2023 29377-[id number] NAIL, 6 OR MORE 05/03/2024 75979-HECWGSG NAIL, 6 OR MORE 09/02/2024 Next Appt Details Provider Name:Naveen Hicks , 01/10/2025 09:45:00 AM, [address] [place], [address], Insurance Providers Payer Name Payer Address Payer Phone Subscriber Number Group Number Insured Name Patient Relationship to Insured Coverage Start Date Coverage End Date [facility] 65 Medicare Preferred [address] [place] [address] [id number] Kaylee Amaral Self - patient is the insured Medical (General) History Medical History History ICD Code Anemia Anxiety Arthritis Back pain Cataracts Depression Diabetic Headaches Numbness Reflux ( GERD) Sciatica Sinus conditions thyroid Measles Chicken pox Surgical History Surgery Date(Month/Year) bunionectomy hammer toe Lower back surgery carpal tunnel surgery x2 hysterectomy breast reduction wrist surgery
--- OUTSIDE RECORDS SUMMARY | 2024-12-28 12:35 | XMS_ITS ---
Author Organization [facility] Address [address] [place] [address] Care Team Providers Care Assembler Dielectric Heater Name Role Phone Lorenzo Oconnor Primary Care Provider Naveen Diamond Unavailable [phone] Encounters Encounter Location Date Provider Diagnosis [address] [address] 04/05/2024 Naveen Hicks Plan Of Treatment Next Appt Details Provider Name:Naveen Hicks , 01/10/2025 09:45:00 AM, [address] [place], [address], Progress Notes * Kaylee SANTOS EDOB: [birth year] (74 yo F)Acc No.[id number]:04/05/2024 Progress Note Patient:?Kaylee SANTOS Provider:?Naveen Hicks DPM :1950???Age:73 Y???Sex:Female D ate:04/05/2024 Address:[address] [place], [place] [id number] Pcp:Lorenzo Oconnor Subjective: * Chief Complaints: * ??? * Medical History:? Objective: * Vitals:? Assessment: Plan: * Treatment: * Images: * The named appointment provid er may or may not be the originator of this progress note, and it is not deemed complete until electronically signed by the appointment provider. Sign off status: Pending * Provider:?Naveen Hicks DPM Date:?2023 Generated for Alma louise/Bruno/Milton on:?12/28/2024 12:35 PM EDT
--- OUTSIDE RECORDS SUMMARY | 2024-12-28 12:35 | XMS_ITS ---
Author Organization [facility] Address [address] [facility] [address] Care Team Providers Care Rehabilitation Program Manager Name Role Phone Lorenzo Oconnor Primary Care Provider Naveen Diamond Unavailable [phone] Allergies Allergen (clinical drug ingredient) Drug/Non Drug [...] Ordered Date Performed Result Body Sit e 02332-CJDPWSY NAIL, 6 OR MORE 05/03/2024 N/A Encounters Encounter Location Date Provider Diagnosis [facility] [address] [address] 05/03/2024 Naveen Hicks Pain of toe of [...] INSTRUCTIONS.pdf) Pending Test Test Name Order Date [id number] NAIL, 6 OR MORE 05/03/2024 Next Appt Details Follow Up: prn, Reason: Provider Name:Naveen Hicks , 01/10/2025 09:45:00 AM, [address] [place] [address], [address], Procedure Notes * Category Sub-Category Detail Notes Debride Nail 6-10 Nail debridement Performance o f this nail treatment by a nonprofessional would put this patients foot and overall health at risk. Therefore, nail debridement was performed extensively to reduce/remove overall nail length, girth, thickness, subungual debris, and necrotic tissue, by manual and/or electrical means through the use of a nail nipper and/or dremel-type gear grinder, to a more viable healthy nail plate or bed tissue 6-10. Silver nitrate used for any petechial bleeding as necessary. Definitive antifungal treatment options have been reviewed and discussed with the patient. The patient chooses, no pharmaceutical tx - [address] Progress Notes * Kaylee SANTOS EDOB: [birth year] (74 yo F)Acc No.[id number]:05/03/2024 Progress Note Patient:?Kaylee SANTOS Provider:?Naveen Hicks DPM :1950???Age:73 Y???Sex:Female D ate:05/03/2024 Address:[address] [place], [place] [id number] Pcp:Lorenzo Oconnor Subjective: * Chief Complaints: * [...] use of a nail nipper and/or dremel-type gear grinder, to a more viable healthy nail plate or bed tissue 6-10. Silver nitrate used for any petechial bleeding as necessary. Definitive antifungal treatment options have been reviewed and discussed with the patient. The patient chooses, no pharmaceutical tx - 57248.? * Procedure Codes:?23739 DEBRI DE NAIL, 6 OR MORE * [...] DPM Date:?2023 Generated for Alma louise/Bruno/Milton on:?12/28/2024 12:34 PM EDT History and Physical Notes * HPI [...] , SUB MTH (s), 2, B/L Orthopedic FOOTWEAR EVALUATION: worn, OT we re inspected and noted to be severely worn [...]
--- OUTSIDE RECORDS SUMMARY | 2024-12-28 12:35 | XMS_ITS ---
Author Organization [facility] Address [address] [facility] [place] [address] Care Team Providers Care Health Care Attorney Name Role Phone Lorenzo Oconnor Primary Care Provider Naveen Diamond Unavailable [phone] Allergies Allergen (clinical drug ingredient) Drug/Non Drug [...] Tartrate 5 MG 1 tablet at bedti id Orally Once a day Active Metoprolol Succinate [...] Ordered Date Performed Result Body Sit e 12033-YECRDFP NAIL, 6 OR MORE 09/02/2024 N/A Encounters Encounter Location Date Provider Diagnosis [facility] [place] [address] [place] [address] 09/02/2024 Naveen Hicks Pain in right toe(s) [...] Treatment Pending Test Test Name Order Date 86920-[id number] NAIL, 6 OR MORE 09/02/2024 Next Appt Details Follow Up: prn, Reason: Provider Name:Naveen Hicks , 01/10/2025 09:45:00 AM, [address] [place] [address], [address], Procedure Notes * Category Sub-Category Detail Notes [...] use of a nail nipper and/or dremel-type laboratory apparatus glass grinder, to a more viable healthy nail [...] Kaylee SANTOS EDOB: [birth year] (74 yo F)Acc No.[id number]:09/02/2024 Progress Note Patient:?Kaylee SANTOS Provider:?Naveen Hicks DPM :1950???Age:74 Y???Sex:Female D ate:09/02/2024 Address:[address] [place], [place] [id number] Pcp:Lorenzo Oconnor Subjective: * Chief Complaints: * [...] use of a nail nipper and/or dremel-type laboratory apparatus glass grinder, to a more viable healthy nail [...] to maintain effectiveness in symptomatic relief - [address].? * Procedure Codes:?31508 DEBRI DE NAIL, 6 OR MORE * [...] Hicks DPM Date:?2024 Generated for Alma louise/Bruno/Milton on:?12/28/2024 12:35 PM EDT History and Physical Notes * HPI (History of Present Illness) Category Sub-Category Detail Notes Category Not es Toe pain Treatments: Rx shoes At Risk footcare Pt States Last PCP Visit: Date: 4 Examination Category Sub-Category Detail Notes Category Not es Orthopedic FOOTWEAR EVALUATION: good condit ion, exhibit proper fit and accommodation for pedal [...]
== END ==
LOC: HO.SL 11:00
PROVIDERS: PCP Internal Medicine; Visit Provider Internal Medicine
DX: G47.10 Hypersomnia, unspecified (principal); R06.83 Snoring
CPT/HCPCS: 95806

== ENCOUNTER → 2024-12-28 11:14 | Outpatient (BNV) | payer MEDICARE, SELFPAY | PROVIDERS: PCP Internal Medicine; Visit Provider Internal Medicine | DX: G47.33 Obstructive sleep apnea (adult) (pediatric) (principal) | CPT/HCPCS: 95806 ==

== ENCOUNTER 2024-12-29 08:55 | Outpatient (AMB) | payer MEDICARE, SELFPAY ==
--- NOTE | 2024-12-29 09:17 | MHC.OFFVISPS ---
Intake Intake Visit Reasons: consultation [place] Inspector Required: No Allergies Sulfa (Sulfonamide Antibiotics) [SULFA (SULFONAMIDE ANTIBIOTICS)] Allergy (Unknown, Verified 12/12/24 10:06) RASH Medication List - Last Reconciled 12/29/24 by Maribel Inman APRN alprazolam 0.25 mg PO BID apixaban (Eliquis) 5 mg PO BID atorvastatin 80 mg PO DAILY blood sugar diagnostic As directed check the blood sugar once a day blood sugar diagnostic (mSpotuch Ultra Test strips) As directed check the blood sugar twice a day bupropion HCl XL 300 mg (2 x 150 mg) PO QAM 90 days calcium carbonate-vitamin D3 600 mg-5 mcg (200 unit) (Calcium 600 + D(3)) 1 cap PO BID flecainide 100 mg PO Q12H 90 days levothyroxine (Synthroid) 75 mcg PO DAILY lisinopril 10 mg PO DAILY 90 days metoprolol succinate ER 50 mg PO BID omeprazole 20 mg PO DAILY oxycodone-acetaminophen 5-325 mg (Percocet) 1 tab PO .QD PRN 30 days ropinirole 0.25 mg PO BEDTIME sertraline 100 mg (2 x 50 mg) PO DAILY 90 days thiamine HCl (vitamin B1) 50 mg PO DAILY 90 days zolpidem 10 mg PO BEDTIME PRN 90 days HPI- Psychiatric Chief Complaint: consultation HPI Narrative: Pt still very depressed and anxious. reports no alcohol abuse no change with increase in zoloft PHQ9=17 PHIL&= 15 levothyroxine dose changed and will have repeat TSH testing in 6 weeks pt considering psychotherapy discussed increasing meds, changing meds or trial of TMS. Discussed ECT but pt not interested at this time. pt isolating, no motivation, no enjoyment in activities. No andrea, no psychosis, no SI or HI. denies side effects from meds takes 1/2 tab ambien at hs with good effect rarely take xanax. Past Psychiatric History: depression started age 22 or 23. No Hx of IPLOC no hxof suicide attempts. She did go to [facility] for services approx 5 yrs ago. Subjective Subjective Subjective Medication Compliance: Yes Side effects from medications: No Review of Systems Medical Review of Systems: unchanged Mental Status Exam Mental Status Exam Patient Appearance: Well Grooomed Patient Orientation: Person, Place, Time and Situation Level of Consciousness: Awake Patient Behavior: Appropriate Mood Description: Depressed Affect Description: Depressed and Flat Patient Cognition Impaired: No Ability to Follow Directions: Good Speech Pattern: Clear Memory Description: Intact Hallucinations: None Delusions: Not Present Thought Process: Intact Thought Content: positive for Intact, positive for [place] and positive for Poverty of Content Judgement: Fair Assessment and Plan Assessment & Plan (1) Major depressive disorder, recurrent severe without psychotic features: Status: Acute Code(s): F33.2 - Major depressive disorder, recurrent severe without psychotic features (2) Generalized anxiety disorder: Status: Acute Code(s): F41.1 - Generalized anxiety disorder Plan continue medications as is referred to therapy - [facility] counseling consider TMS- discussed at length with patient return in 4 weeks Counseling and coordination of Care Pt. Self Management counseling: Exercise, Maintenance-social rhythm, Mod caffeine/ETOH intake, Nutrition education and improvement and General coping skills Medication management counseling: Effectiveness, Side effects, Dosing range, Duration, Drug interaction, Adherence and Other Details-Med Mgmt counseling: Discussed TMS as option discussed ect as well but pt does not want ect due to possible side effects Diagnosis and Prognosis Counseling: Accuracy of diagnosis, Prognosis over time, Impact of diagnosis on life functions, Impact of family relationship, Problematic behaviors secondary to diagnosis and Adequacy of current interventions Details: I spent 45 minutes reviewing the record, seeing the patient and documenting in the medical record. Counseling provided to the patient/caregiver as outlined below. Addressed patient/caregiver concerns regarding current medication regime including effective adherence. Addressed patient/caregiver concerns regarding diagnosis and prognosis including accuracy of diagnosis, prognosis over time, impact of diagnosis. Addressed patient/caregiver concerns regarding impact of recent stressors. [facility] Medical History Atrial fibrillation Arthritis Lumbar spinal stenosis Wrist pain, left Radiculitis of left cervical region DJD of left shoulder Fall Cervical spondylosis Wrist pain Gait instability Tendonitis of both rotator cuffs Depression Tubular adenoma of colon Personal history of nicotine dependence Generalized anxiety disorder Paroxysmal atrial flutter Lumbar degenerative disc disease Obstructive sleep apnea Restless leg syndrome Hiatal hernia Hip osteoarthritis Vitamin D deficiency Type 2 diabetes mellitus with hyperglycemia Allergic rhinitis Insomnia PFO (patent foramen ovale) Hypercholesterolemia COPD (chronic obstructive pulmonary disease) Hypertension Obesity (BMI 30-39.9) GERD (gastroesophageal reflux disease) Hypothyroidism Surgical History History of vocal cord polypectomy History of bladder suspension procedure Hx of carpal tunnel repair Hx of section History of tonsillectomy History of bilateral breast reduction surgery History of carpal tunnel surgery History of lumbar surgery History of hysterectomy History of right breast biopsy (~2016) History of hand surgery (~2011) History of esophagogastroduodenoscopy (EGD) (~2004) History of colonoscopy (~2018) History of cardioversion (~2017) History of foot surgery (~2016) Family History Father Diabetes Hypertension CVD (cardiovascular disease) Mother Cervical cancer Stroke Social History Housing: House Are you a primary career services director to a significant other at home: No Do you presently have visiting nurse or other home services: No Alcohol intake: current Alcohol intake frequency: a few times a week Patient Tobacco Use Status: Current everyday Tobacco user Tobacco use type: Cigarette Years Smoked: 57yrs, onset 12, on and off, 1-1.5ppd, 50pyh, quit 07/31/2021 e-Cigarette/Vaping Use: Never Used Second Hand Smoke Exposure: No service: No 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al status: employed 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
--- OUTSIDE RECORDS SUMMARY | 2024-12-29 09:24 | XMS_ITS ---
Author Organization [facility] Address [address] [facility] [place] [address] Care Team Providers Care Medical Coding Auditor Name Role Phone Lorenzo Oconnor Primary Care Provider Naveen Diamond Unavailable [phone] Allergies Allergen (clinical drug ingredient) Drug/Non Drug [...] Tartrate 5 MG 1 tablet at bedti oh Orally Once a day Active Metoprolol Succinate [...] Ordered Date Performed Result Body Sit e 03477-MVCICTD NAIL, 6 OR MORE 09/02/2024 N/A Encounters Encounter Location Date Provider Diagnosis [facility] [address] [place] [address] 09/02/2024 Naveen Hicks Pain in right toe(s) [...] Treatment Pending Test Test Name Order Date [id number] NAIL, 6 OR MORE 09/02/2024 Next Appt Details Follow Up: prn, Reason: Provider Name:Naveen Hicks , 01/10/2025 09:45:00 AM, [address] [place] [address], [address], Procedure Notes * Category Sub-Category Detail Notes [...] use of a nail nipper and/or dremel-type rubber roller grinder, to a more viable healthy nail [...] Kaylee SANTOS EDOB: [birth year] (74 yo F)Acc No.[id number]:09/02/2024 Progress Note Patient:?Kaylee SANTOS Provider:?Naveen Hicks DPM :1950???Age:74 Y???Sex:Female D ate:09/02/2024 Address:[address] [place], [place] [id number] Pcp:Lorenzo Oconnor Subjective: * Chief Complaints: * [...] use of a nail nipper and/or dremel-type rubber roller grinder, to a more viable healthy nail [...] to maintain effectiveness in symptomatic relief - 73904.? * Procedure Codes:?65335 DEBRI DE NAIL, 6 OR MORE * [...] Hicks DPM Date:?2024 Generated for Alma louise/Bruno/Milton on:?12/29/2024 09:24 AM EDT History and Physical Notes * [...]
--- OUTSIDE RECORDS SUMMARY | 2024-12-29 09:24 | XMS_ITS | Patient Health Record ---
Author Organization [facility] Address [address] [facility] [place] [address] Care Team Providers Care Casket Assembler Metal Name Role Phone Lorenzo Oconnor Primary Care Provider Naveen Diamond Unavailable [phone] Allergies Allergen (clinical drug ingredient) Drug/Non Drug [...] Problem Acquired hammer toe of right foot (83550234613384 05) Other hammer toe(s) (acquired), right foot (M20.41) Active confirmed Response to treatment,I mprovement Problem Acquired hammer toe of left foot (74979112418813 03) Other hammer toe(s) (acquired), left foot (M20.42) Active confirmed Response to treatment,I mprovement Problem Type 2 diabetes mellitus without complication (177962516) Type 2 diabetes mellitus without complication (E11.9) Active confirmed Vital Signs Blood pressure diastolic 80 mm Hg 09/02/2024 Height 5ft in 09/02/2024 Blood pressure systolic 130 mm Hg 09/02/2024 Weight 150 lbs 09/02/2024 BMI 29.29 kg/m2 09/02/2024 Procedures Procedure Date Ordered Date Performed Result Body Sit e 09252-FUQWPZR NAIL, 6 OR MORE 05/03/2024 N/A 32190-WQAQALP NAIL, 6 OR MORE 09/02/2024 N/A Encounters Encounter Location Date Provider Diagnosis [address] [address] 05/03/2024 Naveen Fabiola Pain of toe of right foot M79.674 ; Onychomycosis B35.1 ; Pain of toe of left foot M79.675 ; Type 2 diabetes mellitus without complication E11.9 ; Other hammer toe(s) (acquired), right foot M20.41 and Other hammer toe(s) (acquired), left foot M20.[address] [address] 09/02/2024 Naveen Fabiola Pain in right toe(s) M79.674 ; Tinea unguium B35.1 ; Pain in left toe(s) M79.675 ; Type 2 diabetes mellitus without complication E11.9 ; Other hammer toe(s) (acquired), right foot M20.41 and Other hammer toe(s) (acquired), left foot M20.[address] [address] 03/29/2024 Naveen Catunier Assessments Encounter Date Diagnosis [...] Treatment Pending Test Test Name Order Date 53906-[id number] NAIL, 6 OR MORE 12/28/2020 36548-[id number] NAIL, 6 OR MORE 04/03/2023 81057-WNZTOEY NAIL, 6 OR MORE 08/21/2023 02078-[id number] NAIL, 6 OR MORE 12/18/2023 42604-[id number] NAIL, 6 OR MORE 05/03/2024 41945-[id number] NAIL, 6 OR MORE 09/02/2024 Next Appt Details Provider Name:Naveen Hicks , 01/10/2025 09:45:00 AM, [address] [place], [address], Insurance Providers Payer Name Payer Address Payer Phone Subscriber Number Group Number Insured Name Patient Relationship to Insured Coverage Start Date Coverage End Date [facility] 65 Medicare Preferred [address] [place] [address] [id number] 5 Kaylee Amaral Self - patient is the insured Medical (General) History Medical History History ICD Code Anemia Anxiety Arthritis Back pain Cataracts Depression Diabetic Headaches Numbness Reflux ( GERD) Sciatica Sinus conditions thyroid Measles Chicken pox Surgical History Surgery Date(Month/Year) bunionectomy hammer toe Lower back surgery carpal tunnel surgery x2 hysterectomy breast reduction wrist surgery
--- OUTSIDE RECORDS SUMMARY | 2024-12-29 09:24 | XMS_ITS ---
Author Organization [facility] Address [address] [facility] [place] [address] Care Team Providers Care Ios Architect Name Role Phone Lorenzo Oconnor Primary Care Provider Naveen Diamond Unavailable [phone] Allergies Allergen (clinical drug ingredient) Drug/Non Drug [...] Ordered Date Performed Result Body Sit e 60709-WTTDHXR NAIL, 6 OR MORE 05/03/2024 N/A Encounters Encounter Location Date Provider Diagnosis [facility] [address] [address] 05/03/2024 Naveen Hicks Pain of toe of [...] INSTRUCTIONS.pdf) Pending Test Test Name Order Date 25305-OUMSPDC NAIL, 6 OR MORE 05/03/2024 Next Appt Details Follow Up: prn, Reason: Provider Name:Naveen Hicks , 01/10/2025 09:45:00 AM, [address] [place] [address], [address], Procedure Notes * Category Sub-Category Detail Notes Debride Nail 6-10 Nail debridement Performance o f this nail treatment by a nonprofessional would put this patients foot and overall health at risk. Therefore, nail debridement was performed extensively to reduce/remove overall nail length, girth, thickness, subungual debris, and necrotic tissue, by manual and/or electrical means through the use of a nail nipper and/or dremel-type wood grinder operator, to a more viable healthy nail plate or bed tissue 6-10. Silver nitrate used for any petechial bleeding as necessary. Definitive antifungal treatment options have been reviewed and discussed with the patient. The patient chooses, no pharmaceutical tx - 65988 Progress Notes * Kaylee SANTOS EDOB: [birth year] (74 yo F)Acc No.[id number]:05/03/2024 Progress Note Patient:?Kaylee SANTOS Provider:?Naveen Hicks DPM :1950???Age:73 Y???Sex:Female D ate:05/03/2024 Address:[address] [place], [place] [address] Pcp:Lorenzo Oconnor Subjective: * Chief Complaints: * [...] use of a nail nipper and/or dremel-type wood grinder operator, to a more viable healthy nail plate or bed tissue 6-10. Silver nitrate used for any petechial bleeding as necessary. Definitive antifungal treatment options have been reviewed and discussed with the patient. The patient chooses, no pharmaceutical tx - 27035.? * Procedure Codes:?25087 DEBRI DE NAIL, 6 OR MORE * [...] Sign off status: Completed true * Provider:?Naveen Hikcs DPM Date:?2023 Generated for Alma louise/Bruno/Milton on:?12/29/2024 09:24 AM [...]
--- OUTSIDE RECORDS SUMMARY | 2024-12-29 09:25 | XMS_ITS ---
Author Organization [facility] Address [address] [place] [address] Care Team Providers Care Coremaker Bench Name Role Phone Lorenzo Oconnor Primary Care Provider Naveen Diamond Unavailable [phone] Encounters Encounter Location Date Provider Diagnosis [address] [address] 04/05/2024 Naveen Hicks Plan Of Treatment Next Appt Details Provider Name:Naveen Hicks , 01/10/2025 09:45:00 AM, [address] [place], [address], Progress Notes * Kaylee SANTOS EDOB: [birth year] (74 yo F)Acc No.[id number]:04/05/2024 Progress Note Patient:?Kaylee SANTOS Provider:?Naveen Hicks DPM :1950???Age:73 Y???Sex:Female D ate:04/05/2024 Address:[address] [place] [address] Pcp:Lorenzo Oconnor Subjective: * Chief Complaints: * ??? * Medical History:? Objective: * Vitals:? Assessment: Plan: * Treatment: * Images: * The named appointment provid er may or may not be the originator of this progress note, and it is not deemed complete until electronically signed by the appointment provider. Sign off status: Pending * Provider:?Naveen Hicks DPM Date:?2023 Generated for Alma louise/Bruno/Milton on:?12/29/2024 09:24 AM EDT
== END 2024-12-29 09:44 | disposition home or self-care (01) ==
LOC: HO.HOP 08:55
PROVIDERS: PCP Internal Medicine; Visit Provider Clinical Nurse Specialist Psychiatric/Mental Health
DX: F33.2 Major depressive disorder, recurrent severe without psychotic features (principal); F41.1 Generalized anxiety disorder
CPT/HCPCS: 99215

== ENCOUNTER → 2024-12-29 08:55 | Outpatient (BNVA) | payer MEDICARE, SELFPAY | PROVIDERS: PCP Internal Medicine; Visit Provider Clinical Nurse Specialist Psychiatric/Mental Health | DX: F33.2 Major depressive disorder, recurrent severe without psychotic features (principal); F41.1 Generalized anxiety disorder | CPT/HCPCS: 99212 ==

== ENCOUNTER 2025-01-13 09:28 | Outpatient (REF) | payer MEDICARE, SELFPAY ==
--- OUTSIDE RECORDS SUMMARY | 2025-01-13 09:39 | XMS_ITS ---
Author Organization [facility] Address [address] [facility] [place] [address] Care Team Providers Care Systems Lead Name Role Phone Lorenzo Oconnor Primary Care Provider Naveen Diamond Unavailable [phone] Allergies Allergen (clinical drug ingredient) Drug/Non Drug [...] Tartrate 5 MG 1 tablet at bedti sd Orally Once a day Active Metoprolol Succinate [...] Ordered Date Performed Result Body Sit e 08175-SVYQMOE NAIL, 6 OR MORE 09/02/2024 N/A Encounters Encounter Location Date Provider Diagnosis [facility] [place] [address] [place] [address] 09/02/2024 Naveen Hicks Pain in right toe(s) [...] Treatment Pending Test Test Name Order Date 78412-AHHAOGI NAIL, 6 OR MORE 09/02/2024 Next Appt Details Follow Up: prn, Reason: Provider Name:Naveen Hicks , 05/09/2025 09:15:00 AM, [address] [place] [address], [address], Procedure Notes * Category Sub-Category Detail Notes [...] use of a nail nipper and/or dremel-type precision lens grinder, to a more viable healthy nail [...] Kaylee SANTOS EDOB: [birth year] (74 yo F)Acc No.[id number]:09/02/2024 Progress Note Patient:?Kaylee SANTOS Provider:?Naveen Hicks DPM :1950???Age:74 Y???Sex:Female D ate:09/02/2024 Address:[address] [place], [place] [address] Pcp:Lorenzo Oconnor Subjective: * Chief Complaints: * [...] use of a nail nipper and/or dremel-type precision lens grinder, to a more viable healthy nail [...] to maintain effectiveness in symptomatic relief - [address].? * Procedure Codes:?63490 DEBRI DE NAIL, 6 OR MORE * [...] Hicks DPM Date:?2024 Generated for Alma louise/Bruno/Milton on:?01/13/2025 09:39 AM EDT History and Physical Notes * [...]
--- OUTSIDE RECORDS SUMMARY | 2025-01-13 09:39 | XMS_ITS ---
Author Organization [facility] Address [address] [place] [address] Care Team Providers Care Mental Health Advanced Practice Nurse Name Role Phone Po Lorenzo BRANNON Primary Care Provider Paige Nicole [phone] REASON FOR VISIT screening,hx polyps Encounters Encounter Location Date Provider Diagnosis [facility] [address] [place] [phone] 12/12/2024 Paige Vasquez Colon cancer scree prateek [...] PARADISE SANTOS EDOB: [birth year] (74 yo F)Acc No.[id number]:12/12/2024 COLON WITH MAC Patient:SunnyDATPenelope PARADISE Costa Provider:?Paige Vasquez MD :1950???Age:74 Y???Sex:Female D ate:12/12/2024 Address:[address] [place], [place] [address] Pcp:Lorenzo Oconnor MD Subjective: * Chief Complaints: * ???1. Screening,hx polyps. * Medical History:? Objective: * Vitals:? Assessment: * Assessment: 1.?Colon cancer screening - Z12.11 (Primary)???2.?Colon polyps - K63.5???3.?Diverticulosis of large intestine without perforation or abscess without bleeding - K57.30???4.?Other hemorrhoids - K64.8??? Plan: * Treatment: * Procedure Codes:?08092 LESIO N REMOVAL COLONOSCOPY, 73763 COLONOSCOPY AND BIOPSY, Modifiers: 57 , 0529F INTRVL 3+YRS PTS CLNSCP DOCD, 0528F RCMND FLW-UP 10 YRS DOCD * * The named appointment provid er may or may not be the originator of this progress note, and it is not deemed complete until electronically signed by the appointment provider. Sign off status: Pending * Provider:?Paige Vasquez MD Date:? 025 Generated for Alma louise/Bruno/eTransmitting on:?01/13/2025 09:39 AM EDT
--- OUTSIDE RECORDS SUMMARY | 2025-01-13 09:39 | XMS_ITS ---
Author Organization [facility] Address [address] [place] [address] Care Team Providers Care Activity Coordinator Name Role Phone Lorenzo Oconnor Primary Care Provider Naveen Diamond Unavailable [phone] Ny Encounters Encounter Location Date Provider Diagnosis [address] [address] 12/30/2024 Naveen Hicks Plan Of Treatment Next Appt Details Provider Name:Naveen Hicks , 05/09/2025 09:15:00 AM, [address] [place] [address], [address], Progress Notes * Kaylee SANTOS EDOB: [birth year] (74 yo F)Acc No.[id number]:12/30/2024 Progress Note Patient:?Kaylee SANTOS Provider:?Naveen Hicks DPM :1950???Age:74 Y???Sex:Female D ate:12/30/2024 Address:[address] [place] [address] [place] Pcp:Lorenzo Oconnor Subjective: * Chief Complaints: * ???1. Dr Ny. * Medical History:? Objective: * Vitals:? Assessment: Plan: * Treatment: * Images: * The named appointment provid er may or may not be the originator of this progress note, and it is not deemed complete until electronically signed by the appointment provider. Sign off status: Pending * Provider:?Naveen Hicks DPM Date:?2024 Generated for Alma louise/Bruno/Milton on:?01/13/2025 09:38 AM EDT
--- OUTSIDE RECORDS SUMMARY | 2025-01-13 09:39 | XMS_ITS ---
Author Organization [facility] Address [address] [place] [address] Care Team Providers Care Land Acquisition Specialist Name Role Phone Lorenzo Oconnor MD Primary Care Provider Paige Nicole Unavailable [phone] Allergies Allergen (clinical drug ingredient) Drug/Non Drug [...] water, orange juice, lemonade, christiano barrie or lemon/cowlitz soda Orally Once a day for 30 [...] 09/01/2024 Encounters Encounter Location Date Provider Diagnosis [facility] [address] [place] [address] 09/01/2024 Paige Christina History of adenomato us [...] KAYLEE SANTOS EDOB: [birth year] (74 yo F)Acc No.[id number]:09/01/2024 Progress Notes Patient:?KAYLEE SANTOS Provider:?Paige Vasquez MD :1950???Age:74 Y???Sex:Female D ate:09/01/2024 Address:[address] [place] [address] [facility] Pcp:Lorenzo Oconnor MD Subjective: * Chief Complaints: * ???Patient presents today fo r the recall colonoscopy * HPI: ???incontinence:? I saw Kaylee in the office today for evaluation of her personal history of tubular adenomas of the colon and need for colorectal cancer screening. ?I last saw Kaylee in 2020, at which [...] status: . Occupation: Retired. ???Nonsmoker since approx 2015; occ alcohol. * Medications:?TakingXanax 0.2 5 MG Tablet 1 tablet Orally Twice a daySertraline HCl 20 MG/ML Concentrate 5 ml mixed with 4 ounces of water, orange juice, lemonade, christiano barrie or lemon/cowlitz soda Orally Once a daybuPROPion HBr ER [...] water, orange juice, lemonade, christiano barrie or lemon/cowlitz soda Orally Once a dayTaking buPROPion HBr [...] - Z12.11?4.?Anticoagulant long-term use - Z79.01? Overall, Kaylee appears qu ite well. Given [...] the colonoscopy?? * Procedure Codes:?1036F TOBAC CO NON-OCLYF8339 BP SCR NOT PRFRM REC REASON NOS [...] Vasquez MD Date:? 025 Generated for Alma louise/Bruno/Mikosmitting on:?01/13/2025 09:38 AM EDT History and Physical Notes * [...]
--- OUTSIDE RECORDS SUMMARY | 2025-01-13 09:39 | XMS_ITS ---
Author Organization [facility] Address [address] [facility] [place] [address] Care Team Providers Care Boat Tender Name Role Phone Lorenzo Oconnor Primary Care Provider Naveen Diamond Unavailable [phone] Allergies Allergen (clinical drug ingredient) Drug/Non Drug Allergy documented on EMR Reaction Allergy Type Onset Date Status Substance with sulfonamide structure and antibacterial mechanism of action (substance) Sulfa Antibiotics Unknown Drug Allergy Active REASON FOR VISIT At Risk Footcare, Painful Nail(s) aggravated by shoes and causing difficulty standing/walking., Skin problem(s) Medications Medication SIG (Take, Route, Frequency, Duration) [...] tablet Orally Twic e a day Active Ammonium Lactate 12 % 1 application Exte rnally to affected areas of dry skin to feet except for between the toes Twice a day for 30 days Active Calcium + D 500-1000-40 MG-UNT-MCG as directed Orally Active Percocet Active Sertraline HCl Activ e Lisinopril Active Vitamin B Complex Ac tive rOPINIRole HCl 0.25 MG 1 tablet 1 to 3 h ours before bedtime Orally Once a day Active Social History Tobacco Use: Social History Observation Description Date Details (start date - stop date) Current Smoker 01/02/1965 - NA Tobacco use other than smoking: Question Answer Notes Are you an other tobacco user? No Tobacco Control (Standard) Question Answer Notes Tobacco use: Current smoker When did you start smoking? 01/02/1965 How often do you smoke cigarettes? Every day How many cigarettes a day do you smoke? 6-10 How soon after you wake up d o you smoke your first cigarette? Within 5 minutes Are you interested in quitting? Not ready to diego t Additional Findings: Tobacco user Light cigarett e smoker (1-9 cigs/day) Vital Signs Height 5ft in 01/10/2025 Weight 155 lbs 01/10/2025 BMI 30.27 kg/m2 01/10/2025 Blood pressure systolic 130 mm Hg 01/11/20 25 Blood pressure diastolic 80 mm Hg 025 Procedures Procedure Date Ordered Date Performed Result Body Sit e 05649-NAQISUZ NAIL, 6 OR MORE 01/10/2025 N/A Encounters Encounter Location Date Provider Diagnosis [facility] [address] [address] 01/10/2025 Naveen Catunier Pain in right toe(s) M79.674 ; Tinea unguium B35.1 ; Pain in left toe(s) M79.675 ; Type 2 diabetes mellitus without complication E11.9 and Xerosis of skin L85.3 Assessments Encounter Date Diagnosis (ICD Code) Assessment Notes Treatment Notes Treatment Clinical Notes Section Notes 01/10/2025 Pain in right toe(s) (ICD-10 - M79.674) 01/10/2025 Tinea unguium (ICD-10 - B35.1) 01/10/2025 Pain in left toe(s) (ICD-10 - M79.675) 01/10/2025 Type 2 diabetes mellitus without complication (ICD-10 - E11.9) 01/10/2025 Xerosis of skin (ICD-10 - L85.3) Plan Of Treatment Medication Medication Name Sig Start Date Stop Date Notes Ammonium Lactate 12 % 1 application Exte rnally to affected areas of dry skin to feet except for between the toes Twice a day for 30 days Pending Test Test Name Order Date [id number]-XCUTBDM NAIL, 6 OR MORE 01/10/2025 Next Appt Details Follow Up: prn, Reason: Provider Name:Naveen Hicks , 05/09/2025 09:15:00 AM, [address] [place] [address], [id number], Procedure Notes * Category Sub-Category Detail Notes [...] nail nipper and/or dremel-type grinder set up operator thread, to a more viable healthy nail plate [...] Kaylee SANTOS EDOB: [birth year] (74 yo F)Acc No.[id number]:01/10/2025 Progress Note Patient:?Kaylee SANTOS Provider:?Naveen Hicks DPM :1950???Age:74 Y???Sex:Female D ate:01/10/2025 Address:[address] , [place] Pcp:Lorenzo Oconnor Subjective: * Chief Complaints: * ???At Risk FootcarePainful N ail(s) aggravated by shoes and causing difficulty standing/walking.Skin problem(s) * HPI: ???At Risk footcare:?Pt States Last PCP Visit:?Date?08/19/2024 States has an appt with PCP soon - January ???Skin problems:?Nature:?dryness , scaling.?Location:?B/L .?Duration:?several days.?Course:?worse.?Treatments:?Topical OTC moisturizing lotion/cream has not relieved condition.? * ROS:?General/Constitutional:?Nausea?denies.?Vomiting?denies.?Hunger Thirst?denies.?Loss appetite?denies.?Chills?denies.?Fatigue?denies.?Fever?denies.?Night Sweats?admits.?Unexplained weight loss?denies.?Unexplained [...] Diabetic - NIDDM.? * Social History:?Tobacco Use:?Tobacco use other than smoking?Are you an other tobacco user??No ?Tobacco Control (Standard)?Tobacco use:?Current smoker ?When did you start smoking??01/02/1965 ?How often do you smoke cigarettes??Every day ?How many cigarettes a day do you smoke??6-10 ?How soon after you wake up do you smoke your first cigarette??Within 5 minutes ?Are you interested in quitting??Not ready to quit ?Additional Findings: Tobacco user?Light cigarette smoker (1-9 cigs/day) ???Miscellaneous:?Caffeine: yes. ?Children: yes, 3. ?Exercise: no. ?Marital status: . ?Occupation: retired/[employer]. * Medications:?TakingrOPINIRol e HCl 0.25 MG Tablet [...] yes[Allergies Verified] Objective: * Vitals:?Ht: 5ft, Wt: 155, BM I: 30.27, Shoe size: 7-7.5, BP: 130/80 mm Hg, BS: not taken, Ht-cm: 152.4 cm, Wt-k.31 kg. * ???Past Orders: ???Lab:HEMOGLOBIN A1C (GLYCO HEMOGLOBIN) (Order Date - 07/31/2024) (Collection Date & Time - 07/31/2024 09:39 AM) ? Value Reference Range ?HEMOGLOBIN A1C % (HH) 5.8 * Examination: ???Ophthalmology Referral: ?DIABETES EYE EXAM?Procedure Performed:?Yes ?Date of Exam Performed?02/09/2024 States next appt soon - January ?Diabetic Retinopathy Screening:?Yes ?Retinal Screening Performed:?Yes ?Findings of Diabetic Eye Exam:?no retinopathy?Nails: ?NAILS are:?Elongated, overgrown, dystrophic, lytic, greater than 3mm thick, discolored and friable with crumbly malodorous subungual debris, with pain on palpation, TA, T1, T2, T3, T4, T5, T6, T7, T8, T9.?Dermatologic: ?SKIN FINDINGS:?Skin shows sign(s) of, dryness, scaling, in a stocking fashion, no fissure(s) present, B/L.? Assessment: * Assessment: 1.?Pain in right toe(s) - M7 9.674???2.?Tinea unguium - B35.1 (Primary)???3.?Pain in left toe(s) - M79.675???4.?Type 2 diabetes mellitus without complication - E11.9???5.?Xerosis of skin - L85.3???Specify :Acute problem, Uncomplicated (3),Rx Management (4)??? Plan: * Treatment: 2.?Xerosis of skin? Start Ammonium Lactate Cream, 12 %, 1 application, Externally to affected areas of dry skin to feet except for between the toes, Twice a day, 30 days, 280, Refills 3.?? * Procedures:?Debride Nail 6-10:?Nail debridement?Due to the [...] nail nipper and/or dremel-type grinder set up operator thread, to a more viable healthy nail plate [...] to maintain effectiveness in symptomatic relief - 55171.? * Procedure Codes:?85112 DEBRI DE NAIL, 6 OR MORE * Preventive Medicine:? ??Counseling:?Tobacco use:?Patient counseled on the dangers of smoking and urged to quit:?01/10/2025 ?Discussion:?-13: Office or other outpatient visit for [...] have encouraged the patient to call the office.?Xerosis:?The patient was counseled on the diagnosis, potential etiologies, and treatment options for their skin condition. We discussed the risks and benefits of each option from performing no treatment, to utilizing OTC topical skin creams/ointments, to utilizing prescription topical creams/ointments, to utilizing customized compounded topical medications and use of nocturnal occlusion with any/all previously detailed therapies. We discussed the advantages and disadvantages of each possible treatment and importance for adherence to all the recommended therapies for optimum success and avoid potential complications such as open sore/infection/possible hospitalization. We discussed the potential effectiveness of each topical preparation as well as each ones possible side effects and/or patient medication interactions. Patient questions re: use, dosage, successful outcomes, and application consistency were reviewed and the patient verbalized that all answers were clearly understood. The patient has decided to apply Rx skin creams to their feet save the interspaces while paying special attention to the heels. Such was sent to their pharmacy at the time of visit.? ??Screening/Special Tests:?Fall Risk?Screening:?No falls in the past year ?FALLS: Screening for Future Fall Risk?Have you had any falls with injury in the past year??No * Follow Up:?prn * Images: * Sign off status: Completed true * Provider:?Naveen Hicks DPM Date:?2024 Generated for Alma louise/Bruno/Milton on:?01/13/2025 09:38 AM EDT History and Physical Notes * HPI (History of Present Illness) Category Sub-Category Detail Notes Category Not es Skin problems Nature: dryness , scaling Location: B/L Duration: several days Course: worse Treatments: Topical OTC moisturi zing lotion/cream has not relieved condition At Risk footcare Pt States Last PCP Visit: Date: 08/19 States has an appt with PCP soon - January Examination Category Sub-Category Detail Notes Category Not es Dermatologic SKIN FINDINGS: Skin shows sign( s) of, dryness, scaling, in a stocking fashion, no fissure(s) present, B/L Ophthalmology Referral DIABETES EYE EXAM Procedu re Performed:: Yes ?Date of Exam Performed: 02/09/2024 Stat es next appt soon - January Diabetic Retinopathy Screening:: Yes Retinal Screening Performed:: Yes Findings of Diabetic Eye Exam:: no retin opathy Nails NAILS are: Elongated, overg rown, dystrophic, lytic, greater than 3mm thick, discolored and friable with crumbly malodorous subungual debris, with pain on palpation, TA, T1, T2, T3, T4, T5, T6, T7, T8, T9
--- OUTSIDE RECORDS SUMMARY | 2025-01-13 09:39 | XMS_ITS | Patient Health Record ---
Author Organization [facility] Address [address] [place] [address] Care Team Providers Care Street Light Servicer Supervisor Name Role Phone Lorenzo Oconnor Primary Care Provider Naveen Diamond Unavailable [phone] Allergies Allergen (clinical drug ingredient) Drug/Non Drug Allergy documented on EMR Reaction Allergy Type Onset Date Status Substance with sulfonamide structure and antibacterial mechanism of action (substance) Sulfa Antibiotics Unknown Drug Allergy Active Results Component Value Reference Range Notes HEMOGLOBIN A1C (GLYCOHEMOGLO BIN) Reviewed date:01/10/2025 09:40:10 AM Interpretation: Performing Lab: Notes/Report: HEMOGLOBIN A1C % (HH) 5.8 Reason For Referral No Information Medications Medication SIG (Take, Route, Frequency, Duration) Notes Start Date End Date Status Ammonium Lactate 12 % 1 application Exte rnally to affected areas of dry skin to feet except for between the toes Twice a day for 30 days Active Eliquis 5 MG as directed Orally Active Calcium + D 500-1000-40 MG-UNT-MCG as directed Orally Active Percocet Active Extra Depth Orthopedic Shoes (1 Pair) with Customized Heat Molded Multidensity Innersoles (3 Pair) as directed Dx: NIDDM (E11.9), Hammertoe Foot Deformity (M20.41,M20.42), Preulcerative Skin Lesion(s) (L85.1) Active Flecainide Acetate 100 MG as directed [...] stop date) Current Smoker 01/02/1965 - NA Alcohol Screen Question Answer Notes Did you [...] user Light cigarett e smoker (1-9 cigs/day) Problems Problem Type SNOMED Code ICD Code Onset Dates Problem Status W/U Status Risk Notes Problem Acquired hammer toe of right foot (99404913326571 05) Other hammer toe(s) (acquired), right foot (M20.41) Active confirmed Response to treatment,I mprovement Problem Acquired hammer toe of left foot (08498451887957 03) Other hammer toe(s) (acquired), left foot (M20.42) Active confirmed Response to treatment,I mprovement Problem Type 2 diabetes mellitus without complication (318850137) Type 2 diabetes mellitus without complication (E11.9) Active confirmed Vital Signs Blood pressure diastolic 80 mm Hg 01/10/2025 Height 5ft in 01/10/2025 Blood pressure systolic 130 mm Hg 01/10/2025 Weight 155 lbs 01/10/2025 BMI 30.27 kg/m2 01/10/2025 Procedures Procedure Date Ordered Date Performed Result Body Sit e 78691-ZLAPVUN NAIL, 6 OR MORE 05/03/2024 N/A 35743-FQAMLUZ NAIL, 6 OR MORE 09/02/2024 N/A 95501-ICWSYOT NAIL, 6 OR MORE 01/10/2025 N/A Encounters Encounter Location Date Provider Diagnosis [address] [address] 05/03/2024 Naveen Fabiola Pain of toe of right foot M79.674 ; Onychomycosis B35.1 ; Pain of toe of left foot M79.675 ; Type 2 diabetes mellitus without complication E11.9 ; Other hammer toe(s) (acquired), right foot M20.41 and Other hammer toe(s) (acquired), left foot M20.[address] [address] 09/02/2024 Naveen Fabiola Pain in right toe(s) M79.674 ; Tinea unguium B35.1 ; Pain in left toe(s) M79.675 ; Type 2 diabetes mellitus without complication E11.9 ; Other hammer toe(s) (acquired), right foot M20.41 and Other hammer toe(s) (acquired), left foot M20.[address] [address] 01/10/2025 Naveen Fabiola Pain in right toe(s) M79.674 ; Tinea unguium B35.1 ; Pain in left toe(s) M79.675 ; Type 2 diabetes mellitus without complication E11.9 and Xerosis of skin L85.[address] [address] 03/29/2024 Naveen Hicks Assessments Encounter Date Diagnosis (ICD Code) Assessment Notes Treatment Notes Treatment Clinical Notes Section Notes 05/03/2024 Pain of toe of right foot (ICD-10 - M79.674) 09/02/2024 Pain in right toe(s) (ICD-10 - M79.674) 01/10/2025 Pain in right toe(s) (ICD-10 - M79.674) 05/03/2024 Pain of toe of left foot (ICD-10 - M79.675) 01/10/2025 Tinea unguium (ICD-10 - B35.1) 01/10/2025 Pain in left toe(s) (ICD-10 - M79.675) 05/03/2024 Onychomycosis (ICD-10 - B35.1) 09/02/2024 Tinea unguium (ICD-10 - B35.1) 09/02/2024 Pain in left toe(s) (ICD-10 - M79.675) 05/03/2024 Type 2 diabetes mellitus without complication (ICD-10 - E11.9) 09/02/2024 Type 2 diabetes mellitus without complication (ICD-10 - E11.9) 01/10/2025 Type 2 diabetes mellitus without complication [...] (ICD-10 - M20.42) Response to treatment,Impro vement 01/10/2025 Xerosis of skin (ICD-10 - L85.3) Plan Of Treatment Pending Test Test Name Order Date [id number] NAIL, 6 OR MORE 12/28/2020 71094-AFNYJLM NAIL, 6 OR MORE 04/03/2023 70075-[id number] NAIL, 6 OR MORE 08/21/2023 41766-WMPGAFP NAIL, 6 OR MORE 12/18/2023 17040-KJTBGBX NAIL, 6 OR MORE 05/03/2024 38899-[id number] NAIL, 6 OR MORE 09/02/2024 69840-ITURHGW NAIL, 6 OR MORE 01/10/2025 Next Appt Details Provider Name:Naveen Hicks , 05/09/2025 09:15:00 AM, [address] [place], [address], Insurance Providers Payer Name Payer Address Payer Phone Subscriber Number Group Number Insured Name Patient Relationship to Insured Coverage Start Date Coverage End Date [employer] 65 Medicare Preferred [address] [place] [address] [id number] Kaylee Amaral Self - patient is the insured Medical (General) History Medical History History ICD Code Anemia Anxiety Arthritis Back pain Cataracts Depression Diabetic Headaches Numbness Reflux ( GERD) Sciatica Sinus conditions thyroid Measles Chicken pox Surgical History Surgery Date(Month/Year) bunionectomy hammer toe Lower back surgery carpal tunnel surgery x2 hysterectomy breast reduction wrist surgery
--- OUTSIDE RECORDS SUMMARY | 2025-01-13 09:39 | XMS_ITS | Patient Health Record ---
Author Organization [facility] Address [address] [place] [address] Care Team Providers Care Bulb Grader Name Role Phone Lorenzo Oconnor MD Primary Care Provider Paige Nicole [facility] [phone] Allergies Allergen (clinical drug ingredient) Drug/Non Drug Allergy documented on EMR Reaction Allergy Type Onset Date Status Sulfa Unknown Drug Allergy Active Results Component Value Reference Range Notes Pathology Reviewed date:01/03/2025 11:07:51 AM Interpretation: Performing Lab:[facility], [address] [place] [address] Notes/Report: Name: Kaylee Santos Age/Sex: 74/F : 1950 Unit#: [id number] Attend Dr: Paige Vasquez MD Re12/12/24 Status : [facility] Location: [facility] Disch: SPEC : [id number] RECD : 12/12/24-9 STATUS: ALLY LAWRENCE NUM: [id number] KENY: 12/12/24-[address] [facility] [address]: Paige Vasquez MD ENTERED: 12/12/24-12 32 SP TYPE: Surgical OTHR DR: Lorenzo Oconnor MD ORDERED: HE Stain/6, Gross Micro L4/2 Diagnosis A. Colon, ascending, polyp: Polypoid colonic mucosa with minimal hyperplastic changes; no adenomatous dysplasia seen. B. Colon, rectal iris yp: Tubular adenoma; negative for high-grade dysplasia and carcinoma. Clinical History Pre-Op Dx: Screening, hx of polyps Post-Op Dx: Colon po lyp, hemorrhoids, diverticulosis Microscopic Description Multiple microscopic sections reviewed. Material Received A. Ascending colon polyp B. Rectal polyp Gross Description Received in two parts. Part A: Received in formalin labeled ?ascending colon polyp? is a 0.3 cm bean-pink papular tissue fragment, sub mitted in toto in a cassette labeled A. Part B: Received in formalin labeled ?rectal polyp? are 2 bean-pink irregular and papular tissue fragments love suring 0.35 and 0.5 cm, submitted in toto in a cassette labeled B. CEDS Copies To: Lorenzo Oconnor MD [facility] Primary Care,[address] [place] [id number] CONTINUED ON NEXT PAGE Name: Kaylee Santos Age/Sex: 74/F : 1950 Unit#: [id number] Attend Dr: Paige Vasquez MD Re12/12/24 Status : [facility] Location: [facility] Disch: SPEC : [id number] RECD : 12/12/24 STATUS: ALLY LAWRENCE NUM: [id number] KENY: 12/12/[address] [facility] [address]: Paige Vasquez MD ENTERED: 12/12/24 32 SP TYPE: Surgical OTHR DR: Lorenzo Oconnor MD ORDERED: CLAUDIA Stain/6, Sabino Ta L4/2 Copies To: (Continued) Paige Vasquez MD [address] [place] [address] Signed (si gnature on file) Maribel Bryan 12/14/24 1004 END OF REPORT Reason For Referral No Information Medications Medication [...] water, orange juice, lemonade, christiano barrie or lemon/[place] soda Orally Once a day for 30 [...] Problem Status W/U Status Risk Notes Problem 443203166 Encounter for screening for malignant neoplasm of colon (Z12.11) Active confirmed Problem 708138686 History of adenomatous polyp of colon (Z86.010) Active confirmed Problem 865640530472128 Preprocedural examination (Z01.818) Active confirmed Problem Anticoagulant long-term use (Z79.01) Active confirmed Problem 22406696 Incontinence of feces, unspecified fecal incontinence type (R15.9) Active confirmed Vital Signs Temperature 97.7 degrees Fahrenheit 09/01/2024 Blood pressure diastolic 00 mm Hg 09/01/2024 Height 60 in 09/01/2024 Blood pressure systolic 000 mm Hg 09/01/2024 Weight 157 lb 8 oz lbs 09/01/2024 BMI 30.76 kg/m2 09/01/2024 Encounters Encounter Location Date Provider Diagnosis [facility] Outpatient [address] [place], [place] [id number] 12/12/2024 Paige Vasquez Colon cancer screeni ng Z12.11 ; Colon polyps K63.5 ; Diverticulosis of large intestine without perforation or abscess without bleeding K57.30 and Other hemorrhoids K64.8 [facility] [address] [place] [address] 09/01/2024 Paige Vasquez History of adenomato us polyp of colon Z86.010 ; Preprocedural examination Z01.818 ; Encounter for screening for malignant neoplasm of colon Z12.11 and Anticoagulant long-term use Z79.01 Assessments Encounter Date Diagnosis (ICD Code) Assessment Notes Treatment Notes Treatment Clinical Notes Section Notes 12/12/2024 Colon cancer screening (ICD-10 - Z12.11) 12/12/2024 Colon polyps (ICD-10 - K63.5) 09/01/2024 History of adenomatous polyp of colon [...] to keep you advised of her progress. 12/12/2024 Diverticulosis of large intestine without perforation or abscess without bleeding (ICD-10 - K57.30) 09/01/2024 Encounter for screening for malignant neoplasm [...] to keep you advised of her progress. 12/12/2024 Other hemorrhoids (ICD-10 - K64.8) 09/01/2024 Anticoagulant long-term use (ICD-10 - Z79.01) [...] Date COLONOSCOPY 05/20/2012 COLONOSCOPY 10/21/2018 COLONOSCOPY 09/01/2024 Insurance Providers Payer Name Payer Address Payer Phone Subscriber Number Group Number Insured Name Patient Relationship to Insured Coverage Start Date Coverage End Date [facility] [address] [place], [place] [id number] KAYLEE SANTOS Self - patient is the insured Medical (General) History Medical History History ICD Code Hyperlipidemia Colon polyps-very small tubular adenomas removed in 2004 and 05/2012 GERD--EGD in 2004-hiatal hernia, no esop hagitis/no Marie's Depression Hypothyroidism Denies SC,DM,CVA,Lung disease,renal dise ase Arthritis and degenerative disc disease of spine Hx of afib--had cardioversion - Dr. Jonatan crum Colonoscopy in 11/2018 with removal of a small tubular adenoma Surgical History Surgery Date(Month/Year) hysterectomy and removal of one ovary carpal tunnel surgery bladder suspension thumb surgery vocal cord polyps back surgery breast reduction foot surgeries
[2025-01-13 13:13] LABS: MANUAL DIFF FLAG NO
[2025-01-13 13:22] LABS: Basophils Absolute Auto 0.1 X10*3/uL (0.0-0.2); Basophils Percent Auto 0.6 % (0-2); Eosinophils Absolute Auto 0.5 X10*3/uL (0.0-0.4); Eosinophils Percent Auto 6.6 % (0-4); Hematocrit 38.3 % (37.0-47.0); Hemoglobin 12.5 g/dl (12.0-16.0); Imm Gran Abs Auto 0.04 X10*3/uL (0.00-0.03); Imm Gran Pct Auto 0.5 % (0.0-0.4); Lymphocytes Absolute Auto 1.4 X10*3/uL (1.2-4.9); Lymphocytes Percent Auto 17.6 % (20-40); Mean Corpuscular HGB Conc 32.6 g/dl (31.0-35.0); Mean Corpuscular Hemoglobin 32.4 pg (27.0-33.0); Mean Corpuscular Volume 99.2 fL (80.0-98.0); Mean Platelet Volume 10.2 fL (9.4-12.3); Monocytes Absolute Auto 0.9 X10*3/uL (0.1-1.2); Monocytes Percent Auto 11.8 % (2-11); Neutrophils Percent Auto 62.9 % (45-73); Platelet Count 232 X10*3/uL (160-400); Red Blood Count 3.86 X10*6/uL (4.20-5.50); Red Cell Distribution Width 12.6 % (11.0-16.0); White Blood Count 7.9 X10*3/uL (4.8-10.8)
[2025-01-13 13:23] LABS: B Type Natriuretic Peptide 237 pg/mL (<100)
[2025-01-13 13:25] LABS: Estimated Average Glucose 126 mg/dL; Hemoglobin A1C 143.2621 umol/L; Total Hemoglobin (HGBA1C) 3383.1102 umol/L
[2025-01-13 14:09] LABS: Alanine Aminotransferase 12 U/L (0-31); Albumin Level 3.7 g/dL (3.5-5.0); Alkaline Phosphatase 64 U/L (39-117); Anion Gap 10 (12-20); Aspartate Amino Transferase 31 U/L (5-31); Bilirubin Total 0.3 mg/dL (0.0-1.0); Blood Urea Nitrogen 17 mg/dL (9-16); Calcium 9.4 mg/dL (8.4-10.2); Carbon Dioxide 31 mmol/L (22-29); Chloride 106 mmol/L (96-108); Cholesterol 156 mg/dL (<200); Estimated Glomerular Filt Rate > 60; Glucose Random 132 mg/dL (60-115); HDL Cholesterol 50 mg/dL (>40); LDL Cholesterol Calculated 89 mg/dL (<100); Potassium 4.3 mmol/L (3.3-5.1); Sodium 143 mmol/L (135-145); Total Protein 6.3 g/dL (6.5-8.0); Triglycerides 85 mg/dL (<150)
[2025-01-13 14:12] LABS: Thyroid Stimulating Hormone 2.94 uIU/mL (0.32-4.0); Vitamin D 25-OH Total 45.1 ng/mL (>30)
[2025-01-13 14:16] LABS: Folate 14.3 ng/mL (> or = 4.0); Vitamin B12 > 2000 pg/mL (200-900)
== END 2025-01-13 09:29 | disposition home or self-care (01) ==
LOC: HO.HMGCLDS 09:28
PROVIDERS: PCP Internal Medicine; Visit Provider Internal Medicine
DX: E11.65 Type 2 diabetes mellitus with hyperglycemia (principal); E78.00 Pure hypercholesterolemia, unspecified
CPT/HCPCS: 36415; 80053; 80061; 82306; 82570; 82607; 82746; 83036; 83735; 83880; 84439; 84443; 85025

== ENCOUNTER 2025-01-24 14:33 | Outpatient (REF) | payer MEDICARE, SELFPAY ==
--- NOTE | ~2025-01-24 | XR_ITS ---
XR KNEE RAMY 3V HISTORY: Pain in right knee. COMPARISON: None. TECHNIQUE: AP and lateral views each knee. FINDINGS: RIGHT KNEE: No fracture, dislocation, or suspicious bone lesion. Minimal tricompartmental joint space narrowing. Diffuse chondrocalcinosis in the medial and lateral compartments. No evidence of significant joint effusion. Soft tissues appear normal. LEFT KNEE: No fracture, dislocation, or suspicious bone lesion. Minimal tricompartmental joint space narrowing. Diffuse chondrocalcinosis in the medial and lateral compartments. No evidence of significant joint effusion. Soft tissues appear normal. XR/XR Knee Ramy 1or 2V IMPRESSION: RIGHT KNEE: 1. Chondrocalcinosis in the medial and lateral compartments. 2. Early/mild degenerative tricompartmental arthritis. Consider CPPD. 3. No significant joint effusion. LEFT KNEE: 1. Chondrocalcinosis in the medial and lateral compartments. 2. Early/mild degenerative tricompartmental arthritis. Consider CPPD. 3. No significant joint effusion. Electronically signed by: Kevin Michele MD 01/25/2025 10:25 AM EDT
--- OUTSIDE RECORDS SUMMARY | 2025-01-24 14:37 | XMS_ITS ---
Author Organization [facility] Address [address] [place] [address] Care Team Providers Care Maintenance Mechanic Elevators Name Role Phone Lorenzo Oconnor MD Primary Care Provider Paige Nicole Unavailable [phone] Allergies Allergen (clinical drug ingredient) Drug/Non Drug [...] water, orange juice, lemonade, christiano barrie or lemon/[place] soda Orally Once a day for 30 [...] 09/01/2024 Encounters Encounter Location Date Provider Diagnosis [facility] [address] [place] [address] 09/01/2024 Paige Christina History of adenomato us [...] KAYLEE SANTOS EDOB: [birth year] (74 yo F)Acc No.[id number]:09/01/2024 Progress Notes Patient:?KAYLEE SANTOS Provider:?Paige Vasquez MD :1950???Age:74 Y???Sex:Female D ate:09/01/2024 Address:[address] [place] [address] [facility] Pcp:Lorenzo Oconnor MD Subjective: * Chief Complaints: [...] water, orange juice, lemonade, christiano barrie or lemon/[place] soda Orally Once a daybuPROPion HBr ER [...] water, orange juice, lemonade, christiano barrie or lemon/[place] soda Orally Once a dayTaking buPROPion HBr [...] the colonoscopy?? * Procedure Codes:?1036F TOBAC CO NON-FHUSK5540 BP SCR NOT PRFRM REC REASON NOS [...] Vasquez MD Date:? 025 Generated for Alma louise/Bruno/Derekitting on:?01/24/2025 02:36 PM EDT History and Physical Notes * [...]
== END 2025-01-24 14:34 | disposition home or self-care (01) ==
LOC: HO.HMGCX 14:33
PROVIDERS: PCP Internal Medicine; Visit Provider Internal Medicine
DX: M25.561 Pain in right knee (principal); M25.562 Pain in left knee
CPT/HCPCS: 73560

== ENCOUNTER → 2025-01-24 14:37 | Outpatient (BNV) | payer MEDICARE, SELFPAY | PROVIDERS: PCP Internal Medicine; Visit Provider Radiology Diagnostic Radiology | DX: M17.0 Bilateral primary osteoarthritis of knee (principal) | CPT/HCPCS: 73560 ==

== ENCOUNTER 2025-01-30 10:36 | Outpatient (AMB) | payer MEDICARE, SELFPAY ==
--- NOTE | 2025-01-30 10:36 | MHC.OFFVISPS ---
Intake Intake Visit Reasons: consultation Allergy Specialist Required: No Allergies Sulfa (Sulfonamide Antibiotics) [SULFA (SULFONAMIDE ANTIBIOTICS)] Allergy (Unknown, Verified 12/12/24 10:06) RASH Medication List - Last Reconciled 01/30/25 by Maribel Inman APRN alprazolam 0.25 mg PO BID apixaban (Eliquis) 5 mg PO BID atorvastatin 80 mg PO DAILY [AUTOPAP 6-20 cm H2) humidified AIR Sleep study done 12/28/2024 severe obstructive sleep apnea with an AHI of 41 advised CPAP therapy auto PAP 6-20 cm water] blood sugar diagnostic As directed check the blood sugar once a day blood sugar diagnostic ([employer] (formerly [employer]) Ultra Test strips) As directed check the blood sugar twice a day bupropion HCl XL 300 mg (2 x 150 mg) PO QAM 90 days calcium carbonate-vitamin D3 600 mg-5 mcg (200 unit) (Calcium 600 + D(3)) 1 cap PO BID flecainide 100 mg PO Q12H 90 days levothyroxine (Synthroid) 75 mcg PO DAILY lisinopril 10 mg PO DAILY 90 days metoprolol succinate ER 50 mg PO BID omeprazole 20 mg PO DAILY oxycodone-acetaminophen 5-325 mg (Percocet) 1 tab PO .QD PRN 30 days ropinirole 0.25 mg PO BEDTIME sertraline 100 mg (2 x 50 mg) PO DAILY 90 days thiamine HCl (vitamin B1) 50 mg PO DAILY 90 days zolpidem 10 mg PO BEDTIME PRN 90 days HPI- Psychiatric Chief Complaint: consultation HPI Narrative: pt continues to feel depressed and worried; she reports no improvemtn. Her PHQ9 is slightly better at 15 down from 20 at admission. Pt denies SI or HI; Pt denies any episodes of alcohol abuse. She has decided she does nto wnat to do TMS or Therapy; she is willing try increasing the zoloft to 150mg daily. Past Psychiatric History: depression started age 22 or 23. No Hx of IPLOC no hxof suicide attempts. She did go to [facility] for services approx 5 yrs ago. Subjective Subjective Subjective Medication Compliance: Yes Side effects from medications: No Review of Systems Medical Review of Systems: unchanged Mental Status Exam Mental Status Exam Patient Appearance: Well Grooomed Patient Orientation: Person, Place, Time and Situation Level of Consciousness: Awake and Appropriate Patient Behavior: Appropriate and Cooperative Mood Description: Depressed and Anxious Affect Description: Depressed and Flat Patient Cognition Impaired: No Ability to Follow Directions: Good Speech Pattern: Clear and Appropriate Memory Description: Intact Hallucinations: None Delusions: Not Present Thought Process: Intact Thought Content: positive for Intact Judgement: Good Assessment and Plan Assessment & Plan (1) Major depressive disorder, recurrent severe without psychotic features: Status: Acute Code(s): F33.2 - Major depressive disorder, recurrent severe without psychotic features Plan increase the zoloft to 150mg daily continue wellbutrin 300mg daily continue ambien 10mg at bedtime Medications: Changed From sertraline 100 mg (2 x 50 mg) PO DAILY 90 days 180 tabs 2RF F41.1 - Generalized anxiety disorder To sertraline 150 mg (3 x 50 mg) PO DAILY 270 tabs 2RF 90 days F41.1 - Generalized anxiety disorder Counseling and coordination of Care Pt. Self Management counseling: Maintenance-social rhythm, Mindfulness, Mod caffeine/ETOH intake, Sleep hygiene, Behavior activation and General coping skills Medication management counseling: Effectiveness, Side effects, Dosing range, Duration, Drug interaction and Adherence Diagnosis and Prognosis Counseling: Accuracy of diagnosis, Prognosis over time, Impact of diagnosis on life functions, Impact of family relationship, Problematic behaviors secondary to diagnosis and Adequacy of current interventions Details: I spent 35 minutes reviewing the record, seeing the patient and documenting in the medical record. Counseling provided to the patient/caregiver as outlined below. Addressed patient/caregiver concerns regarding current medication regime including effective adherence. Addressed patient/caregiver concerns regarding diagnosis and prognosis including accuracy of diagnosis, prognosis over time, impact of diagnosis. Addressed patient/caregiver concerns regarding impact of recent stressors. [facility] Medical History (Updated 01/20/25 @ 12:21 by Lorenzo Oconnor MD) Atrial fibrillation Arthritis Lumbar spinal stenosis Wrist pain, left Radiculitis of left cervical region DJD of left shoulder Fall Cervical spondylosis Wrist pain Gait instability Tendonitis of both rotator cuffs Depression Tubular adenoma of colon Personal history of nicotine dependence Generalized anxiety disorder Paroxysmal atrial flutter Lumbar degenerative disc disease Obstructive sleep apnea Restless leg syndrome Hiatal hernia Hip osteoarthritis Vitamin D deficiency Type 2 diabetes mellitus with hyperglycemia Allergic rhinitis Insomnia PFO (patent foramen ovale) Hypercholesterolemia COPD (chronic obstructive pulmonary disease) Hypertension Obesity (BMI 30-39.9) GERD (gastroesophageal reflux disease) Hypothyroidism Surgical History History of vocal cord polypectomy History of bladder suspension procedure Hx of carpal tunnel repair Hx of section History of tonsillectomy History of bilateral breast reduction surgery History of carpal tunnel surgery History of lumbar surgery History of hysterectomy History of right breast biopsy (~2016) History of hand surgery (~2011) History of esophagogastroduodenoscopy (EGD) (~2004) History of colonoscopy (~2018) History of cardioversion (~2017) History of foot surgery (~2016) Family History Father Diabetes Hypertension CVD (cardiovascular disease) Mother Cervical cancer Stroke Social History Housing: House Are you a primary residential child care counselor to a significant other at home: No Do you presently have visiting nurse or other home services: No Alcohol intake: current Alcohol intake frequency: a few times a week Patient Tobacco Use Status: Current everyday Tobacco user Tobacco use type: Cigarette Years Smoked: 57yrs, onset 12, on and off, 1-1.5ppd, 50pyh, quit 07/31/2021 e-Cigarette/Vaping Use: Never Used Second Hand Smoke Exposure: No service: No 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al status: employed 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
== END 2025-01-30 11:01 | disposition home or self-care (01) ==
LOC: HO.HOP 10:36
PROVIDERS: PCP Internal Medicine; Visit Provider Clinical Nurse Specialist Psychiatric/Mental Health
DX: F33.2 Major depressive disorder, recurrent severe without psychotic features (principal)
CPT/HCPCS: 99214

== ENCOUNTER → 2025-01-30 10:36 | Outpatient (BNVA) | payer MEDICARE, SELFPAY | PROVIDERS: PCP Internal Medicine; Visit Provider Clinical Nurse Specialist Psychiatric/Mental Health | DX: F33.2 Major depressive disorder, recurrent severe without psychotic features (principal); F41.1 Generalized anxiety disorder | CPT/HCPCS: 99212 ==

== ENCOUNTER 2025-02-16 08:29 | Outpatient (AMB) | payer MEDICARE, SELFPAY ==
--- OUTSIDE RECORDS SUMMARY | 2024-09-01 06:40 | XMS_ITS ---
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 Name Role Phone Lorenzo Oconnor MD Primary Care Provider Paige Nicole Unavailable [phone] Allergies Allergen (clinical drug ingredient) Drug/Non Drug Allergy documented on EMR Reaction Allergy Type Onset Date Status Sulfa Unknown Drug Allergy Active REASON FOR VISIT Patient presents today for the recall colonoscopy Medications Medication SIG (Take, Route, Frequency, Duration) Notes Start Date End Date Status Synthroid 100 MCG Oral for 90 Active oxyCODONE-Acetaminophen 5-325 MG TAKE 1 TABLET BY MOUTH DAILY NEEDED FOR PAIN FOR 30 DAYS Oral for 30 Active Vitamin B-1 50 MG TAKE 1 TABLET BY ARMAND TH EVERY DAY Oral for 90 Active Lisinopril 10 MG TAKE 1 TABLET BY ARMAND TH EVERY DAY Oral for 30 Active rOPINIRole HCl 0.25 MG TAKE TAKE 1 TABLE T ORALLY BEDTIME ADMINISTER 1-3 HOURS BEFORE BEDTIME Oral for 90 Active Eliquis 5 MG as directed Orally t wice a day Active Flecainide Acetate 100 MG as directed Or ally twice a day Active Zolpidem Tartrate 10 MG 1 tablet at bedt mojgan as needed Orally Once a day Active Metoprolol Succinate 50 MG 1 capsule Ora lly twice a day Active buPROPion HBr ER 348 MG 1 tablet in the morning Orally Once a day for 30 day(s) Active Atorvastatin Calcium 80 MG 1 tablet Oral ly Once a day Active Omeprazole 20 MG 1 capsule Orally Onc e a day Active Calcium + D + K 750-500-40 MG-UNT-MCG 1 tablet with meals Orally Twice a day for 30 day(s) Active buPROPion HCl ER (XL) 450 MG 1 tablet in the morning Orally Once a day for 30 day(s) Active Xanax 0.25 MG 1 tablet Orally Twic e a day Active Sertraline HCl 20 MG/ML 5 ml mixed with 4 ounces of water, orange juice, lemonade, christiano barrie or lemon/[place] soda Orally Once a day for 30 day(s) Active Social History Tobacco Use: Social History Observation Description Date Details (start date - stop date) Former Smoker NA - NA Tobacco Use/Smoking Question Answer Notes Patient is a former smoker How long has it been since you last smoked? 1-5 years Section Notes: Nonsmoker since approx 2015; occ alcohol Problems Problem Type SNOMED Code ICD Code Onset Dates Problem Status W/U Status Risk Notes Problem Anticoagulant long-term use (Z79.01) Active confirmed Vital Signs Temperature 97.7 degrees Fahrenheit 09/01/19 25 Blood pressure systolic 000 mm Hg 09/01/19 25 Blood pressure diastolic 00 mm Hg 025 Height 60 in 09/01/2024 Weight 157 lb 8 oz lbs 09/01/2024 BMI 30.76 kg/m2 09/01/2024 Encounters Encounter Location Date Provider Diagnosis [facility] [address] [facility] [address] [place] [id number] 09/01/2024 Paige Christina History of adenomato us polyp of colon Z86.010 ; Preprocedural examination Z01.818 ; Encounter for screening for malignant neoplasm of colon Z12.11 and Anticoagulant long-term use Z79.01 Assessments Encounter Date Diagnosis (ICD Code) Assessment Notes Treatment Notes Treatment Clinical Notes Section Notes 09/01/2024 History of adenomatous polyp of colon (ICD-10 - Z86.010) Overall, Kaylee appears quite well. Given her age, good clinical appearance, personal history of tubular adenomas of the colon, and her last colonoscopy being over 5 years ago, I did recommend a followup colonoscopy for further screening purposes. We did review the rationale for that regard to colon cancer prevention. Full consent was obtained for this, including risks of bleeding and perforation. The procedure will be done monitored anesthesia care. She was given the below instructions regarding adjustment of her medication for the procedure. Kaylee was comfortable with this plan. Thank you again for allowing me to participate In Kaylee's care. I shall continue to keep you advised of her progress. 09/01/2024 Preprocedural examination (ICD-10 - Z01.818) Overall, Kaylee appears quite well. Given her age, good clinical appearance, personal history of tubular adenomas of the colon, and her last colonoscopy being over 5 years ago, I did recommend a followup colonoscopy for further screening purposes. We did review the rationale for that regard to colon cancer prevention. Full consent was obtained for this, including risks of bleeding and perforation. The procedure will be done monitored anesthesia care. She was given the below instructions regarding adjustment of her medication for the procedure. Kaylee was comfortable with this plan. Thank you again for allowing me to participate In Kaylee's care. I shall continue to keep you advised of her progress. 09/01/2024 Encounter for screening for malignant neoplasm of colon (ICD-10 - Z12.11) Do not take the Eliquis for three days before the colonoscopy Overall, Kaylee appears quite well. Given her age, good clinical appearance, personal history of tubular adenomas of the colon, and her last colonoscopy being over 5 years ago, I did recommend a followup colonoscopy for further screening purposes. We did review the rationale for that regard to colon cancer prevention. Full consent was obtained for this, including risks of bleeding and perforation. The procedure will be done monitored anesthesia care. She was given the below instructions regarding adjustment of her medication for the procedure. Kaylee was comfortable with this plan. Thank you again for allowing me to participate In Isauros care. I shall continue to keep you advised of her progress. 09/01/2024 Anticoagulant long-term use (ICD-10 - Z79.01) Overall, Kaylee appears quite well. Given her age, good clinical appearance, personal history of tubular adenomas of the colon, and her last colonoscopy being over 5 years ago, I did recommend a followup colonoscopy for further screening purposes. We did review the rationale for that regard to colon cancer prevention. Full consent was obtained for this, including risks of bleeding and perforation. The procedure will be done monitored anesthesia care. She was given the below instructions regarding adjustment of her medication for the procedure. Kaylee was comfortable with this plan. Thank you again for allowing me to participate In Isauros care. I shall continue to keep you advised of her progress. Plan Of Treatment Treatment Notes Assessment Notes Encounter for screening for malignant neoplasm of colon Do not take the Eliquis for three days before the colonoscopy Future Test Test Name Order Date COLONOSCOPY 09/01/2024 Next Appt Details Follow Up: prn, Reason: Progress Notes * KAYLEE SANTOS EDOB: [birth year] (74 yo F)Acc No.[id number]:09/01/2024 Progress Notes Patient: KAYLEE ALMANZA Provider: Vance Vasquez MD :[id number] A ge:74 Y S ex:Female Date:09/01/2024 Address:[address] [place], [place] [id number] Pcp:Lorenzo Oconnor MD Subjective: * Chief Complaints: * P atient presents today for the recall colonoscopy * HPI: i ncontinence: I saw Kaylee in the office today for evaluation of her personal history of tubular adenomas of the colon and need for colorectal cancer screening. I last saw Kaylee in 2020, at which time we had reviewed her issue of occasional fecal incontinence. Her last colonoscopy in 2018 revealed a tubular adenoma that was removed. She has had similar findings on her previous colonoscopies as well. She presently feels well. She reports that her bowel movements have been fairly regular and the incontinence has not been a particular problem for the most part. She has not noticed any hematochezia nor melena. She enjoys a good appetite and denies any significant heartburn or dysphagia. She denies any abdominal pain, jaundice, nor any unintentional weight loss. She denies any known family history of colon cancer. L aboratories in July revealed normal chemistries and renal function, normal LFTs, and a normal CBC. * ROS: G eneral/Constitutional: Change in appetite d enies. C hills d enies. F atigue d enies. O phthalmologic: Patient denies Negative.. E NT: Patient denies N egative.. R espiratory: Patient denies N o coughing/hemoptysis.. C ardiovascular: Patient denies No chest pain/orthopnea.. G astrointestinal: Comments S HPI for details. G enitourinary: Patient denies No dysuria/hematuria.. I ncontinence?denies. M usculoskeletal: Patient complaining of arthritis. S kin: Patient denies N o rash/pruritus.. N eurologic: Patient denies No headaches/seizures.. P sychiatric: Patient complaining of d epression. * Medical History: * Surgical History: C -section hysterectomy and removal of one ovary carpal tunnel surgery bladder suspension thumb surgery vocal cord polyps back surgery breast reduction foot surgeries * Hospitalization/Major Diagno stic Procedure: N o Hospitalization History. * Family History: F ather: , diagnosed with HTN (hypertension), Diabetes, Heart disease. M other: . No family history of colorectal cancer nor polyps. No family history of liver cancer. * Social History: T obacco Use: T obacco Use/Smoking P atient is a f ormer smoker, H ow long has it been since you last smoked? 1 -5 years. D rugs/Alcohol: A lcohol Screen P oints: 3, Interpretation: Positive. M iscellaneous: M arital status: . Occupation: Retired. N onsmoker since approx 2015; occ alcohol. * Medications: T akingXanax 0.25 MG Tablet 1 tablet Orally Twice a daySertraline HCl 20 MG/ML Concentrate 5 ml mixed with 4 ounces of water, orange juice, lemonade, christiano barrie or lemon/[place] soda Orally Once a daybuPROPion HBr ER 348 MG Tablet Extended Release 24 Hour 1 tablet in the morning Orally Once a dayAtorvastatin Calcium 80 MG Tablet 1 tablet Orally Once a dayOmeprazole 20 MG Capsule Delayed Release 1 capsule Orally Once a dayCalcium + D + K 750-500-40 MG-UNT-MCG Tablet 1 tablet with meals Orally Twice a daybuPROPion HCl ER (XL) 450 MG Tablet Extended Release 24 Hour 1 tablet in the morning Orally Once a dayZolpidem Tartrate 10 MG Tablet 1 tablet at bedtime as needed Orally Once a dayMetoprolol Succinate 50 MG Capsule ER 24 Hour Sprinkle 1 capsule Orally twice a dayEliquis 5 MG Tablet as directed Orally twice a dayFlecainide Acetate 100 MG Tablet as directed Orally twice a daySynthroid 100 MCG Tablet Oral oxyCODONE-Acetaminophen 5-325 MG Tablet TAKE 1 TABLET BY MOUTH DAILY NEEDED FOR PAIN FOR 30 DAYS Oral Vitamin B-1 50 MG Tablet TAKE 1 TABLET BY MOUTH EVERY DAY Oral Lisinopril 10 MG Tablet TAKE 1 TABLET BY MOUTH EVERY DAY Oral rOPINIRole HCl 0.25 MG Tablet TAKE TAKE 1 TABLET ORALLY BEDTIME ADMINISTER 1-3 HOURS BEFORE BEDTIME Oral Taking Xanax 0.25 MG Tablet 1 tablet Orally Twice a dayTaking Sertraline HCl 20 MG/ML Concentrate 5 ml mixed with 4 ounces of water, orange juice, lemonade, christiano barrie or lemon/[place] soda Orally Once a dayTaking buPROPion HBr ER 348 MG Tablet Extended Release 24 Hour 1 tablet in the morning Orally Once a dayTaking Atorvastatin Calcium 80 MG Tablet 1 tablet Orally Once a dayTaking Omeprazole 20 MG Capsule Delayed Release 1 capsule Orally Once a dayTaking Calcium + D + K 750-500-40 MG-UNT-MCG Tablet 1 tablet with meals Orally Twice a dayTaking buPROPion HCl ER (XL) 450 MG Tablet Extended Release 24 Hour 1 tablet in the morning Orally Once a dayTaking Zolpidem Tartrate 10 MG Tablet 1 tablet at bedtime as needed Orally Once a dayTaking Metoprolol Succinate 50 MG Capsule ER 24 Hour Sprinkle 1 capsule Orally twice a dayTaking Eliquis 5 MG Tablet as directed Orally twice a dayTaking Flecainide Acetate 100 MG Tablet as directed Orally twice a dayTaking Synthroid 100 MCG Tablet Oral Taking oxyCODONE-Acetaminophen 5-325 MG Tablet TAKE 1 TABLET BY MOUTH DAILY NEEDED FOR PAIN FOR 30 DAYS Oral Taking Vitamin B-1 50 MG Tablet TAKE 1 TABLET BY MOUTH EVERY DAY Oral Taking Lisinopril 10 MG Tablet TAKE 1 TABLET BY MOUTH EVERY DAY Oral Taking rOPINIRole HCl 0.25 MG Tablet TAKE TAKE 1 TABLET ORALLY BEDTIME ADMINISTER 1-3 HOURS BEFORE BEDTIME Oral DiscontinuedIron 325 (65 Fe) MG Tablet 1 tablet Orally once a weekMedication List reviewed and reconciled with the patientDiscontinued Iron 325 (65 Fe) MG Tablet 1 tablet Orally once a weekMedication List reviewed and reconciled with the patient * Allergies: Sebastian de la rosa[Allergies Verified] Objective: * Vitals: W t: 157 lb 8 oz, Ht: 60 in, BMI:30.76 Index, BP: 000/00 mm Hg, Temp: 97.7. * Examination: G eneral Examination: GENERAL APPEARANCE: p leasant, well nourished, well developed, in no acute distress. EYES: s clera non-icteric. ORAL CAVITY: m ucosa moist. NECK/THYROID: n o cervical lymphadenopathy, neck supple.? SKIN: n onjaundiced, no spider angiomata.. HEART: S 1, S2 normal. LUNGS: c lear to auscultation bilaterally. ABDOMEN: n ormal bowel sounds, no guarding or rigidity, no hepatosplenomegaly, no masses palpable, soft, nontender, nondistended.. EXTREMITIES: n o edema. NEUROLOGIC: a lert and oriented. Assessment: * Assessment: 1. P reprocedural examination - Z01.818 (Primary) 2 . H istory of adenomatous polyp of colon - Z86.010 3 . E ncounter for screening for malignant neoplasm of colon - Z12.11 4 . A nticoagulant long-term use - Z79.01 Overall, Kaylee appears qu ite well. Given her age, good clinical appearance, personal history of tubular adenomas of the colon, and her last colonoscopy being over 5 years ago, I did recommend a followup colonoscopy for further screening purposes. We did review the rationale for that regard to colon cancer prevention. Full consent was obtained for this, including risks of bleeding and perforation. The procedure will be done monitored anesthesia care. She was given the below instructions regarding adjustment of her medication for the procedure. Kaylee was comfortable with this plan. Thank you again for allowing me to participate In Kaylee's care. I shall continue to keep you advised of her progress. Plan: * Treatment: 2.?Encounter for screening for malignant neoplasm of colon?Procedure: COLONOSCOPY (Ordered for 09/01/2024)* with MACsched for 12/12/24 at 10:40 ammiralax Notes: Do not take the Eliquis for three days before the colonoscopy?? * Procedure Codes: 1 036F TOBACCO [id number] BP SCR NOT PRFRM REC REASON NOS * Preventive Medicine: Counseling: C are goal follow-up plan: A [place] Normal BMI Follow-up G iving encouragement to exercise, B MT management provided Y es. Urinary Incontinence: U rinary Incontinence A ssessment: P resent, P sánchez of care documented: Y es, T ype of plan of care: L ifestyle interventions. Screenings: F all Risk Screening F all Risk Assessment: O ne fall without injury in the past year, S creening: O ne fall without injury in the past year, A ssessment: N ot performed, no reason specified, P sánchez of Care: N ot documented, no reason specified. * Follow Up: p rn * * Sign off status: Completed true * Provider: Vance Vasquez MD Date: 0 09/01/2024 Generated for FastDuei dani/Bruno/eTransmitting on: 0 02/16/2025 08:41 AM EDT History and Physical Notes * HPI (History of Present Illness) Category Sub-Category Detail Notes Category Not es incontinence I saw Kaylee in the office today for evaluation of her personal history of tubular adenomas of the colon and need for colorectal cancer screening. I last saw Kaylee in 2020, at which time we had reviewed her issue of occasional fecal incontinence. Her last colonoscopy in 2018 revealed a tubular adenoma that was removed. She has had similar findings on her previous colonoscopies as well. She presently feels well. She reports that her bowel movements have been fairly regular and the incontinence has not been a particular problem for the most part. She has not noticed any hematochezia nor melena. She enjoys a good appetite and denies any significant heartburn or dysphagia. She denies any abdominal pain, jaundice, nor any unintentional weight loss. She denies any known family history of colon cancer. Laboratories in July revealed normal chemistries and renal function, normal LFTs, and a normal CBC. Examination Category Sub-Category Detail Notes Category Not es General Examination GENERAL APPEARANCE: pleasant , well nourished, well developed, in no acute distress EYES: sclera non-icteric NECK/THYROID: no cervical lymphade nopathy, neck supple HEART: S1, S2 normal LUNGS: clear to auscultatio n bilaterally ABDOMEN: normal bowel sounds, no guarding or rigidity, no hepatosplenomegaly, no masses palpable, soft, nontender, nondistended. NEUROLOGIC: alert and oriented SKIN: nonjaundiced, no spi trisha angiomata. EXTREMITIES: no edema ORAL CAVITY: mucosa moist
[2025-02-16 08:31] VITALS: BP 104/72; PULSE 56; O2SAT 97; BMI 30.5
--- NOTE | 2025-02-16 08:31 | MHC.PC.OV ---
Vital Signs 02/16/25 08:31 Height 5 ft Weight 156 lb 6 oz BMI 30.5 BP 104/72 Blood Pressure Location Lt brachial Position Sitting Pulse 56 Pulse Source Pulse Oximeter Pulse Oximetry (%) 97 Oxygen Delivery Method Room Air Intake Visit Reasons: 6 month f/u City Marshal Required: No Accompanied by: Self / Same As Patient Allergies Sulfa (Sulfonamide Antibiotics) (SULFA (SULFONAMIDE ANTIBIOTICS)) Allergy (Unknown, Verified 02/16/25 08:31) RASH Tobacco use date assessed: 02/16/25 Fall risk assessment: 2 + Falls in past year Last assessed Fall Risk: 02/16/25 Dental Screening Dental Screen Date: 02/16/25 Did you have a dental visit in the last 12 months?: Yes Did you have a dental problem in the last 6 months where you did not have access to dental care?: No Was dental information given to patient?: Patient has dentist [facility] Medical History (Updated 02/16/25 @ 08:47 by Lorenzo Oconnor MD) Atrial fibrillation Arthritis Lumbar spinal stenosis Wrist pain, left Radiculitis of left cervical region DJD of left shoulder Fall Cervical spondylosis Wrist pain Gait instability Tendonitis of both rotator cuffs Depression Tubular adenoma of colon Personal history of nicotine dependence Generalized anxiety disorder Paroxysmal atrial flutter Lumbar degenerative disc disease Obstructive sleep apnea Restless leg syndrome Hiatal hernia Hip osteoarthritis Vitamin D deficiency Type 2 diabetes mellitus with hyperglycemia Allergic rhinitis Insomnia PFO (patent foramen ovale) Hypercholesterolemia COPD (chronic obstructive pulmonary disease) Hypertension Obesity (BMI 30-39.9) GERD (gastroesophageal reflux disease) Hypothyroidism Surgical History History of vocal cord polypectomy History of bladder suspension procedure Hx of carpal tunnel repair Hx of section History of tonsillectomy History of bilateral breast reduction surgery History of carpal tunnel surgery History of lumbar surgery History of hysterectomy History of right breast biopsy (~2016) History of hand surgery (~2011) History of esophagogastroduodenoscopy (EGD) (~2004) History of colonoscopy (~2018) History of cardioversion (~2017) History of foot surgery (~2016) Family History Father Diabetes Hypertension CVD (cardiovascular disease) Mother Cervical cancer Stroke Social History Housing: House Are you a primary home care provider to a significant other at home: No Do you presently have visiting nurse or other home services: No Alcohol intake: current Alcohol intake frequency: a few times a week Patient Tobacco Use Status: Current everyday Tobacco user Tobacco use type: Cigarette Years Smoked: 57yrs, onset 12, on and off, 1-1.5ppd, 50pyh, quit 07/31/2021 e-Cigarette/Vaping Use: Never Used Second Hand Smoke Exposure: No service: No 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al status: employed 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 1. Little interest or pleasure in doing things: not at all 2. Feeling down, depressed, or hopeless: not at all 3. Trouble falling or staying asleep, or sleeping too much: not at all 4. Feeling tired or having little energy: not at all 5. Poor appetite or overeating: not at all 6. Feeling bad about yourself - or that you are a failure or have let yourself or your family down: not at all 7. Trouble concentrating on things, such as reading the newspaper or watching television: not at all 8. Moving or speaking so slowly that other people could have noticed. Or the opposite - being so fidgety or restless that you have been moving around a lot more than usual: not at all 9. Thoughts that you would be better off or of hurting yourself in some way: not at all Total score: 0 Depression Screening Interpretation: Negative Depression Screening Done: Yes Source: Developed by Drs. Cirilo Griffith, Parisa Carroll, Dakotah Patel and colleagues, with an educational jacklyn from [employer]. Thrive Questionnaire Date Thrive assessed: 02/16/25 I am a: Patient What is your living situation today?: I have a steady place to live Within the past 12 months, did the food you bought not last and you didn't have the money to get more?: Never true Within the past 12 months, did you worry whether your food would run out before you got money to buy more?: Never true Do you have trouble paying for medicines?: No Do you have trouble getting transportation to medical appointments?: No Do you have trouble paying your heating and electricity bill?: No Do you have trouble taking care of your child, family member or friend?: No Do you have trouble with day-to-day activities such as bathing, preparing meals, shopping, managing finances, etc.?: No Are you currently unemployed and looking for a job?: No Are you interested in more education?: No Please select the resources that you would like help with: None Currently or been in a relationship where the following occur: No concerns reported THRIVE Score: 0 AUDIT C Alcohol Use Questionnaire (AUDIT-C) 1. How often do you have a drink containing alcohol?: 2-4 times a month 2. How many drinks containing alcohol do you have on a typical day when you are drinking?: 1 or 2 3. How often do you have six or more drinks on one occasion?: Never Total Score: 2 PHIL-7 AMB Questionnaire PHIL-7 Date PHIL - 7 assessed: 02/16/25 Feeling nervous, anxious, or on edge: 1 = Several days Not being able to stop or control worryin = Several days Worrying too much about different things: 2 = More than half the days Being so restless that it is hard to sit still: 1 = Several days Becoming easily annoyed or irritable: 1 = Several days Feeling afraid as if something awful might happen: 0 = Not at all Source: Developed by Drs. Cirilo Griffith, Parisa Carroll, Dakotah Patel and colleagues, with an educational jacklyn from [employer]. Physical exam (Primary Care) Vital Signs: Last Vital Signs Pulse 56 02/16/25 08:31 BP 104/72 02/16/25 08:31 Pulse Ox 97 02/16/25 08:31 Oxygen Delivery Method Room Air 02/16/25 08:31 BMI result Body Mass Index 30.5 Tobacco/Smoking Status: Tobacco use Status Tobacco use date assessed 02/16/25 02/16/25 08:35 Patient Tobacco Use Status Current everyday Tobacco 02/16/25 08:35 Tobacco use type Cigarette 02/16/25 08:35 e-Cigarette/Vaping Use Never Used 02/16/25 08:35 PHQ-9: PHQ-9 Score PHQ-9: Total score 0 02/16/25 08:52 Depression Screening Interpretation: Negative Thrive Assessment: Date of Thrive Assessment Date Thrive assessed 02/14/25 02/16/25 08:52 Currently or been in a relationship where the following occur: No concerns reported Const General: alert; No acute distress Eyes Conjunctivae: conjunctivae normal Resp Auscultation: clear to auscultation bilaterally Cardio Rate: regular rate Rhythm: regular rhythm GI Inspection: Yes normal to inspection Extrem General: Yes normal to inspection and No edema Coding Level of Care Code Est Pt Level 4 (07108) Complex EM visit Add On G2211 Diagnoses Pseudogout of knee M11.269 Type 2 diabetes mellitus with hyperglycemia, without long-term current use of insulin E11.65 Diabetes mellitus 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 oil terminal insulin use: without retirement use Acquired hypothyroidism E03.9 Hypothyroidism type: acquired Obesity (BMI 30-39.9) E66.9 Gastroesophageal reflux disease without esophagitis K21.9 Esophagitis presence: without esophagitis Obstructive sleep apnea G47.33 Pulmonary emphysema, unspecified emphysema type J43.9 COPD type: emphysema Emphysema type: unspecified Personal history of nicotine dependence Z87.891 Major depressive disorder, recurrent severe without psychotic features F33.2 Paroxysmal atrial flutter I48.92 Essential hypertension I10 Hypertension type: essential hypertension Hypercholesterolemia E78.00 Assessment & Plan Assessment & Plan (1) Pseudogout of knee: Code(s): M11.269 - Other chondrocalcinosis, unspecified knee Category: Medical Plan: Discussed about treatment with anti-inflammatory medications (2) Type 2 diabetes mellitus with hyperglycemia: Comment: (diet managed, DM eye exam 05/29/21) [facility] Code(s): E11.65 - Type 2 diabetes mellitus with hyperglycemia Category: Medical Qualifiers: Diabetes mellitus 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 oil terminal insulin use: without retirement use Qualified Code(s): E11.65 - Type 2 diabetes mellitus with hyperglycemia Plan: Decrease the amount of carbohydrate intake, pasta, bread, rice and potatoes are all sugar and that is aside from all the sweet stuff, remember that fruits are good but they are Sweet also. Hemoglobin A1c goal of less than 7.0 patient is diet controlled (3) Hypothyroidism: Code(s): E03.9 - Hypothyroidism, unspecified Category: Medical Qualifiers: Hypothyroidism type: acquired Qualified Code(s): E03.9 - Hypothyroidism, unspecified Plan: Continue with thyroid medication (4) Obesity (BMI 30-39.9): Code(s): E66.9 - Obesity, unspecified Category: Medical Plan: Diet and exercise (5) GERD (gastroesophageal reflux disease): Code(s): K21.9 - Gastro-esophageal reflux disease without esophagitis Category: Medical Qualifiers: Esophagitis presence: without esophagitis Qualified Code(s): K21.9 - Gastro-esophageal reflux disease without esophagitis Plan: Avoid the foods that causes that usually spicy foods, tomato products, juices, coffee, soda and foods that your sensitive to. After eating do not lie down, allow 3-4 hours before in lie down. And keep the head of bed above 30 degrees to avoid the acid from going up. Patient is advised to stop smoking (6) Obstructive sleep apnea: Comment: Sleep study done 12/28/2024 severe obstructive sleep apnea with an AHI of 41 advised CPAP therapy auto PAP 6-20 cm water Code(s): G47.33 - Obstructive sleep apnea (adult) (pediatric) Category: Medical Plan: Discussed about CPAP treatment (7) COPD (chronic obstructive pulmonary disease): Code(s): J44.9 - Chronic obstructive pulmonary disease, unspecified Category: Medical Qualifiers: COPD type: emphysema Emphysema type: unspecified Qualified Code(s): J43.9 - Emphysema, unspecified Plan: Patient is advised to stop smoking! (8) Personal history of nicotine dependence: Comment: (onset 12, 1-1.5ppd x 59yrs on/off, 50pyh, quit 07/2021), October 2024 lung cancer screening Code(s): Z87.891 - Personal history of nicotine dependence Category: Medical Plan: Patient is strongly advised to stop smoking! (9) Major depressive disorder, recurrent severe without psychotic features: Code(s): F33.2 - Major depressive disorder, recurrent severe without psychotic features Category: Medical Plan: Continue with counseling and therapy placed on sertraline 150 mg once a day and alprazolam as needed (10) Paroxysmal atrial flutter: Comment: (hx synch cardioversion 2017) Code(s): I48.92 - Unspecified atrial flutter Category: Medical Plan: Continue with anticoagulation Eliquis twice a day year of blood work requested (11) Hypertension: Code(s): I10 - Essential (primary) hypertension Category: Medical Qualifiers: Hypertension type: essential hypertension Qualified Code(s): I10 - Essential (primary) hypertension Plan: Continue with blood pressure medication. Decrease salt intake and exercise patient is on lisinopril 10 mg once a day metoprolol 50 mg twice a day (12) Hypercholesterolemia: Code(s): E78.00 - Pure hypercholesterolemia, unspecified Category: Medical Plan: Avoid fried foods, chicken skin, eggs, butter margarine, pastries and meat. Be it pork or beef they have a lot of cholesterol LDL goal of less than 100 and triglyceride of less than 150a Plan History of Present Illness The patient is a 74-year-old female presenting for a follow-up visit. She has a history of generalized anxiety disorder and major depressive disorder, for which she is currently on sertraline 150 mg once daily. She is scheduled for a psychiatry follow-up on March 16 and was last seen on January 30. The patient has a history of gastroesophageal reflux disease (GERD) and is advised to stop smoking to manage her symptoms. She is also on omeprazole as needed for GERD management. She has chronic obstructive pulmonary disease (COPD) and obstructive sleep apnea, with a sleep study confirming the latter. CPAP treatment has been discussed for her sleep apnea. The patient has a history of hypothyroidism and is continuing with her thyroid medication. Her diabetes mellitus is diet-controlled, with a recent hemoglobin A1c of 6.0. The goal is to maintain an A1c of less than 7.0. She has hypercholesterolemia with an LDL of 89, and the goal is to keep it under 100. The patient has hypertension and atrial flutter, managed with lisinopril 10 mg once daily and metoprolol 50 mg twice daily. She has a history of tubular adenoma of the colon, with the last colonoscopy in November 2024 showing colon polyps. The patient has a history of alcohol abuse and is a current smoker, advised strongly to quit smoking. She has been diagnosed with chondrocalcinosis and early degenerative arthritis, with a knee x-ray showing minimal tricompartmental joint space narrowing and diffuse chondrocalcinosis. Her recent blood work showed macrocytosis without anemia, good renal function, and normal thyroid levels. 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 Smoking cessation is strongly recommended to manage GERD and improve overall health, particularly in light of her COPD and obstructive sleep apnea. For her diabetes mellitus, the goal is to maintain a hemoglobin A1c of less than 7.0, with current management being diet-controlled. Her hypercholesterolemia management aims to keep LDL levels below 100, with current levels at 89. Hypertension and atrial flutter are managed with lisinopril and metoprolol, and she is advised to continue these medications. Anticoagulation therapy with Eliquis is to be continued, with biannual blood work requested. For her musculoskeletal issues, including chondrocalcinosis and early degenerative arthritis, treatment with anti-inflammatory medications has been discussed. Preventative care includes maintaining up-to-date screenings such as mammograms and colonoscopies, with the next colonoscopy not required immediately due to recent findings. Patient was informed and verbally consented to the use of an ambient scribe for clinic note documentation during this visit. Discussion Notes I discussed with the patient the importance of continuing her current medication regimen, including sertraline and omeprazole, and emphasized the need for smoking cessation to manage her GERD and improve her COPD and sleep apnea. We reviewed her diabetes management goals, aiming for a hemoglobin A1c of less than 7.0, and discussed her cholesterol management with a target LDL of less than 100. I advised her to continue her antihypertensive and anticoagulation therapies and discussed the use of anti-inflammatory medications for her arthritis. Preventative care measures, including regular screenings, were also reviewed, with her mammogram up to date and no immediate need for another colonoscopy. Patient Instructions - Continue taking sertraline 150 mg daily for anxiety and depression. - Use omeprazole as needed for GERD symptoms. - Strongly consider quitting smoking to improve overall health and manage GERD, COPD, and sleep apnea. - Maintain a diet-controlled approach to manage diabetes, aiming for an A1c of less than 7.0. - Continue lisinopril and metoprolol for blood pressure and heart rate control. - Continue anticoagulation therapy with Eliquis and follow up with biannual blood work. - Use anti-inflammatory medications as discussed for arthritis pain management. - Keep up with regular health screenings, including mammograms and colonoscopies.
== END 2025-02-16 09:05 | disposition home or self-care (01) ==
PROVIDERS: PCP Internal Medicine; Visit Provider Internal Medicine
DX: E11.65 Type 2 diabetes mellitus with hyperglycemia (principal); J43.9 Emphysema, unspecified; F33.2 Major depressive disorder, recurrent severe without psychotic features; I48.92 Unspecified atrial flutter; E66.9 Obesity, unspecified; Z68.30 Body mass index [BMI] 30.0-30.9, adult; M11.269 Other chondrocalcinosis, unspecified knee; E03.9 Hypothyroidism, unspecified; K21.9 Gastro-esophageal reflux disease without esophagitis; G47.33 Obstructive sleep apnea (adult) (pediatric); Z87.891 Personal history of nicotine dependence; I10 Essential (primary) hypertension

== ENCOUNTER → 2025-02-16 08:29 | Outpatient (BNVA) | payer MEDICARE, SELFPAY | PROVIDERS: PCP Internal Medicine; Visit Provider Internal Medicine | DX: E11.65 Type 2 diabetes mellitus with hyperglycemia (principal); M11.269 Other chondrocalcinosis, unspecified knee; E03.9 Hypothyroidism, unspecified; E66.9 Obesity, unspecified; K21.9 Gastro-esophageal reflux disease without esophagitis; G47.33 Obstructive sleep apnea (adult) (pediatric); J43.9 Emphysema, unspecified; F33.2 Major depressive disorder, recurrent severe without psychotic features; I48.92 Unspecified atrial flutter; I10 Essential (primary) hypertension; E78.00 Pure hypercholesterolemia, unspecified; F41.1 Generalized anxiety disorder; J44.9 Chronic obstructive pulmonary disease, unspecified; I48.91 Unspecified atrial fibrillation; F17.210 Nicotine dependence, cigarettes, uncomplicated; Z99.89 Dependence on other enabling machines and devices | CPT/HCPCS: 96127; 99212 ==

== ENCOUNTER 2025-03-16 10:01 | Outpatient (AMB) | payer MEDICARE, SELFPAY ==
--- OUTSIDE RECORDS SUMMARY | 2024-12-12 06:40 | XMS_ITS ---
Author Organization [facility] Address [address] [place] [address] Care Team Providers Care Line Assembler Name Role Phone Po Lorenzo BRANNON Primary Care Provider Paige Nicole Unavailable [phone] REASON FOR VISIT screening,hx polyps Encounters Encounter Location Date Provider Diagnosis [facility] [place] [address] [place] [phone] 12/12/2024 Paige Vasquez Colon cancer scree prateek [...] PARADISE SANTOS EDOB: [birth year] (74 yo F)Acc No.[id number]:12/12/2024 COLON WITH MAC Patient: Chela RUSSELL PARADISE Costa Provider: Vance Vasquez MD :1950 A ge:74 Y S ex:Female Date:12/12/2024 [address] [place] [place] [place] [place] Pcp:Lorenzo Oconnor MD Subjective: * Chief Complaints: [...] Procedure Codes: 4 5385 LESION REMOVAL COLONOSCOPY, 12287 COLONOSCOPY AND BIOPSY, Modifiers: 59 , 0529F [...] 12/12/2024 Generated for Alma louise/Bruno/Derekitting on: 0 03/16/2025 10:26 AM EDT
--- OUTSIDE RECORDS SUMMARY | 2024-12-30 05:15 | XMS_ITS ---
Author Organization [facility] Address [address] [place] [address] Care Team Providers Care Motor Vehicle Lecturer Name Role Phone Lorenzo Oconnor Primary Care Provider UnavailNaveen Haro Unavailable [phone] Ny Encounters Encounter Location Date Provider Diagnosis [address] [address] 12/30/2024 Naveen Hicks Plan Of Treatment Next Appt Details Provider Name:Naveen Hicks , 05/09/2025 09:15:00 AM, [address] [place], [address], Progress Notes * Kaylee SANTOS EDOB: [birth year] (74 yo F)Acc No.[id number]:12/30/2024 Progress Note Patient: Chela Kaylee WELLS Provider: Igor Hicks DPM :1950 A ge:74 Y S ex:Female Date:12/30/2024 Address:[address] [place] [address] [place] Pcp:Lorenzo Oconnor Subjective: * Chief Complaints: * [...] 0 12/30/2024 Generated for Alma louise/Bruno/Milton on: 0 03/16/2025 10:26 AM EDT
--- NOTE | 2025-03-16 10:15 | A.OFFPSYCH_ITS ---
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 Allergies Sulfa (Sulfonamide Antibiotics) (SULFA (SULFONAMIDE ANTIBIOTICS)) Allergy (Unknown, Verified 02/16/25 08:31) RASH Medication List - Last Reconciled 03/16/25 by Maribel Inman APRN alprazolam 0.25 mg PO BID apixaban (Eliquis) 5 mg PO BID atorvastatin 80 mg PO DAILY [AUTOPAP 6-20 cm H2) humidified AIR Sleep study done 12/28/2024 severe obstructive sleep apnea with an AHI of 41 advised CPAP therapy auto PAP 6-20 cm water] blood sugar diagnostic As directed check the blood sugar once a day blood sugar diagnostic (Lumetrics Ultra Test strips) As directed check the blood sugar twice a day bupropion HCl XL 300 mg (2 x 150 mg) PO QAM 90 days calcium carbonate-vitamin D3 600 mg-5 mcg (200 unit) (Calcium 600 + D(3)) 1 cap PO BID flecainide 100 mg PO Q12H 90 days levothyroxine (Synthroid) 75 mcg PO DAILY lisinopril 10 mg PO DAILY 90 days [magnesium PO] metoprolol succinate ER 50 mg PO BID omeprazole 20 mg PO DAILY oxycodone-acetaminophen 5-325 mg (Percocet) 1 tab PO .QD PRN 30 days ropinirole 0.25 mg PO BEDTIME sertraline 150 mg (3 x 50 mg) PO DAILY 90 days thiamine HCl (vitamin B1) 50 mg PO DAILY 90 days zolpidem 10 mg PO BEDTIME PRN 90 days HPI- Psychiatric Chief Complaint: consultation HPI Narrative: pt reports improvement in mood; Her PHQ9 is 11 down from 20 upon admission; her anxiety is also down from 15 to 11 on the GAD7. She reports no side effects. Denies SI or HI. Pt denies any episodes of alcohol abuse. She has decided she does nto want to do TMS or Therapy; we discussed increasing hte zoloft to 200mg but she is reluctant and syas she wants to stay where sheis for now; we agree to meet one more time i 8 weeks to reasees and then she will retrun to PCP. She is sleeping well; appetite intact; socializing more; enjoying activities. Past Psychiatric History: depression started age 22 or 23. No Hx of IPLOC no hxof suicide attempts. She did go to [facility] for services approx 5 yrs ago. Subjective Subjective Subjective Medication Compliance: Yes Side effects from medications: No Review of Systems Medical Review of Systems: unchanged Mental Status Exam Mental Status Exam Patient Appearance: Well Grooomed Patient Orientation: Person, Place, Time and Situation Level of Consciousness: Awake and Appropriate Patient Behavior: Appropriate, Talkative, Cooperative and Good Eye Contact Mood Description: Cheerful Affect Description: Cheerful Patient Cognition Impaired: No Ability to Follow Directions: Good Speech Pattern: Clear and Appropriate Memory Description: Intact Hallucinations: None Delusions: Not Present Thought Process: Intact and Goal Oriented Thought Content: positive for Intact and positive for Goal Oriented Judgement: Good Assessment and Plan Assessment & Plan (1) Major depressive disorder, recurrent severe without psychotic features: Status: Acute Code(s): F33.2 - Major depressive disorder, recurrent severe without psychotic features Plan Continue zoloft to 150mg daily continue wellbutrin 300mg daily continue ambien 10mg at bedtime retrun in 8 weeks and reassess dose of zoloft refer back to PCP at that time id stable Counseling and coordination of Care Pt. Self Management counseling: Maintenance-social rhythm, Mindfulness, Mod caffeine/ETOH intake, Sleep hygiene, Behavior activation and General coping skills Medication management counseling: Effectiveness, Side effects, Dosing range, Duration, Drug interaction and Adherence Diagnosis and Prognosis Counseling: Accuracy of diagnosis, Prognosis over time, Impact of diagnosis on life functions, Impact of family relationship, Problematic behaviors secondary to diagnosis and Adequacy of current interventions Details: I spent 34 minutes reviewing the record, seeing the patient and documenting in the medical record. Counseling provided to the patient/caregiver as outlined below. Addressed patient/caregiver concerns regarding current medication regime including ef fective adherence. Addressed patient/caregiver concerns regarding diagnosis and prognosis including accuracy of diagnosis, prognosis over time, impact of diagnosis. Addressed patient/caregiver concerns regarding impact of recent stressors. [facility] Medical History (Updated 02/16/25 @ 08:47 by Lorenzo Oconnor MD) Atrial fibrillation Arthritis Lumbar spinal stenosis Wrist pain, left Radiculitis of left cervical region DJD of left shoulder Fall Cervical spondylosis Wrist pain Gait instability Tendonitis of both rotator cuffs Depression Tubular adenoma of colon Personal history of nicotine dependence Generalized anxiety disorder Paroxysmal atrial flutter Lumbar degenerative disc disease Obstructive sleep apnea Restless leg syndrome Hiatal hernia Hip osteoarthritis Vitamin D deficiency Type 2 diabetes mellitus with hyperglycemia Allergic rhinitis Insomnia PFO (patent foramen ovale) Hypercholesterolemia COPD (chronic obstructive pulmonary disease) Hypertension Obesity (BMI 30-39.9) GERD (gastroesophageal reflux disease) Hypothyroidism Surgical History History of vocal cord polypectomy History of bladder suspension procedure Hx of carpal tunnel repair Hx of section History of tonsillectomy History of bilateral breast reduction surgery History of carpal tunnel surgery History of lumbar surgery History of hysterectomy History of right breast biopsy (~2016) History of hand surgery (~2011) History of esophagogastroduodenoscopy (EGD) (~2004) History of colonoscopy (~2018) History of cardioversion (~2017) History of foot surgery (~2016) Family History Father Diabetes Hypertension CVD (cardiovascular disease) Mother Cervical cancer Stroke Social History Housing: House Are you a primary patient care associate to a significant other at home: No Do you presently have visiting nurse or other home services: No Alcohol intake: current Alcohol intake frequency: a few times a week Patient Tobacco Use Status: Current everyday Tobacco user Tobacco use type: Cigarette Years Smoked: 57yrs, onset 12, on and off, 1-1.5ppd, 50pyh, quit 07/31/2021 e-Cigarette/Vaping Use: Never Used Second Hand Smoke Exposure: No service: No 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al status: employed 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
== END 2025-03-16 10:51 | disposition home or self-care (01) ==
LOC: HO.HOP 10:01
PROVIDERS: PCP Internal Medicine; Visit Provider Clinical Nurse Specialist Psychiatric/Mental Health
DX: F33.2 Major depressive disorder, recurrent severe without psychotic features (principal)
CPT/HCPCS: 99214

== ENCOUNTER → 2025-03-16 10:01 | Outpatient (BNVA) | payer MEDICARE, SELFPAY | PROVIDERS: PCP Internal Medicine; Visit Provider Clinical Nurse Specialist Psychiatric/Mental Health | DX: F33.2 Major depressive disorder, recurrent severe without psychotic features (principal) | CPT/HCPCS: 99212 ==

== ENCOUNTER 2025-05-11 10:06 | Outpatient (AMB) | payer MEDICARE, SELFPAY ==
--- OUTSIDE RECORDS SUMMARY | 2024-12-12 06:40 | XMS_ITS ---
Author Organization [facility] Address [address] [place] [address] Care Team Providers Care Electronic Gaming Device Supervisor Name Role Phone Po Lorenzo BRANNON Primary Care Provider Paige Nicole Unavailable [phone] REASON FOR VISIT screening,hx polyps Encounters Encounter Location Date Provider Diagnosis [facility] [place] [address] [place] [phone] 12/12/2024 Paige Vasquez Colon cancer scree prateek [...] PARADISE SANTOS EDOB: [birth year] (74 yo F)Acc No.[id number]:12/12/2024 COLON WITH MAC Patient: Chela HawkinsFLY PARADISE Costa Provider: Vance Vasquez MD :1950 A ge:74 Y S ex:Female Date:12/12/2024 [address] [facility] [place] Pcp:Lorenzo Oconnor MD Subjective: * Chief Complaints: [...] Procedure Codes: 4 5385 LESION REMOVAL COLONOSCOPY, 14834 COLONOSCOPY AND BIOPSY, Modifiers: 59 , 0529F [...] 12/12/2024 Generated for Alma louise/Bruno/Derekitting on: 0 05/11/2025 12:16 PM EDT
--- OUTSIDE RECORDS SUMMARY | 2024-12-30 05:15 | XMS_ITS ---
Author Organization [facility] Address [address] [place] [address] Care Team Providers Care Recruiter Specialist Name Role Phone Lorenzo Oconnor Primary Care Provider UnavailNaveen Haro Unavailable [phone] Ny Encounters Encounter Location Date Provider Diagnosis [address] [address] 12/30/2024 Naveen Hicks Plan Of Treatment Next Appt Details Provider Name:Naveen Hicks , 09/05/2025 09:30:00 AM, [address] [place], [address], Progress Notes * Kaylee SANTOS EDOB: [birth year] (74 yo F)Acc No.[id number]:12/30/2024 Progress Note Patient: Chela Kaylee WELLS Provider: Igor Hicks DPM :1950 A ge:74 Y S ex:Female Date:12/30/2024 Address:[address] [place] [address] [place], [place] Pcp:Lorenzo Oconnor Subjective: * Chief Complaints: * [...] 12/30/2024 Generated for Alma louise/Bruno/Milton on: 0 05/11/2025 12:16 PM EDT
--- OUTSIDE RECORDS SUMMARY | 2025-05-09 05:15 | XMS_ITS ---
[facility] Address [address] [facility] [place] [address] Care Team Providers Care Food Porter Name Role Phone Lorenzo Oconnor Primary Care Provider Naveen Diamond Unavailable [phone] Allergies Allergen (clinical drug ingredient) Drug/Non Drug Allergy documented on EMR Reaction Allergy Type Onset Date Status Substance with sulfonamide structure and antibacterial mechanism of action (substance) Sulfa Antibiotics Unknown Drug Allergy Active REASON FOR VISIT At Risk Footcare, Painful Nail(s) aggrevated by shoes and causing difficulty standing/walking., ToeIrritation, Skin problem(s) Medications Medication SIG (Take, Route, Frequency, Duration) Notes Start Date End Date Status Omeprazole 20 MG 1 capsule 30 minutes before morning meal Orally Once a day; Duration: 30 day(s) Active buPROPion HCl ER (XL) 450 MG 1 tablet in the morning Orally Once a day; Duration: 30 day(s) Active Atorvastatin Calcium 80 MG 1 tablet Oral ly Once a day; Duration: 30 day(s) Active Ammonium Lactate 12 % 1 application Exte rnally to affected areas of dry skin to feet except for between the toes Twice a day; Duration: 30 days Active Extra Depth Orthopedic Shoes (1 Pair) with Customized Heat Molded Multidensity Innersoles (3 Pair) as directed Dx: NIDDM (E11.9), Hammertoe Foot Deformity (M20.41,M20.42), Preulcerative Skin Lesion(s) (L85.1) Active Levothyroxine Sodium 75 MCG 1 tablet in the morning on an empty stomach Orally Once a day; Duration: 30 days Active Flecainide Acetate 100 MG as directed Orally Active Eliquis 5 MG as directed Orally Active Metoprolol Succinate 100 MG 1 capsule Orally Once a day; Duration: 30 day(s) Active Zolpidem Tartrate 5 MG 1 tablet at bedti me Orally Once a day Active Lisinopril Active Sertraline HCl Activ e Percocet Active Calcium + D 500-1000-40 MG-UNT-MCG as directed Orally Active Xanax 0.25 MG 1 tablet Orally Twic e a day Active Vitamin B Complex Ac tive Sleep CPP Active Magnesium 200 MG 1 tablets with a love l Orally Every other night Active rOPINIRole HCl 0.25 MG 1 tablet [...] many cigarettes a day do you smoke? 5 or les s How soon after you wake up d o you smoke your first cigarette? Within 5 minutes Are you interested in quitting? Ready to quit Additional Findings: Tobacco user Light cigarett e smoker (1-9 cigs/day) AUDIT-C (Standard) Question Answer Notes Did you have a drink containing alcohol in the p ast year? No Points 0 Interpretation Negative Vital Signs Height 5ft in 05/09/2025 Weight 150 lbs 05/09/2025 BMI 29.29 kg/m2 05/09/2025 Blood pressure systolic 120 mm Hg 05/09/20 25 Blood pressure diastolic 70 mm Hg 025 Procedures Procedure Date Ordered Date Performed Result Body Sit e 13805-RRYZOPU NAIL, 6 OR MORE 05/09/2025 N/A Encounters Encounter Location Date Provider Diagnosis [facility] [place] [address] [place] [address] 05/09/2025 Naveen Hicks Pain of toe of right foot M79.674 ; Onychomycosis B35.1 ; Pain of toe of left foot M79.675 ; Type 2 diabetes mellitus without complication E11.9 ; Other hammer toe(s) (acquired), right foot M20.41 ; Other hammer toe(s) (acquired), left foot M20.42 and Xerosis of skin L85.3 Assessments Encounter Date Diagnosis (ICD Code) Assessment Notes Treatment Notes Treatment Clinical Notes Section Notes 05/09/2025 Pain of toe of right foot (ICD-10 - M79.674) 05/09/2025 Onychomycosis (ICD-10 - B35.1) 05/09/2025 Pain of toe of left foot (ICD-10 - M79.675) 05/09/2025 Type 2 diabetes mellitus without complication (ICD-10 - E11.9) 05/09/2025 Other hammer toe(s) (acquired), right foot (ICD-10 - M20.41) Patient Educated with: DIABETIC FOOT CARE INSTRUCTIONS.p df (DIABETIC FOOT CARE INSTRUCTIONS.p df) 05/09/2025 Other hammer toe(s) (acquired), left foot (ICD-10 - M20.42) 05/09/2025 Xerosis of skin (ICD-10 - L85.3) Plan [...] INSTRUCTIONS.pdf) Pending Test Test Name Order Date [id number] NAIL, 6 OR MORE 05/09/2025 Next Appt Details Follow Up: prn, Reason: Provider Name:Naveen Hicks , 09/05/2025 09:30:00 AM, [address] [place] [address], [place], [id number], Procedure Notes * Category Sub-Category Detail Notes [...] T3, T4, T5, T6, T7, T8, T9 ), was performed exclusively by the physician of record to reduce/remove overall nail length, girth, thickness, subungual debris, and necrotic tissue, by manual and/or electrical means through the use of a nail nipper and/or dremel-type head bone grinder, to a more viable healthy nail [...] to maintain effectiveness in symptomatic relief - 85993 Progress Notes * Kaylee SANTOS EDOB: [birth year] (74 yo F)Acc No.[id number]:05/09/2025 Progress Note Patient: Chela VICTORIAPenelopeBrittanyKaylee E Provider: Igor Hicks DPM :1950 A ge:74 Y S ex:Female Date:05/09/2025 Address:[address] [place], [place] [id number] Pcp:Lorenzo Oconnor Subjective: * Chief Complaints: * A t Risk FootcarePainful Nail(s) aggrevated by shoes and causing difficulty standing/walking.Toe IrritationSkin problem(s) * HPI: A t Risk footcare: Pt States Last PCP Visit: D ate 0 02/21/2025 S kin problems: Treatments: M edication ( AM Lactin ), states adherence to recommended treatment application. T oe pain: Location: B /L feet. Duration: s everal years. Course: w orse. Aggravated by: s hoes, any pressure. Treatments: c hange in shoes. * ROS: G eneral/Constitutional: Nausea d enies. V omiting d enies. H lucero Thirst d enies. L oss appetite d enies. C hills d enies. F atigue d enies.?Fever d enies. N ight Sweats a dmits. U nexplained weight loss d enies. U nexplained weight gain d enies. H EENTM: Dentures d enies. D izziness d enies. G lasses/contacts d enies. R etinopathy d enies. B lurred/double vision d enies. T MJ?denies. D ischarge/drainage d enies. I mplants d enies. S ore throat d enies. D ental implants d enies. H roxana of hearing d enies. D ifficulty chewing/swallowing/speaking d enies. N ose bleeds d enies. S ore mouth d enies. ? R espiratory: On Oxygen d enies. P neumonia/pleurisy d enies.?Bronchitis d enies. E mphysema d enies. C oughing d enies. C ough blood?denies. S hortness of breath d enies. W heezing d enies. C ardiovascular: Pacemaker d enies. M GL[employer] W[employer]ER [employer] CARRIER d enies. W PW d enies. C HF d enies. H eart attack d enies. S eptal defect d enies. R apid beat d enies. C hest pain d enies. A trial Fib. a dmits. M urmur/Palpitations d enies. G astrointestinal: Hemorrhoids d enies. S tomach/Abdominal pain d enies. D ark blood stool d enies. I rritable bowel d enies. C onstipation d enies. D iarrhea d enies. H ematology: Swelling d enies. C lots d enies. V aricose Veins d enies. B ruising a dmits, on anticoagulants. B leeding problem a dmits, on anticoagulants. G enitourinary: Blood urine d enies. F requent/Painfu/urination/bladder control d enies. K idney stones d enies. I nfection (UTI) d enies. N ephropathy d enies. s ex trans dis (STD) d enies. P rostate d enies. M usculoskeletal: Hammertoes a dmits. B unions d enies. B ack Pain d enies. M uscle Cramps/ Resting a dmits. M uscle cramps / walking a dmits.?Generalized aches and pains d enies. W eakness d enies. I nteg.: Melendrez d enies. S cars d enies. C orns/calluses?admits. I ngrown nails a dmits. P ainful nails a dmits. O pen Sores d enies. R ashes d enies. N eurologic: Difficulty sleeping a dmits. B rain disorder d enies. N umbness a dmits. B alance trouble d enies. C onfusion d enies. F ainting/blackouts d enies. T ingling a dmits. T remors d enies. * Medical History: * Surgical History: b unionectomy hammer toe Lower back surgery carpal tunnel surgery x2 hysterectomy breast reduction wrist surgery * Hospitalization/Major Diagno stic Procedure: D enies Past Hospitalization * Family History: M other: , stroke, cancer, foot problems, diagnosed with Family history of arthritis.?Father: , kidney disease, heart attack, poor circulation, diagnosed with Family history of arthritis, Diabetic - NIDDM. S iblings: foot problems, high blood pressure, poor circulation, diagnosed with Diabetic - NIDDM, Family history of arthritis. S pouse: alive. P aternal Grand Father: diagnosed with Diabetic - NIDDM. P aternal uncle: diagnosed with Diabetic - NIDDM.? * Social History: T obacco Use: T obacco use other than smoking A re you an other tobacco user? N o Tobacco Control (Standard) T obacco use: C urrent smoker W hen did you start smoking? 0 01/02/1965 H ow often do you smoke cigarettes? E very day H ow many cigarettes a day do you smoke? 5 or less H ow soon after you wake up do you smoke your first cigarette? W ithin 5 minutes A re you interested in quitting? R jose to quit A dditional Findings: Tobacco user L ight cigarette smoker (1-9 cigs/day) M iscellaneous: C affeine: yes, 5 cups of tea. Children: yes, 3. Exercise: no. Marital status: . Occupation: retired/[employer]. D rug/Alcohol: A SOLEDAD-C (Standard) D id you have a drink containing alcohol in the past year? N o P oints 0 I nterpretation N egative * Medications: Duane Curran , Notes to Pharmacist: CPPMagnesium 200 MG Tablet 1 tablets with a meal Orally Every other night rOPINIRole HCl 0.25 MG Tablet 1 tablet [...] bedtime Orally Once a day Levothyroxine Sodium 75 MCG Capsule 1 tablet in the morning on an [...] Foot Deformity (M20.41,M20.42), Preulcerative Skin Lesion(s) (L85.1) Ammonium Lactate 12 % Cream 1 application Externally to affected areas of dry skin to feet except for between the toes Twice a day Medication List reviewed and reconciled with the patientTaking Sleep , Notes to Pharmacist: CPPTaking Magnesium 200 MG Tablet 1 tablets with a meal Orally Every other night Taking rOPINIRole HCl 0.25 MG Tablet 1 tablet [...] Orally Once a day Taking Levothyroxine Sodium 75 MCG Capsule 1 tablet in the morning on an [...] Foot Deformity (M20.41,M20.42), Preulcerative Skin Lesion(s) (L85.1) Taking Ammonium Lactate 12 % Cream 1 application Externally to affected areas of dry skin to feet except for between the toes Twice a day Medication List reviewed and reconciled with the patient * Allergies: S ebenezer Valdez[Allergies Verified] Objective: * Vitals: H t: 5ft, Wt: 150, BMI: 29.29, Shoe size: 7-7.5, BP: 120/70 mm Hg, BS: not taken, Ht-cm: 152.4 cm, Wt-k.04 kg. * P ast Orders: L ab:HEMOGLOBIN A1C (GLYCOHEMOGLOBIN) (Order Date - 01/29/2025) (Collection Date & Time - 05/09/2025 09:27 AM) Value Reference Range HEMOGLOBIN A1C % (HH) 5.8 * Examination: O phthalmology Referral: DIABETES EYE EXAM P rocedure Performed: Ross York ate of Exam Performed 0 02/09/2024 States appt in January was RS - NOW OCT D iabetic Retinopathy Screening: Y roxane R etinal Screening Performed: Y roxane F indings of Diabetic Eye Exam: n o retinopathy N ails: NAILS are: E longated, overgrown, dystrophic, lytic, greater than 3mm thick, discolored and friable with crumbly malodorous subungual debris, with pain on palpation, TA, T1, T2, T3, T4, T5, T6, T7, T8, T9. D ermatologic: SKIN FINDINGS: S kin shows approximately 90 percent LESS, sign(s) of, dryness, scaling, in a stocking fashion, no fissure(s) present, B/L, S kin exam reveals Keratotic lesion(s) located at, SUB MTH (s), 1, B/L , SUB MTH (s), 2, B/L . ? O rthopedic: MUSCLE STRENGTH: 5 /5 all groups in a symmetrical fashion , B/L. FOOT MORPHOLOGY: P es Planus structure, (-) Charcot collapse/destruction noted at MTJ. DIGITAL DEFORMITIES: D igital contracture, PIPJ, 2-5 B/L (save T6/T7), incompl-reducible to push-up test, no over, nor underlapping , with evidence of shoe producing skin irritation. FOOTWEAR EVALUATION: w orn, OT were inspected and noted to be severely worn , in poor condition not giving proper support at the present time , shoe gear properties exacerbate patients foot/toe deformity. V ascular: DP PULSES (B): 1 /4, B/L. PT PULSES (B): 1 /4, B/L. CAPILLARY FILL TIME: 3 secs. per digit, B/L. TROPHIC CONDITION-TEXTURE/ELASTICITY/TURGOR/HAIR GROWTH (B):?decreased, B/L. TEMPERTURE GRADIENT (C): d ecreased, cool to cool, proximal to distal, B/L. PIGMENTATION: m ottled, B/L. EDEMA (C): a bsent, B/L. N eurological: SENSORY: N eurological exam reveals intact sensorium, pain sensation normal, vibration sensation intact, pinprick sensation is normal in the lower extremities, 5.07 monofilament test performed at plantar aspects of 5 varied sites per foot shows sensation, normal, B/L, Pt relates occasional, paresthesia, tingling, at rest, B/L. G eneral Examination: GENERAL APPEARANCE: R eveals a pleasant, alert, well nourished, well developed, well hydrated individual, who demonstrates proper attention to hygiene/body habitus, and is in no acute distress , Pt serves as own historian for office visit today. ORIENTED: p erson, place, and time. FOOT EXAM: L ower Extremity Neurological Exam performed:?Yes V isual exam of foot performed: Y es D ate 0 05/09/2025 Footwear Evaluation F ootwear Evaluation performed: Y es Assessment: * Assessment: 1. P ain of toe of right foot - M79.674 2 . P ain of toe of left foot - M79.675 3 . O nychomycosis - B35.1 (Primary) 4 . T ype 2 diabetes mellitus without complication - E11.9 5 . O ther hammer toe(s) (acquired), right foot - M20.41 S pecify :Chronic problem, Worse (4), Rx Management (4) 6 . O ther hammer toe(s) (acquired), left foot - M20.42 S pecify :Chronic problem, Worse (4), Rx Management (4) 7 . X erosis of skin - L85.3 S pecify :Acute problem, Stable, Response to treatment - Improvement Plan: * Treatment: 2. O ther hammer toe(s) (acquired), right foot Start Extra Depth Orthopedic Shoes (1 Pair) with Customized Heat Molded Multidensity Innersoles (3 Pair), as directed, Dx: NIDDM (E11.9), Hammertoe Foot Deformity (M20.41,M20.42), Preulcerative Skin Lesion(s) (L85.1), 1, Refills 0. Notes: Patient Educated with: DIABETIC FOOT CARE INSTRUCTIONS.pdf (DIABETIC FOOT CARE INSTRUCTIONS.pdf) * Procedures: D ebride Nail 6-10: Nail debridement D ue to the clinical pathology outlined in the exam findings, performance of this nail treatment is medically necessary as its management by an unskilled/untrained nonprofessional would put this patients foot and overall health at risk. Therefore, debridement to affected nail(s), as described in exam ( TA, T1, T2, T3, T4, T5, T6, T7, T8, T9 ), was performed exclusively by the physician of record to reduce/remove overall nail length, girth, thickness, subungual debris, and necrotic tissue, by manual and/or electrical means through the use of a nail nipper and/or dremel- type head bone grinder, to a more viable healthy nail [...] to maintain effectiveness in symptomatic relief - 48797. * Procedure Codes: 1 1721 DEBRIDE NAIL, 6 OR MORE * Preventive Medicine: Counseling: T obacco use: Patient counseled on the dangers of smoking and urged to quit: 0 05/09/2025 D iscussion: - 14: Office or other outpatient visit for the [...] have encouraged the patient to call the office. D igital Surgery: D igital surgery was discussed with the patient, We elected to try conservative treatment at the present time, due to the patients diabetic medical history and post-operative risks. D igital Treatment: H T- I explained to the patient the possible [...] success were answered to their verbally confirmed satisfaction. Sebastian santos Gear Counseling: Sebastian VENTURA Rx - The patient was counseled in [...] 3 pair of custom heat-molded inserts was dispensed. X erosis: Hernando tello recent successful results to treatment, The patient is to cont the rx cream as directed. Screening/Special Tests: F all Risk Screening: T wo or more falls without injury in the past year Plan of Care: D ocumented Type of fall plan of care: B alance, strength and gait training or instruction provided F ALLS: Screening for Future Fall Risk Have you had two or more falls in the past year? Y es Have you had any falls with injury in the past year? Y es * Follow Up: p rn * Images: * Sign off status: Completed true * Provider: Igor Hicks DPM Date: 0 05/09/2025 Generated for Alma louise/Bruno/Milton on: 0 05/11/2025 12:16 PM EDT History and Physical Notes * HPI (History of Present Illness) Category Sub-Category Detail Notes Category Not es Toe pain Location: B/L feet Duration: several years Course: worse Aggravated by: shoes, any pressure Treatments: change in shoes Skin problems Treatments: Medication ( AM Lactin ), states adherence to recommended treatment application At Risk footcare Pt States Last PCP [...] at rest, B/L Dermatologic SKIN FINDINGS: Skin shows appro ximately 90 percent LESS, sign(s) of, dryness, scaling, in a stocking fashion, no fissure(s) present, B/L, Skin exam reveals Keratotic lesion(s) located at, SUB MTH (s), 1, B/L , SUB MTH (s), 2, B/L Orthopedic FOOT MORPHOLOGY: Pes Planus stru cture, (-) Charcot collapse/destruction noted at MTJ FOOTWEAR EVALUATION: worn, OT were inspe cted and noted to be severely worn , [...] Visual exam of foot performed:: Yes Date: 05/09/2025 ORIENTED: person, place, and t mojgan Footwear Evaluation Footwear Evaluation performe d:: Yes Ophthalmology Referral DIABETES EYE EXAM Procedure Perform ed:: Yes Date of Exam Performed: 02/09/2024 States appt in January was RS - NOW OCT Diabetic Retinopathy Screening:: Yes Retinal Screening Performed:: [...]
--- NOTE | 2025-05-11 10:13 | A.OFFPSYCH_ITS ---
Intake Intake Visit Reasons: f/u consultation Makeup Sales Advisor Required: No Allergies Sulfa (Sulfonamide Antibiotics) (SULFA (SULFONAMIDE ANTIBIOTICS)) Allergy (Unknown, Verified 02/16/25 08:31) RASH Medication List - Last Reconciled 05/11/25 by Maribel Inman APRN alprazolam 0.25 mg PO BID apixaban (Eliquis) 5 mg PO BID atorvastatin 80 mg PO DAILY [AUTOPAP 6-20 cm H2) humidified AIR Sleep study done 12/28/2024 severe obstructive sleep apnea with an AHI of 41 advised CPAP therapy auto PAP 6-20 cm water] blood sugar diagnostic As directed check the blood sugar once a day blood sugar diagnostic (PhoneGuard Ultra Test strips) As directed check the blood sugar twice a day bupropion HCl XL 300 mg (2 x 150 mg) PO QAM 90 days calcium carbonate-vitamin D3 600 mg-5 mcg (200 unit) (Calcium 600 + D(3)) 1 cap PO BID flecainide 100 mg PO Q12H 90 days levothyroxine (Synthroid) 75 mcg PO DAILY lisinopril 10 mg PO DAILY 90 days [magnesium PO] metoprolol succinate ER 50 mg PO BID omeprazole 20 mg PO DAILY oxycodone-acetaminophen 5-325 mg (Percocet) 1 tab PO .QD PRN 30 days ropinirole 0.25 mg PO BEDTIME sertraline 150 mg (3 x 50 mg) PO DAILY 90 days thiamine HCl (vitamin B1) 50 mg PO DAILY 90 days zolpidem 10 mg PO BEDTIME PRN 90 days HPI- Psychiatric Chief Complaint: f/u consultation HPI Narrative: pt reports mood is fair; Pt reports she found out yesterday that her has liver cancer and they have a follow up next week to find out more about stage and treatment. Her PHQ9 is 13 up from last vist which was 11. Her anxiety is also up 11 to 14 on the GAD7. She reports no side effects from zoloft. Denies SI or HI. Pt denies any episodes of alcohol abuse. She has decided she does not want to do TMS or Therapy; She is sleeping well; appetite intact; socializing more; enjoying activities. Past Psychiatric History: depression started age 22 or 23. No Hx of IPLOC no hxof suicide attempts. She did go to [facility] for services approx 5 yrs ago. Subjective Subjective Subjective Medication Compliance: Yes Side effects from medications: No Review of Systems Medical Review of Systems: unchanged Mental Status Exam Mental Status Exam Patient Appearance: Well Grooomed Patient Orientation: Person, Place, Time and Situation Level of Consciousness: Awake and Appropriate Patient Behavior: Appropriate, Talkative, Cooperative and Good Eye Contact Mood Description: Cheerful Affect Description: Cheerful Patient Cognition Impaired: No Ability to Follow Directions: Good Speech Pattern: Clear and Appropriate Memory Description: Intact Hallucinations: None Delusions: Not Present Thought Process: Intact and Goal Oriented Thought Content: positive for Intact and positive for Goal Oriented Judgement: Good Assessment and Plan Assessment & Plan (1) Major depressive disorder, recurrent severe without psychotic features: Status: Acute Code(s): F33.2 - Major depressive disorder, recurrent severe without psychotic features Plan Continue zoloft 200mg daily continue wellbutrin 300mg daily continue ambien 10mg at bedtime continue xanax 0.25 mg BID prn severe anxiety will see in 6 weeks and then refer back to PCP at that time id stable Medications: Changed From sertraline 150 mg (3 x 50 mg) PO DAILY 90 days 270 tabs 2RF F41.1 - Generalized anxiety disorder To sertraline 200 mg (4 x 50 mg) PO DAILY 360 tabs 2RF 90 days F41.1 - Generaliz ed anxiety disorder Refilled zolpidem 10 mg PO BEDTIME PRN 90 tabs 1RF insomnia 90 days Counseling and coordination of Care Pt. Self Management counseling: Maintenance-social rhythm, Mindfulness, Mod caffeine/ETOH intake, Sleep hygiene, Behavior activation and General coping skills Medication management counseling: Effectiveness, Side effects, Dosing range, Duration, Drug interaction and Adherence Diagnosis and Prognosis Counseling: Accuracy of diagnosis, Prognosis over time, Impact of diagnosis on life functions, Impact of family relationship, Problematic behaviors secondary to diagnosis and Adequacy of current interventions Details: I spent 35 minutes reviewing the record, seeing the patient and documenting in the medical record. Counseling provided to the patient/caregiver as outlined below. Addressed patient/caregiver concerns regarding current medication regime including effective adherence. Addressed patient/caregiver concerns regarding diagnosis and prognosis including accuracy of diagnosis, prognosis over time, impact of diagnosis. Addressed patient/caregiver concerns regarding impact of recent stressors. [facility] Medical History (Updated 02/16/25 @ 08:47 by Lorenzo Oconnor MD) Atrial fibrillation Arthritis Lumbar spinal stenosis Wrist pain, left Radiculitis of left cervical region DJD of left shoulder Fall Cervical spondylosis Wrist pain Gait instability Tendonitis of both rotator cuffs Depression Tubular adenoma of colon Personal history of nicotine dependence Generalized anxiety disorder Paroxysmal atrial flutter Lumbar degenerative disc disease Obstructive sleep apnea Restless leg syndrome Hiatal hernia Hip osteoarthritis Vitamin D deficiency Type 2 diabetes mellitus with hyperglycemia Allergic rhinitis Insomnia PFO (patent foramen ovale) Hypercholesterolemia COPD (chronic obstructive pulmonary disease) Hypertension Obesity (BMI 30-39.9) GERD (gastroesophageal reflux disease) Hypothyroidism Surgical History History of vocal cord polypectomy History of bladder suspension procedure Hx of carpal tunnel repair Hx of section History of tonsillectomy History of bilateral breast reduction surgery History of carpal tunnel surgery History of lumbar surgery History of hysterectomy History of right breast biopsy (~2016) History of hand surgery (~2011) History of esophagogastroduodenoscopy (EGD) (~2004) History of colonoscopy (~2018) History of cardioversion (~2017) History of foot surgery (~2016) Family History Father Diabetes Hypertension CVD (cardiovascular disease) Mother Cervical cancer Stroke Social History Housing: House Are you a primary child care education coordinator to a significant other at home: No Do you presently have visiting nurse or other home services: No Alcohol intake: current Alcohol intake frequency: a few times a week Patient Tobacco Use Status: Current everyday Tobacco user Tobacco use type: Cigarette Years Smoked: 57yrs, onset 12, on and off, 1-1.5ppd, 50pyh, quit 07/31/2021 e-Cigarette/Vaping Use: Never Used Second Hand Smoke Exposure: No service: No 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al status: employed 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
--- OUTSIDE RECORDS SUMMARY | 2025-05-11 12:17 | XMS_ITS | Patient Health Record ---
Author Organization [facility] Address [address] [place] [address] Care Team Providers Care Wad Blanking Press Adjuster Name Role Phone Lorenzo Oconnor MD Primary Care Provider Paige Nicole Unavailable [phone] Allergies Allergen (clinical drug ingredient) Drug/Non Drug Allergy documented on EMR Reaction Allergy Type Onset Date Status Sulfa Unknown Drug Allergy Active Results Component Value Reference Range Notes Pathology Reviewed date:01/03/2025 11:07:51 AM Interpretation: Performing Lab:[facility], [address] [place] [id number] Notes/Report: Reason For Referral No Information Medications Medication [...] water, orange juice, lemonade, christiano barrie or lemon/quinault soda Orally Once a day for 30 [...] 2 drinks per evening Nonsmoker since approx 2016; occ alcohol Problems Problem Type SNOMED Code ICD Code Onset Dates Problem Status W/U Status Risk Notes Problem 612966539 Encounter for screening for malignant neoplasm of colon (Z12.11) Active confirmed Problem 866030382 History of adenomatous polyp of colon (Z86.010) Active confirmed Problem 231983473502158 Preprocedural examination (Z01.818) Active confirmed Problem Long-term current use of anticoagulant (256270723) Anticoagulant long-term use (Z79.01) Active confirmed Problem 24205174 Incontinence of feces, unspecified fecal incontinence type (R15.9) Active confirmed Vital Signs Temperature 97.7 degrees Fahrenheit 09/01/2024 Blood pressure diastolic 00 mm Hg 09/01/2024 Height 60 in 09/01/2024 Blood pressure systolic 000 mm Hg 09/01/2024 Weight 157 lb 8 oz lbs 09/01/2024 BMI 30.76 kg/m2 09/01/2024 Encounters Encounter Location Date Provider Diagnosis [facility] [place] [facility] [address] [place] [id number] 12/12/2024 Paige Vasquez Colon cancer screeni ng Z12.11 ; Colon polyps K63.5 ; Diverticulosis of large intestine without perforation or abscess without bleeding K57.30 and Other hemorrhoids K64.8 [facility] [address] [place] [address] 09/01/2024 Paige Vasquez History of adenomato us [...] Insured Coverage Start Date Coverage End Date [facility] [address] [place], [place] [id number] NICOLÁSMARQUITAPARADISE Negrete Self - patient is the insured Medical (General) History Medical History History ICD Code Hyperlipidemia Colon polyps-very small tubular adenomas removed in 2004 and 05/2012 GERD--EGD in 2004-hiatal hernia, no esop hagitis/no Marie's Depression Hypothyroidism Denies RI,DM,CVA,Lung disease,renal dise ase Arthritis and degenerative disc disease of spine Hx of afib--had cardioversion - Dr. Jonatan crum Colonoscopy in 11/2018 with removal of a small tubular adenoma Surgical History Surgery Date(Month/Year) hysterectomy and removal of one ovary carpal tunnel surgery bladder suspension thumb surgery vocal cord polyps back surgery breast reduction foot surgeries
--- OUTSIDE RECORDS SUMMARY | 2025-05-11 12:17 | XMS_ITS | Patient Health Record ---
Author Organization [facility] Address [address] [place] [address] Care Team Providers Care Industrial Economics Teacher Name Role Phone Lorenzo Oconnor Primary Care Provider Naveen Diamond Unavailable [phone] Allergies Allergen (clinical drug ingredient) Drug/Non Drug Allergy documented on EMR Reaction Allergy Type Onset Date Status Substance with sulfonamide structure and antibacterial mechanism of action (substance) Sulfa Antibiotics Unknown Drug Allergy Active Results Component Value Reference Range Notes HEMOGLOBIN A1C (GLYCOHEMOGLO BIN) Reviewed date:01/10/2025 09:40:10 AM Interpretation: Performing Lab: Notes/Report: HEMOGLOBIN A1C % (HH) 5.8 HEMOGLOBIN A1C (GLYCOHEMOGLO BIN) Reviewed date:05/09/2025 09:28:26 AM Interpretation: Performing Lab: Notes/Report: HEMOGLOBIN A1C % (HH) 5.8 Reason For Referral No Information Medications Medication SIG (Take, Route, Frequency, Duration) Notes Start Date End Date Status Levothyroxine Sodium 75 MCG 1 tablet in the morning on an empty stomach Orally Once a day; Duration: 30 days Active Vitamin B Complex Ac tive Omeprazole 20 MG 1 capsule 30 minutes before morning meal Orally Once a day; Duration: 30 day(s) Active Lisinopril Active buPROPion HCl ER (XL) 450 MG 1 tablet in the morning Orally Once a day; Duration: 30 day(s) Active Sertraline HCl Activ e Atorvastatin Calcium 80 MG 1 tablet Oral ly Once a day; Duration: 30 day(s) Active Percocet Active Calcium + D 500-1000-40 MG-UNT-MCG as directed Orally Active Ammonium Lactate 12 % 1 application [...] tablet Orally Twic e a day Active Flecainide Acetate 100 MG as directed Orally Active Eliquis 5 MG as directed Orally Active Sleep CPP Active Metoprolol Succinate 100 MG 1 capsule Orally Once a day; Duration: 30 day(s) Active Magnesium 200 MG 1 tablets with a love l Orally Every other night Active Zolpidem Tartrate 5 MG 1 tablet at bedti me Orally Once a day Active rOPINIRole HCl 0.25 MG 1 tablet 1 to 3 h ours before bedtime Orally Once a day Active Immunizations Vaccine Route Administration Date Status Comme nts Influenza Unknown 05/31/2023 Administered Influenza Unknown 05/31/2024 Administered COVID-19 Pfizer BioNTech Vaccine Unknown 12/28/2020 Administered 1st dose 11/25/19 21 Social History Tobacco Use: Social History Observation [...] ast year? No Points 0 Interpretation Negative Problems Problem Type SNOMED Code ICD Code Onset Dates Problem Status W/U Status Risk Notes Problem Acquired hammer toe of right foot (42457014205554 05) Other hammer toe(s) (acquired), right foot (M20.41) Active confirmed Response to treatment,I mprovement Problem Acquired hammer toe of left foot (14566443694392 03) Other hammer toe(s) (acquired), left foot (M20.42) Active confirmed Response to treatment,I mprovement Problem Type II diabetes mellitus without complication (160767736) Type 2 diabetes mellitus without complication (E11.9) Active confirmed Vital Signs Blood pressure diastolic 70 mm Hg 05/09/2025 Height 5ft in 05/09/2025 Blood pressure systolic 120 mm Hg 05/09/2025 Weight 150 lbs 05/09/2025 BMI 29.29 kg/m2 05/09/2025 Procedures Procedure Date Ordered Date Performed Result Body Sit e 95939-YPXCNOI NAIL, 6 OR MORE 09/02/2024 N/A 06790-NVNYPJV NAIL, OR MORE 01/10/2025 N/A 82330-DSLDIGI NAIL, 6 OR MORE 05/09/2025 N/A Encounters Encounter Location Date Provider Diagnosis [address] [address] 09/02/2024 Naveen Fabiola Pain in right toe(s) M79.674 ; Tinea unguium B35.1 ; Pain in left toe(s) M79.675 ; Type 2 diabetes mellitus without complication E11.9 ; Other hammer toe(s) (acquired), right foot M20.41 and Other hammer toe(s) (acquired), left foot M20.[address] [address] 01/10/2025 Naveen Fabiola Pain in right toe(s) M79.674 ; Tinea unguium B35.1 ; Pain in left toe(s) M79.675 ; Type 2 diabetes mellitus without complication E11.9 and Xerosis of skin L85.[address] [address] 05/09/2025 Naveen Fabiola Pain of toe of right [...] Pain in right toe(s) (ICD-10 - M79.674) 05/09/2025 Pain of toe of right foot (ICD-10 - M79.674) 05/09/2025 Pain of toe of left foot (ICD-10 - M79.675) 05/09/2025 Onychomycosis (ICD-10 - B35.1) 01/10/2025 Tinea unguium (ICD-10 - B35.1) 01/10/2025 Pain in left toe(s) (ICD-10 - M79.675) 09/02/2024 Tinea unguium (ICD-10 - B35.1) 09/02/2024 Pain in left toe(s) (ICD-10 - M79.675) 09/02/2024 Type 2 diabetes mellitus without complication (ICD-10 - E11.9) 05/09/2025 Type 2 diabetes mellitus without complication (ICD-10 - E11.9) 01/10/2025 Type 2 diabetes mellitus without complication (ICD-10 - E11.9) 05/09/2025 Other hammer toe(s) (acquired), right foot (ICD-10 - M20.41) Patient Educated with: DIABETIC FOOT CARE INSTRUCTIONS.p df (DIABETIC FOOT CARE INSTRUCTIONS.p df) 09/02/2024 Other hammer toe(s) (acquired), right foot (ICD-10 - M20.41) Response to treatment,Impro vement 09/02/2024 Other hammer toe(s) (acquired), left foot (ICD-10 - M20.42) Response to treatment,Impro vement 05/09/2025 Other hammer toe(s) (acquired), left foot (ICD-10 - M20.42) 01/10/2025 Xerosis of skin (ICD-10 - L85.3) 05/09/2025 Xerosis of skin (ICD-10 - L85.3) Plan Of Treatment Pending Test Test Name Order Date [id number] NAIL, 6 OR MORE 12/28/2020 [id number] NAIL, 6 OR MORE 04/03/2023 65313-[id number] NAIL, 6 OR MORE 08/21/2023 [id number] NAIL, 6 OR MORE 12/18/2023 [id number] NAIL, 6 OR MORE 05/03/2024 [id number] NAIL, 6 OR MORE 09/02/2024 [id number] NAIL, 6 OR MORE 01/10/2025 [id number] NAIL, 6 OR MORE 05/09/2025 Next Appt Details Provider Name:Naveen Hicks , 09/05/2025 09:30:00 AM, [address] [place], [address], Insurance Providers Payer Name Payer Address Payer Phone Subscriber Number Group Number Insured Name Patient Relationship to Insured Coverage Start Date Coverage End Date [facility] 65 Medicare Preferred [address] [place] [address] [id number] Kaylee Amaral Self - patient is the insured Medical (General) History Medical History History ICD Code Anemia Anxiety Arthritis Back pain Cataracts Depression Diabetic Headaches Numbness Reflux ( GERD) Sciatica Sinus conditions thyroid Measles Chicken pox Surgical History Surgery Date(Month/Year) bunionectomy hammer toe Lower back surgery carpal tunnel surgery x2 hysterectomy breast reduction wrist surgery
== END 2025-05-11 10:40 | disposition home or self-care (01) ==
LOC: HO.HOP 10:06
PROVIDERS: PCP Internal Medicine; Visit Provider Clinical Nurse Specialist Psychiatric/Mental Health
DX: F33.2 Major depressive disorder, recurrent severe without psychotic features (principal)
CPT/HCPCS: 99214

== ENCOUNTER → 2025-05-11 10:06 | Outpatient (BNVA) | payer MEDICARE, SELFPAY | PROVIDERS: PCP Internal Medicine; Visit Provider Clinical Nurse Specialist Psychiatric/Mental Health | DX: F33.2 Major depressive disorder, recurrent severe without psychotic features (principal) | CPT/HCPCS: 99212 ==

== ENCOUNTER → 2025-05-16 11:04 | Outpatient (REF) | payer MEDICARE, SELFPAY ==
--- OUTSIDE RECORDS SUMMARY | 2024-12-12 06:40 | XMS_ITS ---
Author Organization [facility] Address [address] [place] [address] Care Team Providers Care Nnp Name Role Phone Po Lorenzo BRANNON Primary Care Provider Paige Nicole Unavailable [phone] REASON FOR VISIT screening,hx polyps Encounters Encounter Location Date Provider Diagnosis [facility] [address] [place] [phone] 12/12/2024 Paige Vasquez Colon cancer scree prateek [...] PARADISE SANTOS EDOB: [birth year] (74 yo F)Acc No.[id number]:12/12/2024 COLON WITH MAC Patient: Chela RUSSELL PARADISE Costa Provider: Vance Vasquez MD :1950 A ge:74 Y S ex:Female Date:12/12/2024 Address:[address] [facility] [place] [place] Pcp:Lorenzo Oconnor MD Subjective: * Chief Complaints: [...] Procedure Codes: 4 5385 LESION REMOVAL COLONOSCOPY, 94179 COLONOSCOPY AND BIOPSY, Modifiers: 59 , 0529F [...] 12/12/2024 Generated for Alma louise/Bruno/Derekitting on: 0 05/16/2025 03:03 PM EDT
--- OUTSIDE RECORDS SUMMARY | 2024-12-30 05:15 | XMS_ITS ---
Author Organization [facility] Address [address] [place] [address] Care Team Providers Care Industrial Safety And Health Manager Name Role Phone Lorenzo Oconnor Primary Care Provider UnavailNaveen Haro Unavailable [phone] Ny Encounters Encounter Location Date Provider Diagnosis [address] [address] 12/30/2024 Naveen Hicks Plan Of Treatment Next Appt Details Provider Name:Naveen Hicsk , 09/05/2025 09:30:00 AM, [address] [place], [address], Progress Notes * Kaylee SANTOS EDOB: [birth year] (74 yo F)Acc No.[id number]:12/30/2024 Progress Note Patient: Chela Kaylee WELLS Provider: Igor Hicks DPM :1950 A ge:74 Y S ex:Female Date:12/30/2024 Address:[address] [place] [address] [place], [place] Pcp:Lorenzo Oconnor Subjective: * Chief Complaints: * [...] 12/30/2024 Generated for Alma louise/Bruno/Milton on: 0 05/16/2025 03:03 PM EDT
--- NOTE | 2025-05-16 11:07 | CA_ITS ---
Transthoracic Echocardiogram Patient (Last, First, Middle): Kaylee Amaral E Gender: F Date of : 1950 Age: 74 Procedure Date: 05/16/2025 Procedure Type: Transthoracic Echocardiogram Location: OP Height: 149.86 cm Weight: 67.59 kg BSA: 1.63 m2 Heart Rate: 52 bpm BP: 118 / 68 mmHg Transportation Analyst: TO Referring MD: Harish Petersen MD Symptoms: I48.92 - Unspecified atrial flutter Study Quality: Adequate ECG Rhythm: Bradycardia Conclusions: - The left ventricular systolic function is normal. The calculated ejection fraction is 60% by biplane method. - The left atrium is moderately dilated. - No obvious valvular pathology seen on this study. Findings Left Ventricle Normal left ventricular cavity size. There is normal left ventricular wall thickness. The left ventricular systolic function is normal. The calculated ejection fraction is 60% by biplane method. There is no evidence of regional wall motion abnormalities. Diastolic function is normal for age. Right Ventricle Mildly increased right ventricular cavity size. There is normal right ventricular systolic function. Atria The left atrium is moderately dilated. The right atrium is normal in size. Aortic Valve There is a normal trileaflet aortic valve. There is no aortic valve stenosis. There is no aortic valve regurgitation. Mitral Valve The mitral valve appears normal. There is trace mitral valve regurgitation. There is no mitral valve stenosis. Pulmonic Valve The pulmonic valve is likely normal. Tricuspid Valve There is trace tricuspid valve regurgitation. There is no evidence of pulmonary hypertension. Great Vessels The asc aorta is normal in size. Venous The inferior vena cava is normal in size and collapses greater than 50% with inspiration. Pericardium/Pleural There is no evidence of pericardial effusion. Prior Study Comparison No significant change compared to prior study dated: 05/06/2023. Recommendations, Care & Conclusions No obvious valvular pathology seen on this study. Measurements 2D Linear Measurements IVSd: 0.86 0.6-0.9/0.6-1.0 cm LVIDd: 4.76 3.9-5.3/4.2-5.9 cm LVIDd Index: 2.92 2.4-3.2/2.2-3.1 cm/m2 LVIDs: 2.91 2.0-3.6 cm LVPWd: 0.75 0.7-1.1 cm LA Diam: 4.50 2.7-3.8/3.0-4.0 cm LAIDs Index: 2.76 1.5-2.3 cm/m2 LV Mass: 156.02 67-162/88-224 g LV Mass Index: 95.72 43-95/49-115 g/m2 LVOT Diam: 2.00 3.0+(-)1.3 cm 2D Systolic Function EF 4C: 55.20 >55% EF 2C: 61.50 >55% EF BiP: 59.50 >55% Mitral Valve MV Pk E: 0.46 MV PK A: 0.34 MV Decel Time: 194.00 E/A: 1.30 E'Lateral: 8.16 E'Medial: 4.68 E/E' Med: 9.90 E/E' Lat: 5.70 PHT: 57.00 MVA PHT: 3.86 Decel Fajardo: 2.39 Aortic Valve AoV Pk Sundeep: 1.42 AoV Mn Sundeep: 0.92 AoV VTI: 0.31 AoV Pk Grad: 8.00 Aov Mn Grad: 4.00 MARIA Cont.VTI: 2.15 LVOT LVOT Pk Sundeep: 0.98 LVOT Mn Sundeep: 0.58 LVOT VTI: 0.21 LVOT Pk Grad: 4.00 LVOT Mn Grad: 2.00 LVOT Diam: 2.00 LVOT Area: 3.14 Diastolic Function MV Pk E: 0.46 MV Pk A: 0.34 E/A: 1.30 E'Medial: 4.68 E/E' Med: 9.90 E' Laterial: 8.16 E/E' Lat: 5.70 Right Ventricle TAPSE (mm): 18.30 TVS' Sundeep: 10.10 Tricuspid Valve TR Pk Sundeep: 2.28 TR Pk Grad: 21.00 RA Press: 3.00 RVSP: 24.00 Great Vessels Aorta Sinus of Valsalva: 3.00 2.0-3.5 cm Ao Asc: 3.00 2.1-3.4 cm Updated in Other Vendor System with Status of Final Mark Bhatia MD electronically signed on 05/17/2025 3:11:14 PM with status of Final
--- OUTSIDE RECORDS SUMMARY | 2025-05-16 15:04 | XMS_ITS | Patient Health Record ---
Author Organization [facility] Address [address] [place] [address] Care Team Providers Care Printing Assistant Name Role Phone Lorenzo Oconnor MD Primary Care Provider Paige Nicole Unavailable [phone] Allergies Allergen (clinical drug ingredient) Drug/Non Drug Allergy documented on EMR Reaction Allergy Type Onset Date Status Sulfa Unknown Drug Allergy Active Results Component Value Reference Range Notes Pathology Reviewed date:01/03/2025 11:07:51 AM Interpretation: Performing Lab:[facility], [address] [place] [phone] Notes/Report: Reason For Referral No Information Medications [...] water, orange juice, lemonade, christiano barrie or lemon/[place] soda Orally Once a day for 30 [...] Problem Status W/U Status Risk Notes Problem 755751599 Encounter for screening for malignant neoplasm of colon (Z12.11) Active confirmed Problem 873737195 History of adenomatous polyp of colon (Z86.010) Active confirmed Problem 356682669393296 Preprocedural examination (Z01.818) Active confirmed Problem Long-term current use of anticoagulant (765513126) Anticoagulant long-term use (Z79.01) Active confirmed Problem 85946727 Incontinence of feces, unspecified fecal incontinence type (R15.9) Active confirmed Vital Signs Temperature 97.7 degrees Fahrenheit 09/01/2024 Blood pressure diastolic 00 mm Hg 09/01/2024 Height 60 in 09/01/2024 Blood pressure systolic 000 mm Hg 09/01/2024 Weight 157 lb 8 oz lbs 09/01/2024 BMI 30.76 kg/m2 09/01/2024 Encounters Encounter Location Date Provider Diagnosis [facility] [place] [facility] [address] [place] [phone] 12/12/2024 Paige Vasquez Colon cancer screeni ng Z12.11 ; Colon polyps K63.5 ; Diverticulosis of large intestine without perforation or abscess without bleeding K57.30 and Other hemorrhoids K64.8 [facility] [address] [place] [address] 09/01/2024 Paige Vasquez History of adenomato us [...] Insured Coverage Start Date Coverage End Date [facility] [address] [place], [place] [id number] NICOLÁSMARQUITAPARADISE Negrete Self - patient is the [...]
--- OUTSIDE RECORDS SUMMARY | 2025-05-16 15:04 | XMS_ITS | Patient Health Record ---
Author Organization [facility] Address [address] [place] [address] Care Team Providers Care Hat Cone Inspector Name Role Phone Lorenzo Oconnor Primary Care Provider Naveen Diamond Unavailable [phone] Allergies Allergen (clinical drug ingredient) Drug/Non Drug [...] Problem Acquired hammer toe of right foot (66675444312387 05) Other hammer toe(s) (acquired), right foot (M20.41) Active confirmed Response to treatment,I mprovement Problem Acquired hammer toe of left foot (54164079950756 03) Other hammer toe(s) (acquired), left foot (M20.42) Active confirmed Response to treatment,I mprovement Problem Type II diabetes mellitus without complication (465982629) Type 2 diabetes mellitus without complication (E11.9) Active confirmed Vital Signs Blood pressure diastolic 70 mm Hg 05/09/2025 Height 5ft in 05/09/2025 Blood pressure systolic 120 mm Hg 05/09/2025 Weight 150 lbs 05/09/2025 BMI 29.29 kg/m2 05/09/2025 Procedures Procedure Date Ordered Date Performed Result Body Sit e 03888-PNSCVNW NAIL, 6 OR MORE 09/02/2024 N/A 85298-GXMSAKM NAIL, OR MORE 01/10/2025 N/A 10076-JFYZXSK NAIL, 6 OR MORE 05/09/2025 N/A Encounters Encounter Location Date Provider Diagnosis [address] [address] 09/02/2024 Naveen Fabiola Pain in right toe(s) M79.674 ; Tinea unguium B35.1 ; Pain in left toe(s) M79.675 ; Type 2 diabetes mellitus without complication E11.9 ; Other hammer toe(s) (acquired), right foot M20.41 and Other hammer toe(s) (acquired), left foot M20.[address] [address] 01/10/2025 Naveen Fabiola Pain in right toe(s) M79.674 ; Tinea unguium B35.1 ; Pain in left toe(s) M79.675 ; Type 2 diabetes mellitus without complication E11.9 and Xerosis of skin L85.[address] [address] 05/09/2025 Naveen Fabiola Pain of toe of [...] Treatment Pending Test Test Name Order Date 96936-[id number] NAIL, 6 OR MORE 12/28/2020 77545-IKWYZZY NAIL, 6 OR MORE 04/03/2023 40603-[id number] NAIL, 6 OR MORE 08/21/2023 89706-[id number] NAIL, 6 OR MORE 12/18/2023 77050-QKSCIFG NAIL, 6 OR MORE 05/03/2024 59920-QGMIVJG NAIL, 6 OR MORE 09/02/2024 43298-[id number] NAIL, 6 OR MORE 01/10/2025 60362-[id number] NAIL, 6 OR MORE 05/09/2025 Next Appt Details Provider Name:Naveen Hicks , 09/05/2025 09:30:00 AM, [address] [place], [address], Insurance Providers Payer Name Payer Address Payer Phone Subscriber Number Group Number Insured Name Patient Relationship to Insured Coverage Start Date Coverage End Date [facility] 65 Medicare Preferred [address] [place] [address] [id number] 5 Kaylee Amaral Self - patient is the insured Medical (General) History Medical History History ICD Code Anemia Anxiety Arthritis Back pain Cataracts Depression Diabetic Headaches Numbness Reflux ( GERD) Sciatica Sinus conditions thyroid Measles Chicken pox Surgical History Surgery Date(Month/Year) bunionectomy hammer toe Lower back surgery carpal tunnel surgery x2 hysterectomy breast reduction wrist surgery
== END ==
LOC: HO.CARD 11:04
PROVIDERS: PCP Internal Medicine; Visit Provider Internal Medicine Cardiovascular Disease
DX: I48.92 Unspecified atrial flutter (principal)
CPT/HCPCS: 93306

== ENCOUNTER → 2025-05-16 11:07 | Outpatient (BNV) | payer MEDICARE, SELFPAY | PROVIDERS: PCP Internal Medicine; Visit Provider Internal Medicine | DX: I51.7 Cardiomegaly (principal) | CPT/HCPCS: 93306 ==

== ENCOUNTER 2025-05-23 13:59 | Outpatient (REF) | payer MEDICARE, SELFPAY ==
--- OUTSIDE RECORDS SUMMARY | 2024-12-12 06:40 | XMS_ITS ---
Author Organization [facility] Address [address] [place] [address] Care Team Providers Care Editor Farm Journal Name Role Phone Po Lorenzo BRANNON Primary Care Provider Paige Nicole Unavailable [phone] REASON FOR VISIT screening,hx polyps Encounters Encounter Location Date Provider Diagnosis [facility] [address] [place] [phone] 12/12/2024 Paige Vasquez Colon cancer scree prateek [...] PARADISE SANTOS EDOB: [birth year] (74 yo F)Acc No.[id number]:12/12/2024 COLON WITH MAC Patient: Chela RUSSELL PARADISE Costa Provider: Vance Vasquez MD :1950 A ge:74 Y S ex:Female Date:12/12/2024 [address] [facility] [place] [place] Pcp:Lorenzo Oconnor MD Subjective: * Chief Complaints: [...] Procedure Codes: 4 5385 LESION REMOVAL COLONOSCOPY, 18285 COLONOSCOPY AND BIOPSY, Modifiers: 59 , 0529F [...] 0 12/12/2024 Generated for Alma louise/Bruno/Derekitting on: 0 05/23/2025 05:14 PM EDT
--- OUTSIDE RECORDS SUMMARY | 2024-12-30 05:15 | XMS_ITS ---
Author Organization [facility] Address [address] [place] [address] Care Team Providers Care Archaeology Professor Name Role Phone Lorenzo Oconnor Primary Care Provider UnavailNaveen Haro Unavailable [phone] Ny Encounters Encounter Location Date Provider Diagnosis [address] [address] 12/30/2024 Naveen Hicks Plan Of Treatment Next Appt Details Provider Name:Naveen Hicks , 09/05/2025 09:30:00 AM, [address] [place], [address], Progress Notes * Kaylee SANTOS EDOB: [birth year] (74 yo F)Acc No.[id number]:12/30/2024 Progress Note Patient: Chela Kaylee WELLS Provider: Igor Hicks DPM :1950 A ge:74 Y S ex:Female Date:12/30/2024 Address:[address] [place] [address] [place], [place] Pcp:Lorenzo Oconnor Subjective: * Chief Complaints: * [...] 12/30/2024 Generated for Alma louise/Bruno/Milton on: 0 05/23/2025 05:14 PM EDT
[2025-05-23 17:08] LABS: Anion Gap 10 (12-20); Blood Urea Nitrogen 16 mg/dL (9-16); Calcium 8.9 mg/dL (8.4-10.2); Carbon Dioxide 30 mmol/L (22-29); Chloride 104 mmol/L (96-108); Estimated Glomerular Filt Rate > 60; Potassium 4.6 mmol/L (3.3-5.1); Sodium 139 mmol/L (135-145)
--- OUTSIDE RECORDS SUMMARY | 2025-05-23 17:15 | XMS_ITS | Patient Health Record ---
Author Organization [facility] Address [address] [place] [address] Care Team Providers Care Inspector And Adjuster Golf [employer] Head Name Role Phone Lorenzo Oconnor Primary Care Provider Naveen Diamond Unavailable [phone] Allergies Allergen (clinical drug ingredient) Drug/Non Drug [...] Problem Acquired hammer toe of right foot (59219841682632 05) Other hammer toe(s) (acquired), right foot (M20.41) Active confirmed Response to treatment,I mprovement Problem Acquired hammer toe of left foot (16142339927097 03) Other hammer toe(s) (acquired), left foot (M20.42) Active confirmed Response to treatment,I mprovement Problem Type II diabetes mellitus without complication (846986296) Type 2 diabetes mellitus without complication (E11.9) Active confirmed Vital Signs Blood pressure diastolic 70 mm Hg 05/09/2025 Height 5ft in 05/09/2025 Blood pressure systolic 120 mm Hg 05/09/2025 Weight 150 lbs 05/09/2025 BMI 29.29 kg/m2 05/09/2025 Procedures Procedure Date Ordered Date Performed Result Body Sit e 59314-REJKBEX NAIL, 6 OR MORE 09/02/2024 N/A 55868-YEFFMDY NAIL, OR MORE 01/10/2025 N/A 60537-HIYPWVP NAIL, 6 OR MORE 05/09/2025 N/A Encounters Encounter Location Date Provider Diagnosis [address] [address] 09/02/2024 Naveen Fabiola Pain in right toe(s) M79.674 ; Tinea unguium B35.1 ; Pain in left toe(s) M79.675 ; Type 2 diabetes mellitus without complication E11.9 ; Other hammer toe(s) (acquired), right foot M20.41 and Other hammer toe(s) (acquired), left foot M20.[address] [address] 01/10/2025 Naveen Fabiola Pain in right toe(s) M79.674 ; Tinea unguium B35.1 ; Pain in left toe(s) M79.675 ; Type 2 diabetes mellitus without complication E11.9 and Xerosis of skin L85.[address] [address] 05/09/2025 Naveen Fabiola Pain of toe of [...] Treatment Pending Test Test Name Order Date 38475-[id number] NAIL, 6 OR MORE 12/28/2020 50031-[id number] NAIL, 6 OR MORE 04/03/2023 33602-OWTFNGP NAIL, 6 OR MORE 08/21/2023 04396-WOEDJYN NAIL, 6 OR MORE 12/18/2023 08612-[id number] NAIL, 6 OR MORE 05/03/2024 37132-XICHSMY NAIL, 6 OR MORE 09/02/2024 38784-IRKUTHY NAIL, 6 OR MORE 01/10/2025 13619-[id number] NAIL, 6 OR MORE 05/09/2025 Next Appt Details Provider Name:Naveen Hicks , 09/05/2025 09:30:00 AM, [address] [place], [address], Insurance Providers Payer Name Payer Address Payer Phone Subscriber Number Group Number Insured Name Patient Relationship to Insured Coverage Start Date Coverage End Date [facility] 65 Medicare Preferred [address] [place] [address] [id number] 5 Kaylee Amaral Self - patient is the insured Medical (General) History Medical History History ICD Code Anemia Anxiety Arthritis Back pain Cataracts Depression Diabetic Headaches Numbness Reflux ( GERD) Sciatica Sinus conditions thyroid Measles Chicken pox Surgical History Surgery Date(Month/Year) bunionectomy hammer toe Lower back surgery carpal tunnel surgery x2 hysterectomy breast reduction wrist surgery
--- OUTSIDE RECORDS SUMMARY | 2025-05-23 17:15 | XMS_ITS | Patient Health Record ---
Author Organization [facility] Address [address] [place] [address] Care Team Providers Care Metal Bumper Name Role Phone Lorenzo Oconnor MD Primary Care Provider Paige Nicole Unavailable [phone] Allergies Allergen (clinical drug ingredient) Drug/Non Drug Allergy documented on EMR Reaction Allergy Type Onset Date Status Sulfa Unknown Drug Allergy Active Results Component Value Reference Range Notes Pathology Reviewed date:01/03/2025 11:07:51 AM Interpretation: Performing Lab:[facility], [address] [place] [id number] Notes/Report: Reason For Referral No Information Medications [...] water, orange juice, lemonade, christiano barrie or lemon/manzanita soda Orally Once a day for 30 [...] Problem Status W/U Status Risk Notes Problem 227808530 Encounter for screening for malignant neoplasm of colon (Z12.11) Active confirmed Problem 047616760 History of adenomatous polyp of colon (Z86.010) Active confirmed Problem 948407144054364 Preprocedural examination (Z01.818) Active confirmed Problem Long-term current use of anticoagulant (502331431) Anticoagulant long-term use (Z79.01) Active confirmed Problem 00493521 Incontinence of feces, unspecified fecal incontinence type (R15.9) Active confirmed Vital Signs Temperature 97.7 degrees Fahrenheit 09/01/2024 Blood pressure diastolic 00 mm Hg 09/01/2024 Height 60 in 09/01/2024 Blood pressure systolic 000 mm Hg 09/01/2024 Weight 157 lb 8 oz lbs 09/01/2024 BMI 30.76 kg/m2 09/01/2024 Encounters Encounter Location Date Provider Diagnosis [facility] Outpatient [address] [place] [phone] 12/12/2024 Paige Vasquez Colon cancer screeni ng Z12.11 ; Colon polyps K63.5 ; Diverticulosis of large intestine without perforation or abscess without bleeding K57.30 and Other hemorrhoids K64.8 [facility] [address] [place] [address] 09/01/2024 Paige Vasquez History of adenomato us [...] Coverage End Date [facility] [address] [place], [place] [id number] NICOLÁSMARQUITAPARADISE Negrete Self - patient is the insured Medical (General) History Medical History History ICD Code Hyperlipidemia Colon polyps-very small tubular adenomas removed in 2004 and 05/2012 GERD--EGD in 2004-hiatal hernia, no esop hagitis/no Marie's Depression Hypothyroidism Denies [place],DM,CVA,Lung disease,renal dise ase Arthritis and degenerative disc disease of spine Hx of afib--had cardioversion - Dr. Jonatan crum Colonoscopy in 11/2018 with removal of a small tubular adenoma Surgical History Surgery Date(Month/Year) hysterectomy and removal of one ovary carpal tunnel surgery bladder suspension thumb surgery vocal cord polyps back surgery breast reduction foot surgeries
[2025-05-23 17:17] LABS: Free T4 (Free Thyroxine) 0.92 ng/dL (0.71-1.85); Thyroid Stimulating Hormone 1.36 uIU/mL (0.32-4.0)
== END 2025-05-23 14:00 | disposition home or self-care (01) ==
LOC: HO.HMGCLDS 13:59
PROVIDERS: PCP Internal Medicine; Visit Provider Internal Medicine Cardiovascular Disease
DX: I48.92 Unspecified atrial flutter (principal); E03.9 Hypothyroidism, unspecified
CPT/HCPCS: 36415; 80048; 84439; 84443

== ENCOUNTER 2025-05-24 08:35 | Outpatient (AMB) | payer MEDICARE, SELFPAY ==
--- OUTSIDE RECORDS SUMMARY | 2024-12-12 06:40 | XMS_ITS ---
Author Organization [facility] Address [address] [place] [address] Care Team Providers Care Draughtsman Name Role Phone Po Lorenzo BRANNON Primary Care Provider Paige Nicole Unavailable [phone] REASON FOR VISIT screening,hx polyps Encounters Encounter Location Date Provider Diagnosis [facility] Out[facility] [address] [place] [address] [phone] 12/12/2024 aPige Vasquez Colon cancer scree prateek Z12.11 ; [...] PARADISE SANTOS EDOB: [birth year] (74 yo F)Acc No.[id number]:12/12/2024 COLON WITH MAC Patient: Chela RUSSELL PARADISE Costa Provider: Vance Vasquez MD :1950 A ge:74 Y S ex:Female Date:12/12/2024 [place] [place] Pcp:Lorenzo Oconnor MD Subjective: * Chief Complaints: [...] Procedure Codes: 4 5385 LESION REMOVAL COLONOSCOPY, 72067 COLONOSCOPY AND BIOPSY, Modifiers: 59 , 0529F [...] 12/12/2024 Generated for Alma louise/Bruno/Derekitting on: 0 05/24/2025 09:38 AM EDT
--- OUTSIDE RECORDS SUMMARY | 2024-12-30 05:15 | XMS_ITS ---
Author Organization [facility] Address [address] [place] [address] Care Team Providers Care Architectural Design Professor Name Role Phone Lorenzo Oconnor Primary Care Provider UnavailNaveen Haro Unavailable [phone] Ny Encounters Encounter Location Date Provider Diagnosis [address] [address] 12/30/2024 Naveen Hicks Plan Of Treatment Next Appt Details Provider Name:Naveen Hicks , 09/05/2025 09:30:00 AM, [address] [place], [address], Progress Notes * Kaylee SANTOS EDOB: [birth year] (74 yo F)Acc No.[id number]:12/30/2024 Progress Note Patient: Chela Kaylee WELLS Provider: Igor Hicks DPM :1950 A ge:74 Y S ex:Female Date:12/30/2024 Address:[address] [place] [address] [place], [place] Pcp:Lorenzo Oconnor Subjective: * Chief Complaints: * [...] 12/30/2024 Generated for Alma louise/Bruno/Milton on: 0 05/24/2025 09:38 AM EDT
--- NOTE | 2025-05-24 08:37 | A.OFFVIS_ITS ---
Vital Signs 05/24/25 08:38 Height 5 ft Weight 151 lb 3.794 oz BMI 29.5 BP 130/60 Blood Pressure Location Lt brachial Position Sitting Pulse 56 Pulse Source Monitor Intake Visit Reasons: 1 yr follow up Intake Note: 1 year Follow up Accompanied by: Self / Same As Patient Allergies Sulfa (Sulfonamide Antibiotics) (SULFA (SULFONAMIDE ANTIBIOTICS)) Allergy (Unknown, Verified 05/24/25 08:41) RASH Medication List - Last Reconciled 05/24/25 by Harish Petersen MD alprazolam 0.25 mg PO BID apixaban (Eliquis) 5 mg PO BID atorvastatin 80 mg PO DAILY [AUTOPAP 6-20 cm H2) humidified AIR Sleep study done 12/28/2024 severe obstructive sleep apnea with an AHI of 41 advised CPAP therapy auto PAP 6-20 cm water] blood sugar diagnostic As directed check the blood sugar once a day blood sugar diagnostic (Outbox Ultra Test strips) As directed check the blood sugar twice a day bupropion HCl XL 300 mg (2 x 150 mg) PO QAM 90 days calcium carbonate-vitamin D3 600 mg-5 mcg (200 unit) (Calcium 600 + D(3)) 1 cap PO BID flecainide 100 mg PO Q12H 90 days levothyroxine (Synthroid) 75 mcg PO DAILY lisinopril 10 mg PO DAILY 90 days [magnesium PO] metoprolol succinate ER 50 mg PO BID omeprazole 20 mg PO DAILY oxycodone-acetaminophen 5-325 mg (Percocet) 1 tab PO .QD PRN 30 days ropinirole 0.25 mg PO BEDTIME sertraline 200 mg (4 x 50 mg) PO DAILY 90 days thiamine HCl (vitamin B1) 50 mg PO DAILY 90 days zolpidem 10 mg PO BEDTIME PRN 90 days HPI Comments Details: Kaylee comes for follow-up. She has been doing overall well. She denies any major cardiac complaints. No prolonged palpitation irregular heartbeat or fast heart rate. Tolerating her medications well. No lightheadedness, syncope. Does have exertional shortness of breath but this is unchanged. No orthopnea, PND, leg edema. No exertional chest pain. Uses CPAP at nighttime. No bleeding issues or neurologic events. Tolerating her medications well. Most recent echocardiogram showed normal LV ejection fraction with moderate left atrial enlargement. [facility] Medical History (Updated 05/24/25 @ 09:20 by Harish Petersen MD) Atrial fibrillation Arthritis Lumbar spinal stenosis Wrist pain, left Radiculitis of left cervical region DJD of left shoulder Fall Cervical spondylosis Wrist pain Gait instability Tendonitis of both rotator cuffs Depression Tubular adenoma of colon Personal history of nicotine dependence Generalized anxiety disorder Paroxysmal atrial flutter Lumbar degenerative disc disease Obstructive sleep apnea Restless leg syndrome Hiatal hernia Hip osteoarthritis Vitamin D deficiency Type 2 diabetes mellitus with hyperglycemia Allergic rhinitis Insomnia PFO (patent foramen ovale) Hypercholesterolemia COPD (chronic obstructive pulmonary disease) Hypertension GERD (gastroesophageal reflux disease) Hypothyroidism Surgical History History of vocal cord polypectomy History of bladder suspension procedure Hx of carpal tunnel repair Hx of section History of tonsillectomy History of bilateral breast reduction surgery History of carpal tunnel surgery History of lumbar surgery History of hysterectomy History of right breast biopsy (~2016) History of hand surgery (~2011) History of esophagogastroduodenoscopy (EGD) (~2004) History of colonoscopy (~2018) History of cardioversion (~2017) History of foot surgery (~2016) Family History Father Diabetes Hypertension CVD (cardiovascular disease) Mother Cervical cancer Stroke Social History Housing: House Are you a primary customer care agent to a significant other at home: No Do you presently have visiting nurse or other home services: No Alcohol intake: current Alcohol intake frequency: a few times a week Patient Tobacco Use Status: Current everyday Tobacco user Tobacco use type: Cigarette Years Smoked: 57yrs, onset 12, on and off, 1-1.5ppd, 50pyh, quit 07/31/2021 e-Cigarette/Vaping Use: Never Used Second Hand Smoke Exposure: No service: No 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al status: employed 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 Cognitive needs: No Hearing needs: No Vision needs: Yes Review of Systems Const Denies daytime sleepiness, Denies difficulty sleeping, Denies snoring, Denies stops breathing during sleep and Denies weakness Card Denies chest pain, Denies rapid heart rate, Denies irregular heart rhythm, Denies claudication, Denies leg edema, Denies lightheadedness, Denies palpitations, Denies dyspnea, Reports dyspnea on exertion, Denies orthopnea, Denies paroxysmal nocturnal dyspnea and Denies slow heart rate Resp Denies cough, Denies dyspnea, Reports dyspnea on exertion and Denies snoring GI Reports no additional complaints, Denies hematochezia, Denies change in stool character and Denies dyspepsia Musc Denies abnormal gait, Denies muscle weakness and Denies numbness Neuro Denies abnormal gait, Denies numbness and Denies weakness Endo Denies palpitations Physical Exam Vital Signs: Last Vital Signs Pulse 56 05/24/25 08:38 BP 130/60 05/24/25 08:38 BMI result Body Mass Index 29.5 Const General: cooperative, comfortable, no acute distress, alert, awake and well groomed Nutritional Appearance: overweight Orientation/consciousness: patient oriented x3 Limitations: no limitations Neck Neck: Yes trachea midline, Yes supple and Yes no JVD Resp Effort & Inspection: normal respiratory effort Auscultation: clear to auscultation bilaterally Cardio Jugular venous distension: no JVD Palpation: normal PMI Rate: regular rate Rhythm: regular rhythm Heart sounds: S1 normal heart sound present and S2 normal heart sound present GI Auscultation: normal bowel sounds Skin General skin exam: no rashes or lesions noted Neuro General: patient oriented x3 and no focal motor deficits Extrem General: Yes no clubbing, cyanosis or edema Psych Appearance: grossly normal Office Procedures EKG Details: EKG shows sinus bradycardia otherwise normal EKG 51276-Hbknronudkdagwote, Complete Assessment & Plan Assessment & Plan (1) Paroxysmal atrial flutter: Comment: (hx synch cardioversion 2018) Code(s): I48.92 - Unspecified atrial flutter Category: Medical Plan: Paroxysmal atrial flutter in this elderly woman controlled on current therapy with flecainide and metoprolol. She has done very well with rhythm control approach will continue pursue rhythm control approach. Continue flecainide therapy. Will need EKGs every 6 months will schedule her for 1. Continue full oral anticoagulation, currently on Eliquis 5 mg b.i.d.. Semi annual renal function test and annual CBC should be checked. Avoidance of alcohol was discussed. She understands and agrees. (2) Hypertension: Code(s): I10 - Essential (primary) hypertension Category: Medical Qualifiers: Hypertension type: essential hypertension Qualified Code(s): I10 - Essential (primary) hypertension Plan: Hypertension which is currently well optimized on current therapy. Importance of good blood pressure control was discussed. Continue metoprolol as well as lisinopril therapy. Advised to monitor blood pressure intermittently at home. Target goal blood pressure less than 130/84. Encouraged to participate in heart healthy lifestyle and weight loss program. She understands. Continue CPAP therapy. Avoidance of alcohol was discussed. Will follow up in the clinic in 6 months for EKG in 1 year with me. Coding Level of Care Code Est Pt Level 4 (24220) Complex EM visit Add On G2211 Diagnoses Paroxysmal atrial flutter I48.92 Essential hypertension I10 Hypertension type: essential hypertension CPT Codes EKG - CPT: 58267-Qgqgvpxxbjjyyfcfq, Complete ([id number])
[2025-05-24 08:38] VITALS: BP 130/60; PULSE 56; BMI 29.5
--- OUTSIDE RECORDS SUMMARY | 2025-05-24 09:39 | XMS_ITS | Patient Health Record ---
Author Organization [facility] Address [address] [place] [address] Care Team Providers Care Meat Passer Name Role Phone Lorenzo Oconnor MD Primary Care Provider Paige Nicole Unavailable [phone] Allergies Allergen (clinical drug ingredient) Drug/Non Drug Allergy documented on EMR Reaction Allergy Type Onset Date Status Sulfa Unknown Drug Allergy Active Results Component Value Reference Range Notes Pathology Reviewed date:01/03/2025 11:07:51 AM Interpretation: Performing Lab:[facility], [address] [place] [id number] Notes/Report: Reason For Referral No Information Medications [...] water, orange juice, lemonade, christiano barrie or lemon/redding soda Orally Once a day for 30 [...] Problem Status W/U Status Risk Notes Problem 343116492 Encounter for screening for malignant neoplasm of colon (Z12.11) Active confirmed Problem 711591851 History of adenomatous polyp of colon (Z86.010) Active confirmed Problem 634844603428873 Preprocedural examination (Z01.818) Active confirmed Problem Long-term current use of anticoagulant (844053766) Anticoagulant long-term use (Z79.01) Active confirmed Problem 58664580 Incontinence of feces, unspecified fecal incontinence type (R15.9) Active confirmed Vital Signs Temperature 97.7 degrees Fahrenheit 09/01/2024 Blood pressure diastolic 00 mm Hg 09/01/2024 Height 60 in 09/01/2024 Blood pressure systolic 000 mm Hg 09/01/2024 Weight 157 lb 8 oz lbs 09/01/2024 BMI 30.76 kg/m2 09/01/2024 Encounters Encounter Location Date Provider Diagnosis [facility] [place] [facility] Outpatient [address] [place] [id number] 12/12/2024 Paige Vasquez Colon cancer screeni ng Z12.11 ; Colon polyps K63.5 ; Diverticulosis of large intestine without perforation or abscess without bleeding K57.30 and Other hemorrhoids K64.8 [facility] [address] [place] [address] 09/01/2024 Paige Vasquez History of adenomato us [...] Insured Coverage Start Date Coverage End Date [facility] [address] [place], [place] [id number] NICOLÁSMARQUITAPARADISE Negrete Self - patient is the insured Medical (General) History Medical History History ICD Code Hyperlipidemia Colon polyps-very small tubular adenomas removed in 2004 and 05/2012 GERD--EGD in 2004-hiatal hernia, no esop hagitis/no Marie's Depression Hypothyroidism Denies [place],DM,CVA,Lung disease,renal dise ase Arthritis and degenerative disc disease of spine Hx of afib--had cardioversion - Dr. Jonatan crum Colonoscopy in 11/2018 with removal of a small tubular adenoma Surgical History Surgery Date(Month/Year) hysterectomy and removal of one ovary carpal tunnel surgery bladder suspension thumb surgery vocal cord polyps back surgery breast reduction foot surgeries
--- OUTSIDE RECORDS SUMMARY | 2025-05-24 09:39 | XMS_ITS | Patient Health Record ---
Author Organization [facility] Address [address] [place] [address] Care Team Providers Care Revenue Manager Name Role Phone Lorenzo Oconnor Primary Care Provider Naveen Diamond Unavailable [phone] Allergies Allergen (clinical drug ingredient) Drug/Non Drug [...] Problem Acquired hammer toe of right foot (48206029594946 05) Other hammer toe(s) (acquired), right foot (M20.41) Active confirmed Response to treatment,I mprovement Problem Acquired hammer toe of left foot (37103473066580 03) Other hammer toe(s) (acquired), left foot (M20.42) Active confirmed Response to treatment,I mprovement Problem Type II diabetes mellitus without complication (856763668) Type 2 diabetes mellitus without complication (E11.9) Active confirmed Vital Signs Blood pressure diastolic 70 mm Hg 05/09/2025 Height 5ft in 05/09/2025 Blood pressure systolic 120 mm Hg 05/09/2025 Weight 150 lbs 05/09/2025 BMI 29.29 kg/m2 05/09/2025 Procedures Procedure Date Ordered Date Performed Result Body Sit e 00400-TGLJBPH NAIL, 6 OR MORE 09/02/2024 N/A 81472-TQYGPAN NAIL, OR MORE 01/10/2025 N/A 23642-OZRJUBJ NAIL, 6 OR MORE 05/09/2025 N/A Encounters Encounter Location Date Provider Diagnosis [address] [address] 09/02/2024 Naveen Fabiola Pain in right toe(s) M79.674 ; Tinea unguium B35.1 ; Pain in left toe(s) M79.675 ; Type 2 diabetes mellitus without complication E11.9 ; Other hammer toe(s) (acquired), right foot M20.41 and Other hammer toe(s) (acquired), left foot M20.[address] [address] 01/10/2025 Naveen Fabiola Pain in right toe(s) M79.674 ; Tinea unguium B35.1 ; Pain in left toe(s) M79.675 ; Type 2 diabetes mellitus without complication E11.9 and Xerosis of skin L85.[address] [address] 05/09/2025 Naveen Fabiola Pain of toe of [...] Treatment Pending Test Test Name Order Date [id number]-[id number] NAIL, 6 OR MORE 12/28/2020 99867-PFKDVIP NAIL, 6 OR MORE 04/03/2023 70411-WLGYAEM NAIL, 6 OR MORE 08/21/2023 81281-RQCQEND NAIL, 6 OR MORE 12/18/2023 15963-LGKYCRS NAIL, 6 OR MORE 05/03/2024 15221-RIVSQYT NAIL, 6 OR MORE 09/02/2024 09700-CXHTEZU NAIL, 6 OR MORE 01/10/2025 05866-GCELRTR NAIL, 6 OR MORE 05/09/2025 Next Appt Details Provider Name:Naveen Hicks , 09/05/2025 09:30:00 AM, [address] [place], [address], Insurance Providers Payer Name Payer Address Payer Phone Subscriber Number Group Number Insured Name Patient Relationship to Insured Coverage Start Date Coverage End Date [facility] 65 Medicare Preferred [address] [place] [address] [id number] 5 Kaylee Amaral Self - patient is the insured Medical (General) History Medical History History ICD Code Anemia Anxiety Arthritis Back pain Cataracts Depression Diabetic Headaches Numbness Reflux ( GERD) Sciatica Sinus conditions thyroid Measles Chicken pox Surgical History Surgery Date(Month/Year) bunionectomy hammer toe Lower back surgery carpal tunnel surgery x2 hysterectomy breast reduction wrist surgery
== END 2025-05-24 09:30 | disposition home or self-care (01) ==
LOC: HO.HCS 08:35
PROVIDERS: PCP Internal Medicine; Visit Provider Internal Medicine Cardiovascular Disease
DX: I48.92 Unspecified atrial flutter (principal); I10 Essential (primary) hypertension
CPT/HCPCS: 93010; 99214; G2211

== ENCOUNTER → 2025-05-24 08:35 | Outpatient (BNVA) | payer MEDICARE, SELFPAY | PROVIDERS: PCP Internal Medicine; Visit Provider Internal Medicine Cardiovascular Disease | DX: I48.92 Unspecified atrial flutter (principal); I10 Essential (primary) hypertension | CPT/HCPCS: 93005; 99212 ==

== ENCOUNTER 2025-06-08 10:00 | Outpatient (REF) | payer MEDICARE, SELFPAY ==
[2025-06-08 11:23] LABS: MANUAL DIFF FLAG NO
[2025-06-08 12:01] LABS: Hematocrit 37.8 % (37.0-47.0); Hemoglobin 12.3 g/dl (12.0-16.0); Imm Gran Abs Auto 0.03 X10*3/uL (0.00-0.03); Imm Gran Pct Auto 0.4 % (0.0-0.4); Lymphocytes Absolute Auto 1.4 X10*3/uL (1.2-4.9); Mean Corpuscular HGB Conc 32.5 g/dl (31.0-35.0); Mean Corpuscular Hemoglobin 33.0 pg (27.0-33.0); Mean Corpuscular Volume 101.3 fL (80.0-98.0); NRBC Abs Auto 0.000 X10*3/uL (0.0-0.012); NRBC Pct Auto 0.0 /100WBC (0.0-0.2); Platelet Count 242 X10*3/uL (160-400); Red Blood Count 3.73 X10*6/uL (4.20-5.50); Reticulocytes Absolute 0.074 X10*6/uL (0.026-0.095); White Blood Count 7.5 X10*3/uL (4.8-10.8)
[2025-06-08 12:22] LABS: Cholesterol 147 mg/dL (<200); HDL Cholesterol 48 mg/dL (>40); Triglycerides 67 mg/dL (<150)
[2025-06-08 12:38] LABS: Appearance Urine Clear; Glucose Urine UA Negative (Negative); PH 7.5 (5.0-9.0); Specific Gravity - Urine 1.010 (1.005-1.025); UMIC TRIGGER UACC YES
[2025-06-08 12:44] LABS: Ferritin 135 ng/mL (10-250); Free T4 (Free Thyroxine) 0.95 ng/dL (0.71-1.85); Thyroid Stimulating Hormone 3.13 uIU/mL (0.32-4.0)
[2025-06-08 12:50] LABS: Folate 13.8 ng/mL (> or = 4.0); Vitamin B12 > 2000 pg/mL (200-900)
[2025-06-08 12:52] LABS: UACC Culture Trigger YES
== END 2025-06-08 10:01 | disposition home or self-care (01) ==
LOC: HO.LAB 10:00
PROVIDERS: PCP Internal Medicine; Visit Provider Internal Medicine
DX: R26.81 Unsteadiness on feet (principal); E78.00 Pure hypercholesterolemia, unspecified; E11.65 Type 2 diabetes mellitus with hyperglycemia; I10 Essential (primary) hypertension; F33.2 Major depressive disorder, recurrent severe without psychotic features; K21.9 Gastro-esophageal reflux disease without esophagitis; M51.369 Other intervertebral disc degeneration, lumbar region without mention of lumbar back pain or lower extremity pain; J43.9 Emphysema, unspecified; G47.33 Obstructive sleep apnea (adult) (pediatric); N39.46 Mixed incontinence; K59.00 Constipation, unspecified; I48.92 Unspecified atrial flutter; F41.9 Anxiety disorder, unspecified; M54.2 Cervicalgia; R30.0 Dysuria; Z23 Encounter for immunization
CPT/HCPCS: 36415; 80061; 81001; 82607; 82728; 82746; 83036; 84439; 84443; 85025; 85045; 87086; 90471; 90656; 96127; 99212

== ENCOUNTER 2025-06-08 10:00 | Outpatient (AMB) | payer MEDICARE, SELFPAY ==
[2025-06-08 10:18] VITALS: BP 94/58; PULSE 61; TEMP 36.2; O2SAT 95; BMI 29.7
--- NOTE | 2025-06-08 10:18 | A.OFFPC_ITS ---
Vital Signs 06/08/25 10:18 Height 5 ft Weight 152 lb 4 oz BMI 29.7 BP 94/58 L Blood Pressure Location Lt brachial Position Sitting Pulse 61 Pulse Source Pulse Oximeter Temp 97.1 F Temp Source Temporal Artery Scan Pulse Oximetry (%) 95 Oxygen Delivery Method Room Air Intake Visit Reasons: DM Allergies Sulfa (Sulfonamide Antibiotics) (SULFA (SULFONAMIDE ANTIBIOTICS)) Allergy (Unknown, Verified 06/08/25 10:22) RASH Tobacco use date assessed: 06/08/25 Fall risk assessment: 2 + Falls in past year Last assessed Fall Risk: 06/08/25 Dental Screening Dental Screen Date: 06/08/25 Did you have a dental visit in the last 12 months?: Yes Did you have a dental problem in the last 6 months where you did not have access to dental care?: No Was dental information given to patient?: Patient has dentist HPI DM HPI Details states has been falling alot PFSH Medical History Atrial fibrillation Arthritis Lumbar spinal stenosis Wrist pain, left Radiculitis of left cervical region DJD of left shoulder Fall Cervical spondylosis Wrist pain Gait instability Tendonitis of both rotator cuffs Depression Tubular adenoma of colon Personal history of nicotine dependence Generalized anxiety disorder Paroxysmal atrial flutter Lumbar degenerative disc disease Obstructive sleep apnea Restless leg syndrome Hiatal hernia Hip osteoarthritis Vitamin D deficiency Type 2 diabetes mellitus with hyperglycemia Allergic rhinitis Insomnia PFO (patent foramen ovale) Hypercholesterolemia COPD (chronic obstructive pulmonary disease) Hypertension GERD (gastroesophageal reflux disease) Hypothyroidism Surgical History History of vocal cord polypectomy History of bladder suspension procedure Hx of carpal tunnel repair Hx of section History of tonsillectomy History of bilateral breast reduction surgery History of carpal tunnel surgery History of lumbar surgery History of hysterectomy History of right breast biopsy (~2016) History of hand surgery (~2011) History of esophagogastroduodenoscopy (EGD) (~2004) History of colonoscopy (~2018) History of cardioversion (~2018) History of foot surgery (~2017) Family History Father Diabetes Hypertension CVD (cardiovascular disease) Mother Cervical cancer Stroke Social History (Reviewed 06/08/25 @ 10:22 by MARIELLE Hagen Housing: House Are you a primary health care specialist to a significant other at home: No Do you presently have visiting nurse or other home services: No Alcohol intake: current Alcohol intake frequency: a few times a week Patient Tobacco Use Status: Current everyday Tobacco user Tobacco use type: Cigarette Cigarettes Per Day: 4 Years Smoked: 57yrs, onset 12, on and off, 1-1.5ppd, 50pyh, quit 07/31/2021 e-Cigarette/Vaping Use: Never Used Second Hand Smoke Exposure: No service: No 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al status: employed 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 1. Little interest or pleasure in doing things: not at all 2. Feeling down, depressed, or hopeless: not at all 3. Trouble falling or staying asleep, or sleeping too much: not at all 4. Feeling tired or having little energy: not at all 5. Poor appetite or overeating: not at all 6. Feeling bad about yourself - or that you are a failure or have let yourself or your family down: not at all 7. Trouble concentrating on things, such as reading the newspaper or watching television: not at all 8. Moving or speaking so slowly that other people could have noticed. Or the op posite - being so fidgety or restless that you have been moving around a lot more than usual: not at all 9. Thoughts that you would be better off or of hurting yourself in some way: not at all Total score: 0 Depression Screening Interpretation: Negative Depression Screening Done: Yes Source: Developed by Drs. Cirilo Griffith, Parisa Carroll, Dakotah Patel and colleagues, with an educational jacklyn from [employer]. Thrive Questionnaire Date Thrive assessed: 02/14/25 I am a: Patient What is your living situation today?: I have a steady place to live Within the past 12 months, did the food you bought not last and you didn't have the money to get more?: Never true Within the past 12 months, did you worry whether your food would run out before you got money to buy more?: Never true Do you have trouble paying for medicines?: No Do you have trouble getting transportation to medical appointments?: No Do you have trouble paying your heating and electricity bill?: No Do you have trouble taking care of your child, family member or friend?: No Do you have trouble with day-to-day activities such as bathing, preparing meals, shopping, managing finances, etc.?: No Are you currently unemployed and looking for a job?: No Are you interested in more education?: No Please select the resources that you would like help with: None Currently or been in a relationship where the following occur: No concerns reported THRIVE Score: 0 AUDIT C Alcohol Use Questionnaire (AUDIT-C) 1. How often do you have a drink containing alcohol?: Monthly or less 2. How many drinks containing alcohol do you have on a typical day when you are drinking?: 1 or 2 3. How often do you have six or more drinks on one occasion?: Never Total Score: 1 PHIL-7 AMB Questionnaire PHIL-7 Date PHIL - 7 assessed: 02/16/25 Feeling nervous, anxious, or on edge: 1 = Several days Not being able to stop or control worryin = Several days Worrying too much about different things: 2 = More than half the days Being so restless that it is hard to sit still: 1 = Several days Becoming easily annoyed or irritable: 1 = Several days Feeling afraid as if something awful might happen: 0 = Not at all Source: Developed by Drs. Cirilo Griffith, Parisa Carroll, Dakotah Patel and colleagues, with an educational jacklyn from [employer]. Physical exam (Primary Care) Vital Signs: Last Vital Signs Temp 97.1 F 06/08/25 10:18 Pulse 61 06/08/25 10:18 BP 94/58 L 06/08/25 10:18 Pulse Ox 95 06/08/25 10:18 Oxygen Delivery Method Room Air 06/08/25 10:18 BMI result Body Mass Index 29.7 Tobacco/Smoking Status: Tobacco use Status Tobacco use date assessed 06/08/25 06/08/25 10:24 Patient Tobacco Use Status Current everyday Tobacco 06/08/25 10:24 Tobacco use type Cigarette 06/08/25 10:24 e-Cigarette/Vaping Use Never Used 06/08/25 10:24 PHQ-9: PHQ-9 Score PHQ-9: Total score 0 06/08/25 10:42 Depression Screening Interpretation: Negative Thrive Assessment: Date of Thrive Assessment Date Thrive assessed 02/14/25 06/08/25 10:24 Currently or been in a relationship where the following occur: No concerns reported Const General: alert; No acute distress Eyes Conjunctivae: conjunctivae normal Resp Auscultation: clear to auscultation bilaterally Cardio Rate: regular rate Rhythm: regular rhythm GI Inspection: Yes normal to inspection Extrem General: Yes normal to inspection and No edema Office Procedures Flu Questionnaire Does the patient have a severe egg allergy?: No Does the patient have severe life threatening allergies?: No Does the patient have a fever or illness today?: No Has the patient ever had Guillain-Gifford Syndrome?: No Has the patient ever had any past reaction to a flu shot?: No Results AMB Hemoglobin A1c AMB Hemoglobin A1c 5.9 % Last Edit by Amelia Delgado CMA on 06/08/25 10:26 Immunizations Fluarix [id number] (PF) 45 mcg (15 mcg x 3)/0.5 mL IM syringe Performing Provider: Lorenzo Oconnor MD [place] [facility] Administered by: Amelia Delgado CMA on 06/08/25 10:39 Dose Route Admin Location Dispensed Lot Number Expiration Date [facility] 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 Operator 0.5 mL IM Left Deltoid 0.5 mL [id number] 02/27/26 [id number] ExperimentINE VIS Given Date VIS Provided VIS Publication Date 06/08/25 Single Vaccine 24 Eligibility Eligibility Date Funding Source Not [facility] Eligible 06/08/25 Private Results Reviewed Results Reviewed: Laboratory Last Values Hgb A1c (Clinic) 5.9 % (4.0-6.0) 06/08/25 10:24 Coding Level of Care Code Est Pt Level 4 (12559) Complex EM visit Add On G2211 Diagnoses Type 2 diabetes mellitus with hyperglycemia, without long-term current use of insulin E11.65 Diabetes mellitus longterm insulin use: without longterm use Hypercholesterolemia E78.00 Essential hypertension I10 Hypertension type: essential hypertension Paroxysmal atrial flutter I48.92 Major depressive disorder, recurrent severe without psychotic features F33.2 Gastroesophageal reflux disease without esophagitis K21.9 Esophagitis presence: without esophagitis Lumbar degenerative disc disease M51.36 Pulmonary emphysema, unspecified emphysema type J43.9 COPD type: emphysema Emphysema type: unspecified Obstructive sleep apnea G47.33 Gait instability R26.81 Mixed stress and urge urinary incontinence N39.46 Acute constipation K59.00 Assessment & Plan Assessment & Plan (1) Type 2 diabetes mellitus with hyperglycemia: Comment: (diet managed, DM eye exam 05/29/21) [facility] Code(s): E11.65 - Type 2 diabetes mellitus with hyperglycemia Category: Medical Qualifiers: Diabetes mellitus longterm insulin use: without intermission coordinator use Qualified Code(s): E11.65 - Type 2 diabetes mellitus with hyperglycemia Plan: Decrease the amount of carbohydrate intake, pasta, bread, rice and potatoes are all sugar and that is aside from all the sweet stuff, remember that fruits are good but they are Sweet also. Hemoglobin A1c goal of less than 7.0. Patient is controlled (2) Hypercholesterolemia: Code(s): E78.00 - Pure hypercholesterolemia, unspecified Category: Medical Plan: Avoid fried foods, chicken skin, eggs, butter margarine, pastries and meat. Be it pork or beef they have a lot of cholesterol LDL goal of less than 100 and triglyceride of less than 150 on atorvastatin 80 mg once a day December 2024 last blood work (3) Hypertension: Code(s): I10 - Essential (primary) hypertension Category: Medical Qualifiers: Hypertension type: essential hypertension Qualified Code(s): I10 - Essential (primary) hypertension Plan: Continue with blood pressure medication. Decrease salt intake and exercise controlled on lisinopril 10 mg once a day metoprolol 50 mg twice a day (4) Paroxysmal atrial flutter: Comment: (hx synch cardioversion 2017) Code(s): I48.92 - Unspecified atrial flutter Category: Medical Plan: Continue with anticoagulation twice a day year blood work for renal function and blood count. (5) Major depressive disorder, recurrent severe without psychotic features: Code(s): F33.2 - Major depressive disorder, recurrent severe without psychotic features Category: Medical Plan: Continue with counseling and therapy adjustment of medication done (6) GERD (gastroesophageal reflux disease): Code(s): K21.9 - Gastro-esophageal reflux disease without esophagitis Category: Medical Qualifiers: Esophagitis presence: without esophagitis Qualified Code(s): K21.9 - Gastro-esophageal reflux disease without esophagitis Plan: Avoid the foods that causes that usually spicy foods, tomato products, juices, coffee, soda and foods that your sensitive to. After eating do not lie down, allow 3-4 hours before in lie down. And keep the head of bed above 30 degrees to avoid the acid from going up. (7) Lumbar degenerative disc disease: Code(s): M51.36 - Other intervertebral disc degeneration, lumbar region Category: Medical Plan: Continue to be active. Narcotic pain meds: Is being prescribed with the understanding that these medications are potentially addictive and should be used only when absolutely necessary and must always be secured. Any remaining pills should be safely disposed off appropriately. Patient is advised that narcotics can impaired judgment and one should not drive or operate heavy machinery while taking these medications. Never share these medications with anybody and do not leave them unattended. They will not be replaced under any circumstances. (8) COPD (chronic obstructive pulmonary disease): Code(s): J44.9 - Chronic obstructive pulmonary disease, unspecified Category: Medical Qualifiers: COPD type: emphysema Emphysema type: unspecified Qualified Code(s): J43.9 - Emphysema, unspecified Plan: Stop smoking patient may use albuterol if needed (9) Obstructive sleep apnea: Comment: Sleep study done 12/28/2024 severe obstructive sleep apnea with an AHI of 41 advised CPAP therapy auto PAP 6-20 cm water Code(s): G47.33 - Obstructive sleep apnea (adult) (pediatric) Category: Medical Plan: Continue to use the CPAP more than 4 hours a night and benefits from this. (10) Gait instability: Code(s): R26.81 - Unsteadiness on feet Category: Medical (11) Mixed stress and urge urinary incontinence: Code(s): N39.46 - Mixed incontinence Category: Medical (12) Acute constipation: Code(s): K59.00 - Constipation, unspecified Category: Medical Plan History of Present Illness The patient is a 74-year-old female presenting for a follow-up visit. The patient has a history of Chronic Obstructive Pulmonary Disease (COPD) and has been advised to stop smoking and continue using albuterol as needed. She also uses a CPAP machine for obstructive sleep apnea, which she uses for more than 4 hours a night. The patient has a history of paroxysmal atrial flutter and is well-controlled on flecainide and metoprolol. She is on anticoagulation therapy with Eliquis and requires EKGs every 6 months. Her echocardiogram showed an ejection fraction of 60% with a moderately dilated left atrium. The patient has a history of anxiety disorder and has been in contact with psychiatry for medication adjustments, including an increase in sertraline and continuation of Wellbutrin, Ambien, and alprazolam. The patient has diabetes mellitus with a controlled hemoglobin A1c of 5.9, managed through diet. She also has hypercholesterolemia, with an LDL goal of less than 100 mg/dL, currently at 89 mg/dL, managed with atorvastatin. The patient reports neck pain, which is exacerbated by certain positions and has been persistent despite previous MRI evaluations showing arthritis. She has been advised to engage in physical therapy and exercises to strengthen her muscles. The patient experiences urinary incontinence, characterized by urgency and stress incontinence, and has been advised to perform pelvic floor exercises. The patient reports constipation, occurring every three days, and has been advised to increase water intake and monitor dietary habits. Health Maintenance - Colonoscopy last performed in November 2024. - Mammogram last performed in August 2024. - Blood work for renal function and blood count recommended twice a year. - Flu shot administered. - Shingles vaccination completed. Social History - History of smoking, advised to quit. - History of alcohol abuse, advised avoidance. - Uses CPAP machine for obstructive sleep apnea. - Reports constipation, advised to increase water intake. Review of Systems - General: Reports feeling tired, denies dizziness. - Cardiovascular: Denies chest pain, reports controlled hypertension. - Respiratory: Reports use of CPAP, denies dyspnea. - Gastrointestinal: Reports constipation, denies abdominal pain or black stools. - Neurological: Denies numbness, reports neck pain. - Genitourinary: Reports urinary incontinence. Physical Exam - Musculoskeletal: Patient instructed to lift and point toes, squeeze fingers, shrug shoulders, and close eyes tightly. - Neurological: No dizziness or numbness reported, patient appears pale. Results - Echocardiogram: Ejection fraction of 60%, moderately dilated left atrium, no valvular pathology. - Blood work (December 2024): Anemia noted, normal blood count, normal platelet count, normal electrolytes. - Blood work (May 2025): Normal electrolytes, renal function, hemoglobin A1c at 5.9. - Cholesterol test (December 2024): LDL at 89 mg/dL. Plan Patient was informed and verbally consented to the use of an ambient scribe for clinic note documentation during this visit. 1. Chronic Obstructive Pulmonary Disease (Copd) The patient is advised to stop smoking and continue using albuterol as needed for symptom management. 2. Paroxysmal Atrial Flutter The patient is well-controlled on flecainide and metoprolol, with a requirement for EKGs every 6 months and continuation of anticoagulation therapy with Eliquis. 3. Anxiety Disorder The patient has been in contact with psychiatry for medication adjustments, including an increase in sertraline and continuation of Wellbutrin, Ambien, and alprazolam. 4. Diabetes Mellitus The patient's diabetes is diet-controlled with a hemoglobin A1c of 5.9, and the goal is to maintain it below 6.5. 5. Hypercholesterolemia The patient is on atorvastatin with an LDL goal of less than 100 mg/dL, currently at 89 mg/dL. 6. Neck Pain The patient is advised to engage in physical therapy and exercises to strengthen muscles, with previous MRI evaluations showing arthritis. 7. Urinary Incontinence The patient is advised to perform pelvic floor exercises to manage symptoms of urgency and stress incontinence. 8. Constipation The patient is advised to increase water intake and monitor dietary habits to manage constipation. Discussion Notes During the visit, I discussed with the patient the importance of continuing her current medication regimen for paroxysmal atrial flutter and the need for regul ar EKGs every 6 months. We also reviewed her diabetes management, emphasizing the goal of maintaining her hemoglobin A1c below 6.5 through diet control. I advised her on the benefits of physical therapy for her neck pain and the importance of pelvic floor exercises for managing urinary incontinence. Patient Instructions - Stop smoking and avoid alcohol. - Use albuterol as needed for COPD symptoms. - Continue using CPAP for more than 4 hours each night. - Perform pelvic floor exercises regularly to manage urinary incontinence. - Increase water intake and monitor dietary habits to alleviate constipation. - Engage in physical therapy and exercises to strengthen neck muscles. - Schedule regular EKGs every 6 months and continue anticoagulation therapy. Orders: Orders AMB Hemoglobin A1c Today Z13.9 - Encounter for screening, unspecified Ferritin Today R26.81 - Unsteadiness on feet Vitamin B12 and Folate Today R26.81 - Unsteadiness on feet Free T4 (Free Thyroxine) Today R26.81 - Unsteadiness on feet Thyroid Stimulating Hormone Today R26.81 - Unsteadiness on feet UA CC w/rflx Micro + Cult Today R26.81 - Unsteadiness on feet, R30.0 - Dysuria Influenza [id number] Immunization Today Z23 - Encounter for immunization PT Evaluation and Treatment Today R26.81 - Unsteadiness on feet Complete Blood Count Auto Diff Today R26.81 - Unsteadiness on feet Reticulocyte Count Today R26.81 - Unsteadiness on feet Lipid Panel Today E78.00 - Pure hypercholesterolemia, unspecified, R26.81 - Unsteadiness on feet Medications: Changed From lisinopril 10 mg PO DAILY 90 days 90 tabs 3RF I10 - Essential (primary) hypertension To lisinopril 5 mg PO DAILY 90 tabs 3RF 90 days I10 - Essential (primary) hypertension
== END 2025-06-08 11:04 | disposition home or self-care (01) ==
LOC: HO.HMCH 10:00
PROVIDERS: PCP Internal Medicine; Visit Provider Internal Medicine
DX: E11.65 Type 2 diabetes mellitus with hyperglycemia (principal); I48.92 Unspecified atrial flutter; F33.2 Major depressive disorder, recurrent severe without psychotic features; J43.9 Emphysema, unspecified; E78.00 Pure hypercholesterolemia, unspecified; I10 Essential (primary) hypertension; K21.9 Gastro-esophageal reflux disease without esophagitis; M51.369 Other intervertebral disc degeneration, lumbar region without mention of lumbar back pain or lower extremity pain; G47.33 Obstructive sleep apnea (adult) (pediatric); R26.81 Unsteadiness on feet; N39.46 Mixed incontinence; Z23 Encounter for immunization

== ENCOUNTER 2025-07-04 13:52 | Outpatient (AMB) | payer MEDICARE, SELFPAY ==
--- OUTSIDE RECORDS SUMMARY | 2024-04-05 04:15 | XMS_ITS ---
Author Organization [facility] Address [address] [place] [address] Care Team Providers Care Supervisor Paper Coating Name Role Phone Lorenzo Oconnor Primary Care Provider UnavailNaveen Haro Unavailable [phone] Encounters Encounter Location Date Provider Diagnosis [address] [address] 04/05/2024 Naveen Hicks Plan Of Treatment Next Appt Details Provider Name:Naveen Hicks , 09/05/2025 09:30:00 AM, [address] [place] [address], [phone], Progress Notes * Kaylee SANTOS EDOB: [birth year] (74 yo F)Acc No.[id number]:04/05/2024 Progress Note Patient: Chela Kaylee WELLS Provider: Igor Hicks DPM :1950 A ge:73 Y S ex:Female Date:04/05/2024 Address:[address] [place] [address] [id number] Pcp:Lorenzo Oconnor Subjective: * Chief Complaints: * [...] DPM Date: 0 04/05/2024 Generated for Alma Haas/Milton on: 1 09/03/2024 04:58 PM EST
--- OUTSIDE RECORDS SUMMARY | 2024-12-12 05:40 | XMS_ITS ---
Author Organization [facility] Address [address] [place] [address] Care Team Providers Care Tube Bender Hand Name Role Phone Po Lorenzo BRANNON Primary Care Provider Paige Nicole Unavailable [phone] REASON FOR VISIT screening,hx polyps Encounters Encounter Location Date Provider Diagnosis [facility] Outpatient [address] [place] [phone] 12/12/2024 Paige Vasquez Colon cancer scree prateek [...] PARADISE SANTOS EDOB: [birth year] (74 yo F)Acc No.[id number]:12/12/2024 COLON WITH MAC Patient: Chela RUSSELL PARADISE Costa Provider: Vance Vasquez MD :1950 A ge:74 Y S ex:Female Date:12/12/2024 [address] [facility] [place] [place] Pcp:Lorenzo Oconnor MD Subjective: * Chief Complaints: * 1 . Screening,hx polyps. * Medical History: Objective: * Vitals: Assessment: * Assessment: 1. C olon cancer screening - Z12.11 (Primary) 2 . C olon polyps - K63.5? 3. D iverticulosis of large intestine without perforation or abscess without bleeding - K57.30 4 . O ther hemorrhoids - K64.8 Plan: * Treatment: * Procedure Codes: 4 5385 LESION REMOVAL COLONOSCOPY, 76189 COLONOSCOPY AND BIOPSY, Modifiers: 59 , 0529F INTRVL 3+YRS PTS CLNSCP DOCD, 0528F RCMND FLW-UP 10 YRS DOCD * * The named appointment provid er may or may not be the originator of this progress note, and it is not deemed complete until electronically signed by the appointment provider. Sign off status: Pending * Provider: Vance Vasquez MD Date: 0 12/12/2024 Generated for Alma louise/Bruno/Mikosmitting on: 09/03/2024 04:57 PM EST
--- OUTSIDE RECORDS SUMMARY | 2024-12-30 04:15 | XMS_ITS ---
Author Organization [facility] Address [address] [place] [address] Care Team Providers Care Mailing Specialist Name Role Phone Lorenzo Oconnor Primary Care Provider UnavailNaveen Haro Unavailable [phone] Ny Encounters Encounter Location Date Provider Diagnosis [address] [address] 12/30/2024 Naveen Hicks Plan Of Treatment Next Appt Details Provider Name:Naeven Hicks , 09/05/2025 09:30:00 AM, [address] [place], [address], Progress Notes * Kaylee SANTOS EDOB: [birth year] (74 yo F)Acc No.[id number]:12/30/2024 Progress Note Patient: Chela Kaylee WELLS Provider: Igor Hicks DPM :1950 A ge:74 Y S ex:Female Date:12/30/2024 Address:[address] [place] [address] [place], [place] Pcp:Lorenzo Oconnor Subjective: * Chief Complaints: * [...] 0 12/30/2024 Generated for Alma louise/Bruno/Milton on: 09/03/2024 04:57 PM EST
--- NOTE | 2025-07-04 13:18 | MHC.OFFVISPS ---
Intake Intake Visit Reasons: f/u consultation Corporate Safety Coordinator Required: No Allergies Sulfa (Sulfonamide Antibiotics) (SULFA (SULFONAMIDE ANTIBIOTICS)) Allergy (Unknown, Verified 06/08/25 10:22) RASH Medication List - Last Reconciled 07/04/25 by Maribel Inman APRN alprazolam 0.25 mg PO BID apixaban (Eliquis) 5 mg PO BID atorvastatin 80 mg PO DAILY [AUTOPAP 6-20 cm H2) humidified AIR Sleep study done 12/28/2024 severe obstructive sleep apnea with an AHI of 41 advised CPAP therapy auto PAP 6-20 cm water] blood sugar diagnostic As directed check the blood sugar once a day blood sugar diagnostic (Speek Ultra Test strips) As directed check the blood sugar twice a day bupropion HCl XL 300 mg (2 x 150 mg) PO QAM 90 days calcium carbonate-vitamin D3 600 mg-5 mcg (200 unit) (Calcium 600 + D(3)) 1 cap PO BID [Diabetic shoes and inserts As directed] flecainide 100 mg PO Q12H 90 days levothyroxine (Synthroid) 75 mcg PO DAILY lisinopril 5 mg PO DAILY 90 days [magnesium 200 mg PO] metoprolol succinate ER 50 mg PO BID omeprazole 20 mg PO DAILY oxycodone-acetaminophen 5-325 mg (Percocet) 1 tab PO .QD PRN 30 days ropinirole 0.25 mg PO BEDTIME sertraline 200 mg (4 x 50 mg) PO DAILY 90 days thiamine HCl (vitamin B1) 50 mg PO DAILY 90 days zolpidem 10 mg PO BEDTIME PRN 90 days HPI- Psychiatric Chief Complaint: f/u consultation HPI Narrative: pt is here for follow up re: depression and anxiety. reports mood is still depressed at times; She worries frequnetly and feels irritable. She reports she has some good days. Pt reports her is being treated for liver cancer and her is tolerating it fairly well; she is optimistic. Her PHQ9 is 10. Her anxiety is also a 10 on the GAD7. She reports no side effects from zoloft. Denies SI or HI. Pt denies any episodes of alcohol abuse. She is sleeping better, appetite intact; socializing more; enjoying activities. Past Psychiatric History: depression started age 22 or 23. No Hx of IPLOC no hxof suicide attempts. She did go to [facility] for services approx 5 yrs ago. Subjective Subjective Medication Compliance: Yes Side effects from medications: No Review of Systems Medical Review of Systems: unchanged Mental Status Exam Mental Status Exam Patient Appearance: Well Grooomed Patient Orientation: Person, Place, Time and Situation Level of Consciousness: Awake and Appropriate Patient Behavior: Appropriate, Talkative, Cooperative and Good Eye Contact Mood Description: Depressed, Anxious and Sad Affect Description: Depressed, Anxious and Sad Patient Cognition Impaired: No Ability to Follow Directions: Good Speech Pattern: Clear and Appropriate Memory Description: Intact Hallucinations: None Delusions: Not Present Thought Process: Intact and Goal Oriented Thought Content: positive for Intact and positive for Goal Oriented Judgement: Good Assessment and Plan Assessment & Plan (1) Major depressive disorder, recurrent severe without psychotic features: Status: Acute Code(s): F33.2 - Major depressive disorder, recurrent severe without psychotic features Plan Continue zoloft 200mg daily continue wellbutrin 300mg daily continue ambien 10mg at bedtime continue xanax 0.25 mg BID prn severe anxiety- pt not taking it often will see in 6-8 weeks and then refer back to PCP at that time if stable Counseling and coordination of Care Pt. Self Management counseling: Maintenance-social rhythm, Mindfulness, Mod caffeine/ETOH intake, Sleep hygiene, Behavior activation and General coping skills Medication management counseling: Effectiveness, Side effects, Dosing range, Duration, Drug interaction and Adherence Diagnosis and Prognosis Counseling: Accuracy of diagnosis, Prognosis over time, Impact of diagnosis on life functions, Impact of family relationship, Problematic behaviors secondary to diagnosis and Adequacy of current interventions Details: I spent 45 minutes reviewing the record, seeing the patient and documenting in the medical record. Counseling provided to the patient/caregiver as outlined below. Addressed patient/caregiver concerns regarding current medication regime including effective adherence. Addressed patient/caregiver concerns regarding diagnosis and prognosis including accuracy of diagnosis, prognosis over time, impact of diagnosis. Addressed patient/caregiver concerns regarding impact of recent stressors. [facility] Medical History Atrial fibrillation Arthritis Lumbar spinal stenosis Wrist pain, left Radiculitis of left cervical region DJD of left shoulder Fall Cervical spondylosis Wrist pain Gait instability Tendonitis of both rotator cuffs Depression Tubular adenoma of colon Personal history of nicotine dependence Generalized anxiety disorder Paroxysmal atrial flutter Lumbar degenerative disc disease Obstructive sleep apnea Restless leg syndrome Hiatal hernia Hip osteoarthritis Vitamin D deficiency Type 2 diabetes mellitus with hyperglycemia Allergic rhinitis Insomnia PFO (patent foramen ovale) Hypercholesterolemia COPD (chronic obstructive pulmonary disease) Hypertension GERD (gastroesophageal reflux disease) Hypothyroidism Surgical History History of vocal cord polypectomy History of bladder suspension procedure Hx of carpal tunnel repair Hx of section History of tonsillectomy History of bilateral breast reduction surgery History of carpal tunnel surgery History of lumbar surgery History of hysterectomy History of right breast biopsy (~2016) History of hand surgery (~2011) History of esophagogastroduodenoscopy (EGD) (~2004) History of colonoscopy (~2018) History of cardioversion (~2017) History of foot surgery (~2016) Family History Father Diabetes Hypertension CVD (cardiovascular disease) Mother Cervical cancer Stroke Social History Housing: House Are you a primary behavioral health care coordinator to a significant other at home: No Do you presently have visiting nurse or other home services: No Alcohol intake: current Alcohol intake frequency: a few times a week Patient Tobacco Use Status: Current everyday Tobacco user Tobacco use type: Cigarette Cigarettes Per Day: 4 Years Smoked: 57yrs, onset 12, on and off, 1-1.5ppd, 50pyh, quit 07/31/2021 e-Cigarette/Vaping Use: Never Used Second Hand Smoke Exposure: No service: No 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al status: employed 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
--- OUTSIDE RECORDS SUMMARY | 2025-07-04 16:58 | XMS_ITS | Patient Health Record ---
Author Organization [facility] Address [address] [place] [address] Care Team Providers Care Certified Pesticide Applicator Name Role Phone Lorenzo Oconnor Primary Care Provider Naveen Diamond Unavailable [phone] Allergies Allergen (clinical drug ingredient) Drug/Non Drug [...] Problem Acquired hammer toe of right foot (67874580474624 05) Other hammer toe(s) (acquired), right foot (M20.41) Active confirmed Response to treatment,I mprovement Problem Acquired hammer toe of left foot (24246660368352 03) Other hammer toe(s) (acquired), left foot (M20.42) Active confirmed Response to treatment,I mprovement Problem Type II diabetes mellitus without complication (874965775) Type 2 diabetes mellitus without complication (E11.9) Active confirmed Vital Signs Blood pressure diastolic 70 mm Hg 05/09/2025 Height 5ft in 05/09/2025 Blood pressure systolic 120 mm Hg 05/09/2025 Weight 150 lbs 05/09/2025 BMI 29.29 kg/m2 05/09/2025 Procedures Procedure Date Ordered Date Performed Result Body Sit e 52310-NXCHKMT NAIL, 6 OR MORE 09/02/2024 N/A 58119-[id number] NAIL, OR MORE 01/10/2025 N/A 10970-ZTHJMPQ NAIL, 6 OR MORE 05/09/2025 N/A Encounters Encounter Location Date Provider Diagnosis [address] [address] 09/02/2024 Naveen Fabiola Pain in right toe(s) M79.674 ; Tinea unguium B35.1 ; Pain in left toe(s) M79.675 ; Type 2 diabetes mellitus without complication E11.9 ; Other hammer toe(s) (acquired), right foot M20.41 and Other hammer toe(s) (acquired), left foot M20.[address] [address] 01/10/2025 Naveen Fabiola Pain in right toe(s) M79.674 ; Tinea unguium B35.1 ; Pain in left toe(s) M79.675 ; Type 2 diabetes mellitus without complication E11.9 and Xerosis of skin L85.[address] [address] 05/09/2025 Naveen Fabiola Pain of toe of [...] Treatment Pending Test Test Name Order Date 19440-[id number] NAIL, 6 OR MORE 12/28/2020 [id number] NAIL, 6 OR MORE 04/03/2023 00047-[id number] NAIL, 6 OR MORE 08/21/2023 46293-[id number] NAIL, 6 OR MORE 12/18/2023 86210-[id number] NAIL, 6 OR MORE 05/03/2024 37059-[id number] NAIL, 6 OR MORE 09/02/2024 54043-[id number] NAIL, 6 OR MORE 01/10/2025 56335-[id number] NAIL, 6 OR MORE 05/09/2025 Next Appt Details Provider Name:Naveen Hicks , 09/05/2025 09:30:00 AM, [address] [place], [address], Insurance Providers Payer Name Payer Address Payer Phone Subscriber Number Group Number Insured Name Patient Relationship to Insured Coverage Start Date Coverage End Date [facility] 65 Medicare Preferred [address] [place] [address] [phone] [id number] Kaylee Amaral Self - patient is the insured Medical (General) History Medical History History ICD Code Anemia Anxiety Arthritis Back pain Cataracts Depression Diabetic Headaches Numbness Reflux ( GERD) Sciatica Sinus conditions thyroid Measles Chicken pox Surgical History Surgery Date(Month/Year) bunionectomy hammer toe Lower back surgery carpal tunnel surgery x2 hysterectomy breast reduction wrist surgery
--- OUTSIDE RECORDS SUMMARY | 2025-07-04 16:58 | XMS_ITS | Patient Health Record ---
Author Organization [facility] Address [address] [place] [address] Care Team Providers Care Tire Manager Name Role Phone Lorenzo Oconnor MD Primary Care Provider Paige Nicole Unavailable [phone] Allergies Allergen (clinical drug ingredient) Drug/Non Drug Allergy documented on EMR Reaction Allergy Type Onset Date Status Sulfa Unknown Drug Allergy Active Results Component Value Reference Range Notes Pathology Reviewed date:01/03/2025 11:07:51 AM Interpretation: Performing Lab:[facility], [address] [place] [id number] Notes/Report: Reason For Referral No Information Medications [...] water, orange juice, lemonade, christiano barrie or lemon/lumbee soda Orally Once a day; Duration: 30 day(s) Active Synthroid 100 MCG Oral; Duration: 90 Active buPROPion HBr ER 348 MG 1 tablet in the morning Orally Once a day; Duration: 30 day(s) Active oxyCODONE-Acetaminophen 5-325 MG TAKE 1 TABLET BY MOUTH DAILY NEEDED FOR PAIN FOR 30 DAYS Oral; Duration: 30 Active Atorvastatin Calcium 80 MG 1 tablet Oral ly Once a day Active Vitamin B-1 50 MG TAKE 1 TABLET BY ARMAND TH EVERY DAY Oral; Duration: 90 Active Omeprazole 20 MG 1 capsule Orally Onc e a day Active Lisinopril 10 MG TAKE 1 TABLET BY ARMAND TH EVERY DAY Oral; Duration: 30 Active Calcium + D + K 750-500-40 MG-UNT-MCG 1 tablet with meals Orally Twice a day; Duration: 30 day(s) Active rOPINIRole HCl 0.25 MG TAKE TAKE 1 TABLE T ORALLY BEDTIME ADMINISTER 1-3 HOURS BEFORE BEDTIME Oral; Duration: 90 Active buPROPion HCl ER (XL) 450 MG 1 tablet in the morning Orally Once a day; Duration: 30 day(s) Active Zolpidem Tartrate 10 MG [...] Problem Status W/U Status Risk Notes Problem Screening for malignant neoplasm of colon (234983061) Encounter for screening for malignant neoplasm of colon (Z12.11) Active confirmed Problem History of adenomatous polyp of colon (850093006) History of adenomatous polyp of colon (Z86.010) Active confirmed Problem Preprocedural examination (770698936428200) Preprocedural examination (Z01.818) Active confirmed Problem Long-term current use of anticoagulant (125994617) Anticoagulant long-term use (Z79.01) Active confirmed Problem Incontinence of feces (71441044) Incontinence of feces, unspecified fecal incontinence type (R15.9) Active confirmed Vital Signs Temperature 97.7 degrees Fahrenheit 09/01/2024 Blood pressure diastolic 00 mm Hg 09/01/2024 Height 60 in 09/01/2024 Blood pressure systolic 000 mm Hg 09/01/2024 Weight 157 lb 8 oz lbs 09/01/2024 BMI 30.76 kg/m2 09/01/2024 Encounters Encounter Location Date Provider Diagnosis [facility] Outpatient [address] [place], [place] [phone] 12/12/2024 Paige Vasquez Colon cancer screeni ng Z12.11 ; Colon polyps K63.5 ; Diverticulosis of large intestine without perforation or abscess without bleeding K57.30 and Other hemorrhoids K64.8 [facility] [address] [place] [address] 09/01/2024 Paige Vasquez History of adenomato us [...] Insured Coverage Start Date Coverage End Date [facility] [address] [place], [place] [id number] PARADISE SANTOS Self - patient is the insured Medical (General) History Medical History History ICD Code Hyperlipidemia Colon polyps-very small tubular adenomas removed in 2004 and 05/2012 GERD--EGD in 2004-hiatal hernia, no esop hagitis/no Marie's Depression Hypothyroidism Denies ME,DM,CVA,Lung disease,renal dise ase Arthritis and degenerative disc disease of spine Hx of afib--had cardioversion - Dr. Jonatan crum Colonoscopy in 11/2018 with removal of a small tubular adenoma Surgical History Surgery Date(Month/Year) hysterectomy and removal of one ovary carpal tunnel surgery bladder suspension thumb surgery vocal cord polyps back surgery breast reduction foot surgeries
== END 2025-07-04 13:55 | disposition home or self-care (01) ==
LOC: HO.HOP 13:52
PROVIDERS: PCP Internal Medicine; Visit Provider Clinical Nurse Specialist Psychiatric/Mental Health
DX: F33.2 Major depressive disorder, recurrent severe without psychotic features (principal)
CPT/HCPCS: 90833; 99213

== ENCOUNTER → 2025-07-04 13:52 | Outpatient (BNVA) | payer MEDICARE, SELFPAY | PROVIDERS: PCP Internal Medicine; Visit Provider Clinical Nurse Specialist Psychiatric/Mental Health | DX: F33.2 Major depressive disorder, recurrent severe without psychotic features (principal) | CPT/HCPCS: 99212 ==

== ENCOUNTER 2025-07-19 11:01 | Outpatient (REF) | payer MEDICARE, SELFPAY ==
--- OUTSIDE RECORDS SUMMARY | 2024-04-05 04:15 | XMS_ITS ---
Author Organization [facility] Address [address] [place] [address] Care Team Providers Care Sanitation Worker Cleaning Equipment Name Role Phone Lorenzo Oconnor Primary Care Provider UnavailNaveen Hrao Unavailable [phone] Encounters Encounter Location Date Provider Diagnosis [address] [id number] 04/05/2024 Naveen Hicks Plan Of Treatment Next Appt Details Provider Name:Naveen Hicks , 09/05/2025 09:30:00 AM, [address] [place] [address], [phone], Progress Notes * Kaylee SANTOS EDOB: [birth year] (74 yo F)Acc No.[id number]:04/05/2024 Progress Note Patient: Chela Kaylee WELLS Provider: Igor Hicks DPM :1950 A ge:73 Y S ex:Female Date:04/05/2024 Address:[address] [place] [address] [id number] Pcp:Lorenzo Oconnor Subjective: * Chief Complaints: * * Medical History: Objective: * Vitals: Assessment: Plan: * Treatment: * Images: * The named appointment provid er may or may not be the originator of this progress note, and it is not deemed complete until electronically signed by the appointment provider. Sign off status: Pending * Provider: Igor Hicks DPM Date: 0 04/05/2024 Generated for Alma louise/Bruno/Milton on: 1 09/18/2024 09:48 PM EST
--- OUTSIDE RECORDS SUMMARY | 2024-12-12 05:40 | XMS_ITS ---
Author Organization [facility] Address [address] [place] [address] Care Team Providers Care Drill Instructor Name Role Phone Po Loernzo BRANNON Primary Care Provider Paige Nicole Unavailable [phone] REASON FOR VISIT screening,hx polyps Encounters Encounter Location Date Provider Diagnosis [facility] [address] [place] [phone] 12/12/2024 Paige Vasquez Colon cancer scree prateek Z12.11 ; Colon polyps K63.5 ; Diverticulosis of large intestine without perforation or abscess without bleeding K57.30 and Other hemorrhoids K64.8 Assessments Encounter Date Diagnosis (ICD Code) Assessment Notes Treatment Notes Treatment Clinical Notes Section Notes 12/12/2024 Colon cancer screening (ICD-10 - Z12.11) 12/12/2024 Colon polyps (ICD-10 - K63.5) 12/12/2024 Diverticulosis of large intestine without perforation or abscess without bleeding (ICD-10 - K57.30) 12/12/2024 Other hemorrhoids (ICD-10 - K64.8) Plan Of Treatment No Information Progress Notes * PARADISE SANTOS EDOB: [birth year] (74 yo F)Acc No.[id number]:12/12/2024 COLON WITH MAC Patient: Chela RUSSELL PARADISE Costa Provider: Vance Vasquez MD :1950 A ge:74 Y S ex:Female Date:12/12/2024 [address] [place] Pcp:Lorenzo Oconnor MD Subjective: * Chief Complaints: * S creening,hx polyps Assessment: * Assessment: 1. C olon cancer screening - Z12.11 (Primary) 2 . C olon polyps - K63.5? 3. D iverticulosis of large intestine without perforation or abscess without bleeding - K57.30 4 . O ther hemorrhoids - K64.8 Plan: * Procedure Codes: 4 5385 LESION REMOVAL [id number] COLONOSCOPY AND BIOPSY, Modifiers: 59 0529F INTRVL 3+YRS PTS CLNSCP [id number] RCMND FLW-UP 10 YRS DOCD Billing Information: * Procedure Codes: 12343 LESION REMOVAL COLONOSCOPY. 21955 COLONOSCOPY AND BIOPSY. Modifiers: 59 0529F INTRVL 3+YRS PTS CLNSCP DOCD. 0528F RCMND FLW-UP 10 YRS DOCD. * The named appointment provid er may or may not be the originator of this progress note, and it is not deemed complete until electronically signed by the appointment provider. Sign off status: Pending * Provider: Vance Vasquez MD Date: 0 12/12/2024 Generated for Alma louise/Bruno/Mikosmitting on: 09/18/2024 09:48 PM EST
--- OUTSIDE RECORDS SUMMARY | 2024-12-30 04:15 | XMS_ITS ---
Author Organization [facility] Address [address] [place] [address] Care Team Providers Care New Car Sales Manager Name Role Phone Lorenzo Oconnor Primary Care Provider UnavailNaveen Haro Unavailable [phone] Ny Encounters Encounter Location Date Provider Diagnosis [address] [address] 12/30/2024 Naveen Hicks Plan Of Treatment Next Appt Details Provider Name:Naveen Hicks , 09/05/2025 09:30:00 AM, [address] [place], [address], Progress Notes * Kaylee SANTOS EDOB: [birth year] (74 yo F)Acc No.[id number]:12/30/2024 Progress Note Patient: Chela Kaylee WELLS Provider: Igor Hicks DPM :1950 A ge:74 Y S ex:Female Date:12/30/2024 Address:[address] [place] [address] [place] Pcp:Lorenzo Oconnor Subjective: * Chief Complaints: * [address] Ny[address] * Medical History: Objective: * Vitals: Assessment: Plan: * Treatment: * Images: * The named appointment provid er may or may not be the originator of this progress note, and it is not deemed complete until electronically signed by the appointment provider. Sign off status: Pending * Provider: Igor Hicks DPM Date: 0 12/30/2024 Generated for Alma louise/Bruno/Milton on: 09/18/2024 09:48 PM EST
[2025-07-19 13:10] LABS: Appearance Urine Clear; Glucose Urine UA Negative (Negative); PH 7.5 (5.0-9.0); Specific Gravity - Urine 1.010 (1.005-1.025); UMIC TRIGGER UACC YES
--- OUTSIDE RECORDS SUMMARY | 2025-07-19 21:48 | XMS_ITS | Patient Health Record ---
Author Organization [facility] Address [address] [place] [address] Care Team Providers Care Plaster Mixer Name Role Phone Lorenzo Oconnor MD Primary Care Provider Paige Nicole Unavailable [phone] Allergies Allergen (clinical drug ingredient) Drug/Non Drug Allergy documented on EMR Reaction Allergy Type Onset Date Status Sulfa Unknown Drug Allergy Active Results Component Value Reference Range Notes Pathology Reviewed date:01/03/2025 11:07:51 AM Interpretation: Performing Lab:[facility], [address] [place] [id number] Notes/Report: Reason For Referral No Information Medications Medication SIG (Take, Route, Frequency, Duration) Notes Start Date End Date Status Eliquis 5 MG Tablet as directed Orally t wice a day Active Flecainide Acetate 100 MG Tablet as directed Orally twice a day Active Xanax 0.25 MG Tablet 1 tablet Orally Twi ce a day Active Sertraline HCl 20 MG/ML Concentrate 5 ml mixed with 4 ounces of water, orange juice, lemonade, christiano barrie or lemon/benton soda Orally Once a day; Duration: 30 day(s) Active Synthroid 100 MCG Tablet Oral; Duration: 90 Active buPROPion HBr ER 348 MG Tablet Extended Release 24 Hour 1 tablet in the morning Orally Once a day; Duration: 30 day(s) Active oxyCODONE-Acetaminophen 5-325 MG Tablet TAKE 1 TABLET BY MOUTH DAILY NEEDED FOR PAIN FOR 30 DAYS Oral; Duration: 30 Active Atorvastatin Calcium 80 MG Tablet 1 tablet Orally Once a day Active Vitamin B-1 50 MG Tablet TAKE 1 TABLET B Y MOUTH EVERY DAY Oral; Duration: 90 Active Omeprazole 20 MG Capsule Delayed Release 1 capsule Orally Once a day Active Lisinopril 10 MG Tablet TAKE 1 TABLET BY MOUTH EVERY DAY Oral; Duration: 30 Active Calcium + D + K 750-500-40 MG-UNT-MCG Tablet 1 tablet with meals Orally Twice a day; Duration: 30 day(s) Active rOPINIRole HCl 0.25 MG Tablet TAKE TAKE 1 TABLET ORALLY BEDTIME ADMINISTER 1-3 HOURS BEFORE BEDTIME Oral; Duration: 90 Active buPROPion HCl ER (XL) 450 MG Tablet Extended Release 24 Hour 1 tablet in the morning Orally Once a day; Duration: 30 day(s) Active Zolpidem Tartrate 10 MG Tablet 1 tablet at bedtime as needed Orally Once a day Active Metoprolol Succinate 50 MG Capsule ER 24 Hour Sprinkle 1 capsule Orally twice a day Active Immunizations Vaccine Route Administration Date Status Comme nts Influenza Unknown 07/01/2018 Administered Influenza Unknown 06/18/2021 Administered Influenza Unknown 08/16/2024 Administered Social History Tobacco Use: Social History Observation Description Date Details (start date - stop date) Former Smoker NA - NA Social History Tobacco Use: Social Info Question Answer Notes Tobacco Use/Smoking Patient is a former smoker How long has it been since you last smoked? 1-5 years Additional Details Category Social Info Options Details Miscellaneous: Marital status: Occupation: Retired Section Notes: Smoker; 2 drinks per night Nonsmoker since approx 2015; 1or 2 drinks per evening Nonsmoker since approx 2015; 1 or 2 drinks per evening Nonsmoker since approx 2016; occ alcohol Problems Problem Type SNOMED Code ICD Code Onset Dates Problem Status W/U Status Risk Notes Problem Screening for malignant neoplasm of colon (367716632) Encounter for screening for malignant neoplasm of colon (Z12.11) Active confirmed Problem History of adenomatous polyp of colon (488419699) History of adenomatous polyp of colon (Z86.010) Active confirmed Problem Preprocedural examination (984371419302128) Preprocedural examination (Z01.818) Active confirmed Problem Long-term current use of anticoagulant (189573894) Anticoagulant long-term use (Z79.01) Active confirmed Problem Incontinence of feces (72184292) Incontinence of feces, unspecified fecal incontinence type (R15.9) Active confirmed Vital Signs Temperature 97.7 degrees Fahrenheit 09/01/2024 Blood pressure diastolic 00 mm Hg 09/01/2024 Height 60 in 09/01/2024 Blood pressure systolic 000 mm Hg 09/01/2024 Weight 157 lb 8 oz lbs 09/01/2024 BMI 30.76 kg/m2 09/01/2024 Encounters Encounter Location Date Provider Diagnosis [facility] Out[facility] [address] [place], [place] [id number] 12/12/2024 Paige Vasquez Colon cancer screeni ng Z12.11 ; Colon polyps K63.5 ; Diverticulosis of large intestine without perforation or abscess without bleeding K57.30 and Other hemorrhoids K64.8 [facility] [address] [place] [address] 09/01/2024 Paige Vasquez History of adenomato us [...] keep you advised of her progress. 12/12/2024 Colon cancer screening (ICD-10 - Z12.11) [...] Anticoagulant long-term use (ICD-10 - Z79.01) Overall, aPradise appears quite well. Given her age, good [...] progress. 12/12/2024 Other hemorrhoids (ICD-10 - K64.8) Plan Of Treatment Future Test Test Name Order Date COLONOSCOPY 05/20/2012 COLONOSCOPY 10/21/2018 COLONOSCOPY 09/01/2024 Insurance Providers Payer Name Payer Address Payer Phone Subscriber Number Group Number Insured Name Patient Relationship to Insured Coverage Start Date Coverage End Date [employer] [address] [place], [place] [phone] [id number] PARADISE SANTOS Self - patient is the [...]
--- OUTSIDE RECORDS SUMMARY | 2025-07-19 21:49 | XMS_ITS | Patient Health Record ---
Author Organization [facility] Address [address] [place] [address] Care Team Providers Care Catalytic Converter Operator Name Role Phone Lorenzo Oconnor Primary Care Provider Naveen Diamond Unavailable [phone] Allergies Allergen (clinical drug ingredient) Drug/Non Drug [...] Problem Acquired hammer toe of right foot (03031244066169 05) Other hammer toe(s) (acquired), right foot (M20.41) Active confirmed Response to treatment,I mprovement Problem Acquired hammer toe of left foot (79463118023973 03) Other hammer toe(s) (acquired), left foot (M20.42) Active confirmed Response to treatment,I mprovement Problem Type II diabetes mellitus without complication (250763507) Type 2 diabetes mellitus without complication (E11.9) Active confirmed Vital Signs Blood pressure diastolic 70 mm Hg 05/09/2025 Height 5ft in 05/09/2025 Blood pressure systolic 120 mm Hg 05/09/2025 Weight 150 lbs 05/09/2025 BMI 29.29 kg/m2 05/09/2025 Procedures Procedure Date Ordered Date Performed Result Body Sit e 23288-NNRRMRZ NAIL, 6 OR MORE 09/02/2024 N/A 44900-ABRFFDP NAIL, OR MORE 01/10/2025 N/A 49537-YDINYIQ NAIL, 6 OR MORE 05/09/2025 N/A Encounters Encounter Location Date Provider Diagnosis [address] [address] 09/02/2024 Naveen Fabiola Pain in right toe(s) M79.674 ; Tinea unguium B35.1 ; Pain in left toe(s) M79.675 ; Type 2 diabetes mellitus without complication E11.9 ; Other hammer toe(s) (acquired), right foot M20.41 and Other hammer toe(s) (acquired), left foot M20.[address] [address] 01/10/2025 Naveen Fabiola Pain in right toe(s) M79.674 ; Tinea unguium B35.1 ; Pain in left toe(s) M79.675 ; Type 2 diabetes mellitus without complication E11.9 and Xerosis of skin L85.[address] [address] 05/09/2025 Naveen Fabiola Pain of toe of [...] Treatment Pending Test Test Name Order Date [id number] NAIL, 6 OR MORE 12/28/2020 89912-[id number] NAIL, 6 OR MORE 04/03/2023 44342-[id number] NAIL, 6 OR MORE 08/21/2023 39504-[id number] NAIL, 6 OR MORE 12/18/2023 96815-[id number] NAIL, 6 OR MORE 05/03/2024 83287-[id number] NAIL, 6 OR MORE 09/02/2024 41410-[id number] NAIL, 6 OR MORE 01/10/2025 49926-[id number] NAIL, 6 OR MORE 05/09/2025 Next Appt Details Provider Name:Naveen Hicks , 09/05/2025 09:30:00 AM, [address] [place], [address], Insurance Providers Payer Name Payer Address Payer Phone Subscriber Number Group Number Insured Name Patient Relationship to Insured Coverage Start Date Coverage End Date [facility] 65 Medicare Preferred [address] [place] [address] [phone] [id number] Kaylee Amaral Self - patient is the insured Medical (General) History Medical History History ICD Code Anemia Anxiety Arthritis Back pain Cataracts Depression Diabetic Headaches Numbness Reflux ( GERD) Sciatica Sinus conditions thyroid Measles Chicken pox Surgical History Surgery Date(Month/Year) bunionectomy hammer toe Lower back surgery carpal tunnel surgery x2 hysterectomy breast reduction wrist surgery
== END 2025-07-19 11:02 | disposition home or self-care (01) ==
LOC: HO.HMGCLDS 11:01
PROVIDERS: PCP Internal Medicine; Visit Provider Internal Medicine
DX: E11.65 Type 2 diabetes mellitus with hyperglycemia (principal)
CPT/HCPCS: 81001; 81003; 82043; 82570

== ENCOUNTER 2025-07-20 12:55 | Outpatient (AMB) | payer MEDICARE, SELFPAY ==
[2025-07-20 12:58] VITALS: BP 114/72; PULSE 59; O2SAT 96; BMI 30.1
--- NOTE | 2025-07-20 12:58 | MHC.PC.OV ---
Vital Signs 07/20/25 12:58 Height 5 ft Weight 154 lb BMI 30.1 BP 114/72 Blood Pressure Location Lt brachial Position Sitting Pulse 59 Pulse Source Pulse Oximeter Pulse Oximetry (%) 96 Oxygen Delivery Method Room Air Intake Visit Reasons: 6 week f/u Allergies Sulfa (Sulfonamide Antibiotics) (SULFA (SULFONAMIDE ANTIBIOTICS)) Allergy (Unknown, Verified 07/20/25 12:59) RASH Tobacco use date assessed: 06/08/25 Fall risk assessment: No Falls in past year Last assessed Fall Risk: 07/20/25 Dental Screening Dental Screen Date: 06/08/25 HPI HPI Comments History of Present Illness Details History of Present Illness The patient is a 74 year old individual presenting for a follow-up visit for management of multiple chronic conditions. The patient has a history of gastroesophageal reflux disease, generalized anxiety disorder, COPD, diabetes mellitus, hypothyroidism, hypertension, hypercholesterolemia, and atrial fibrillation. The patient is a former smoker, having quit in July 2021, and has a history of alcohol abuse but is now abstinent. The patient is followed by psychiatry for major depressive disorder and reports seeing a therapist named Maribel. The patient has a diagnosis of obstructive sleep apnea and uses a CPAP machine. Musculoskeletal history is significant for lumbar degenerative disc disease with spinal stenosis and grade 1 anterolisthesis, causing ongoing lower back pain that does not radiate to the legs. The patient also reports bothersome knee pain, which has been diagnosed as pseudogout. The patient has a history of a tubular adenoma of the colon, with the last colonoscopy reportedly in November 2024. Lab work from May 2025 revealed anemia with macrocytosis but normal platelet and white blood cell counts. At that time, the patient's glucose was 110 mg/dL with a hemoglobin A1c of 5.9%, electrolytes and renal function were normal, and there was no proteinuria. The LDL cholesterol was 86 mg/dL, but the vitamin B12 level was elevated at over 2000. In terms of health screenings, the patient had a normal bone density scan in 2021, is up-to-date with the lung cancer screening program, and had a mammogram in August 2024. The patient reports difficulty with hearing and understanding conversations. Health Maintenance The patient is up-to-date on lung cancer screening, colonoscopy, and mammogram. Repeat bone density scan is not urgent given prior normal results. Recommended the two-part shingles vaccination series. Social History - Tobacco Use: Former smoker; quit in July 2021. - Alcohol Use: History of alcohol abuse but reports no longer drinking. - Exercise: Takes a walk every day with the dog. - Mental Health Support: Follows with psychiatry and is willing to restart counseling. Results - Labs (June 08May 2025): - CBC: Anemia with macrocytosis, normal platelet count, and normal white blood cell count. - Comprehensive Metabolic Panel: Normal electrolytes and renal function. Glucose was 110 mg/dL. - Hemoglobin A1c: 5.9%. - Lipid Panel: LDL was 86 mg/dL. - Vitamin B12: High at >2000 (normal range 200-900). - Folic Acid: Within normal limits. - Thyroid Function: Within normal limits. - Urinalysis: No proteinuria. - Imaging/Procedures: - Bone Density Scan (2021): Normal. [facility] Medical History Atrial fibrillation Arthritis Lumbar spinal stenosis Wrist pain, left Radiculitis of left cervical region DJD of left shoulder Fall Cervical spondylosis Wrist pain Gait instability Tendonitis of both rotator cuffs Depression Tubular adenoma of colon Personal history of nicotine dependence Generalized anxiety disorder Paroxysmal atrial flutter Lumbar degenerative disc disease Obstructive sleep apnea Restless leg syndrome Hiatal hernia Hip osteoarthritis Vitamin D deficiency Type 2 diabetes mellitus with hyperglycemia Allergic rhinitis Insomnia PFO (patent foramen ovale) Hypercholesterolemia COPD (chronic obstructive pulmonary disease) Hypertension GERD (gastroesophageal reflux disease) Hypothyroidism Surgical History History of vocal cord polypectomy History of bladder suspension procedure Hx of carpal tunnel repair Hx of section History of tonsillectomy History of bilateral breast reduction surgery History of carpal tunnel surgery History of lumbar surgery History of hysterectomy History of right breast biopsy (~2017) History of hand surgery (~2011) History of esophagogastroduodenoscopy (EGD) (~2004) History of colonoscopy (~2018) History of cardioversion (~2018) History of foot surgery (~2017) Family History Father Diabetes Hypertension CVD (cardiovascular disease) Mother Cervical cancer Stroke Social History Housing: House Are you a primary child care coordinator to a significant other at home: No Do you presently have visiting nurse or other home services: No Alcohol intake: current Alcohol intake frequency: a few times a week Patient Tobacco Use Status: Current everyday Tobacco user Tobacco use type: Cigarette Cigarettes Per Day: 5 Years Smoked: 57yrs, onset 12, on and off, 1-1.5ppd, 50pyh, quit 07/31/2021 e-Cigarette/Vaping Use: Never Used Second Hand Smoke Exposure: No service: No 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al status: employed 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 1. Little interest or pleasure in doing things: more than half the days 2. Feeling down, depressed, or hopeless: several days 3. Trouble falling or staying asleep, or sleeping too much: several days 4. Feeling tired or having little energy: more than half the days 5. Poor appetite or overeating: more than half the days 6. Feeling bad about yourself - or that you are a failure or have let yourself or your family down: several days 7. Trouble concentrating on things, such as reading the newspaper or watching television: more than half the days 8. Moving or speaking so slowly that other people could have noticed. Or the opposite - being so fidgety or restless that you have been moving around a lot more than usual: several days 9. Thoughts that you would be better off or of hurting yourself in some way: not at all Total score: 12 Depression Screening Interpretation: Positive Depression Screening Done: Yes Source: Developed by Drs. Cirilo Griffith, Parisa Carroll, Dakotah Patel and colleagues, with an educational jacklyn from [employer]. Thrive Questionnaire Date Thrive assessed: 02/14/25 I am a: Patient What is your living situation today?: I have a steady place to live Within the past 12 months, did the food you bought not last and you didn't have the money to get more?: Never true Within the past 12 months, did you worry whether your food would run out before you got money to buy more?: Never true Do you have trouble paying for medicines?: No Do you have trouble getting transportation to medical appointments?: No Do you have trouble paying your heating and electricity bill?: No Do you have trouble taking care of your child, family member or friend?: No Do you have trouble with day-to-day activities such as bathing, preparing meals, shopping, managing finances, etc.?: No Are you currently unemployed and looking for a job?: No Are you interested in more education?: No Please select the resources that you would like help with: None Currently or been in a relationship where the following occur: No concerns reported THRIVE Score: 0 PHIL-7 AMB Questionnaire PHIL-7 Date PHIL - 7 assessed: 02/16/25 Source: Developed by Drs. Cirilo Griffith, Parisa Carroll, Dakotah Patel and colleagues, with an educational jacklyn from [employer]. Review of Systems Narrative Review of Systems - Constitutional: Denies fevers. - Cardiovascular: Denies chest pains. - Gastrointestinal: Denies nausea or vomiting. Reports occasional heartburn. - Musculoskeletal: Reports bothersome knee pain and lower back pain, which can be severe and cause hunching. - Ears: Reports difficulty understanding people and needing to increase television volume. Denies ear pain. - Extremities: Denies swelling. Physical exam (Primary Care) Vital Signs: Last Vital Signs Pulse 59 07/20/25 12:58 BP 114/72 07/20/25 12:58 Pulse Ox 96 07/20/25 12:58 Oxygen Delivery Method Room Air 07/20/25 12:58 BMI result Body Mass Index 30.1 Tobacco/Smoking Status: Tobacco use Status Tobacco use date assessed 06/08/25 07/20/25 12:59 Patient Tobacco Use Status Current everyday Tobacco 07/20/25 12:59 Tobacco use type Cigarette 07/20/25 12:59 e-Cigarette/Vaping Use Never Used 07/20/25 12:59 PHQ-9: PHQ-9 Score PHQ-9: Total score 12 07/20/25 13:13 Depression Screening Interpretation: Positive Thrive Assessment: Date of Thrive Assessment Date Thrive assessed 02/14/25 07/20/25 12:59 Currently or been in a relationship where the following occur: No concerns reported Narrative Physical Exam - Vitals: Blood pressure noted to be well-controlled. - Heart: Regular rate and rhythm. - Lungs: Auscultation findings noted as not being 'pretty good.' - Head/Ears: External auditory canals are clean bilaterally. No pain with manipulation of the pinna. 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: without [facility] use Paroxysmal atrial flutter I48.92 Essential hypertension I10 Hypertension type: essential hypertension Hypercholesterolemia E78.00 Major depressive disorder, recurrent severe without psychotic features F33.2 Gastroesophageal reflux disease without esophagitis K21.9 Esophagitis presence: without esophagitis Lumbar degenerative disc disease M51.36 Pulmonary emphysema, unspecified emphysema type J43.9 COPD type: emphysema Emphysema type: unspecified Obstructive sleep apnea G47.33 Personal history of nicotine dependence Z87.891 Hearing difficulty H91.90 Obesity (BMI 30.0-34.9) E66.811 Assessment & Plan Assessment & Plan (1) Type 2 diabetes mellitus with hyperglycemia: Comment: (diet managed, DM eye exam 05/29/21) [facility] Code(s): E11.65 - Type 2 diabetes mellitus with hyperglycemia Category: Medical Qualifiers: Diabetes mellitus [facility] insulin use: without terminal gauger supervisor use Qualified Code(s): E11.65 - Type 2 diabetes mellitus with hyperglycemia Plan: Decrease the amount of carbohydrate intake, pasta, bread, rice and potatoes are all sugar and that is aside from all the sweet stuff, remember that fruits are good but they are Sweet also. Hemoglobin A1c goal of less than 7.0. Patient is at goal on diet (2) Paroxysmal atrial flutter: Comment: (hx synch cardioversion 2017) Code(s): I48.92 - Unspecified atrial flutter Category: Medical Plan: Patient on apixaban 5 mg twice a day continuing with metoprolol at 50 mg twice a day (3) Hypertension: Code(s): I10 - Essential (primary) hypertension Category: Medical Qualifiers: Hypertension type: essential hypertension Qualified Code(s): I10 - Essential (primary) hypertension Plan: Continue with blood pressure medication. Decrease salt intake and exercise metoprolol 50 mg twice a day lisinopril 5 mg once a day (4) Hypercholesterolemia: Code(s): E78.00 - Pure hypercholesterolemia, unspecified Category: Medical Plan: Avoid fried foods, chicken skin, eggs, butter margarine, pastries and meat. Be it pork or beef they have a lot of cholesterol LDL goal of less than 100 and triglyceride of less than 150 on atorvastatin 80 mg once a day (5) Major depressive disorder, recurrent severe without psychotic features: Code(s): F33.2 - Major depressive disorder, recurrent severe without psychotic features Category: Medical Plan: Continue with counseling and therapy does have alprazolam as needed Wellbutrin and sertraline (6) GERD (gastroesophageal reflux disease): Code(s): K21.9 - Gastro-esophageal reflux disease without esophagitis Category: Medical Qualifiers: Esophagitis presence: without esophagitis Qualified Code(s): K21.9 - Gastro-esophageal reflux disease without esophagitis Plan: Avoid the foods that causes that usually spicy foods, tomato products, juices, coffee, soda and foods that your sensitive to. After eating do not lie down, allow 3-4 hours before in lie down. And keep the head of bed above 30 degrees to avoid the acid from going up. (7) Lumbar degenerative disc disease: Code(s): M51.36 - Other intervertebral disc degeneration, lumbar region Category: Medical Plan: Keep active lose the weight do stretches. (8) COPD (chronic obstructive pulmonary disease): Code(s): J44.9 - Chronic obstructive pulmonary disease, unspecified Category: Medical Qualifiers: COPD type: emphysema Emphysema type: unspecified Qualified Code(s): J43.9 - Emphysema, unspecified Plan: Continuing with the inhalers as needed (9) Obstructive sleep apnea: Comment: Sleep study done 12/28/2024 severe obstructive sleep apnea with an AHI of 41 advised CPAP therapy auto PAP 6-20 cm water Code(s): G47.33 - Obstructive sleep apnea (adult) (pediatric) Category: Medical Plan: Continue to use the CPAP more than 4 hours a night and benefits from this. (10) Personal history of nicotine dependence: Comment: (onset 12, 1-1.5ppd x 59yrs on/off, 50pyh, quit 07/2021), October 2024 lung cancer screening Code(s): Z87.891 - Personal history of nicotine dependence Category: Medical Plan: Patient is up to date with lung cancer screening program (11) Hearing difficulty: Code(s): H91.90 - Unspecified hearing loss, unspecified ear Category: Medical (12) Obesity (BMI 30.0-34.9): Code(s): E66.811 - Obesity, class 1 Category: Medical Plan Plan Patient was informed and verbally consented to the use of an ambient scribe for clinic note documentation during this visit. 1. Diabetes Mellitus The patient's hemoglobin A1c is 5.9%, which meets the goal of less than 7.0%. The condition is managed with diet only. Will continue current management. 2. Atrial Fibrillation Continue apixaban 5 mg twice a day for anticoagulation. Continue metoprolol 50 mg twice a day for rate control. 3. Hypertension The patient's blood pressure is well controlled. Continue metoprolol 50 mg twice a day and lisinopril 5 mg once a day. 4. Hypercholesterolemia The patient's LDL cholesterol is at the goal of less than 100 mg/dL. Continue atorvastatin 80 mg once a day. 5. Major Depressive Disorder And Anxiety Continue current medications, which include bupropion and sertraline, with alprazolam as needed. The patient is encouraged to continue with counseling and therapy. 6. Obstructive Sleep Apnea Encourage continued use of the CPAP machine for more than 4 hours per night to derive benefit. 7. Chronic Obstructive Pulmonary Disease Continue use of inhalers as needed. 8. Musculoskeletal Pain For back and knee pain, advise the patient to stay active, lose weight, and perform stretches. Topical Voltaren gel can be used for symptomatic relief. Orthopedic injections for back pain are an option if desired. 9. Elevated Vitamin B12 The patient's vitamin B12 level is excessively high. Advised to reduce B12 supplementation to once a week. 10. Hearing Loss The patient reports subjective hearing difficulty. Physical examination showed clean ear canals. A referral will be placed for a formal hearing test. Discussion Notes I reviewed the patient's recent lab results from May. I explained that blood sugar (HbA1c 5.9%) and cholesterol (LDL 86) are at goal. I noted the high vitamin B12 level and advised reducing supplementation to once weekly, clarifying it is different from the vitamin B1 which was for prior alcohol abuse. We discussed health maintenance, confirming that screenings for colon, breast, and lung cancer are up to date and that a repeat bone density scan is not urgent. I recommended the two-part shingles vaccine series. Regarding the patient's joint pain, I explained the diagnosis of pseudogout in the knee and recommended topical Voltaren gel. For the back pain, I explained it is related to degenerative changes and posture, and mentioned orthopedic injections as a future option. In response to the patient's concerns about hearing, I performed an ear exam which was normal and initiated a referral for a formal hearing test to further evaluate. I also encouraged the patient to re-engage with counseling for mental health support. Patient Instructions - Continue taking all your current medications as prescribed for your blood pressure, cholesterol, diabetes, and mood. - Your blood sugar and cholesterol are well-controlled. Keep up with your current diet. - Your Vitamin B12 level is too high. If you are taking a B12 supplement, please reduce your dose to only once per week. - Continue to use your CPAP machine every night for at least 4 hours to help with your sleep apnea. - For your back and knee pain, stay active with your daily walks and do gentle stretches. You may use Voltaren gel on the painful areas for relief. - We recommend you get the two-part shingles vaccine, which you can get at a pharmacy. - We will put in a referral for a hearing test. The hearing center will call you to schedule an appointment. - Consider restarting counseling to help with your mood. It can be very helpful. - You do not need any new blood work at this time. Your last labs from May were fine. Orders: Referrals Speech and Hearing Referral H91.90 - Unspecified hearing loss, unspecified ear Psychiatry Referral F41.1 - Generalized anxiety disorder Medications: New tirzepatide (Mounjaro) for 4 weeks 2.5 mg (0.5 mL) subcut QWEEK 2 mL 3RF E11.65 - Type 2 diabetes mellitus with hyperglycemia
== END 2025-07-20 13:31 | disposition home or self-care (01) ==
LOC: HO.HMCH 12:56
PROVIDERS: PCP Internal Medicine; Visit Provider Internal Medicine
DX: E11.65 Type 2 diabetes mellitus with hyperglycemia (principal); I48.92 Unspecified atrial flutter; J43.9 Emphysema, unspecified; F33.2 Major depressive disorder, recurrent severe without psychotic features; E78.00 Pure hypercholesterolemia, unspecified; K21.9 Gastro-esophageal reflux disease without esophagitis; M51.369 Other intervertebral disc degeneration, lumbar region without mention of lumbar back pain or lower extremity pain; I10 Essential (primary) hypertension; G47.33 Obstructive sleep apnea (adult) (pediatric); Z87.891 Personal history of nicotine dependence; H91.90 Unspecified hearing loss, unspecified ear; E66.811 Obesity, class 1; Z68.31 Body mass index [BMI] 31.0-31.9, adult

== ENCOUNTER → 2025-07-20 12:55 | Outpatient (BNVA) | payer MEDICARE, SELFPAY | PROVIDERS: PCP Internal Medicine; Visit Provider Internal Medicine | DX: E11.65 Type 2 diabetes mellitus with hyperglycemia (principal); I48.92 Unspecified atrial flutter; I10 Essential (primary) hypertension; E78.00 Pure hypercholesterolemia, unspecified; F33.2 Major depressive disorder, recurrent severe without psychotic features; K21.9 Gastro-esophageal reflux disease without esophagitis; M51.369 Other intervertebral disc degeneration, lumbar region without mention of lumbar back pain or lower extremity pain; J43.9 Emphysema, unspecified; G47.33 Obstructive sleep apnea (adult) (pediatric); H91.90 Unspecified hearing loss, unspecified ear; E66.811 Obesity, class 1; Z87.891 Personal history of nicotine dependence; Z68.30 Body mass index [BMI] 30.0-30.9, adult | CPT/HCPCS: 96127; 99212 ==

== ENCOUNTER 2025-08-29 14:03 | Outpatient (AMB) | payer MEDICARE, SELFPAY ==
--- OUTSIDE RECORDS SUMMARY | 2024-04-05 04:15 | XMS_ITS ---
Author Organization [facility] Address [address] [place] [address] Care Team Providers Care Forest Worker Name Role Phone Lorenzo Oconnor Primary Care Provider UnavailNaveen Haro Unavailable [phone] Encounters Encounter Location Date Provider Diagnosis [address] [address] 04/05/2024 Naveen Hicks Plan Of Treatment Next Appt Details Provider Name:Naveen Hicks , 09/05/2025 09:30:00 AM, [address] [place] [address], [phone], Progress Notes * Kaylee SANTOS EDOB: [birth year] (75 yo F)Acc No.[id number]:04/05/2024 Progress Note Patient: Chela RUSSELL Kaylee Costa Provider: Igor Hicks DPM :1950 A ge:73 Y S ex:Female Date:04/05/2024 Address:[address] [place] [address] [id number] Pcp:Lorenzo Oconnor Subjective: * Chief Complaints: * [...] 04/05/2024 Generated for Alma louise/Bruno/Milton on: 1 05:52 PM EST
--- OUTSIDE RECORDS SUMMARY | 2024-12-12 05:40 | XMS_ITS ---
Author Organization [facility] Address [address] [place] [address] Care Team Providers Care Campaign Specialist Name Role Phone Po Lorenzo BRANNON Primary Care Provider Paige Nicole Unavailable [phone] REASON FOR VISIT screening,hx polyps Encounters Encounter Location Date Provider Diagnosis [facility] Out[facility] [address] [place] [phone] 12/12/2024 Paige Vasquez Colon cancer scree prateek [...] Progress Notes * PARADISE SANTOS EDOB: [birth year] (75 yo F)Acc No.[id number]:12/12/2024 COLON WITH MAC Patient: Chela RUSSELL PARADISE Costa Provider: Vance Vasquez MD :1950 A ge:74 Y S ex:Female Date:12/12/2024 [place] [facility] [place] Pcp:Lorenzo Oconnor MD Subjective: * Chief Complaints: * S creening,hx polyps Assessment: * Assessment: 1. C olon cancer screening - Z12.11 (Primary) 2 . C olon polyps - K63.5? 3. D iverticulosis of large intestine without perforation or abscess without bleeding - K57.30 4 . O ther hemorrhoids - K64.8 Plan: * Procedure Codes: 4 5385 LESION REMOVAL [id number] COLONOSCOPY AND BIOPSY, Modifiers: 59 0529F INTRVL 3+YRS PTS CLNSCP [id number] RCMND FLW-UP 10 YRS DOCD Billing Information: * Procedure Codes: 96772 LESION REMOVAL COLONOSCOPY. 29454 COLONOSCOPY AND BIOPSY. Modifiers: 59 0529F INTRVL 3+YRS PTS CLNSCP DOCD. 0528F RCMND FLW-UP 10 YRS DOCD. * The named appointment provid er may or may not be the originator of this progress note, and it is not deemed complete until electronically signed by the appointment provider. Sign off status: Pending * Provider: Vance Vasquez MD Date: 0 12/12/2024 Generated for Alma louise/Bruno/Derekitting on: 05:51 PM EST
--- OUTSIDE RECORDS SUMMARY | 2024-12-30 04:15 | XMS_ITS ---
Author Organization [facility] Address [address] [place] [address] Care Team Providers Care Color Drum Worker Name Role Phone Lorenzo Oconnor Primary Care Provider UnavailNaveen Haro Unavailable [phone] Ny Encounters Encounter Location Date Provider Diagnosis [address] [address] 12/30/2024 Naveen Hicks Plan Of Treatment Next Appt Details Provider Name:Naveen Hicks , 09/05/2025 09:30:00 AM, [address] [place], [address], Progress Notes * Kaylee SANTOS EDOB: [birth year] (75 yo F)Acc No.[id number]:12/30/2024 Progress Note Patient: Chela Kaylee WELLS Provider: Igor Hicks DPM :1950 A ge:74 Y S ex:Female Date:12/30/2024 Address:[address] [place] [address] [place], [place] Pcp:Lorenzo Oconnor Subjective: * Chief Complaints: * [...] 0 12/30/2024 Generated for Alma louise/Bruno/Milton on: 05:51 PM EST
--- NOTE | 2025-08-29 14:25 | A.OFFPSYCH_ITS ---
Intake Intake Visit Reasons: f/u consultation Thin Film Technician Required: No Allergies Sulfa (Sulfonamide Antibiotics) (SULFA (SULFONAMIDE ANTIBIOTICS)) Allergy (Unknown, Verified 07/20/25 12:59) RASH Medication List - Last Reconciled 08/29/25 by Maribel Inman, HECTOR alprazolam 0.25 mg PO BID PRN apixaban (Eliquis) 5 mg PO BID atorvastatin 80 mg PO DAILY [AUTOPAP 6-20 cm H2) humidified AIR Sleep study done 12/28/2024 severe obstructive sleep apnea with an AHI of 41 advised CPAP therapy auto PAP 6-20 cm water] blood sugar diagnostic As directed check the blood sugar once a day blood sugar diagnostic (Narrative Science Ultra Test strips) As directed check the blood sugar twice a day bupropion HCl XL 300 mg (2 x 150 mg) PO QAM 90 days calcium carbonate-vitamin D3 600 mg-5 mcg (200 unit) (Calcium 600 + D(3)) 1 cap PO BID [Diabetic shoes and inserts As directed] flecainide 100 mg PO Q12H 90 days lancets (WebNotesuch Delica Plus Lancet) As directed levothyroxine (Synthroid) 75 mcg PO DAILY lisinopril 5 mg PO DAILY 90 days [magnesium 200 mg PO] metoprolol succinate ER 25 mg PO BID omeprazole 20 mg PO DAILY oxycodone-acetaminophen 5-325 mg (Percocet) 1 tab PO .QD PRN 30 days ropinirole 0.25 mg PO BEDTIME sertraline 200 mg (4 x 50 mg) PO DAILY 90 days tirzepatide (Mounjaro) 2.5 mg (0.5 mL) subcut QWEEK zolpidem 10 mg PO BEDTIME PRN 90 days HPI- Psychiatric Chief Complaint: f/u consultation HPI Narrative: pt is here for follow up re: depression and anxiety. reports mood is improved; she had high anxiety before Bruce but managed well. d at times; She still worries and feels irritable but she says some improvement. She reports she has some good days. Pt reports her is tolerating the treatment for liver cancer and he goes for a repeat scan next month. she is optimistic. Her PHQ9 is 6. Her anxiety is also a 9 on the GAD7. She reports no side effects from zoloft. Denies SI or HI. Pt denies any episodes of alcohol abuse. She is sleeping better, appetite intact; socializing more; enjoying activities. Past Psychiatric History: depression started age 22 or 23. No Hx of IPLOC no hxof suicide attempts. She did go to [facility] for services approx 5 yrs ago. Subjective Subjective Medication Compliance: Yes Side effects from medications: No Review of Systems Medical Review of Systems: unchanged Mental Status Exam Mental Status Exam Patient Appearance: Well Grooomed Patient Orientation: Person, Place, Time and Situation Level of Consciousness: Awake and Appropriate Patient Behavior: Appropriate, Talkative, Cooperative and Good Eye Contact Mood Description: Depressed, Anxious and Sad Affect Description: Depressed, Anxious and Sad Patient Cognition Impaired: No Ability to Follow Directions: Good Speech Pattern: Clear and Appropriate Memory Description: Intact Hallucinations: None Delusions: Not Present Thought Process: Intact and Goal Oriented Thought Content: positive for Intact and positive for Goal Oriented Judgement: Good Assessment and Plan Assessment & Plan (1) Major depressive disorder, recurrent severe without psychotic features: Status: Acute Code(s): F33.2 - Major depressive disorder, recurrent severe without psychotic features Plan Continue zoloft 200mg daily continue wellbutrin 300mg daily continue ambien 5mg at bedtime (pt taking only half tab) continue xanax 0.25 mg BID prn severe anxiety- pt not taking it often will see in 8 weeks and then refer back to PCP at that time if stable Counseling and coordination of Care Pt. Self Management counseling: Maintenance-social rhythm, Mindfulness, Mod caffeine/ETOH intake, Sleep hygiene, Behavior activation and General coping skills Medication management counseling: Effectiveness, Side effects, Dosing range, Duration, Drug interaction and Adherence Diagnosis and Prognosis Counseling: Accuracy of diagnosis, Prognosis over time, Impact of diagnosis on life functions, Impact of family relationship, Problematic behaviors secondary to diagnosis and Adequacy of current interventions Details: I spent 30 minutes reviewing the record, seeing the patient and documenting in the medical record. Counseling provided to the patient/caregiver as outlined below. Addressed patient/caregiver concerns regarding current medication regime including effective adherence. Addressed patient/caregiver concerns regarding diagnosis and prognosis including accuracy of diagnosis, prognosis over time, impact of diagnosis. Addressed patient/caregiver concerns regarding impact of recent stressors. [facility] Medical History Atrial fibrillation Arthritis Lumbar spinal stenosis Wrist pain, left Radiculitis of left cervical region DJD of left shoulder Fall Cervical spondylosis Wrist pain Gait instability Tendonitis of both rotator cuffs Depression Tubular adenoma of colon Personal history of nicotine dependence Generalized anxiety disorder Paroxysmal atrial flutter Lumbar degenerative disc disease Obstructive sleep apnea Restless leg syndrome Hiatal hernia Hip osteoarthritis Vitamin D deficiency Type 2 diabetes mellitus with hyperglycemia Allergic rhinitis Insomnia PFO (patent foramen ovale) Hypercholesterolemia COPD (chronic obstructive pulmonary disease) Hypertension GERD (gastroesophageal reflux disease) Hypothyroidism Surgical History History of vocal cord polypectomy History of bladder suspension procedure Hx of carpal tunnel repair Hx of section History of tonsillectomy History of bilateral breast reduction surgery History of carpal tunnel surgery History of lumbar surgery History of hysterectomy History of right breast biopsy (~2016) History of hand surgery (~2011) History of esophagogastroduodenoscopy (EGD) (~2004) History of colonoscopy (~2018) History of cardioversion (~2017) History of foot surgery (~2017) Family History Father Diabetes Hypertension CVD (cardiovascular disease) Mother Cervical cancer Stroke Social History Housing: House Are you a primary hospice home care coordinator to a significant other at home: No Do you presently have visiting nurse or other home services: No Alcohol intake: current Alcohol intake frequency: a few times a week Patient Tobacco Use Status: Current everyday Tobacco user Tobacco use type: Cigarette Cigarettes Per Day: 5 Years Smoked: 57yrs, onset 12, on and off, 1-1.5ppd, 50pyh, quit 07/31/2021 e-Cigarette/Vaping Use: Never Used Second Hand Smoke Exposure: No service: No 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al status: employed 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
--- OUTSIDE RECORDS SUMMARY | 2025-08-29 17:52 | XMS_ITS | Patient Health Record ---
Author Organization [facility] Address [address] [place] [address] Care Team Providers Care Pipeman Name Role Phone Lorenzo Oconnor MD Primary Care Provider Paige Nicole Unavailable [phone] Allergies Allergen (clinical drug ingredient) Drug/Non Drug Allergy documented on EMR Reaction Allergy Type Onset Date Status Sulfa Unknown Drug Allergy Active Results Component Value Reference Range Notes Pathology Reviewed date:01/03/2025 11:07:51 AM Interpretation: Performing Lab:[facility], [address] [place] [id number] Notes/Report: Reason For Referral No Information Medications [...] water, orange juice, lemonade, christiano barrie or lemon/hopi soda Orally Once a day; Duration: 30 [...] Problem Screening for malignant neoplasm of colon (249751930) Encounter for screening for malignant neoplasm of colon (Z12.11) Active confirmed Problem History of adenomatous polyp of colon (639224845) History of adenomatous polyp of colon (Z86.010) Active confirmed Problem Preprocedural examination (710567477784243) Preprocedural examination (Z01.818) Active confirmed Problem Long-term current use of anticoagulant (517606313) Anticoagulant long-term use (Z79.01) Active confirmed Problem Incontinence of feces (35037069) Incontinence of feces, unspecified fecal incontinence type (R15.9) Active confirmed Vital Signs Temperature 97.7 degrees Fahrenheit 09/01/2024 Blood pressure diastolic 00 mm Hg 09/01/2024 Height 60 in 09/01/2024 Blood pressure systolic 000 mm Hg 09/01/2024 Weight 157 lb 8 oz lbs 09/01/2024 BMI 30.76 kg/m2 09/01/2024 Encounters Encounter Location Date Provider Diagnosis [facility] [place] [address] [place], [place] [id number] 12/12/2024 Paige Vasquez Colon cancer screeni ng Z12.11 ; Colon polyps K63.5 ; Diverticulosis of large intestine without perforation or abscess without bleeding K57.30 and Other hemorrhoids K64.8 [facility] [address] [place] [address] 09/01/2024 Paige Vasquez History of adenomato us [...] Date [employer] [address] [place], [place] [id number] PARADISE SANTOS Self - patient is the [...]
--- OUTSIDE RECORDS SUMMARY | 2025-08-29 17:52 | XMS_ITS | Patient Health Record ---
Author Organization [facility] Address [address] [facility] [place] [address] Care Team Providers Care Mushroom Laborer Name Role Phone Lorenzo Oconnor Primary Care Provider Naveen Diamond Unavailable [phone] Allergies Allergen (clinical drug ingredient) Drug/Non Drug Allergy documented on EMR Reaction Allergy Type Onset Date Status Substance with sulfonamide structure and antibacterial mechanism of action (substance) Sulfa Antibiotics Unknown Drug Allergy Active Results Component Value Reference Range Notes HEMOGLOBIN A1C (GLYCOHEMOGLO BIN) Reviewed date:05/09/2025 09:28:26 [...] Problem Acquired hammer toe of right foot (42583368755028 05) Other hammer toe(s) (acquired), right foot (M20.41) Active confirmed Response to treatment,I mprovement Problem Acquired hammer toe of left foot (01569517280707 03) Other hammer toe(s) (acquired), left foot (M20.42) Active confirmed Response to treatment,I mprovement Problem Type II diabetes mellitus without complication (719190580) Type 2 diabetes mellitus without complication (E11.9) Active confirmed Vital Signs Blood pressure diastolic 70 mm Hg 05/09/2025 Height 5ft in 05/09/2025 Blood pressure systolic 120 mm Hg 05/09/2025 Weight 150 lbs 05/09/2025 BMI 29.29 kg/m2 05/09/2025 Procedures Procedure Date Ordered Date Performed Result Body Sit e 95301-MZEQZOY NAIL, 6 OR MORE 09/02/2024 N/A [id number] NAIL, 6 OR MORE 01/10/2025 N/A [id number] NAIL, 6 OR MORE 05/09/2025 N/A Encounters Encounter Location Date Provider Diagnosis [address] [address] 09/02/2024 Naveen Fabiola Pain in right toe(s) M79.674 ; Tinea unguium B35.1 ; Pain in left toe(s) M79.675 ; Type 2 diabetes mellitus without complication E11.9 ; Other hammer toe(s) (acquired), right foot M20.41 and Other hammer toe(s) (acquired), left foot M20.[address] [address] 01/10/2025 Naveen Fabiola Pain in right toe(s) M79.674 ; Tinea unguium B35.1 ; Pain in left toe(s) M79.675 ; Type 2 diabetes mellitus without complication E11.9 and Xerosis of skin L85.[address] [address] 05/09/2025 Naveen Fabiola Pain of toe of [...] Treatment Pending Test Test Name Order Date [id number] NAIL, 6 OR MORE 12/28/2020 [id number] NAIL, 6 OR MORE 04/03/2023 [id number] NAIL, 6 OR MORE 08/21/2023 [id number] NAIL, 6 OR MORE 12/18/2023 [id number] NAIL, 6 OR MORE 05/03/2024 [id number] NAIL, 6 OR MORE 09/02/2024 [id number] NAIL, 6 OR MORE 01/10/2025 [id number] NAIL, 6 OR MORE 05/09/2025 Next Appt Details Provider Name:Naveen Hicks , 09/05/2025 09:30:00 AM, [address] [place], [address], Insurance Providers Payer Name Payer Address Payer Phone Subscriber Number Group Number Insured Name Patient Relationship to Insured Coverage Start Date Coverage End Date [facility] 65 Medicare Preferred [address] [place] [address] [id number] Kaylee Amaral Self - patient is the insured Medical (General) History Medical History History ICD Code Anemia Anxiety Arthritis Back pain Cataracts Depression Diabetic Headaches Numbness Reflux ( GERD) Sciatica Sinus conditions thyroid Measles Chicken pox Surgical History Surgery Date(Month/Year) bunionectomy hammer toe Lower back surgery carpal tunnel surgery x2 hysterectomy breast reduction wrist surgery
== END 2025-08-29 14:38 | disposition home or self-care (01) ==
LOC: HO.HOP 14:03
PROVIDERS: PCP Internal Medicine; Visit Provider Clinical Nurse Specialist Psychiatric/Mental Health
DX: F33.2 Major depressive disorder, recurrent severe without psychotic features (principal)
CPT/HCPCS: 99214

== ENCOUNTER → 2025-08-29 14:03 | Outpatient (BNVA) | payer MEDICARE, SELFPAY | PROVIDERS: PCP Internal Medicine; Visit Provider Clinical Nurse Specialist Psychiatric/Mental Health | DX: F33.2 Major depressive disorder, recurrent severe without psychotic features (principal); Z79.899 Other long term (current) drug therapy; Z71.89 Other specified counseling | CPT/HCPCS: 99212 ==